=== PATIENT | male | born 1990 | race Caucasian/White ===

== ENCOUNTER → 2018-01-04 10:57 | Outpatient (CLI) | payer BC, SELFPAY ==
[2018-01-04 11:57] LABS: Amphetamine Urine VISTA NEGATIVE (<1000 ng/mL); Barbiturate Urine VISTA NEGATIVE (< 200 ng/mL); Benzodiazepine Urine VISTA NEGATIVE (< 200 ng/mL); Cocaine Urine VISTA NEGATIVE (< 300 ng/mL); Ecstacy Urine VISTA NEGATIVE (< 500 ng/mL); Methadone Urine VISTA NEGATIVE (< 300 ng/mL); PCP Urine VISTA NEGATIVE (< 25 ng/mL); THC Urine VISTA NEGATIVE (< 50 ng/mL); Vista UDS pH Range 5
--- NOTE | 2018-01-04 17:28 | MRI_ITS ---
STUDY: MRI LUMBAR SPINE WITHOUT CONTRAST REASON FOR EXAM: Male, 27 years old. Chronic low back pain for 3 years radiating to hips. TECHNIQUE: Standardized fat and water weighted pulse sequences were obtained in the sagittal and axial planes. COMPARISON: None FINDINGS: T12-L1: Normal endplates. Normal disc height, hydration and morphology. Normal bilateral facet joints. Normal central canal and bilateral lateral recesses. Normal bilateral intervertebral neural foramina. Normal lumbar lordosis. There is no substantial scoliosis. Normal conus medullaris that terminates at the L1-2: Normal endplates. Normal disc height, hydration and morphology. Normal bilateral facet joints. Normal central canal and bilateral lateral recesses. Normal bilateral intervertebral neural foramina. L2-3: Normal endplates. Normal disc height, hydration and morphology. Normal bilateral facet joints. Normal central canal and bilateral lateral recesses. Normal bilateral intervertebral neural foramina. L3-4: Disc desiccation and mild decreased disc space with central to right paracentral disc protrusion resulting in moderate right lateral recess narrowing without significant foraminal narrowing. Mild to moderate spinal canal narrowing at this level is also noted. L4-5: Normal endplates. Normal disc height, hydration and morphology. Normal bilateral facet joints. Normal central canal and bilateral lateral recesses. Normal bilateral intervertebral neural foramina. L5-S1: Decreased disc space and disc desiccation with minimal disc bulge without associated spinal canal narrowing or foraminal narrowing. Normal visualized sacral ala. Normal visualized paraspinous soft tissue structures. MRI/Spine Lumbar (Routine) IMPRESSION: 1. L3/4 degenerative disc changes and central to right paracentral disc protrusion resulting in moderate right lateral recess narrowing and mild to moderate spinal canal narrowing, clinically correlate for right descending L4 nerve root radiculopathy. Electronically Signed: Charanjit Leung DO at 21:18 EDT , Service support ,
== END ==
PROVIDERS: Family Provider Preventive Medicine Occupational Medicine; PCP Preventive Medicine Occupational Medicine; Visit Provider Anesthesiology Pain Medicine
DX: M54.9 Dorsalgia, unspecified (principal); F11.20 Opioid dependence, uncomplicated
CPT/HCPCS: 72148; 80307

== ENCOUNTER → 2018-04-27 13:54 | Outpatient (CLI) | payer BC, SELFPAY ==
[2018-04-27 15:17] LABS: Amphetamine Urine VISTA NEGATIVE (<1000 ng/mL); Barbiturate Urine VISTA NEGATIVE (< 200 ng/mL); Benzodiazepine Urine VISTA NEGATIVE (< 200 ng/mL); Cocaine Urine VISTA NEGATIVE (< 300 ng/mL); Ecstacy Urine VISTA NEGATIVE (< 500 ng/mL); Methadone Urine VISTA NEGATIVE (< 300 ng/mL); PCP Urine VISTA NEGATIVE (< 25 ng/mL); THC Urine VISTA NEGATIVE (< 50 ng/mL); Vista UDS pH Range 5
== END ==
PROVIDERS: Family Provider Preventive Medicine Occupational Medicine; PCP Preventive Medicine Occupational Medicine; Visit Provider Anesthesiology Pain Medicine
DX: F11.20 Opioid dependence, uncomplicated (principal)
CPT/HCPCS: 80307

== ENCOUNTER → 2018-12-06 10:11 | Outpatient (CLI) | payer BC, SELFPAY ==
[2018-12-06 09:59] VITALS: BMI 44.0
--- NOTE | 2018-12-06 10:12 | RAD_ITS ---
STUDY: X-RAY - LEFT KNEE REASON FOR EXAM: Male, 28 years old. Postoperative examination. TECHNIQUE: AP and lateral weightbearing view(s) of the knee. COMPARISON: None. FINDINGS: A metallic prosthesis seen overlying the anterior aspect of the femur. Normal visualized proximal tibia and fibula. Normal proximal tibiofibular articulation. Normal medial femorotibial compartment. Normal lateral femorotibial compartment. There is evidence of postsurgical changes along the undersurface of the patella. Small joint effusion. RAD/Knee 4 or More Views IMPRESSION: Postoperative changes along the undersurface of the patella as well as a focal prosthesis in the anterior aspect of the distal femur. Small joint effusion. Electronically Signed: José Miguel Maurer, at 9:08 EDT , Service support ,
--- NOTE | 2018-12-06 10:12 | RAD_ITS ---
STUDY: X-RAY - RIGHT KNEE REASON FOR EXAM: Male, 28 years old. Pain. TECHNIQUE: 4 view(s) of the knee. COMPARISON: None. FINDINGS: Metallic prosthesis seen along the anterior aspect of the distal femur. 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 Normal visualized proximal tibia and fibula. Normal proximal tibiofibular articulation. Normal medial femorotibial compartment. Normal lateral femorotibial compartment. Postsurgical changes in the undersurface of the patella. Small joint effusion. RAD/Knee 4 or More Views IMPRESSION: Postoperative changes as described. Small joint effusion. Electronically Signed: José Miguel Maurer, at 9:11 EDT , Service support ,
== END ==
LOC: HPRAD 10:12
PROVIDERS: Family Provider Preventive Medicine Occupational Medicine; PCP Preventive Medicine Occupational Medicine; Referring Provider Orthopaedic Surgery; Visit Provider Orthopaedic Surgery
DX: M25.561 Pain in right knee (principal); M25.562 Pain in left knee
CPT/HCPCS: 73564

== ENCOUNTER → 2018-12-21 09:39 | Outpatient (CLI) | payer BC, SELFPAY ==
[2018-12-06 09:59] VITALS: BMI 44.0
[2018-12-21 11:12] LABS: Amphetamine Urine VISTA NEGATIVE (<1000 ng/mL); Barbiturate Urine VISTA NEGATIVE (< 200 ng/mL); Benzodiazepine Urine VISTA NEGATIVE (< 200 ng/mL); Cocaine Urine VISTA NEGATIVE (< 300 ng/mL); Ecstacy Urine VISTA NEGATIVE (< 500 ng/mL); Methadone Urine VISTA NEGATIVE (< 300 ng/mL); PCP Urine VISTA NEGATIVE (< 25 ng/mL); THC Urine VISTA NEGATIVE (< 50 ng/mL); Vista UDS pH Range 6
== END ==
PROVIDERS: Family Provider Preventive Medicine Occupational Medicine; PCP Preventive Medicine Occupational Medicine; Referring Provider Anesthesiology Pain Medicine; Visit Provider Anesthesiology Pain Medicine
DX: F11.20 Opioid dependence, uncomplicated (principal)
CPT/HCPCS: 80307

== ENCOUNTER → 2019-03-02 09:20 | Outpatient (CLI) | payer BC, SELFPAY ==
[2018-12-06 09:59] VITALS: BMI 44.0
[2019-03-02 10:56] LABS: Amphetamine Urine VISTA NEGATIVE (<1000 ng/mL); Barbiturate Urine VISTA NEGATIVE (< 200 ng/mL); Benzodiazepine Urine VISTA NEGATIVE (< 200 ng/mL); Cocaine Urine VISTA NEGATIVE (< 300 ng/mL); Ecstacy Urine VISTA NEGATIVE (< 500 ng/mL); Methadone Urine VISTA NEGATIVE (< 300 ng/mL); PCP Urine VISTA NEGATIVE (< 25 ng/mL); THC Urine VISTA NEGATIVE (< 50 ng/mL); Vista UDS pH Range 6
== END ==
PROVIDERS: Family Provider Preventive Medicine Occupational Medicine; PCP Preventive Medicine Occupational Medicine; Referring Provider Anesthesiology Pain Medicine; Visit Provider Anesthesiology Pain Medicine
DX: F11.20 Opioid dependence, uncomplicated (principal)
CPT/HCPCS: 80307

== ENCOUNTER → 2020-02-27 10:21 | Outpatient (CLI) | payer BC, SELFPAY ==
[2018-12-06 09:59] VITALS: BMI 44.0
[2020-02-27 12:01] LABS: Amphetamine Urine VISTA NEGATIVE (<1000 ng/mL); Barbiturate Urine VISTA NEGATIVE (< 200 ng/mL); Benzodiazepine Urine VISTA NEGATIVE (< 200 ng/mL); Cocaine Urine VISTA NEGATIVE (< 300 ng/mL); Ecstacy Urine VISTA NEGATIVE (< 500 ng/mL); Methadone Urine VISTA NEGATIVE (< 300 ng/mL); PCP Urine VISTA NEGATIVE (< 25 ng/mL); THC Urine VISTA NEGATIVE (< 50 ng/mL); Vista UDS pH Range 6
== END ==
PROVIDERS: PCP Preventive Medicine Occupational Medicine; Referring Provider Anesthesiology Pain Medicine; Visit Provider Anesthesiology Pain Medicine
DX: F11.20 Opioid dependence, uncomplicated (principal)
CPT/HCPCS: 80307

== ENCOUNTER → 2021-01-30 13:56 | Outpatient (CLI) | payer BC, SELFPAY ==
[2021-01-30 14:57] LABS: Amphetamine Urine VISTA NEGATIVE (<1000 ng/mL); Barbiturate Urine VISTA NEGATIVE (< 200 ng/mL); Benzodiazepine Urine VISTA NEGATIVE (< 200 ng/mL); Cocaine Urine VISTA NEGATIVE (< 300 ng/mL); Ecstacy Urine VISTA NEGATIVE (< 500 ng/mL); Methadone Urine VISTA NEGATIVE (< 300 ng/mL); PCP Urine VISTA NEGATIVE (< 25 ng/mL); THC Urine VISTA NEGATIVE (< 50 ng/mL); Vista UDS pH Range 6
== END ==
PROVIDERS: PCP Preventive Medicine Occupational Medicine; Referring Provider Anesthesiology Pain Medicine; Visit Provider Anesthesiology Pain Medicine
DX: F11.20 Opioid dependence, uncomplicated (principal)
CPT/HCPCS: 80307

== ENCOUNTER → 2021-06-26 11:30 | Outpatient (CLI) | payer BC, SELFPAY ==
[2021-06-26 13:09] LABS: Amphetamine Urine VISTA NEGATIVE (<1000 ng/mL); Barbiturate Urine VISTA NEGATIVE (< 200 ng/mL); Benzodiazepine Urine VISTA NEGATIVE (< 200 ng/mL); Cocaine Urine VISTA NEGATIVE (< 300 ng/mL); Ecstacy Urine VISTA NEGATIVE (< 500 ng/mL); Methadone Urine VISTA NEGATIVE (< 300 ng/mL); PCP Urine VISTA NEGATIVE (< 25 ng/mL); THC Urine VISTA NEGATIVE (< 50 ng/mL); Vista UDS pH Range 6
== END ==
PROVIDERS: PCP Preventive Medicine Occupational Medicine; Referring Provider Anesthesiology Pain Medicine; Visit Provider Anesthesiology Pain Medicine
DX: F11.20 Opioid dependence, uncomplicated (principal)
CPT/HCPCS: 80307

== ENCOUNTER → 2021-08-21 13:07 | Outpatient (CLI) | payer BC, SELFPAY ==
[2021-08-21 14:07] LABS: Amphetamine Urine VISTA NEGATIVE (<1000 ng/mL); Barbiturate Urine VISTA NEGATIVE (< 200 ng/mL); Benzodiazepine Urine VISTA NEGATIVE (< 200 ng/mL); Cocaine Urine VISTA NEGATIVE (< 300 ng/mL); Ecstacy Urine VISTA NEGATIVE (< 500 ng/mL); Methadone Urine VISTA NEGATIVE (< 300 ng/mL); PCP Urine VISTA NEGATIVE (< 25 ng/mL); THC Urine VISTA NEGATIVE (< 50 ng/mL); Vista UDS pH Range 5
== END ==
PROVIDERS: PCP Preventive Medicine Occupational Medicine; Referring Provider Anesthesiology Pain Medicine; Visit Provider Anesthesiology Pain Medicine
DX: F11.20 Opioid dependence, uncomplicated (principal)
CPT/HCPCS: 80307

== ENCOUNTER → 2022-04-30 | Outpatient (CLI) | payer BC, SELFPAY ==
[2022-04-30 13:33] LABS: Amphetamine Urine VISTA NEGATIVE (<1000 ng/mL); Barbiturate Urine VISTA NEGATIVE (< 200 ng/mL); Benzodiazepine Urine VISTA NEGATIVE (< 200 ng/mL); Cocaine Urine VISTA NEGATIVE (< 300 ng/mL); Ecstacy Urine VISTA NEGATIVE (< 500 ng/mL); Methadone Urine VISTA NEGATIVE (< 300 ng/mL); PCP Urine VISTA NEGATIVE (< 25 ng/mL); THC Urine VISTA NEGATIVE (< 50 ng/mL); Vista UDS pH Range 5
== END | disposition home or self-care (01) ==
PROVIDERS: PCP Preventive Medicine Occupational Medicine; Referring Provider Anesthesiology Pain Medicine; Visit Provider Anesthesiology Pain Medicine
DX: F11.20 Opioid dependence, uncomplicated (principal)
CPT/HCPCS: 80307

== ENCOUNTER 2023-02-09 08:00 | Outpatient (RCR) | payer BC, SELFPAY ==
--- NOTE | 2023-02-09 10:10 | BH.SGPN.GN ---
Behaviors/Verbalizations/Mental Status: [] Eye contact is good. Motor activity is appropriate. Appearance is casual. Speech is Appropriate. Mood is anxious. Affect is congruent. Thoughts are linear and logical. No evidence of psychosis. Client Response/Progress/Benefit: [] Client's first day in program and is getting adjusted to group environment. Attentive during psychoeducation on the six types of boundaries (physical, emotional, intellectual, sexual, time, and material) AEB note-taking. Group had interactive discussion on defining what a boundary is in mental health. Group identified challenges to setting boundaries which included; fear of hurting others, lack of confidence, not wanting confrontation, fear of upsetting others, and etc. Group identified the benefits to setting boundaries such as better mental health, increase self respect, increased time for self-care, and increased confidence. Group discussed the mental health benefits to establishing boundaries at work, school, and home. Client benefited from increased awareness and insight on the importance/benefit to setting health boundaries. Will continue in IOP to prevent decompensation, stabilize anxiety, and improve functioning. Narrative Note: []
--- NOTE | 2023-02-09 11:43 | BH.MTP ---
[facility] Treatment Plan - Patient Information Program Physician:: Dr. Annie Pruitt Primary Therapist:: BRENNA Le - Psychiatric Diagnoses Psychiatric Diagnoses:: 1. Bipolar, NOS (currently depressed). 2. Generalized anxiety disorder Diagnosis Code(s):: F 31.9 - Estimated LOS Estimated LOS (in weeks):: 6 Problem/Goal #1 - Problem/Goal #1 Stated Goal:: Pt will increase mood stability by reducing hopelessness, worthlessness, guilt, and suicidal ideations. Description of Barriers: Pt reports increased stress related to current housing and financial issues which has triggered increased suicidal ideations. Pt has many negative core beliefs about himself which reinforces mental health stigma, maintains unrealistic expectation of self, and has kept pt from seeking help in the past. Pt has some unresolved complicated grief associated with the loss of both of his parents in the last 5 years which is contributing to his depression and anxiety. Functional Impact: The patient is a 32-year-old male with a history of bipolar disorder and anxiety who presents to the [facility] behavioral health IOP program by outpatient psychiatrist for worsening anxiety and depression over the past 3 months. Shared anxiety has escalated to point of panic and resulted in pt seeking emergency tx through [facility] ED approx. 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 Primary stressors include managing his pain related to chronic knee problems, finances, and impending loss of housing due to foreclosure of his late father?s estate. Sorting through the estate has also been a major stressor. Pt endorses sadness, hopelessness, worthlessness and guilt, low energy, increased sleep, anhedonia, loss of enjoyment, increased appetite, rumination, and constant worry about the future. Patient has been trying to get disability since June 2022 which is an additional stressor. He has a history of chronic back and knee pain and has not worked since 2017 due to this. Goal Relevant Strengths/Supports: Pt is motivated, has outpatient therapy and psychiatry, and has a strong supportive relationship with his . - Objectives Objective #1 Stated Objective: Pt will learn and utilize 2-3 healthy coping strategies to better manage depressive symptoms and reduce suicidal ideations as shown by a decrease of DMS-5 symptoms for depression and SI. Interventions: Through group and individual sessions, therapist will help pt identify triggers and warning signs of depression and guilt including emotional, physical, and behavioral changes. Therapist will teach pt various coping skills to manage symptoms and give pt tangible resources to use to regulate emotions. Therapist will use cognitive restructuring techniques and help pt gain awareness of negative thoughts that reinforce guilt and depression. Therapist will provide psychoeducation on maintenance cycles and help pt learn ways to break unhealthy maintenance cycles. Therapist will help pt incorporate behavioral activation and assist pt in setting SMART goals. Discharge Criteria: Pt will have met this goal when can report learning and using at least 2 coping skills to manage depressive symptoms and reduce isolation. Additionally, pt will have met this goal when pt's DSM-5 scores for depression decrease. Target Date: 03/23/23 Review Date: 03/04/23 Objective #2 Stated Objective: Pt will identify at least 2-3 negative self-talk messages used to reinforce negative core beliefs, worthlessness, and isolation and replace thoughts with balanced, realistic messages. Interventions: Therapist will help pt identify distorted, negative beliefs about self and replace with more realistic, affirmative messages. Therapist will use CBT and DBT to help pt increase insight to the connection between thoughts, emotions, and behaviors. Therapist will encourage pt to practice thought challenging. Discharge Criteria: Pt will have achieved this goal when can verbalize at least 2 cognitive distortions and effectively replace those thoughts with affirmative messages. Target Date: 03/23/23 Review Date: 03/04/23 Problem/Goal #2 - Problem/Goal #2 Stated Goal:: Will reduce intensity of anxiety symptoms through increasing emotional regulation and distress tolerance skills Description of Barriers: Pt reports increased stress related to current housing and financial issues which has triggered increased suicidal ideations. Pt has many negative core beliefs about himself which reinforces mental health stigma, maintains unrealistic expectation of self, and has kept pt from seeking help in the past. Pt has some unresolved complicated grief associated with the loss of both of his parents in the last 5 years which is contributing to his depression and anxiety. Functional Impact: The patient is a 32-year-old male with a history of bipolar disorder and anxiety who presents to the [facility] behavioral health IOP program by outpatient psychiatrist for worsening anxiety and depression over the past 3 months. Shared anxiety has escalated to point of panic and resulted in pt seeking emergency tx through [facility] ED approx. 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 Primary stressors include managing his pain related to chronic knee problems, finances, and impending loss of housing due to foreclosure of his late father?s estate. Sorting through the estate has also been a major stressor. Pt endorses sadness, hopelessness, worthlessness and guilt, low energy, increased sleep, anhedonia, loss of enjoyment, increased appetite, rumination, and constant worry about the future. Patient has been trying to get disability since June 2022 which is an additional stressor. He has a history of chronic back and knee pain and has not worked since 2017 due to this. Goal Relevant Strengths/Supports: Pt is motivated, has outpatient therapy and psychiatry, and has a strong supportive relationship with his . - Objectives Objective #1 Stated Objective: Pt will identify 2-3 anxiety triggers and 2 coping skills to use when feeling anxious to manage anxiety as shown by reducing DSM-5 scores for anxiety Interventions: Therapist will provide education on anxiety, avoidance behaviors, and maintenance cycles. Therapist will help pt explore personal symptoms and warning signs of anxiety. Therapist will teach pt coping skills to improve emotional regulation, mindfulness, and distress tolerance to help pt cope with anxiety in the moment. Discharge Criteria: Pt will have accomplished this goal when he can identify at least 2 triggers and report using 2 coping skills to manage anxiety. Additionally, pt will have accomplished this goal AEB reduction of DSM-5 scores for anxiety. Target Date: 03/23/23 Review Date: 03/04/23 Objective #2 Stated Objective: Pt will increase ability to manage stressors and anxiety by gaining 2-3 distress tolerance skills. Interventions: Through group and individual therapy, pt will learn various coping skills to help manage stress and anxiety. Therapist will utilize DBT distress tolerance skills to increase awareness and give pt tools to more effectively manage anxiety. Therapist will provide psychoeducation on emotional regulation and help pt identify unhealthy coping skills she wants to change. Discharge Criteria: Pt will have accomplished this goal when can report improved ability to manage stressors and identify at least 2 distress tolerance skills. Target Date: 03/23/23 Review Date: 03/04/23
--- NOTE | 2023-02-09 11:43 | BH.PSA ---
Suicide Assessment Treatment Plan Recommendations
--- NOTE | 2023-02-09 11:43 | BH.MDN ---
Multi-Disciplinary Note - Note 45-min Individual Time Started:: 09:00 Date: 02/09/23 Purpose of session/treatment goals addressed:: Purpose of session was to build rapport, identify current symptoms and stressors, gather additional background information, and identify treatment goals for IOP. Eye Contact:: Good Motor Activity:: Appropriate Appearance:: Casual Speech:: Appropriate Mood:: Anxious, Depressed Affect:: Congruent Thoughts:: Linear, Logical, No evidence of hallucinations/delusions noted Staff Interventions:: motivational interviewing, psychoeducation on: - depression maintenance cycle, rapport building, strengths perspective, goal setting Client Response:: Pt responded well to session, open to meeting with therapist. Pt shared he recently was sent to the ED for a panic attack and given Ativan at the time which he had found to be effective. Reports this worked better than other things he had been trying but is aware that it is not a long-term solution and would like to find healthier ways of managing his anxiety and depressive sx. Reports struggling with anxiety for much of his life, particularly social anxiety, but feels his sx have significantly increased in the past 6 months. Pt reported his biggest stressors right now are finances, managing his stepfather?s estate which is at risk of foreclosure, trying to acquire housing, and managing his mental health symptoms. Pt stated his has been a major support for his mental health but pt often struggles with guild and feeling overly dependent on her. Shared this led to pt seeking outpatient counseling and psychiatry in November. Reports this helped for awhile until the bank mentioned foreclosure. 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 Pt reports his ultimate goal for IOP is to ?be a better me? by improving his sense of purpose in life, feel more connected, and to learn how to be less codependent with his . Pt responded well to emotional validation and support from therapist. Risks/Concerns:: Pt denies a hx of or current SI, plan, or intent. Pt is future oriented and motivated. Progress Toward Goals/Plan:: Pt's first day of IOP tx and pt reports being hopeful about treatment. Reports some anxiety about the group environment but willingness to try. Pt currently endorses severe anxiety and depression that is impacting his functioning and relationships. Pt reports lack of motivation, irritability, anxiety, and negative thinking. Pt will continue IOP tx to prevent decompensation, gain healthy coping skills, and improve daily functioning. Time Stopped:: 09:45
--- NOTE | 2023-02-09 14:39 | BH.COMM ---
Communication Note - Communication with Client Communication Note: Met with pt to complete initial paperwork. Reports no changes since intake assessment. Completed [place] Suicide screening which indicates low risk. Does not present as imminent danger due to no hx of or present active SI, contracts for safety, future-oriented, protective factors, and no hx of attempts. Consulted with Dr. Pruitt with plan to admit to IOP level of care with dx F33.2. F41.1
--- NOTE | 2023-02-11 09:00 | BH.SGPN.GN ---
Behaviors/Verbalizations/Mental Status: []Pt alert and oriented, casually dressed and groomed. Eye contact good. Motor activity WNL. Speech within normal limits. Affect congruent, mood anxious and depressed. Thoughts linear, logical, no signs of hallucinations or delusions. Reviewed pt?s symptom tracker and pt denies any active SI, plan, or intent. Client Response/Progress/Benefit: []Client responded well to session AEB listening attentively to peers and sharing thoughts and feelings. Client stated he couldn?t identify any wins because he hasn?t been doing anything. With support from therapist client identified getting to IOP this week as a win. Client stated he is dealing with numerous stressors currently that is negatively impacting his mental health. Client stated his family has to move out of his parents house because the savings account from his dad has ran out and they can?t afford to pay the missed payments. Client reported he is having difficult time cleaning out his parents house because of all the memories and grief that is brought up. He stated they are also having a difficult time finding an apartment that is affordable and accepts pets. Client seemed to benefit from support from peers. Will continue IOP tx to increase healthy coping, decrease anxiety, and prevent decompensation.
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
--- NOTE | 2023-02-11 11:12 | BH.SGPN.GN ---
Behaviors/Verbalizations/Mental Status: []Eye contact is good. Motor activity is appropriate. Appearance is casual. Speech is WNL. Mood is depressed and anxious. Affect is congruent. Thoughts are linear and logical. No evidence of psychosis. Client Response/Progress/Benefit: []Pt did well to remain an engaged participant AEB providing input during small group discussion and engaging in activity. Activity involved working with peers to answer questions related to psychoeducation on cognitive distortions and practicing reframing distorted thoughts. Pt collaborated with the group to determine the answers. Identified cognitive distortions pt personally struggles with the most as labelling, personalization, and emotional reasoning. Able to identify the impact distortions has on pt?s mental health. Benefited from rehearsing ways to challenge/reframe cognitive distortions and by gaining increased insight into examples/definitions of 10 most common cognitive distortions. Will continue IOP to improve anxiety management, challenge distorted thought patterns, and prevent decompensation. Narrative Note: []
[2023-02-11 11:35] VITALS: BP 151/92; PULSE 116
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
--- NOTE | 2023-02-11 13:04 | BH.DR.ITP ---
Initial Treatment Plan Patient Information Visit Information: ADMISSION DATE: EXPECTED LOS: 4-6 weeks Problems/Symptoms Problem #1:: Mood instability Symptom:: Depression, sadness, hopelessness, worthlessness, guilt, low energy, anhedonia, occasional impulsivity and grandiosity Problem #2:: Anxiety Symptom:: Worry, rumination, panic attacks
--- NOTE | 2023-02-13 09:05 | BH.SGPN.GN ---
Behaviors/Verbalizations/Mental Status: []Pt alert and oriented, disheveled appearance. Eye contact good. Motor activity appropriate. Speech within normal limits. Affect flat, mood depressed and anxious. Thoughts linear, logical, no signs of hallucinations or delusions. Reviewed pt?s symptom tracker, no risk for suicidal ideation, plan, or intent as of 02/13/23 Client Response/Progress/Benefit: []Pt responded well to session, attentive and engaged. Pt reports feeling stressed this morning because of packing and figuring out where his family is going to move. Group offered supportive statements that pt appeared to benefit from. Pt stated his mental health wins today are using opposite action to make an important phone call and getting out of the house with his and child to get ice cream. Pt appeared to benefit from peer feedback and social connection. Pt will continue IOP tx to prevent decompensation, combat distortions, and improve daily functioning. Narrative Note: []
--- NOTE | 2023-02-13 10:15 | BH.SGPN.GN ---
Behaviors/Verbalizations/Mental Status: []Pt alert and oriented, disheveled appearance. Eye contact good. Motor activity appropriate. Speech within normal limits. Affect congruent, mood anxious. Thoughts linear, logical, no signs of hallucinations or delusions. Client Response/Progress/Benefit: []Pt was an active participant in group discussions and activities. Attentive during psychoeducation. Pt engaged during interactive discussion in which the group defined self-care and discussed its benefits. ?Pt shared when he is not practicing self-care he becomes more grouchy. Worked with peers in a small group to identify myths related to self-care. Pt identified personal barrier of telling himself that he does not deserve it and that it is selfish which keeps pt from practicing self-care. Pt participated in small groups where they worked to bust these self-care myths. Benefited from increased awareness of self-care, its benefits, and the consequences of not utilizing self-care strategies. Will continue IOP tx to prevent decompensation, gain healthy coping skills, and reduce isolation. Narrative Note: []
--- NOTE | 2023-02-13 11:10 | BH.SGPN.GN ---
Behaviors/Verbalizations/Mental Status: []Pt alert and oriented, casually dressed and groomed. Eye contact fair. Motor activity appropriate. Speech within normal limits. Affect constricted, mood depressed and anxious. Thoughts linear, logical, no signs of hallucinations or delusions. Client Response/Progress/Benefit: []Pt engaged participant AEB providing input at times and listening attentively to others. . Participated in group discussion on the various areas of self-care. Pt completed worksheet identifying current self-care practices and what self-care activities pt wants to start using. Pt selected emotional self-care to begin practicing more consistently. Pt plans to do this by engaging in his hobbies and expressing his emotions more often. Appeared to benefit from completing the self-care evaluation and gaining insights into current self-care practices, as well as identifying areas in which pt would like to improve upon.?Pt is to continue IOP to improve daily functioning, increase healthy coping and prevent decompensation.
--- NOTE | 2023-02-16 10:10 | BH.SGPN.GN ---
Behaviors/Verbalizations/Mental Status: []Pt alert and oriented, casually dressed and groomed. Eye contact good. Motor activity appropriate. Speech within normal limits. Affect constricted, mood anxious and depressed. Thoughts linear, logical, no signs of hallucinations or delusions. Client Response/Progress/Benefit: []Pt was an active participant in group discussion and activity. Attentive during psychoeducation. Along with peers, pt was able to identify barriers to taking action. Identified several symptoms and stressors that he feels are holding him back from progress such as negative self-talk, low motivation, depression, and telling himself ?I?m not good enough?.? Stated these things have kept pt from making healthy changes, assuming things will never ?get better? and led to further isolation and avoidance. Pt shared that he wants to begin addressing the impact negative self-talk has had on his ability to take action. Benefited from increased self-awareness of obstacles. Will continue IOP tx to improve mood management, promote consistent skill application, and further reduce negative thinking. Narrative Note: []
--- NOTE | 2023-02-16 11:05 | BH.SGPN.GN ---
Behaviors/Verbalizations/Mental Status: []Pt alert and oriented, disheveled appearance. Eye contact good. Motor activity appropriate. Speech within normal limits. Affect congruent, mood depressed. Thoughts linear, logical, no signs of hallucinations or delusions. Client Response/Progress/Benefit: []Pt responded well to session, taking notes and participating in worksheet discussion. Pt connected with the zones of action/change and that making sustainable change comes from stepping out of one?s comfort zone into the learning zone. Pt set a goal to gain control over his negative self-talk. Pt reported plans to challenge himself to write one positive affirmation or good quality he has each day. Pt identified using journaling, Socratic questioning, and talking with his supports. Appeared to benefit from identifying a small goal to benefit mental health. Will continue IOP tx to prevent decompensation, gain healthy coping skills, and improve daily functioning. Narrative Note: []
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
--- NOTE | 2023-02-18 09:00 | BH.SGPN.GN ---
Behaviors/Verbalizations/Mental Status: []Pt alert and oriented, disheveled appearance. Eye contact good. Motor activity appropriate. Speech within normal limits. Affect congruent, mood depressed and anxious. Thoughts linear, logical, no signs of hallucinations or delusions. Reviewed pt?s symptom tracker, no risk for suicidal ideation, plan, or intent as of 02/18/23 Client Response/Progress/Benefit: []Pt responded well to session, attentive and receptive to group feedback. Pt reports feeling scared this morning as pt continues to feel overwhelmed about all the stressors in his life. Pt is currently coping with grief, having to move, getting rid of his parents' things, and managing his mental health. Pt receptive to peer support and ideas on how to cope with the stressors of moving. Pt stated that being here today is a mental health win because I had a bad week. Pt appeared to benefit from socializing today and processing his emotions. Pt will continue IOP tx to prevent decompensation, improve daily functioning, and increase self-care. Narrative Note: []
--- NOTE | 2023-02-18 14:29 | BH.MDN_ITS ---
Multi-Disciplinary Note - Note 60-min Individual Time Started:: 10:30 Date: 02/18/23 Purpose of session/treatment goals addressed:: Purpose of session was to check- in with pt as he abruptly left group session appearing tearful. Discussed importance of self-care and introduced mistaken beliefs. Eye Contact:: Good - tearful throughout Motor Activity:: Appropriate Appearance:: Casual Speech:: Appropriate Mood:: Anxious, Depressed Affect:: Congruent Thoughts:: Linear, Logical, No evidence of hallucinations/delusions noted Staff Interventions:: thought challenging, motivational interviewing, psychoeducation on: - mistaken beliefs, self-care, strengths perspective, completed risk assessment / safety planning Client Response:: Pt reports that he is feeling more depressed than usual today and is unsure of why. Shared meeting with his outpatient therapist yesterday and noted that these sessions often focus on addressing his anxiety rather than depressive sx. Pt reports he is continuing to feel overwhelmed by the stress of going through his parent?s belongings and finding alternative housing for himself and his family. Shared he has started to make progress with sorting through the estate; however, has been experiencing an influx in guilt as he feels responsible for his family?s current situation. Additionally, discussed guilt and feelings of worthlessness surrounding his role in the household. Shared that although he knows being a ?[id number] dad? is saving money on daycare, he feels he is not contributing enough. Reports that he often experiences shame for not working and believes that stems back to what he was taught is from a young age. Described being told that men should take care of their families and that his parents often expressed disapproval and minimized pt?s physical issues preventing him from working. Receptive of discussion on mistaken beliefs and impact of these beliefs on thoughts/feelings/beliefs about self and the world as an adult. Went on to describe struggling with wanting to do anything recently and feeling disconnected from his son throughout the day. Shared beliefs that he ?should? want to spend time with his son and feels like he is failing as a parent when he does not enjoy it. Upon further exploration, pt revealed spending time with his son throughout the day everyday as well as often cares for him for awhile after his gets home from to provide her with time for self-care. Denies having others help care for his son as he feels if he is not working then he ?should? be the one doing it. Apprehensive but receptive of gentle challenging to consider scheduling time throughout the week for someone else to take on childcare in order for pt to begin a self-care routine of his own. Reports willingness to reach out to his to discuss a need for pt to have some time for himself throughout the week. Risks/Concerns:: Denies active suicidal ideations, plan, or intent as of 02/18/23. Future oriented and protective factors noted. Progress Toward Goals/Plan:: Limited progress noted and pt has several immediate stressors significantly impacting his anxiety levels and reinforcing inappropriate guilt and associated negative core beliefs. Reports struggling with feelings of worthlessness and being a burden which makes it difficult for pt to believe he deserves time to practice self-care. Reports being motivated and responded well to discussion on identifying core mistaken beliefs and discussing self-care needs with his . Will continue IOP tx to improve mood stability and distress tolerance, as well as prevent decompensation and improve ability to function. Time Stopped:: 11:26
--- NOTE | 2023-02-24 09:05 | BH.SGPN.GN ---
Behaviors/Verbalizations/Mental Status: [] Eye contact is good. Motor activity is appropriate. Appearance is disheveled. Speech is Appropriate. Mood is depressed. Affect is flat. Thoughts are linear and logical. No evidence of psychosis. Reviewed daily check in sheet and no reports of suicidal ideations or intent. Client Response/Progress/Benefit: [] Pt participated when prompted. Attentive. Daily symptom tracker notes 3/5 for anxiety and irritability. 2/5 for depression. Mental health win was self-care over the weekend. Communicate to his the need for some free time away from childcare. They had a night by the [employer] on Thursday night which was beneficial. He also utilized opposite-action and attended a family event which he states helped with social interaction, distraction, and physical activity. Insight that by practicing assertive communication, advocating for his needs, and by engaging with others his mood improved. Benefited from group support, encouragement, and feedback. Will continue in IOP to maintain safety, stabilize mood, increase healthy coping, and prevent decompensation. Narrative Note: []
--- NOTE | 2023-02-24 11:10 | BH.SGPN.GN ---
Behaviors/Verbalizations/Mental Status: []Client alert and oriented, casually dressed and groomed. Eye contact good. Motor activity appropriate. Speech within normal limits. Affect congruent, mood depressed and anxious. Thoughts linear, logical, no signs of hallucinations or delusions. Client Response/Progress/Benefit: []Client responded well to session, engaged and taking notes. Worked with group to identify characteristics of healthy and unhealthy relationships. Attentive during psychoeducation about characteristics of healthy, unhealthy, and abusive relationships. Client identified healthy areas of a current relationship to include: supporting each other?s interests, feel emotionally validated, and have equal say in the decision making. Shared wanting to work on addressing his over reliance on this relationship by reaching out to others and expanding his current supports in order to begin expanding overall emotional support system. Appeared to benefit from identifying areas they are doing well in as well as areas client wants to work on to build healthier relationships. Client to continue IOP to increase healthy coping, improve daily functioning, and prevent decompensation. Narrative Note: []
--- NOTE | 2023-02-25 10:10 | BH.SGPN.GN ---
Behaviors/Verbalizations/Mental Status: []Eye contact is good. Motor activity is appropriate. Appearance is casual. Speech is Appropriate. Mood is depressed and anxious. Affect is congruent. Thoughts are linear and logical. No evidence of psychosis. Client Response/Progress/Benefit: []Pt was attentive throughout group discussion and experiential activity, though remaining mostly passive throughout. Actively listening and taking notes during psychoeducation on resilience. Participated in interactive discussion with peers on the definition of resilience and where it comes from. Pt shared that resilience reminds him of the ability to ?adapt? to new or unexpected situations. Group identified that resiliency can be impacted by; past experiences, learned behaviors, and current mental health state. Pt noted a ?closed mindset? can impede resilience. Group also worked together to identify the benefits of being resilient and how it is related to mental health. Able to relate experiential activity of group juggle to topics of resilience. Worked well with peers in small group in which they identified factors that contribute to resilience. Benefited from increased awareness of resilience and the factors that contribute to building resilience. Will continue in IOP to prevent decompensation and further promote mood stability, as well as improve ability to manage daily living stressors and implement increased self-care activities. Narrative Note: []
--- NOTE | 2023-02-25 11:10 | BH.SGPN.GN ---
Behaviors/Verbalizations/Mental Status: []Pt alert and oriented, disheveled appearance. Eye contact good. Motor activity appropriate. Speech within normal limits. Affect flat, mood depressed. Thoughts linear, logical, no signs of hallucinations or delusions Client Response/Progress/Benefit: []Pt responded well to session AEB completing the resilience worksheet provided. Pt participated in the discussion and worked cooperatively with group to identify strategies to enhance each of the components discussed. Pt reports belief they already use resilience trait of??making connections.? Pt shared he used this trait to reach out for help at IOP. Pt stated they would like to continue to develop resilience trait of ?nurturing a positive view of self?. Pt seemed to benefit from discussing strategies for improving personal resilience and identifying resilience traits pt already possesses. Progress limited in symptom reduction, but pt is consistently attending IOP sessions. Will continue IOP tx to prevent decompensation, improve daily functioning, and gain healthy coping skills. Narrative Note: []
--- NOTE | 2023-02-25 12:28 | BH.MDN_ITS ---
Multi-Disciplinary Note - Note 45-min Individual Time Started:: 09:10 Date: 02/25/23 Purpose of session/treatment goals addressed:: Purpose of session was to review mistaken beliefs and self-care homework. Additional goal was to provide psychoeducation on depression maintenance cycles and begin identifying small self-care goals for addressing cycle of depression. Eye Contact:: Good Motor Activity:: Appropriate Appearance:: Casual - wearing same clothing as previous date Speech:: Appropriate Mood:: Anxious, Depressed Affect:: Congruent Thoughts:: Linear, Logical, No evidence of hallucinations/delusions noted Staff Interventions:: motivational interviewing, psychoeducation on: - depression maintenance cycles, behavior activation, strengths perspective, goal setting - identified small self-care goal for the week, other - reviewed mistaken beliefs homework Client Response:: Pt receptive of session and actively engaged throughout. Reports that he had been able to talk with his about feeling ?burnt out? and his need for more consistent self-care time. Notes that his [id number]-umm agreed to take their son for the weekend which gave them time to spend together, as well as accomplish sorting through part of his parent?s estate. Some concern that he may have been experiencing sx of ezio as he felt more motivated and energized to complete several tasks, despite only sleeping for 2 hours the night before. Pt is scheduled to meet with the program psychiatrist today and will follow-up on these concerns. Went on to share that he was able to discuss with his the possibility of scheduling set time for himself each week to prevent ongoing caregiver burnout. Pt shared feeling both relieved and somewhat nervous about this as he is unsure of how to spend his free time. Disclosed having difficulties being alone for much of his life and often finds he is ?in my own head a lot? when by himself. Additionally, reports that although he knows self- care is necessary, he struggles with feeling guilty about prioritizing his needs. Provided insight that this may stem from some of the mistaken beliefs he developed throughout his childhood. Shared that he had always been taught that self-care/relaxation is to be earned and that struggling with mental health issues is something shameful and should be hidden/not talked about. Receptive of discussion on how the core beliefs contribute to maintaining depressive sx, specifically self-deprecation and the impact on his behavior patterns. Shared wanting to instill healthier beliefs and values in his son and identified the importance of modeling these behaviors in his own actions and self-talk. Shared not knowing where to start with self-care as he is unsure of who he is/what he enjoys outside of being a father and . Discussed starting small with beginning to incorporate things that can bring about small moments of jazmín throughout the day as he works towards identifying personal hobbies/interests. Identified music as a major source of jazmín in his life and created a goal to create a positive music playlist he can listen to when recognizing warning signs/symptoms of depression. Risks/Concerns:: Denies active suicidal ideations, plan, or intent as of 02/25/23. Future oriented and protective factors noted. Progress Toward Goals/Plan:: Some progress noted. Pt reports following through with goal to discuss self-care needs with his and shared taking time to engage in self-care over the weekend. Additionally, identified weekly time for continued self-care. Pt reports improved energy over the weekend with some concerns of experiencing manic sx during this time. Will continue to monitor. Insight into early warning signs for depression and receptive of identifying in the moment skills and self-talk statements to prevent sx worsening. Continues to struggle with significant negative core beliefs impacting self-worth and reinforcing depressive sx. Continues to reports low motivation, lack of interest, and feeling depressed much of the time. Reports willingness to begin working on implementing self-care activities into regular schedule. Will continue IOP tx to improve mood stability and self-esteem, as well as prevent decompensation and improve ability to function. Time Stopped:: 09:54
--- NOTE | 2023-02-25 12:37 | PCM.BH.PN_ITS ---
Progress Note Progress Note: History of Present Illness/Interim History: The patient is a 32-year-old male with a history of bipolar disorder and anxiety who is seen in follow-up at the [facility] behavioral health IOP program. I last saw the patient 2 weeks ago and at that time we began weaning his Effexor in order to decrease the possibility that it could increase his cycling on also because it did not seem to be helping his depression. The patient has weaned it as directed and will take his last dose today. He has not noticed any change in his depression and anxiety. They are about the same and he still feels guilty that he feels like a burden to his . He states that he feels he had a hypomanic episode over the weekend 3 days ago. He got only 2 hours of sleep for 1 night and felt fantastic. He was able to get a lot done later that day but then he crashed and started to sob and felt very depressed. He continues to feel worthlessness, hopelessness. He denies passive thoughts of , suicidal ideation, homicidal ideation, plan for suicide, thoughts of self-harm, hallucinations or delusions. No panic attacks. He is still looking for a new place to live and is stressed by this. He feels he is learning valuable skills in the IOP program and is enjoying the social interaction. Discussed the results of his kidney lab function which show that he has normal renal function. Current Psychiatric Medications: [] Abilify 20 mg p.o. daily, Lamictal 100 mg p.o. daily; hydroxyzine 50 mg p.o. twice daily; XTamPZA(opiate) 18 mg twice dailyfor chronic pain; BuSpar 15 mg twice daily; lorazepam 1 mg p.o. as needed but has only been on this for few weeks. Mental Status Examination: [] The patient is a 32-year-old obese male who appears tall but normal for stated age and is casually dressed and groomed. He is mildly malodorous but it is 87 degrees outside. He is ambulatory with a normal gait and has no psychomotor agitation or retardation. He is cooperative and pleasant during the interview. Eye contact is good and speech is regular rate and rhythm and fluent with no pressure. Mood is depressed. Affect is constricted. Thought process is goal-directed and organized. Thought content: There is no evidence of passive thoughts of , suicidal ideation, plan for suicide, homicidal ideation, hallucinations, delusions or ezio. Reality testing is intact. Judgment is intact. Impulsivity is moderate. Insight is fair. Diagnoses: [] 1. Bipolar, NOS 2. Generalized anxiety disorder 3. Chronic knee and back pain 4. Primary support, housing and work issues Plan: [] The patient will continue the IOP program at [facility] as the structure, support, education, and group therapy will hopefully prevent worsening of the patient's symptoms. The patient felt safe during the interview and if it anytime he does not feel safe he will let us know or go to the emergency room. The risk, side effects, options and possible complications of the medications were discussed with the patient and he understands and accepts these. Discussed with the patient that because he is on Mobic I will not start lithium as Mobic will increase the levels of lithium. We will observe the patient after we discontinue the Effexor today and see if his cycling decreases when the Effexor is out of his system. If his depression remains we will consider other options such as adding a medication that treats bipolar depression. Lamictal could also be increased but this will not treat the current episode however it might prevent depression better than the current dose. I will see the patient in follow-up in 2 weeks after weaning the Effexor and he will continue to follow-up with his outpatient providers.
== END 2023-02-25 23:59 ==
LOC: BHIOP 08:00
PROVIDERS: PCP Preventive Medicine Occupational Medicine; Referring Provider Psychiatry & Neurology Psychiatry; Visit Provider Psychiatry & Neurology Psychiatry
DX: F31.9 Bipolar disorder, unspecified (principal); F41.1 Generalized anxiety disorder
CPT/HCPCS: S9480; 90834; 90837; 90853

== ENCOUNTER 2023-02-26 07:43 | Outpatient (RCR) | payer BC, SELFPAY ==
[2023-02-26 00:48] VITALS: BP 151/92; PULSE 116
--- NOTE | 2023-02-27 09:00 | BH.SGPN.GN ---
Behaviors/Verbalizations/Mental Status: [] Eye contact is poor. Motor activity is appropriate. Appearance is disheveled. Speech is Appropriate. Mood is depressed. Affect is flat. Thoughts are linear and logical. No evidence of psychosis. Reviewed daily check in sheet and pt reports 3/5 for suicidal thoughts and 1/5 for intent. Therapist checked in with patient after group. Client Response/Progress/Benefit: [] Pt did not participate in group discussions. Disengaged. Declined to shared. Daily symptom tracker notes 5/5 for depression, 4/5 for irritability, and 2/5 for anxiety. Limited benefit from group. Therapist will meet with patient after group for risk assessment. Narrative Note: []
--- NOTE | 2023-02-27 11:22 | BH.MDN_ITS ---
Multi-Disciplinary Note - Note 60-min Individual Time Started:: 10:00 Date: 02/27/23 Purpose of session/treatment goals addressed:: Pt requested to speak with a therapist this AM stating he wasn't doing well. Reviewed daily symptom tracker which noted 3/5 for suicidal thoughts (thoughts of killing self or not being in existence) and 1/5 for intent. Eye Contact:: Fair Motor Activity:: Appropriate Appearance:: Disheveled Speech:: Appropriate Mood:: Depressed Affect:: Flat Thoughts:: Linear, Logical, No evidence of hallucinations/delusions noted Staff Interventions:: completed risk assessment / safety planning Client Response:: Pt was tearful initially during session. Shared that his negative automatic thoughts were very intense yesterday night. He reports that he began to ruminate on his current health issues and had a thought while listening to his favorite band I'm never going to be able to see them live b/c I can't stand for long periods. According to patient this opened the door to a number of negative automatic thoughts that he is worthless, a burden to his family, and doesn't contribute to society. His mood continued to decompensate throughout the evening. Admits to suicidal ideations. States that he never developed a plan or intent, however I kept thinking that I would be better off reports fleeing thought that he should kill himself, however again never identified any specific plan or intent. He attempted self-distraction however this was not helpful. He also reached out to his via text (she was at work). Ultimately he was able to fall asleep. Mood improved when arrived home from work. Pt reports over the past several years I often get bad like this referring to suicidal ideations. Admits that he minimized his history of SI at admission and did present to [facility] on 01/27/23 for suicidal ideations. is very supportive and often is very beneficial when he has suicidal thoughts. In the past she has left work to come home however last night was not as bad as before so she did not leave work. He is fearful that he will be involuntarily admitted if he reports SI to staff which is why he minimizes. Currently denies active suicidal ideations, plan, or intent. He reports thoughts of , not wanting to exist, and survival ambivalence. Protective factors are his child, , and dog. I could never do that to my son. Reports that he can keep himself safe stating I'm not going to do anything. We developed a safety plan for this weekend which involved internal coping skills, external activities, affirmations, and support/crisis contacts. His is going to be off work all weekend and she is aware of his struggles I always go to her when I struggle. Struggles most when alone. No access to firearms in the house (guns are over this [id number]). Pt was smiling and hopeful towards the ends of the session. Future-oriented for activities over the weekend. Responds well to therapist challenging and reframing negative automatic thoughts/cognitive distortions. Also introduced positive psychology skills by focusing on his resilience traits as he has overcome several stressors in his life which he responded well. Risks/Concerns:: Denies active suicidal ideations, plan, or intent. Pt admits to suicidal ideations last evening however no specific plan or intent. This AM reports SI has decreased and are current passive thoughts of , not wanting to be in existence, and survival ambivalence Better off . Reports that he can keep himself safe. Protective factors. Future-oriented. No hx of suicide attempts. Deterrents reported. Frequency and duration of suicidal thoughts have decreased considerably since last evening. After meeting with therapist and processing/challenging negative thoughts he reports improve mood. Smiling for last 30 minutes of session reports this was very helpful. Does not present as imminent danger to self due to no active SI, plan, or intent. Pt does not wish to pursue voluntary admission. Suicidal ideations occurred last evening in the context of being alone and overwhelmed with negative thoughts. Thoughts this AM were passive and involved not wanting to exist and were not active thoughts to kill himself. His will be with him all weekend and along with therapist identified crisis management strategies and social opportunities this weekend. Progress Toward Goals/Plan:: Pt has been consistent with IOP however limited engagement in groups mainly due to depressive symptoms and being shy. Pt was not engaged in group this AM. Overall progress has been sporadic. Last weekend and early this week his mood was improving up until last evening. Hx of rapid cycling and program psychiatrist is currently working with patient to decreased cycling. Admitted to minimizing long-standing fleeting SI and survival ambivalence for fear of being involuntarily admitted. Praised him for his honestly this AM and we developed a plan to continue to address depressive symptoms which increased hope for progress. Decreased stigma and mistaken beliefs about mental health hospitalization which was beneficial. Plan is to continue in IOP to maintain safety, increase healthy coping, and prevent decompensation. Time Stopped:: 11:15
--- NOTE | 2023-03-03 10:10 | BH.SGPN.GN ---
Behaviors/Verbalizations/Mental Status: []Pt alert and oriented, casually dressed and poorly groomed. Eye contact fair. Motor activity appropriate. Speech within normal limits. Affect constricted, mood depressed. Thoughts linear, logical, no signs of hallucinations or delusions. Client Response/Progress/Benefit: []Pt appeared to listen attentively to peers and discussion, limited input. Worked with group to brainstorm the positive and negative aspects of stress on physical and mental health. Group did well to identify the benefits of stress as well as the impact of distress on performance, relationships, and mental health. Pt identified their personal top stressors as: physical health, cleaning out his house, and needing to find new housing. Pt seemed to benefit from increased awareness of current stressors and impact stress has on mental health. Recommended to continue IOP tx to improve emotion regulation, increase healthy coping skills, and prevent decompensation.
--- NOTE | 2023-03-03 11:10 | BH.SGPN.GN ---
Behaviors/Verbalizations/Mental Status: []Eye contact is good. Motor activity is appropriate. Appearance is casual. Speech is Appropriate. Mood is anxious and depressed. Affect is congruent. Thoughts are linear and logical. No evidence of psychosis. Client Response/Progress/Benefit: []Pt was an active participant in group discussions and experiential activity. Attentive during psychoeducation on the 4 A's (Avoid, adapt, alter, accept) of coping with stress as well as strategies to identify stressors in which one has no control, little control, or a great deal of control over. Shared that he would benefit most from working on accept in regards to coping with stress of his physical limitations due to knee issues. Was able to identify the connection between the experimental activity and utilization of stress management skills. Benefited from increased awareness of stress management strategies. Will continue in IOP to maintain safety, prevent decompensation, and to increase healthy coping skills. Narrative Note: []
--- NOTE | 2023-03-03 14:57 | BH.MDN_ITS ---
Multi-Disciplinary Note - Note 30-min Individual Time Started:: 09:15 Date: 03/03/23 Purpose of session/treatment goals addressed:: Purpose of session was to address ongoing sx and stressors maintaining depression and impeding consistent tx progress. Eye Contact:: Good - tearful at times throughout Motor Activity:: Appropriate Appearance:: Casual Speech:: Appropriate Mood:: Anxious, Depressed Affect:: Congruent Thoughts:: Linear, Logical, No evidence of hallucinations/delusions noted Staff Interventions:: thought challenging, motivational interviewing, psychoeducation on: - behavior activation, values exploration, strengths perspective Client Response:: Pt receptive of session and actively engaged throughout. Reports that he met with another program therapist Thursday while this therapist was out due to experiencing increased suicidal ideation the night before. Shared that he had been listening to music that he typically finds enjoyable as discussed in last session. This had been enjoyable for a short period of time until pt began to find his thoughts wonder and become self-critical in nature. Described experiencing ?an overwhelming sense of dread? and thoughts of ?I?m a failure? and ?my family would be better off without me?. Noted that these thoughts improved over the weekend as his was home and he felt less alone. Pt reports often relying on his to help reduce his depression and calm him when feeling overwhelmed, which helps in the moment but later results in increased guilt and feeling like a burden. Shared creating a goal in session Thursday to engage in an activity he enjoys by going fishing with his and son following group that day. Pt reported attempting to follow-through with fishing, though chose to do so alone. Described getting lost while trying to find his fishing spot which had aided in providing healthy distraction; however, upon arriving at the spot and settling into fishing he found his thoughts again began to focus on self-criticism and feelings of worthlessness and hopelessness. Shared leaving after 15 minutes or so. Expressed some beliefs that discontinuing Effexor in the past week may be contributing to increased depressive sx. Did well to connect with impact different activities can have on maintaining depression sx or increasing vulnerability to negative thinking. Recognized that already being in a negative headspace and doing a solo, more reflective activity such as fishing may have increased the likelihood his thoughts drift to unhelpful places. Connected with beginning discussion on behavior activation and concepts of ?down? vs ?up? activities. Shared struggling to know what activities to do throughout the day and often feels purposeless. Receptive of discussion on values exploration and importance of finding activities in line with his values to increase sense of connection and purpose. Willing to complete behavior activation values exploration worksheet for homework. Risks/Concerns:: Continues to report intrusive thoughts of , hopelessness and worthlessness. Denies active suicidal ideations, plan, or intent as of 03/03/23. Future oriented and protective factors noted. Reports ability to maintain safety and willing to utilize crisis resources available if needed. Progress Toward Goals/Plan:: Limited progress noted. Pt reports trying to follow through with goal to engage in self-care; however, continues to struggle with intrusive thoughts and negative self-talk impeding consistent engagement in self-care activities. Pt reports limited motivation, low energy, and difficultie s feeling connected or able to enjoy daily activities. Pt discusses not knowing who he is or what he wants out of life which often reinforces doubt that self- care skills and coping activities will be successful. Receptive of exploring different activities he may enjoy and finding ways to connect with his value of community involvement. Continues to struggle with significant negative core beliefs impacting self-worth and reinforcing depressive sx. Will continue IOP tx to improve mood stability and self-esteem, reduce suicidal ideation and maintain safety, as well as prevent decompensation and improve ability to function. Time Stopped:: 09:45
--- NOTE | 2023-03-04 08:26 | BH.MTP_ITS ---
Treatment Plan Review Date of Admission:: 02/09/23 Date of Treatment Plan Review:: 03/04/23 Admitting Diagnoses:: 1. Bipolar, NOS (currently depressed). 2. Generalized anxiety disorder Current Diagnoses:: 1. Bipolar, NOS (currently depressed). 2. Generalized anxiety disorder Patient's Response to Treatment:: Pt has been receptive to treatment AEB pt consistently attending IOP sessions and prevention of further decompensation. Pt overall DSM-5 scores have remained consistent since IOP admission; however scores for depression and anxiety have shown a slight reduction of symptoms since admission. Pt's depression has decreased by 15% since admission and anxiety has decreased by 11%. Pt's suicidal ideations have not decreased since admission, but pt does admit to minimizing level of suicidal ideation at time of admission. Pt does continue to report ability to manage these thoughts and has no active SI. Pt's engagement in group and individual sessions is variable and depends on pt's mood for the day. Pt has been able to prevent rehospitalization and has improved engagement in self-care since admission. Pt is more receptive to thought challenging than at start of tx. Status of Current Problems and Symptoms: Pt's symptoms are ongoing, but his anxiety and depression is gradually decreasing per DSM-5. Pt's biggest stressor is managing his late father?s estate, lack of purpose, and finding affordable housing for his family. This continues to be highly stressful and unpredictable for pt which triggers suicidal ideations and reinforces negative core beliefs about self/sense of worth. Pt reports ongoing negative thinking patterns, ruminations, chronic SI that is fleeting and no active SI, panic, and hopelessness. Pt has limited supports and still does not enjoy doing much and has few hobbies which reinforces hopelessness and depression. Problem #1 Problem Name:: Depression, chronic SI, hopelessness, worthlessness, and anhedonia Status of Goals:: Objective 1-complete with ongoing work encouraged. Pt?s DSM-5 scores for depression has decreased by 15% since admission but pt's scores for SI have not decreased since admission. Pt can identify healthy coping skills such as listening to music, fishing, playing video games, and challenging thoughts. Pt has a lot of stressors with housing, finances, and cleaning his father?s estate which often trigger SI, so ongoing work is recommended. Objective 2- in progress. Pt has practiced cognitive reframing and pt can identify some mistaken beliefs which reinforce depression and contribute to jessica y distorted thought patterns. Pt struggles to challenge thoughts without the help of support but he is receptive to continuing to work on this. Team Recommendations:: Treatment team encourages pt to continue working on these goals to reinforce healthy coping skills, increase ability to combat distortions, and improve self-compassion and self-care. Therapist continues to encourage pt to build his support system and find hobbies and activities he enjoys. Problem #2 Problem Name:: Anxiety, low distress tolerance, panic Status of Goals:: Objective 1- in progress. Pt has learned about the different kinds of distress tolerance/grounding skills and has gained awareness of behaviors reinforcing his anxiety, though struggles with recognizing when he is engaging in these activities/thought patterns. Pt has been able to prevent rehospitalization. Pt continues to struggle when his supports are gone/not available. Objective 2-in progress. Pt?s anxiety has decreased by 11% since admission, but pt still sees himself as unable to support his family or effectively manage stress which then triggers suicidal ideations and feelings of hopelessness, worthlessness, and purposelessness. Team Recommendations:: Treatment team encourages pt to continue working on this goal as pt's anxiety has decreased some since admission, but he continues to struggle with building distress tolerance skills. Pt's current living environment and lack of hobbies/sense of purpose is a significant stressor and trigger for pt and pt is open to hobby/value exploration, as well as is looking for alternative housing options.
--- NOTE | 2023-03-04 09:00 | BH.SGPN.GN ---
Behaviors/Verbalizations/Mental Status: [] Eye contact is good. Motor activity is appropriate. Appearance is casual. Speech is Appropriate. Mood is depressed/irritable. Affect is flat. Thoughts are linear and logical. No evidence of psychosis. Reviewed daily check in sheet and pt reports 2/5 for suicidal thoughts and 0/5 for intent. This is lower than last week. Client Response/Progress/Benefit: [] Pt participated when prompted. Attentive. Emotion for today is struggling . Daily symptom tracker notes 4/5 for depression and irritability. Mental health win was that he tired to go fishing over the weekend. He ran into obstacles however its the effort that counts. Praised for utilizing opposite-action to combat low energy and depression. Shared that he met with his pain mgmt physician and a medication was stopped so that pt can purse a medication for his mood. Another example of taking action and making changes to improve mood. Slight progress noted. More hopeful and engaged that end of last week. Benefited from group support, encouragmet, and feedback. Will continue in IOP to maintain safety, increase healthy coping, and to improve functioning. Narrative Note: []
--- NOTE | 2023-03-04 10:15 | BH.SGPN.GN ---
Behaviors/Verbalizations/Mental Status: []Eye contact is good. Motor activity is restless. Appearance is disheveled. Speech is Appropriate. Mood is depressed. Affect is flat. Thoughts are linear and logical. No evidence of psychosis. Client Response/Progress/Benefit: []Pt was engaged at times AEB providing input, listening to others, and taking notes. Participated in interactive group discussion on internal and external barriers to mental health progress. Pt described current reality using a anchor metaphor. Pt shared feeling like ?the weight of life is dragging me down and there?s no one to help me?. Reported desired reality is being able to have less stress and feel better about himself. Pt shared personal barrier to desired realty include negative self-talk and lack of motivation. ?Benefited from increased awareness of current barriers to progress as well as current/desired realities. Pt to continue IOP tx to prevent decompensation, increase application of healthy coping skills, and combat distorted thought patterns. Narrative Note: []
--- NOTE | 2023-03-04 11:10 | BH.SGPN.GN ---
Behaviors/Verbalizations/Mental Status: []Client alert and oriented, casually dressed and poorly groomed. Eye contact fair. Motor activity appropriate. Speech within normal limits. Affect congruent, mood dysthymic. Thoughts linear, logical, no signs of hallucinations or delusions. Client Response/Progress/Benefit: []Client an active participant, encouraging peers and contributed as group brainstormed ideas on how to cope with internal barriers that keep clients stuck from moving towards goals. Able to identify barriers to desired reality. Worked with group to identify strategies to help overcome barriers. Identified personal barriers to desired reality. Client wants to work on overcoming the barrier of negative self-talk by challenging negative thoughts using reality checking. Benefited from group by identifying obstacles and solutions to desired reality. Client to continue IOP to increase use of healthy coping, challenge distorted thoughts, and prevent decompensation.
--- NOTE | 2023-03-04 12:21 | PCM.BH.PN_ITS ---
Progress Note Progress Note: History of Present Illness/Interim History: The patient is a 32-year-old male with a history of bipolar disorder and anxiety who is seen in follow-up at the [facility] behavioral health IOP program. I last saw the patient 1 week ago and at that time our plan to start lithium was canceled as the patient was on Mobic and that would increase his lithium levels. Patient then spoke saw his outpatient pain doctor and had the Mobic has been discontinued. The patient states that he has become more depressed in the last week and has had suicidal ideation which comes in waves. He has had fleeting, passive suicidal ideation in the past few days and he feels he is worsening. He has a planned overdose but is is not a definitive plan. He stopped the Effexor 1 week ago as directed and feels this may also have worsened his depression. He denies any recent hypomania or ezio. He continues to feel worthless and hopeless. He denies passive thoughts of , active suicidal ideation, homicidal ideation, thoughts of self-harm, hallucinations or delusions. Current Psychiatric Medications: [] Abilify 20 mg p.o. daily; Lamictal 100 mg p.o. daily; hydroxyzine 50 mg p.o. twice daily; Xtampza 18 mg twice daily for chronic pain; BuSpar 15 mg twice daily; lorazepam 1 mg p.o. as needed but not taking it much; Effexor XR 37.5 mg weaning dose discontinued 1 week ago. Mental Status Examination: [] The patient is a 32-year-old obese male who is tall but appears normal or older than stated age and is casually dressed and groomed and mildly malodorous. He is ambulatory with a normal gait and has no psychomotor agitation or retardation. He is cooperative during the interview. Eye contact is good and speech is normal rate and rhythm and fluent with no pressure. Mood is depressed. Affect is constricted. Thought process is goal-directed and organized. Thought content: There is evidence of fleeting, passive suicidal ideation with a possible plan to overdose. There is no evidence of passive thoughts of , active suicidal ideation, homicidal ideation, hallucinations, delusions or symptoms of ezio. Reality testing is intact. Judgment is intact. Impulsivity is moderate. Insight is fair. Diagnoses: [] 1. Bipolar, NOS 2. Generalized anxiety disorder 3. Chronic knee and back pain 4. Primary support, housing and work issues Plan: [] The patient will continue the IOP program at [facility] as the structure, support, education and group therapy will hopefully prevent worsening of the patient's symptoms which could require hospitalization. The patient felt safe during the interview and if it anytime he does not feel safe he will let us know or go to the emergency room. The risks, side effects, options and possible complications of the medications were again discussed with the patient and he understands accepts these. The patient wishes to start the lithium carbonate now as he is off of the Mobic. The patient agrees to restart his Effexor XR at 37.5 mg p.o. daily as his depression is worsened and the lithium is not on board yet. He will also start lithium carbonate ER 300 mg p.o. nightly for 3 days and then increase to 600 mg p.o. nightly. Order was given for a renal panel, TSH and lithium level about 1 week after starting the lithium. No other medication changes were made. The patient will continue to follow-up with his outpatient providers and I will see him in 1 to 2 weeks.
--- NOTE | 2023-03-06 09:00 | BH.SGPN.GN ---
Behaviors/Verbalizations/Mental Status: [] Client alert and oriented, casually dressed and groomed. Eye contact good. Motor activity appropriate. Speech within normal limits. Affect congruent, mood anxious and euthymic Thoughts linear, logical, no signs of hallucinations or delusions. Reviewed client?s symptom tracker, no risk for suicidal ideation, plan, or intent as of 03/06/23 Client Response/Progress/Benefit: [] Client responded well to session, offering ideas to peers and providing encouragement. Client reports feeling good and optimistic today. Client started discussing his mental health wins which included making progress on accepting that his current physical state is not his fault and that things may look different now compared to the past for him. Client decided to get concert tickets and make arrangements to make it manageable for him in his current state. Client discussed continually working on challenging fears about going out and doing things. Client appeared to benefit from reflecting on his growth and sharing challenges he is overcoming. Client will continue IOP tx to prevent decompensation and increase overall functioning. Narrative Note: []
--- NOTE | 2023-03-06 10:10 | BH.SGPN.GN ---
Behaviors/Verbalizations/Mental Status: [] Eye contact is good. Motor activity is appropriate. Appearance is causal. Speech is Appropriate. Mood is anxious. Affect is congruent. Thoughts are linear and logical. No evidence of psychosis Client Response/Progress/Benefit: [] Pt participated at times during group discussions. Attentive during psychoeducation. Engaged during experiential activity in which he was tasked with managing emotions related to accepting limited control of the activity. Participated during interactive discussion as group worked to define and better understand the role and benefits of acceptance in mental health. Along with peers worked to identify barriers to acceptance which include; feeling out of control, feeling like one is giving up, leads to uncertainty of lack of control, can lead to feeling like a failure, makes one feel weak or vulnerable, and several others. Benefited from increased insight of the benefits and barriers to acceptance in mental health. Plan is to continue in IOP to prevent decompensation, maintain safety, and improve functioing. Narrative Note: []
--- NOTE | 2023-03-06 11:10 | BH.SGPN.GN ---
Behaviors/Verbalizations/Mental Status: []Pt alert and oriented, casually dressed and groomed. Eye contact good. Motor activity appropriate. Speech within normal limits. Affect congruent, mood dysthymic and anxious. Thoughts linear, logical, no signs of hallucinations or delusions. Client Response/Progress/Benefit: []Pt responded well to session AEB taking notes and contributing to discussion throughout. Pt engaged as group continued discussion on acceptance and the mental health benefits of practicing acceptance. Pt and peers identified what makes acceptance challenging and pt completed a self-reflection exercise on what is hard to accept in pt's life. Pt identified struggling to accept that he is worthy of asking for and receiving help. Group identified strategies to increase acceptance and pt shared wanting to focus on actively engaging in the therapeutic process and being more open to challenging negative thoughts and replacing these with more positive compassionate self-talk. Pt appeared to benefit from gaining insight and learning strategies to increase acceptance. Pt will continue IOP tx to decrease anxiety, improve ability to recognize and learn to cope with daily stressors, and prevent decompensation. Narrative Note: []
--- NOTE | 2023-03-09 09:05 | BH.SGPN.GN ---
Behaviors/Verbalizations/Mental Status: [] Eye contact is good. Motor activity is appropriate. Appearance is disheveled. Speech is Appropriate. Mood is depressed. Affect is congruent. Thoughts are linear and logical. No evidence of psychosis. Client Response/Progress/Benefit: [] Pt participated when prompted. Attentive. Mental health wins included being social, spending time with family, and completing self-care over the weekend. Insight on how these are significantly beneficial for his mental health. Increased activity as he and family are cleaning the house and preparing to move. Increased motivation and energy reported. Benefited from group support, encouragement, and feedback. Progress noted due to increased motivation, energy, and social activities. Plan is to continue in IOP to maintain safety, stabilize mood, improve healthy coping, and improve functioning. Narrative Note: []
--- NOTE | 2023-03-09 10:05 | BH.SGPN.GN ---
Behaviors/Verbalizations/Mental Status: []Pt alert and oriented, casually dressed and groomed. Eye contact good. Motor activity appropriate. Speech within normal limits. Affect constricted, mood anxious and depressed. Thoughts linear, logical, no signs of hallucinations or delusions. Client Response/Progress/Benefit: []Pt was an active participant AEB increased contribution to discussion, taking notes, and willingness to engage in group activity. Connected with the topic of pitfalls and listened to group discussion on internal and external barriers that prevent from choosing a healthier path to mental wellness. Group worked together to identify examples of personal internal pitfalls and pt identified his as struggling with avoidance and negative self-talk. Pt benefited from group as Pt learned to better identify and normalize potential barriers to improving mental health symptoms. Pt will continue IOP tx to prevent decompensation, increase mood management skills, and continue to encourage healthy boundaries and communication with supports. Narrative Note: []
--- NOTE | 2023-03-09 11:10 | BH.SGPN.GN ---
Behaviors/Verbalizations/Mental Status: []Pt alert and oriented, casually dressed and groomed. Eye contact good. Motor activity appropriate. Speech within normal limits. Affect constricted, mood calm. Thoughts linear, logical, no signs of hallucinations or delusions. Client Response/Progress/Benefit: []Pt receptive of session, engaged throughout AEB actively listening and contributing to discussion, as well as taking notes.? Pt participated in the experiential activity and did well to communicate ideas with peers and manage emotions. Pt and group processed how being open-minded and having good communication positively impacted the group. Group worked together to identify different coping skills to help manage pitfalls. Pt identified pitfalls they struggle with and shared wanting to work on pitfall of negative self-talk by using opposite action to say positive affirmations. Pt shared he struggles with affirmations because ?they seem fake? and group offered pt feedback. ?Benefited from identifying personal pitfalls and strategies to overcome these pitfalls. Will continue IOP tx to improve mood stability, combat distortions, and increase self-care. Narrative Note: []
--- NOTE | 2023-03-10 10:05 | BH.SGPN.GN ---
Behaviors/Verbalizations/Mental Status: []Eye contact is good. Motor activity is appropriate. Appearance is casual. Speech is Appropriate. Mood is dysthymic and anxious. Affect is congruent. Thoughts are linear and logical. No evidence of psychosis. Client Response/Progress/Benefit: []Pt did well to engage and was an active participant in group discussion. Attentive during psychoeducation on the CBT [place] (Thoughts, Behaviors, Emotions). Involved in group discussion on how thoughts and behaviors can contribute to maintaining adverse feelings, such as depression, anxiety, and irritability. Completed worksheet in which pt identified a thought that is keeping them stuck or is in obstacle to increased mental wellness. The thoughts that pt identified were ?today is going to be a bad day?, ?I?m a failure?, and ?I?m a bad ?. Shared this maintains depression cycle. Pt benefited from increased awareness of the basis of CBT therapy as well as specific thoughts that are impacting pt's progress. Will continue in IOP to improve mood stability and improve application of behavior activation skills, prevent decompensation, and to increase healthy coping skills. Narrative Note: []
--- NOTE | 2023-03-10 11:06 | BH.SGPN.GN ---
Behaviors/Verbalizations/Mental Status: []Pt alert and oriented, neatly dressed and groomed. Eye contact good. Motor activity appropriate. Speech within normal limits. Affect congruent, mood anxious and dysthymic. Thoughts linear, logical, no signs of hallucinations or delusions. Client Response/Progress/Benefit: []Pt responded well to session, contributing to discussion when prompted, and somewhat attentive throughout discussion. Pt identified a negative thought that has kept them stuck. Pt's thought was I?m a bad .? Pt reported when they think this way, pt gets disheartened and pushes his away which results in increased depression and interpersonal conflict. Pt worked to reframe the thought by finding more rational, realistic ways to look at the thoughts and then processed them within group setting. Pt reframed the thought to ?I ama loving and supportive . It?s okay that I struggle at times because we all have flaws?. Pt appeared to benefit from practicing challenging negative thinking. Pt will continue IOP tx to prevent decompensation, increase healthy coping skill application and communication with supports, and maintain gains made. ? Narrative Note: []
--- NOTE | 2023-03-10 14:14 | BH.MDN ---
Multi-Disciplinary Note - Note 45-min Individual Time Started:: 08:30 Date: 03/10/23 Purpose of session/treatment goals addressed:: To address tx plan goal #1. Eye Contact:: Good Motor Activity:: Appropriate Appearance:: Casual Speech:: Appropriate Mood:: Anxious, Dysthymic Affect:: Congruent Thoughts:: Linear, Logical, No evidence of hallucinations/delusions noted Staff Interventions:: thought challenging, psychoeducation on: - reviewed behavioral activation concepts, CBT techniques, strengths perspective Client Response:: Pt receptive of session, openly discussing current symptoms and stressors throughout. Shared that since restarting the Effexor and beginning [place] last week, he has not had any suicidal ideations and overall feels his mood has been improving. Reports that he is finding somewhat more enjoyment in spending time playing video games with his as well as interacting with his son. Pt reports increased motivation to reach out to an old friend as well and indicated that this has been helpful in maintaining positive throughout the day as they often text jokes/liana back and forth. Pt reported however struggling with opening about his mental health to this friend as he has thoughts of ?my struggles are not as bad as his? and ?I don?t have any right to burden him with my problems?. Acknowledges these as distortions that reinforce negative core beliefs of his own self-worth. Provided insight that his friend?s hx in the may be contributing to these thoughts. Pt was receptive of challenging and replacing these thoughts with more realistic and compassionate thoughts. Pt identified ?my friend has told me that he wants to be able to help support me? and ?trauma is trauma. It doesn?t matter how bad it was for you to deserve to be able to get help/support with it?. Went on to discuss struggling to know what to do with himself on days where he is having negative thoughts or feels more ?down?. Reports he typically wanders the house and often avoids interacting with others or looking at his phone. Connected with continuing psychoeducation on maintenance cycles and the behavior activation concept of ?down? vs. ?up? activities. Acknowledges that avoiding others, not looking at joke/liana, and wandering the house aimlessly are all examples of ?down? activities. Did well to identify that these behaviors often result in pt becoming more focused unhelpful topics such as his physical pain/limitations, feeling he is a burden, and stress of going through his parent?s estate. Struggled to identify small potential ?up? activities; however, with assistance and in reviewing his values exploration worksheet, pt able to identify some activities. Shared that being playful with his son, listening to music, and talking to his are all ?up? activities. Reports they fulfill the values of quality time with his family and hobbies/recreation. Reports working with his outpatient therapist to work on accepting his physical limitations and is trying to find creative ways to continue to engage in his hobby of attending live music events. Shared plans to look into getting a handicapped sticker for his car. Identified that learning to play guitar may also be an activity in line with his musical values, as well as provide something hands-on that feels productive for client to do. Risks/Concerns:: Pt denies any SI, plan, or intent in that past week. Progress Toward Goals/Plan:: Progress noted. Pt has been consistent with IOP and is displaying increased engagement in group discussion, activities, as well as individual sessions. Pt reports mood has continued to improve since making several medication changes last week, see psychiatry note for additional information. Pt reports increased enjoyment in interactions with family, reduced anxiety about the future, and is reaching out to old friends to improve overall current support network as well. Continues to report significant negative core beliefs, specifically beliefs he does not deserve to ask/receive help. However, pt is making progress in his ability to identify his use of thought distortions and begin to challenge these. Reports improved motivation to try new coping skills/ develop new hobbies and interests. Plan is to continue in IOP to maintain mood stability, increase consistent application of healthy coping skills, and prevent decompensation. Time Stopped:: 09:15
--- NOTE | 2023-03-13 09:02 | BH.SGPN.GN ---
Behaviors/Verbalizations/Mental Status: []Eye contact good. Motor activity appropriate. Speech within normal limits. Affect congruent, mood anxious euthymic. Thoughts linear, logical, no signs of hallucinations or delusions. Reviewed client?s symptom tracker, no risk for suicidal ideation, plan, or intent as of 03/13/2023. Client Response/Progress/Benefit: []Client responded well to session, attentive and willing to process with group. Identified current mental health wins as managing his anxiety when getting pain shots yesterday, as well as advocating for a handicapped parking placard. Reported initially struggling with fear his doctor would not approve pt for a handicapped placard and felt validated and proud of himself when he was willing to approve pt for this service. Current stressor noted as waiting back to hear if they will be able to rent a house he and his family are interested in and the unknowns of if they will be able to or not. Client appeared to benefit from group support and encouragement. Client gave positive feedback to other group members as they shared. Recommended continued IOP tx to continue to increase overall functioning, improve engagement in healthy self-care and hobbies, and increase thought challenging. Narrative Note: []
--- NOTE | 2023-03-13 10:10 | BH.SGPN.GN ---
Behaviors/Verbalizations/Mental Status: []Pt alert and oriented, disheveled appearance. Eye contact good. Motor activity appropriate. Speech within normal limits. Affect flat, mood depressed. Thoughts linear, logical, no signs of hallucinations or delusions. Client Response/Progress/Benefit: []Pt was a passive participant in group discussion and engaged in experiential activity. Attentive during psychoeducation on possible causes to developing and maintain unhealthy coping skills which can impact mental health. Pt contributed during interactive discussion identifying common unhealthy coping skills and identified personal ones as isolation and avoidance. Able to make connections between experiential activity (folder towers) and importance of having a solid base of internal and external coping skills. Benefited from increased awareness of internal and external coping skills and identifying unhealthy coping skills. Pt will continue IOP tx to increase self-care, combat distortions, and improve daily functioning. Narrative Note: []
--- NOTE | 2023-03-13 11:00 | BH.SGPN.GN ---
Behaviors/Verbalizations/Mental Status: []Pt alert and oriented, casually dressed and fairly groomed. Eye contact fair. Motor activity appropriate. Speech within normal limits. Affect congruent, mood dysthymic. Thoughts linear, logical, no signs of hallucinations or delusions Client Response/Progress/Benefit: []Pt responded well to session, taking notes and contributing. Group discussed the different categories of coping skills which included distraction, emotional release, grounding, self-love, and thought challenging.? Pt participated in creating a coping skills ?menu? from the five categories of coping skills. Pt's coping skill menu included: art, engaging in hobbies, talking it out, alone time, and looking at evidence against a negative thought. Appeared to benefit from increasing repertoire of healthy coping skills. Will continue IOP tx to challenge negative thoughts, increase consistent use of healthy coping skills, and prevent decompensation.
--- NOTE | 2023-03-16 09:00 | BH.SGPN.GN ---
Behaviors/Verbalizations/Mental Status: [] Eye contact is good. Motor activity is appropriate. Appearance is casual. Speech is Appropriate. Mood is depressed/irritable. Affect is congruent. Thoughts are linear and logical. No evidence of psychosis. Reviewed daily check in sheet and no reports of suicidal ideations or intent. Client Response/Progress/Benefit: [] Pt participated when prompted. Attentive. Daily symptom tracker notes 2/5 for depression, anxiety, and irritability. Mental health win is that he cleaned out the house over the weekend. Pt and famiy continues to prepare for upcoming move. He was able to participate in social activities, rather than isolate, which are significantly beneficial to his mental health. Primary stressors are his current housing situation and physical pain. States that he was more active this weekend which he believes impacted his pain. Briefly discussed how his pain impacts his mental health and overall functioning as well as the shots that he receives to help minimize the pain. Limited progress noted per pt report. however daily symptom scores have reduced and no SI this week. Obstacles to progress are pain and uncertainly regarding his housing. Benefited from group support, encouragement, and feedback. Will continue in IOP to maintain safety, stabilize mood, and improve functioning. Narrative Note: []
--- NOTE | 2023-03-16 10:12 | BH.SGPN.GN ---
Behaviors/Verbalizations/Mental Status: []Pt alert and oriented, appropriate grooming/appearance. Eye contact good. Motor activity appropriate. Speech within normal limits. Affect congruent, mood anxious and content. Thoughts linear, logical, no signs of hallucinations or delusions. Client Response/Progress/Benefit: []Pt was an active participant in group discussions. Attentive during psychoeducation. Contributed during interactive discussions in which peers attempted to define crisis. Pt identified examples of potential crisis. Group also worked together to identify unhealthy responses to crisis which included; isolation, self-harm, substance abuse, avoidance, and lashing out. Pt identified personal warning signs as reduced self-care, loss of interest, and negative self-talk. Benefited from increased understanding of crisis and awareness of personal responses to crisis. Pt will continue IOP tx to prevent decompensation and continue to promote healthy skill application and communication with supports, as well as use of thought challenging skills. Narrative Note: []
--- NOTE | 2023-03-16 11:12 | BH.SGPN.GN ---
Behaviors/Verbalizations/Mental Status: []Pt alert and oriented, disheveled appearance. Eye contact good. Motor activity appropriate. Speech within normal limits. Affect flat, mood depressed. Thoughts linear, logical, no signs of hallucinations or delusions. Client Response/Progress/Benefit: []Pt engaged throughout group session AEB providing contributions to discussion and working within the small group. Pt identified their personal warning signs for crisis and gained further awareness of earliest warning signs. Pt created a crisis action plan to help Pt better manage personal crisis warning signs. Pt shared an action plan for their warning sign of increased negative thinking which include: using opposite action to practice positive self-talk, keeping track of his accomplishments, and challenging distortions. Pt appeared to benefit from creating a crisis action plan and increasing self-awareness. Pt to continue IOP tx to increase use of healthy coping skills, reduce distorted thinking patterns, and improve self-care. Narrative Note: []
--- NOTE | 2023-03-17 09:02 | BH.SGPN.GN ---
Behaviors/Verbalizations/Mental Status: []Eye contact good. Motor activity appropriate. Speech within normal limits. Affect congruent, mood anxious dysthymic. Thoughts linear, logical, no signs of hallucinations or delusions. Reviewed client?s symptom tracker, no risk for suicidal ideation, plan, or intent as of 03/17/2023. Client Response/Progress/Benefit: []Client responded well to session, attentive and willing to process with group. Identified current mental health wins as spending time completing self-care via taking breaks and resting when feeling physically in pain. Additional win noted as regulating his emotions and taking a step away from the situation when frustrated with his son rather than yelling or getting upset with him. Current stressor noted as ongoing difficulties with finding housing and managing his anxiety associated with the impending foreclosure of his home. Expressed struggling with significant avoidance and did well to identify importance of addressing what is in his control in order to reduce some of the current stress and feel less overwhelmed. Client appeared to benefit from group support and encouragement. Recommended continued IOP tx to continue to increase overall functioning, improve anxiety management and reduce avoidance, as well as promote mood stability. Narrative Note: []
--- NOTE | 2023-03-17 11:20 | BH.SGPN.GN ---
Behaviors/Verbalizations/Mental Status: []Pt alert and oriented, casually dressed and poorly groomed. Eye contact fair. Motor activity appropriate. Speech within normal limits. Affect flat, mood depressed. Thoughts linear, logical, no signs of hallucinations or delusions. Client Response/Progress/Benefit: []Pt passive participant AEB limited contributions to discussion, however did appear to be listening attentively to peers. Pt attentive during psychoeducation on the different boundary styles. Pt reported he is porus with his intellectual and material boundaries. Stated he believes he has healthy boundaries with physical, sexual and time boundaries. Pt was given a handout on strategies for healthy boundary setting. Appeared to benefit from increasing insight to boundary setting and the impacts on mental health. Seemed to benefit from increased awareness of boundary styles and strategies to improve setting boundaries. Will continue IOP tx to increase consistent use of skills, challenge negative thinking, and prevnet decompensation.
--- NOTE | 2023-03-17 11:50 | BH.MDN_ITS ---
Multi-Disciplinary Note - Note 45-min Individual Time Started:: 10:35 Date: 03/17/23 Purpose of session/treatment goals addressed:: Purpose of session was to address tx plan goal #2. Eye Contact:: Good Motor Activity:: Appropriate Appearance:: Disheveled Speech:: Appropriate Mood:: Anxious, Dysthymic Affect:: Congruent Thoughts:: Linear, Logical, No evidence of hallucinations/delusions noted Staff Interventions:: thought challenging, motivational interviewing, psychoeducation on: - cycle of anxiety and impacts of avoidance in maintaining anxiety, locus of control, mindfulness skills, strengths perspective, goal setting, taught coping skills - reviewed and practiced various grounding skills Client Response:: Client responded well to session, open to meeting with therapist. Client shared feeling overall his depressive sx have improved. Discussed beliefs the [place] is aiding in maintaining stability and reducing overall mood cycling frequency. Additionally discussed spending more time trying to be present with his son, reach out to friends to talk, engage in hobbies/interests such as video games, and practice positive self-talk statements. Pt however continues to report significant anxiety, specifically surrounding ongoing stress associated with the impending foreclosure of his home and finding alternative housing for his family. Shared he has not inquired further regarding the foreclosure timeline as he is afraid this will only increase anxiety and feelings of hopelessness. Receptive of discussing the pros/cons of knowing the projected timeline vs. not knowing. Able to recognize that although the knowledge could be anxiety provoking, it ultimately gives pt a greater sense of control in actively taking steps to establish a plan and prepare for the eviction deadline vs. being caught off guard and told they need to move out without notice. Pt shared that he struggles with managing his sx of anxiety and often fears that he will have a panic attack, resulting in pt not doing anything to address his anxiety. Able to identify that sitting with his anxious thoughts and not utilizing any calming or grounding skills leads to ruminating on fear of not wanting to be anxious and may actually increase the likelihood he does have a panic attack. Discussed trying to be present in the moment and focus on what is in his control, noting this is effective some of the time. Shared the mantra of ?let go and let god? which has also been helpful. However, pt struggles with knowing how to address his physical sx of anxiety, reporting that ?nothing seems to make the shakiness and nausea go away?. Receptive of using remainder of session to review several grounding techniques and discussing which specific techniques may aid in reducing specific physical sx he experiences. Pt shared connecting with grounding skills of progressive muscle relaxation, temperature change, fidgets/things to keep his hands busy, laying with his dog and trying to breath in rhythm with his dog?s breathes, and creating a playlist of calming sounds to use while engaging in the various calming skills. Created a goal to practice these various skills when anxious throughout the next week. Additional goal to complete one housing application this week. Risks/Concerns:: Client denies any suicidal ideations, plan, or intent as of 03/17/23. Denies any homicidal ideations. Denies any medication issues. Progress Toward Goals/Plan:: Client continues to respond well to IOP tx AEB increased contributions in group and self-reports of reduced depression and improved engagement in activities he enjoys. Shared increased communication with friends which has improved mood as well. Pt continues to struggle with significant anxiety associated with ongoing housing stressor. Reports he often ruminates on the stress though avoids learning more about the foreclosure process due to fear of the unknown. Additionally, shared struggling to address physical sx of anxiety as he reports skills he has tried in the past have been ineffective. Open to learning and practicing several grounding skills in session. Will practice when anxious throughout the week as well. Willing to learn more about locus of control and work on asking himself ?Is this stressor in my control and is it helpful/important to spend my time and energy on right now??. Client can benefit from ongoing IOP tx to help client improve consistency of skill application, maintain mood stability, and prevent decompensation. Time Stopped:: 11:15
--- NOTE | 2023-03-20 09:00 | BH.SGPN.GN ---
Behaviors/Verbalizations/Mental Status: [] Eye contact is good. Motor activity is appropriate. Appearance is disheveled. Speech is Appropriate. Mood is depressed. Affect is congruent. Thoughts are linear and logical. No evidence of psychosis. Reviewed daily check in sheet and no reports of suicidal ideations or intent. Client Response/Progress/Benefit: [] Pt participated when prompted. Attentive. Daily symptom tracker notes 11/30 for anxiety and depression. Mental health wins include progress regarding his housing situation. Shared that they applied to a house to rent and have two upcoming visits schedule to view open property. Housing has been a significant emotional stressor for patient and in the past 2 weeks he has been more engaged in pursing new house rather than avoiding. Another mental health win involved opposite-action and grilling out with his family. Progress noted as he reports being more motivated and less depressed. Benefited from group support, encouragement, and feedback. Will continue in IOP to maintain safety, increase healthy coping, and improve functioning. Narrative Note: []
--- NOTE | 2023-03-20 11:10 | BH.SGPN.GN ---
Behaviors/Verbalizations/Mental Status: []Pt alert and oriented, casually dressed, poorly groomed. Eye contact fair. Motor activity appropriate. Speech within normal limits. Affect constricted, mood dysthymic. Thoughts linear, logical, no signs of hallucinations or delusions. Client Response/Progress/Benefit: []Pt was engaged during discussion and willing to complete the worksheet challenging them to develop a personal SMART goal. Pt chose the goal of writing down one accomplishment each day. Pt stated this will benefit them by decrease negative thinking. Pt identified barriers which included procrastination and forgetfulness. Identified for barrier of procrastination he will set a timer and put it in his schedule/routine. Pt receptive to identifying solutions for these barriers and willing to begin working on this goal. Benefited from this group by developing a short-term SMART goal related to mental health. Will continue IOP to increase consistent use of healthy coping skills, challenge distorted thoughts, and prevent decompensation.
--- NOTE | 2023-03-23 09:00 | BH.SGPN.GN ---
Behaviors/Verbalizations/Mental Status: []Eye contact good. Disheveled. Motor activity appropriate. Speech within normal limits. Affect flat, mood anxious and depressed. Thoughts linear, logical, no signs of hallucinations or delusions. Reviewed client?s symptom tracker, no risk for suicidal ideation, plan, or intent as of 03/23/2023. Client Response/Progress/Benefit: []Pt responded well to session, quiet but responding with prompted. Pt reports feeling depressed this morning due to increased physical pain and house stress. Pt stated over the weekend he and his were not able to get done with as much as they wanted due to physical pain. Pt struggles with negative self-talk which is amplified when pt does not accomplish tasks. Pt did grill over the weekend which pt enjoyed and he thinks there are two places that could work out for pt and his family to move. Pt appeared to benefit from connecting with peers. Pt continues to struggle with consistently applying healthy coping skills to manage negative thinking and depressive symptoms. Pt will continue IOP tx to prevent decompensation, increase motivation, and reduce isolation. Narrative Note: []
--- NOTE | 2023-03-23 10:10 | BH.SGPN.GN ---
Behaviors/Verbalizations/Mental Status: []Client alert and oriented, casually dressed and groomed. Eye contact fair. Motor activity appropriate. Speech within normal limits. Affect constricted, mood dysthymic. Thoughts linear, logical, no signs of hallucinations or delusions. Client Response/Progress/Benefit: []Client was an active participant in group discussions and activity. Attentive during psychoeducation. Client engaged in activity in which group was able to make connections about how can be easier to find positives in others compared to self. Engaged in interactive discussion on the definition of perspective, how perspective is formed, and why perspective is important in treatment. Client shared is perspective today is closer to hopeful. Stated his current perspective is allowing him to open up about his feelings to his supports and allows him to use the skills learned in treatment. Will continue in IOP to increase consistent use of healthy coping skills, challenge distorted thoughts, and prevent decompensation.
--- NOTE | 2023-03-23 11:20 | BH.SGPN.GN ---
Behaviors/Verbalizations/Mental Status: []Pt alert and oriented, casually dressed and groomed. Eye contact good. Motor activity appropriate. Speech within normal limits. Affect congruent, mood anxious and dysthymic. Thoughts linear, logical, no signs of hallucinations or delusions. Client Response/Progress/Benefit: []Pt was attentive and contributed to small group discussion. Pt reflected on the impact his stress level has on overall perspective, sharing he struggles with identifying and challenging anxious thoughts worst when under increased stress. Pt worked with group to identify strategies to challenge one?s perspective which group identified: thought challenge, reaching out to supports, grounding skills, and accomplishment log. Connected with discussion on the importance of recognizing personal strengths in challenging perspective. Pt acknowledged a personal strength of empathy and pt wants to work on challenging perspective by practicing identifying and reframing distorted thinking. Benefited from identifying personal strengths and strategies for challenging perspective. Pt to continue IOP tx to promote mood stability, encourage grounding skills for anxiety management, and increase use of healthy coping skills. Narrative Note: []
--- NOTE | 2023-03-25 09:05 | BH.SGPN.GN ---
Behaviors/Verbalizations/Mental Status: [] Eye contact fair to good. Motor activity appropriate. Speech within normal limits. Affect congruent, mood anxious and depressed. Thoughts linear, logical, no signs of hallucinations or delusions. Reviewed client?s symptom tracker, no reported suicidal ideation, denies plan, or intent as of 03/25/2023. Client Response/Progress/Benefit: [] Client receptive of session, attentive and willing to process with group. Initially struggled with identifying wins or areas of progress and reported increased depressive sx over the past three days. Shared difficulties in managing thoughts of ?This isn?t fair?, ?This shouldn?t have happened to us?, and ?we shouldn?t have to deal with this?. Receptive of group support and psychoeducation on radical acceptance in managing unfair and unexpected stressors. With prompting, pt identified current wins as doing dishes, as well as calling to extend the amount of time he rents a dumpster for cleaning out the house. Shared anxiety about calling to extent but was glad he did as the experience had been more positive than expected. Client appeared to benefit from group support and encouragement. Recommended continued IOP tx to continue to increase overall functioning, improve distress tolerance and improve thought challenging, as well as promote mood stability. Narrative Note: []
--- NOTE | 2023-03-25 11:42 | PCM.BH.PN_ITS ---
Progress Note Progress Note: History of Present Illness/Interim History: The patient is a 32-year-old male who is seen in follow-up at the [facility] behavioral health IOP program. I last saw the patient 3 weeks ago and at that time his Effexor Exar was restarted due to his worsening depression and suicidal thou ghts. The patient states that his depression and suicidal thoughts have greatly decreased since restarting his Effexor several weeks ago. His anxiety is slowly improving also. He has had occasional passive thoughts of and fleeting, passive suicidal ideation but less frequently than before. He denies plan for suicide, active suicidal ideation, homicidal ideation, hallucinations or delusio ns. He feels he was somewhat manic for 1 day last week and. He feels he is learning good skills in the IOP program but he does have some issues applying them to daily life. Current Psychiatric Medications: [] Abilify 20 mg p.o. daily, Lamictal 100 mg p.o. daily, hydroxyzine 50 mg p.o. twice daily, lorazepam 1 mg p.o. as needed (takes this 2-3 times a week); Effexor XR 37.5 mg p.o. daily; lithium carbonate ER 600 mg p.o. nightly. Mental Status Examination: [] The patient is a 32-year-old male who is obese and tall and appears older than stated age. He is casually dressed and groomed with good hygiene. He has no psychomotor agitation or retardation. Eye contact is good and speech is normal rate and rhythm and fluent with no pressure. He is cooperative during the interview. Mood is depressed. Affect is mildly constricted to full. Thought process is goal-directed and organized. Thought content: There is no evidence of active or passive suicidal ideation, homicidal ideation, plan for suicide, hallucinations or delusions. Reality testing is intact. Judgment is intact. Insight is some present. Impulsivity is moderate. Diagnoses: [] 1. Bipolar, NOS 2. Generalized anxiety disorder 3. PTSD 4. Alcohol use disorder (sober x7 weeks) 5. Moderate medical marijuana use disorder Plan: [] The patient will continue the IOP program at [facility] as the structure, support, education and group therapy will hopefully prevent worsening of the patient's symptoms. Patient felt safe during the interview and if it anytime he does not feel safe he will let us know or go to the emergency room. Patient agrees to increase his lithium to 900 mg p.o. nightly in the form of two 450 mg lithium carbonate pills. Order is given for him to get blood wo rk over a week after he increases this dose. He will also continue his current dose of Effexor XR. Later the patient will be possibly have his Lamictal increased to 150 mg or 200 mg p.o. nightly. In addition discussed with the patient the potential interaction between lisinopril and lithium but at this point it seems to be clinically not a problem. I will see the patient in follow-up in several weeks and will continue to follow-up with his outpatient providers.
--- NOTE | 2023-03-27 09:00 | BH.SGPN.GN ---
Behaviors/Verbalizations/Mental Status: [] Eye contact is fair. Motor activity is appropriate. Appearance is casual. Speech is Appropriate. Mood is euthmic. Affect is congruent. Thoughts are linear and logical. No evidence of psychosis. Reviewed daily check in sheet and no reports of suicidal ideations or intent. Client Response/Progress/Benefit: [] Pt participated at times during the group discussion. Attentive. Patient reported mental positive as being able to prevent himself from spiraling last night when he found out he did not get the house they applied for. Client noted additional mental positive as using breathing tools this morning to again prevent himself from spiraling about not getting the house they applied for. Client noted current stressor is needing to go to his pain doctor this afternoon to let them know the shots did not help with his pain. Client noted feeling excited this morning that his skills worked. Benefited from group support, encouragement, and feedback. Progress noted as client utilizing skills in the moment to manage anxious symptoms. Will continue in IOP to prevent decompensation, increase consistent use of healthy skills, and challenge distorted thoughts.
--- NOTE | 2023-03-27 10:10 | BH.SGPN.GN ---
Behaviors/Verbalizations/Mental Status: []Eye contact is good. Alert and oriented. Motor activity is appropriate. Appearance is casual. grooming is appropriate. Speech is Appropriate. Mood is anxious and euthymic. Affect is congruent. Thoughts are linear and logical. No evidence of psychosis or hallucinations. Client Response/Progress/Benefit: []Client passive participate AEB providing limited contributions, however did appear to listen attentively to others. The group identified the impact of emotions on communication such as change in tone, body language, shutting down, misperceiving the communication, and reassurance seeking. During group activity, client did well to challenge himself to participate and reflected on feeling anxious about having to communicate instructions to fellow participants in order to accomplish the group goal. Client benefited from session by gaining an increased understanding on the importance of managing emotions to improve daily functioning. Client will continue IOP to further improve mood stability, improve symptom management, and prevent decompensation. Narrative Note: []
--- NOTE | 2023-03-27 11:10 | BH.SGPN.GN ---
Behaviors/Verbalizations/Mental Status: []Pt alert and oriented, disheveled. Eye contact good. Motor activity appropriate. Speech within normal limits. Affect constricted, mood calm. Thoughts linear, logical, no signs of hallucinations or delusions. Client Response/Progress/Benefit: [] Pt engaged in session AEB Pt listening attentively to peers and providing input. Attentive during psychoeducation on 4 zones of regulation. Pt able to identify feelings and behaviors for each zone. Pt identified coping skills one can use to support self in each zone. Pt reports belief they are in the ?blue/yellow? zones today and pt wants to focus on reaching out to his supports and deep breathing today to help pt in this zone. Benefited from increased education on zones of regulation or stages of alertness for emotions and healthy coping skills to use for each zone. Will continue IOP tx to promote the use of healthy coping skills, combat distortions, and improve motivation. Narrative Note: []
--- NOTE | 2023-04-01 14:19 | BH.MDN ---
Multi-Disciplinary Note Note 45-min Individual: Time Started:: 11:33 Date: 03/25/23 Purpose of session/treatment goals addressed:: To address current stressors and thought distortions maintaining symptoms of depression and anxiety. Eye Contact:: Good Motor Activity:: Appropriate Appearance:: Disheveled and Casual Speech:: Appropriate Mood:: Anxious Affect:: Congruent Thoughts:: Linear, Logical and No evidence of hallucinations/delusions noted Staff Interventions:: thought challenging, CBT techniques, mindfulness skills, strengths perspective and goal setting Client Response:: Pt receptive of session and was actively engaged throughout. Reports overall he feels his depression has improved compared with 2-3 weeks ago. Indicates he is no longer experiencing suicidal ideation and has found that he is able to enjoy some activities, such as grilling, and is completing more tasks around the house. Pt shared that he tried to follow through with previous goal of learning to play his father?s guitar; however, felt overwhelmed with grief and thoughts of ?It isn?t fair? which resulted in him not wanting to play. Denies attempting to do so since. Expressed similar thoughts of ?We shouldn?t be in this situation. It isn?t fair? which then tend to lead to thoughts ?It?s my fault we?re losing the house because I can?t work? and ?I should be able to fix it but I can?t?. Able to understand how these thoughts reinforce his depression and feelings of hopelessness. Discussed the potential mental health costs of focusing on what in his life is ?fair? vs ?unfair?. Receptive of discussion on radical acceptance and identifying ways to improve his quality of life in his current situation rather than fixating on the ?unfairness? of it. Pt shared that when experiencing intrusive negative thoughts he could try reminding himself ?I can?t go back and change that this is what we are dealing with now? and ?I am doing everything in my control to deal with our housing situation?. Shared he had started an accomplishment log on Thursday but felt discouraged yesterday and didn?t write in it. Noted that it may improve his confidence if he began working on this again and inquired what ?counts? as an accomplishment. Discussed wide range of potential accomplishments and what accomplishment means, as well as encouraged setting realistic and kind expectations for himself. Pt additionally identified plans to work on visualization and 5-senses grounding skills. Risks/Concerns:: Pt denies active suicidal ideations, plan, or intent as of 03/25/23. Pt is future oriented. Denies access to lethal means. Reports family as primary protective factors. Reports ability to maintain safety. Future oriented. Progress Toward Goals/Plan:: Variable progress noted. Pt reports less depressed and anxious since beginning [place], however this continues to fluctuate greatly depending on his status of current external stressors. Admits to inconsistent skill application and often does not attempt to challenge his negative or anxious thoughts and often instead ruminates on them. Continues to struggle with negative core beliefs and positive self-talk. Reports increased enjoyment in some activities such as grilling or spending time with his son. Continues to struggle with low energy and motivation, often preventing pt from engaging in activities aimed at improving his mental health. Will continue IOP tx to continue to promote medication compliance and healthy skill application, improve consistency of mood stability, and prevent decompensation. Time Stopped:: 12:14
== END 2023-03-27 23:59 ==
LOC: BHIOP 07:43
PROVIDERS: PCP Preventive Medicine Occupational Medicine; Referring Provider Psychiatry & Neurology Psychiatry; Visit Provider Psychiatry & Neurology Psychiatry
DX: F31.9 Bipolar disorder, unspecified (principal); F41.1 Generalized anxiety disorder
CPT/HCPCS: S9480; 90832; 90834; 90837; 90853

== ENCOUNTER → 2023-03-13 | Outpatient (CLI) | payer BC, SELFPAY ==
[2023-03-13 14:11] LABS: Albumin, Serum 4.1 g/dL (3.2-5.0); BUN 14 mg/dL (7-18); BUN/Creat Ratio 14.9 RATIO (10-20); Calcium,Total 10.1 mg/dL (8.5-10.1); Chloride 106 mmol/L (98-107); Creatinine, Serum 0.94 mg/dL (0.70-1.30); EST Glomerular Filtration Rate 99 mL/min (>60); Est Glom Filt Rate - Afr Amer 120 mL/min (>60); Glucose 178 mg/dL (74-106); Phosphorus 3.4 mg/dL (2.5-4.9); Potassium 4.4 mmol/L (3.5-5.1); Sodium Level 138 mmol/L (136-145); Thyroid Stim Hormone (TSH) 0.66 uIU/mL (0.358-3.74)
--- NOTE | 2023-03-20 10:05 | BH.SGPN.GN ---
Behaviors/Verbalizations/Mental Status: []Pt alert and oriented, casually dressed and groomed. Eye contact good. Motor activity appropriate. Speech within normal limits. Affect congruent, mood anxious and content. Thoughts linear, logical, no signs of hallucinations or delusions. Client Response/Progress/Benefit: []Pt responded well to session, attentive during psychoeducation on SMART goals (Specific, Measurable, Achievable, Realistic, and Time-bound). Participated in an interactive discussion with peers in which they worked together to define what a goal is and the benefits of having goals. Group identified benefits as; gives purpose, improves motivation, improves relationships, and personal growth. Participated in small group discussion identifying barriers to setting goals and following through with goals. Pt identified his personal barriers to include lack of resources, physical limitations, distortions, and self-doubt. Benefited from increased awareness of benefits and strategies for goal-setting. Pt to continue in IOP to promote mood stability, improve communication with supports, as well as further promote self-care and prevent decompensation. Narrative Note: []
== END | disposition home or self-care (01) ==
LOC: LAB 12:14
PROVIDERS: PCP Preventive Medicine Occupational Medicine; Referring Provider Psychiatry & Neurology Psychiatry; Visit Provider Psychiatry & Neurology Psychiatry
DX: Z79.899 Other long term (current) drug therapy (principal)
CPT/HCPCS: 36415; 80069; 80178; 84443

== ENCOUNTER 2023-03-30 07:15 | Outpatient (RCR) | payer BC, SELFPAY ==
[2023-03-28 01:34] VITALS: BP 151/92; PULSE 116
--- NOTE | 2023-03-30 09:00 | BH.SGPN.GN ---
Behaviors/Verbalizations/Mental Status: [] Eye contact is good. Motor activity is appropriate. Appearance is casual. Speech is Appropriate. Mood is depressed. Affect is congruent. Thoughts are linear and logical. No evidence of psychosis. Reviewed daily check in sheet and no reports of suicidal ideations or intent. Client Response/Progress/Benefit: [] Pt participated when prompted. Attentive. Daily symptom tracker notes 11/02 for depression and 11/30 for anxiety. Pt was able to identify several mental health wins since last IOP session. He was anxious about communicating medical concerns to his physician. In the past would have avoided advocating for fear of being yelled at however followed through with discussing his concerns at it went well. Able to identify what he learned about this interaction. Elaborated on overcoming additional stressors and how his initial perspectives and mind-reading turned out to be false. Progress noted as pt often talks and thinks himself out of situations as he predicts that the worst case scenarios will occur. Learning that his initial reaction and predictions are not always correct and can lead to catastrophizing, isolation, avoidance, and worsening mental health. Benefited from group support, encouragement, and feedback. Will continue in IOP to maintain safety, stabilize mood, and increase healthy coping. Narrative Note: []
--- NOTE | 2023-03-30 10:10 | BH.SGPN.GN ---
Behaviors/Verbalizations/Mental Status: [] Eye contact is fair. Motor activity is appropriate. Appearance is disheveled. Speech is Appropriate. Mood is anxious. Affect is constricted. Thoughts are linear and logical. No evidence of psychosis. Client Response/Progress/Benefit: [] Pt did not participate in group discussions however was attentive. Participated in and was engaged during experiential activity. Attentive during interactive discussion on what failure means to the group in which peers identified that failure is ... not meeting expectations, not having a desired outcome, and not succeeding in a task. Group was able to identify how fear of failure can lead to inaction, complacency, pushing people away, poor self-care, and self-sabotage. Attentive during interactive discussion on the role that FOF plays in mental wellness, depression, anxiety, and growth. Able to connect the experiential activity to FOF. Benefited from increased awareness of how the role that FOF plays in mental health and decision-making. Will continue in IOP to increase use of healthy coping skills outside tx environment, challenge negative thinking, and prevent decompensation.
--- NOTE | 2023-03-30 11:15 | BH.SGPN.GN ---
Behaviors/Verbalizations/Mental Status: []Pt alert and oriented, disheveled appearance. Eye contact good. Motor activity appropriate. Speech within normal limits. Affect flat, mood depressed. Thoughts linear, logical, no signs of hallucinations or delusions. Client Response/Progress/Benefit: [] Pt responded well to session, engaged in the experiential activity and attentive throughout group processing. Pt reported fear of failure has kept Pt from finding jobs and making friends. Pt completed fear of failure worksheet and was able to identify thoughts and behaviors that reinforce personal fear of failure including fear of letting others down, being let down, and all or nothing thinking. Pt participated in group discussion regarding strategies to overcome fear of failure. Identified wanting to work on reminding himself that thoughts are thoughts not facts. Appeared to benefit from increased knowledge of strategies to combat fear of failure and gaining self-awareness. Pt will continue IOP tx to promote behavioral activation, reduce distorted thought patterns, and improve mood stability. ? Narrative Note: []
--- NOTE | 2023-04-03 11:15 | BH.SGPN.GN ---
Behaviors/Verbalizations/Mental Status: []Pt alert and oriented, disheveled appearance. Eye contact good. Motor activity appropriate. Speech within normal limits. Affect constricted, mood anxious. Thoughts linear, logical, no signs of hallucinations or delusions. Client Response/Progress/Benefit: []Pt responded well to session, attentive and engaged in activity. Group shared having patience and being willing to re-evaluate helped the group be success. Group discussed values and the benefits that knowing one's values can have on one's mental health. These included: increasing motivation, resolved cognitive dissonance, and less stress. Pt explored own values and identified mental health and family as their top two values. Pt set a goal to increase his emotional self-care each week to live according to values. Pt appeared to benefit from exploring values and creating a weekly goal. Pt will continue IOP tx to promote use of healthy coping skills, combat distortions, and promote mood stability. Narrative Note: []
--- NOTE | 2023-04-03 11:27 | BH.MDN_ITS ---
Multi-Disciplinary Note Note 30-min Individual: Time Started:: 10:30 Date: 04/03/23 Purpose of session/treatment goals addressed:: To address current stressors and challenge thought distortions resulting in pt reporting increased anxiety on this date. Eye Contact:: Good Motor Activity:: Appropriate Appearance:: Disheveled Speech:: Appropriate Mood:: Anxious Affect:: Congruent Thoughts:: Linear, Logical and No evidence of hallucinations/delusions noted Staff Interventions:: thought challenging, CBT techniques, mindfulness skills, discharge planning and other (created an anxiety management plan for upcoming stressor) Client Response:: Pt entered session noting ?My anxiety is through the roof today?. Explained his workers compensation defense attorney had informed pt he would need to ?come in to sign somethings? this afternoon. Pt described several catastrophizing thoughts he has been struggling with since receiving the call. Noted that he had not been given details regarding the nature of the documents needing signed and fears he and his family will be evicted. Receptive of cognitive restructuring and looking at the evidence against this. Able to identify that his foreclosure began 4 weeks ago and this process often takes several months which appeared to reduce some anxieties. Additionally discussed anxiety about taking his 5 year old son to the appointment as he does not have childcare available. Expressed fears his son will be a distraction, have difficulties sitting still, or not listen. Willing to work with therapist on developing a plan for keeping his son calm and distracted. Identified he can bring a few toys or drawing supplies, as well as take his son outside for a short walk while his speaks with he workers compensation defense attorney. Pt recognized that taking a walk would also provide him with the opportunity to use grounding skills himself and reviewed various skills pt could use as well. Noted feeling less overwhelmed having a plan in place. Therapist inquired whether pt had considered calling the law office for information on how long to expect the appointment to take as well as the nature of the appointment itself. Shared feeling he would be wasting their time or annoying them by doing so. Receptive of gentle challenging and recognizing that answering pt?s questions is his workers compensation defense attorney?s job and that he is paying the workers compensation defense attorney for help in navigating the process. Shared willingness to call while in group so that he has the opportunity to further process if needing to depending on the information he is presented with. Risks/Concerns:: Pt denies active suicidal ideations, plan, or intent as of 04/03/23. Pt is future oriented. Denies access to lethal means. Reports family as primary protective factors. Progress Toward Goals/Plan:: Progress remains variable. Pt continues to report reduced depression. Noted that his anxiety continues to persist and feels grounding skills provided limited relief. Able to recognize anxiety has reduced in frequency and intensity as pt had reported weekly panic attacks prior to admission and now reports he has not had a panic attack in several weeks. Self- reports struggling with thought challenging and active utilization of his skills in moments of increased stress. Does indicate however some improvement in application outside of tx environment. Will continue IOP tx to continue to promote consistent healthy skill application, improve consistency of mood stability, and prevent decompensation. Time Stopped:: 11:05
--- NOTE | 2023-04-06 09:00 | BH.SGPN.GN ---
Behaviors/Verbalizations/Mental Status: []Pt alert and oriented, disheveled appearance. Eye contact fair. Motor activity appropriate. Speech within normal limits. Affect flat, mood anxious. Thoughts linear, logical, no signs of hallucinations or delusions. Reviewed pt?s symptom tracker, no risk for suicidal ideation, plan, or intent as 04/06/23 Client Response/Progress/Benefit: []Pt responded well to session, attentive and engaged. Pt reports feeling worried this morning as pt has ongoing stressors with finding housing. Pt shared that he is trying to remind himself that he can only do what is in his control and this includes opposite action. Pt shared he used opposite action the other day and it ended up going well. Discussed how avoidance leads to more stressors. Pt appeared to benefit from reflecting on application of healthy coping skills. Pt will continue IOP tx to promote mood stability, reinforce self-care practices, and establish aftercare. Narrative Note: []
--- NOTE | 2023-04-06 10:15 | BH.SGPN.GN ---
Behaviors/Verbalizations/Mental Status: [] Eye contact is good. Motor activity is appropriate. Appearance is disheveled. Speech is Appropriate. Mood is depressed. Affect is congruent. Thoughts are linear and logical. No evidence of psychosis. Client Response/Progress/Benefit: [] Limited participation in group discussions however did complete worksheets on the topic. Attentive during psychoeducation. Attentive during interactive discussion on types of support. Group identified several forms of support which included; friends, family, therapy, professionals, support groups, co-workers, social media, spirituality, medications, local agencies, etc. Pt Attentive during the group discussion on the importance of support which they identified leads to; accountability, can motivate, decreased loneliness, connection with others, improved relationships, increased self-confidence, can lessen one's stress and responsibilities, and is fun/ distracting. Patient identified the obstacles/barriers to seeking support and utilizing the support they currently have in place which included wearing support out and being afraid to open up. Benefited from increased awareness of healthy supports and the importance of balanced support. Will continue in IOP to prevent decompensation, stabilize mood, and increase healthy coping skills. Narrative Note: []
--- NOTE | 2023-04-06 11:15 | BH.SGPN.GN ---
Behaviors/Verbalizations/Mental Status: []Client alert and oriented, casually dressed and groomed. Eye contact good. Motor activity appropriate. Speech within normal limits. Affect congruent, mood anxious and dysthymic. Thoughts linear, logical, no signs of hallucinations or delusions. Client Response/Progress/Benefit: [] Client was a semi-active participant throughout AEB contributing some to group discussion, participating in the activity, and taking notes. Client provided input during discussion on the types of support our supports can provide (social, emotional, tangible, and informational). Able to identify the types of support pt?s own support system provides for them. Client reported gaining awareness that they could benefit from more social specific support. Shared this will help to provide him with a larger support net and feel more connected with others. Client identified steps to achieve this as research what?s available in the area and challenge himself to attend a class or volunteer for something. Client seemed to benefit from identifying support areas client could benefit from improving. Recommended to continue IOP tx to increase healthy coping repertoire, promote mood stability, and improve overall functioning. Narrative Note: []
--- NOTE | 2023-04-07 09:00 | BH.SGPN.GN ---
Behaviors/Verbalizations/Mental Status: [] Eye contact is good. Motor activity is appropriate. Appearance is casual. Speech is Appropriate. Mood is depressed. Affect is flat. Thoughts are linear and logical. No evidence of psychosis. Reviewed daily check in sheet and no reports of suicidal ideations or intent. Client Response/Progress/Benefit: [] Pt participated when prompted. Attentive. Daily symptom tracker notes 2/5 for anxiety, depression, and irritability.Mental health win was I used skills which was helpful. Shared that he is practicing and attempting to use skills more consistently and is noticing the benefits. He mentions ground and breathing being the most effective. In the recent past he would often not use skills which would lead to his negative thoughts, emotions, and panic to worsen which often led to isolation, SI, panic attacks, or re-assurance seeking. Progress noted per pt report AEB increased skills use. Benefited from group support, encouragement, and feedback. Will continue in IOP to maintain gains and stabilize mood. Narrative Note: []
--- NOTE | 2023-04-07 10:15 | BH.SGPN.GN ---
Behaviors/Verbalizations/Mental Status: [] Client alert and oriented, disheveled in appearance. Eye contact fair. Motor activity appropriate. Speech within normal limits. Affect constricted, mood dysthymic. Thoughts linear, logical, no signs of hallucinations or delusions. Client Response/Progress/Benefit: [ ] Client active participant in group discussions, attentive to others. Attentive during psychoeducation on 4 types of conflict styles (Competing, Collaborating, Avoiding, and Accommodating). Worked with group to define conflict and identify how conflict is helpful. With peers identified barriers to addressing or managing conflict which included:not wanting to hurt others, lack of communication skills, and cognitive distortions. Client stated he uses avoiding and accommodating type of conflict resolution which reported lowers his self-worth and gives in to others. Benefited from group due to increase insight and awareness of benefits to conflict, conflict styles, and obstacles to managing conflict. Will continue in IOP to prevent decompensation, increase healthy coping, and challenge distortions.
--- NOTE | 2023-04-07 11:15 | BH.SGPN.GN ---
Behaviors/Verbalizations/Mental Status: []Pt alert and oriented, disheveled. Eye contact good. Motor activity appropriate. Speech within normal limits. Affect flat, mood euthymic. Thoughts linear, logical, no signs of hallucinations or delusions. Client Response/Progress/Benefit: [] Pt engaged in session AEB contributing to discussion and engaging in activity. Attentive during discussion on strategies for more effectively managing conflict in personal life. Pt participated in activity and did well to be assertive and collaborating in small group. Pt given handout on fair fighting rules. Pt indicated that pt is going to work on expressing feelings with words instead of shutting down. Pt can see that avoiding conflict does not help pt, but he gets anxious. Appeared to benefit from gaining strategies to help Pt better manage conflict. Will continue IOP tx to reinforce healthy coping skills and further increase self-care practices. ? Narrative Note: []
--- NOTE | 2023-04-08 12:16 | PCM.BH.PN ---
Progress Note Progress Note: History of Present Illness/Interim History: The patient is a 33-year-old male with a history of mood instability, anxiety, PTSD and alcohol use disorder which has been sober for 9 weeks who is seen in follow-up at the [facility] behavioral health IOP program. I last saw the patient 2 weeks ago and the patient's lithium was increased. The patient obtained his blood work and his lithium level is now 0.70 mmol/liter which is a normal level. His TSH and renal panel are within normal limits. He is tolerating the lithium well and denies any side effects. He feels he is much less depressed than he was 2 weeks ago. He is using coping skills learned in the program to also manage his anxiety much better. He has had 1 panic attack in the past 10 days and has been really trying to learn skills to abort the panic attacks using relaxation techniques. He feels that the IOP has really helped him. He denies any passive thoughts of now. He denies any suicidal ideation. He has not had any cycles of ezio or hypomania since increasing his lithium dose 2 weeks ago. He also denies plan for suicide, active suicidal ideation, homicidal ideation, hallucinations or delusions. Current Psychiatric Medications: [] Abilify 20 mg p.o. daily; Lamictal 100 mg p.o. daily; hydroxyzine twice daily; lorazepam 1 mg p.o. as needed (takes this 2 times a week); Effexor XR 37.5 mg p.o. daily (restarted after discontinuing it recently); lithium carbonate ER 900 mg p.o. nightly (x2 weeks). Mental Status Examination: [] The patient is a 33-year-old male who is obese and tall and appears somewhat older than stated age. He is casually dressed and groomed with good hygiene. He has no psychomotor agitation or retardation. He is ambulatory with a normal gait. Eye contact is good and speech is normal rate and rhythm and fluent with no pressure. Mood is minimally depressed. Affect is full and normal. Thought process is goal-directed and organized. Thought content: There is no evidence of passive thoughts of , suicidal ideation, homicidal ideation, hallucinations or delusions. Patient is hopeful for the future. Reality testing is intact. Judgment is intact. Insight is good. Impulsivity is moderate. Diagnoses: [] 1. Bipolar, NOS 2. Generalized anxiety disorder 3. PTSD 4. Alcohol use disorder (sober x9 weeks) 5. Moderate medical marijuana use disorder Plan: [] The patient will continue the IOP program at [facility] as the structure, support, education and group therapy will hopefully prevent worsening of the patient's symptoms. He felt safe during the interview and if it anytime he does not feel safe he will let us know or go to the emergency room. No medication changes were made today. The patient will continue to follow-up with his outpatient providers and I will see the patient in follow-up in several weeks. He does not take any ibuprofen?like meds for pain and he understands these could increase lithium levels if he takes them.
--- NOTE | 2023-04-10 08:31 | BH.DS_ITS ---
Discharge Summary Demographics Date of Admission:: 02/09/23 Discharge Date: 04/10/23 Presenting Problems at Admission:: The patient is a 32-year-old male with a history of bipolar disorder and anxiety who presents to the [facility] behavioral health IOP program by outpatient psychiatrist for worsening anxiety and depression over the past 3 months. Shared anxiety has escalated to point of panic and resulted in pt seeking emergency tx through [facility] ED approx. 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 Primary stressors include managing his pain related to chronic knee problems, finances, and impending loss of housing due to foreclosure of his late father?s estate. Sorting through the estate has also been a major stressor. Pt endorses sadness, hopelessness, worthlessness and guilt, low energy, increased sleep, anhedonia, loss of enjoyment, increased appetite, rumination, and constant worry about the future. Patient has been trying to get disability since June 2022 which is an additional stressor. He has a history of chronic back and knee pain and has not worked since 2016 due to this. Discharge Diagnoses:: 1. Bipolar, NOS (currently depressed). 2. Generalized anxiety disorder Reason for Discharge:: Pt has accomplished his tx goals AEB reduction of DSM-5 scores and self-report of improved mood, functioning, and ability to cope with stressors. Pt will continue with outpatient counseling and medication management. Treatment Progress During Treatment & Response: Pt has responded well to treatment as evidenced by Pt consistently attending IOP sessions, reduction of DSM-5 scores since admission, and self-report. Pt was initially anxious to engage and struggled with significant rumination which kept him from being fully present in groups; however, as tx progressed he was increasingly attentive and receptive to learning during group and individual sessions. Pt made progress in his overall willingness and ability to begin applying coping skills outside of IOP setting and reports overall his mood is improved and he is functioning better than he was several months ago. Reports he no longer has active suicidal ideation and is able to feel more confident in his ability to navigate future stressors. Pt?s overall symptom reduction is 59% since admission with irritability sx decreasing by 38%, depression decreasing by 43%, and anxiety decreasing by 60%. Pt reports he has increased self-confidence in his ability to communicate his needs and manage stressors, emotions, and conflict. Issues Still to be Addressed:: Interpersonal effectiveness skills, negative core beliefs, and ongoing triggers, self-care, behavior activation, emotion regulation skills, and self-esteem. Discharge Recommendations/Instructions:: Pt will discharge from [facility] tx today and continue with outpatient providers. Next appointment with outpatient counselor, Karlene Rico, scheduled for 04/16/23. Scheduled for intake assessment with Dr. Paula for medication management in July and will continue with current v irtual provider, Dr. Samm Biggs until that time. Discharge Handout
--- NOTE | 2023-04-10 09:00 | BH.SGPN.GN ---
Behaviors/Verbalizations/Mental Status: [] Pt alert and oriented, disheveled appearance. Eye contact good. Motor activity appropriate. Speech within normal limits. Affect congruent, mood anxious. Thoughts linear, logical, no signs of hallucinations or delusions. Reviewed pt?s symptom tracker, no risk for suicidal ideation, plan, or intent 04/10/23 Client Response/Progress/Benefit: []Pt responded well to session, attentive and engaged. Pt reports feeling dread this morning because of the ongoing stress of trying to find a place to live. However, despite this dread and frustration, pt reflected on his use of healthy coping skills such as deep breathing, positive self-talk, and being social. Pt is discharging from IOP tx today and he is nervous, but also could identify progress in reduced anxiety and depression. Pt will discharge from IOP tx today as pt has accomplished his tx goals and no longer meets criteria for IOP level of care. Narrative Note: []
--- NOTE | 2023-04-10 10:10 | BH.SGPN.GN ---
Behaviors/Verbalizations/Mental Status: []Pt alert and oriented, casually dressed and groomed. Eye contact good. Motor activity appropriate. Speech within normal limits. Affect congruent, mood calm. Thoughts linear, logical, no signs of hallucinations or delusions. Client Response/Progress/Benefit: []Pt receptive of session, actively engaged throughout AEB taking notes and listening to discussion. Appeared to connect with group topic of cognitive distortions and the impact of thought patterns on mental health, coping behaviors, and relationships. Pt reports connecting with distortions of all or nothing. Able to connect impact distortions has on mental health. Pt appeared to benefit from gaining insight on distorted thinking patterns and how this impacts overall mental health. Pt has made treatment progress since starting IOP and will discharge today.
--- NOTE | 2023-04-10 11:10 | BH.SGPN.GN ---
Behaviors/Verbalizations/Mental Status: [] Eye contact is good. Motor activity is appropriate. Appearance is casual. Speech is Appropriate. Mood is euthymic. Affect is full. Thoughts are linear and logical. No evidence of psychosis. Client Response/Progress/Benefit: [] Pt was an active participant during group discussions and activity. Pt was placed in a smaller group and participated in quiz-show format in which small groups competed against each-other to answer questions based on identifying, challenging, and reframing cognitive distortions. Pt was engaged in her smaller group, participated in group interactions to brainstorm answers, and appeared to be comprehending cognitive distortions. Stated sometimes my way of thinking is not reality. Benefited from gaining further insight and awareness of cognitive distortions as well as practicing ways to reframe and challenge thoughts.Pt will be discharged from [facility] today. Narrative Note: []
== END 2023-04-10 13:20 | disposition home or self-care (01) ==
LOC: BHIOP 07:15
PROVIDERS: PCP Preventive Medicine Occupational Medicine; Referring Provider Psychiatry & Neurology Psychiatry; Visit Provider Psychiatry & Neurology Psychiatry
DX: F31.9 Bipolar disorder, unspecified (principal); F41.1 Generalized anxiety disorder; F43.10 Post-traumatic stress disorder, unspecified; F10.90 Alcohol use, unspecified, uncomplicated
CPT/HCPCS: S9480; 90832; 90853

== ENCOUNTER → 2023-04-03 | Outpatient (CLI) | payer BC, SELFPAY ==
[2023-04-03 10:40] LABS: Albumin, Serum 3.5 g/dL (3.2-5.0); BUN 13 mg/dL (7-18); BUN/Creat Ratio 12.4 RATIO (10-20); Calcium,Total 8.5 mg/dL (8.5-10.1); Chloride 102 mmol/L (98-107); Creatinine, Serum 1.05 mg/dL (0.70-1.30); EST Glomerular Filtration Rate 87 mL/min (>60); Est Glom Filt Rate - Afr Amer 105 mL/min (>60); Glucose 221 mg/dL (74-106); Phosphorus 2.7 mg/dL (2.5-4.9); Sodium Level 134 mmol/L (136-145); Thyroid Stim Hormone (TSH) 1.61 uIU/mL (0.358-3.74)
== END | disposition home or self-care (01) ==
LOC: LAB 09:01
PROVIDERS: PCP Preventive Medicine Occupational Medicine; Referring Provider Psychiatry & Neurology Psychiatry; Visit Provider Psychiatry & Neurology Psychiatry
DX: Z79.899 Other long term (current) drug therapy (principal)
CPT/HCPCS: 36415; 80069; 80178; 84443

== ENCOUNTER → 2023-10-21 | Outpatient (CLI) | payer BC, SELFPAY ==
--- OUTSIDE RECORDS SUMMARY | 2023-10-21 11:49 | XMS RPT_ITS | CCD ---
Author Name Unknown Address [address] [place] [address] Organization [facility] Care Team Providers Care Strategy Director Name Role Phone Andrea Adrian Unavailable Unavailable Unavailable MARIA E BROWN DO Primary Care Physician [phone] MARIA E BROWN DO Primary Care Physician [phone] CONCEPCION MARTINEZ DO Attending Unavailable MARIA E BROWN DO Primary Care Unavailable EDWINA TENORIO, DR COLE Attending Unavailab MARIA E Gallagher DO Primary Care Unavailable MARIA E BROWN DO Attending Unavailable MARIA E BROWN DO Primary Care Unavailable Allergies Allergy Classification Reported Allergen(s) Allergy Type Date of Onset Reaction(s) Facility diphenhydrAMINE (3 sources) diphenhydrAMINE; Translations: [Benadryl] Drug Allergy Shortness of breath, Tachycardia [facility] [facility] [employer] Work Phone: (5 sources) diphenhydrAMINE; Translations: [Benadryl] Drug Allergy Sinus tachycardia (finding) [facility]: Medications Current Medications Medication Drug Class(es) Dates Sig (Normalized) Sig (Original) ARIPiprazole 20 mg oral tablet (7 sources) Atypical Antipsychotic Start: 09-25-2022 ARIPiprazole 20 mg oral tablet Dose : 20 mg = 1 tab(s), Oral, qDay, # 90 tab(s), 1 Refill(s), Pharmacy: [facility]/pharmacy #[id number], 184, cm, 09/25/22 10:25:00 EST, Height, kg, 09/25/22 10:25:00 EST, Dosing Weight Start Date: 09/25/22 Status: Ordered Completed/Discontinued Medications Medication Drug Class(es) Dates Sig (Normalized) Sig (Original) amoxicillin 875 mg / clavulanate 125 mg oral tablet (1 source) Penicillin-class Antibacterial Start: 07-22-2021 End: 07-29-2021 take 1 tablet by mouth every twelve hours amoxicillin-clav ulanate 875 mg-125 mg oral tablet 1 tab(s), Oral, q12h, # 14 tab(s), 0 Refill(s), Pharmacy: [facility]/pharmacy #[id number], 182.9, cm, 07/22/21 4:57:00 EDT, Height, 163.3, kg, 07/22/21 4:57:00 EDT, Dosing Weight Start Date: 07/22/21 Stop Date: 07/29/21 Status: Ordered traMADol hydrochloride 50 mg oral tablet (3 sources) Opioid Agonist Start: 02-27-2020 take 1 tablet by mouth twice daily traMADol HCl - 50 MG Oral Tablet one tablet BID Quantity: 0 Refills: 0 Ordered: 27-Feb-2020 DO Start : 27-Feb-2020 Active Problems Problem Classification Problem Date Documented Date Episodic/Chronic Allergic reactions (4 sources) Allergic disorder of skin 03-30-2021 Episodic Anxiety disorders (4 sources) Mixed anxiety and depressive disorder; Translations: [Anxiety disorder] Onset: 01-27-2023 09-25-2022 Chronic Cardiac dysrhythmias (4 sources) Supraventricular tachycardia 04-18-2019 Chronic Diabetes mellitus without complication (3 sources) Type 2 diabetes mellitus 07-29-2021 Chronic Essential hypertension (4 sources) Hypertensive disorder 12-20-2014 Chronic Malaise and fatigue (2 sources) Fatigue 10-27-2022 Episodic Mood disorders (2 sources) Depression 04-18-2019 Chronic Noninfectious gastroenteritis (3 sources) Chronic diarrhea; Translations: [Diarrhea] Episodic Other circulatory disease (3 sources) H/O: hypertension; Translations: [Personal history of other diseases of circulatory system] Episodic Other circulatory disease (3 sources) History of cardiac arrhythmia; Translations: [Personal history of other diseases of circulatory system] Episodic Other nervous system disorders (2 sources) Sleep attack 10-27-2022 Chronic Other nutritional; endocrine; and metabolic disorders (3 sources) Morbid obesity; Translations: [Morbid obesity] Chronic Other nutritional; endocrine; and metabolic disorders (4 sources) Body mass index 40+ - severely obese 07-23-2020 Chronic Residual codes; unclassified (3 sources) Tobacco use and exposure - finding; Translations: [Tobacco use disorder] Episodic Residual codes; unclassified (3 sources) History of clinical finding in subject; Translations: [Personal history of other specified diseases] Episodic Residual codes; unclassified (4 sources) Chronic pain 05-20-2019 Episodic Screening and history of mental health and substance abuse codes (3 sources) H/O: depression; Translations: [Personal history of other mental disorders] Episodic Skin and subcutaneous tissue infections (2 sources) Cellulitis; Translations: [Cellulitis, unspecified] Onset: 08-01-2022 Episodic Results Test Name Value Interpretation Reference Range Facil ity Vital Signs Date Time Vital Sign Value Performing Clinician Jamal lity 01-27-2023 22:14-0400 Diastolic Blood Pressure Non-Invasive 75 1 CONCEPCION MARTINEZ DO [facility] 01-27-2023 22:14-0400 Heart rate 112 /min CONCEPCION MARTINEZ DO [facility] 01-27-2023 22:14-0400 Respiratory rate 18 /min CONCEPCION MARTINEZ DO [facility] 01-27-2023 22:14-0400 Systolic Blood Pressure Non-Invasive 141 1 CONCEPCION MARTINEZ DO [facility] 01-27-2023 18:46-0400 Body height 188 cm CONCEPCION MARTINEZ DO [facility] 01-27-2023 18:46-0400 Body temperature 97.7 [degF] CONCEPCION MARTINEZ DO [facility] 01-27-2023 18:46-0400 Body weight 77.3 kg CONCEPCION MARTINEZ DO [facility] 01-27-2023 18:46-0400 Diastolic Blood Pressure Non-Invasive 88 1 CONCEPCION FERRERKA DO [facility] 01-27-2023 18:46-0400 Heart rate 115 /min CONCEPCION FERRERKA DO [facility] 01-27-2023 18:46-0400 Respiratory rate 20 /min CONCEPCION MARTINEZ DO [facility] 01-27-2023 18:46-0400 Systolic Blood Pressure Non-Invasive 150 1 CONCEPCION MARTINEZ DO [facility] 08-01-2022 17:42-0400 Body height [address] DOUGLAS BLAND MD [facility] 08-01-2022 17:42-0400 Body temperature 99.68 [degF] DR DOUGLAS BLAND MD [facility] 08-01-2022 17:42-0400 Body weight [address] DOUGLAS BLAND MD [facility] 08-01-2022 17:42-0400 Diastolic blood pressure 88 mm[Hg] DR DOUGLAS BLAND MD [facility] 08-01-2022 17:42-0400 Heart rate 64 /min DR DOUGLAS BLAND MD [facility] 08-01-2022 17:42-0400 Respiratory rate 16 /min DR DOUGLAS BLAND MD [facility] 08-01-2022 17:42-0400 Systolic blood pressure 149 mm[Hg] DR DOUGLAS BLAND MD [facility] 07-21-2021 01:56-0400 Body height [address] RE KELLY MD [facility] 07-21-2021 01:56-0400 Body temperature 98.78 [degF] DR RE KELLY MD [facility] 07-21-2021 01:56-0400 Body weight [address] RE KELLY MD [facility] 07-21-2021 01:56-0400 Diastolic blood pressure 68 mm[Hg] DR RE KELLY MD [facility] 07-21-2021 01:56-0400 Heart rate 68 /min DR RE KELLY MD [facility] 07-21-2021 01:56-0400 Respiratory rate 20 /min DR RE KELLY MD [facility] 07-21-2021 01:56-0400 Systolic blood pressure 123 mm[Hg] DR RE KELLY MD [facility] 03-18-2021 12:04-0400 Body height 187.96 cm Andrea Adrian [facility] Work Phone: 03-18-2021 12:04-0400 Body mass index (BMI) [Ratio] 43.65 kg/m2 Andrea Adrian Work Phone: [facility] Work Phone: 03-18-2021 12:04-0400 Body surface area Derived from formula 2.72 m2 Andrea Adrian Work Phone: [facility] Work Phone: 03-18-2021 12:04-0400 Body weight 154.22 kg Andrea Adrian [facility] Work Phone: 02-11-2021 11:16-0400 Body height 187.96 cm Andrea Adrian Work Phone[facility] Work Phone: 02-11-2021 11:16-0400 Body mass index (BMI) [Ratio] 43.65 kg/m2 Andrea Adrian Work Phone: [facility] Work Phone: 02-11-2021 11:16-0400 Body surface area Derived from formula 2.72 m2 Andrea Adrian Work Phone: [facility] Work Phone: 02-11-2021 11:16-0400 Body weight 154.22 kg Andrea Adrian Work Phone: [facility] Work Phone: Encounters Encounter Date Encounter Type Care Provider Facility Start: 01-27-2023 End: 01-28-2023 [facility] Start: 01-27-2023 End: 01-27-2023 Emergency department [facility] Start: 10-27-2022 End: 10-28-2022 ambulatory [facility] Facility:B Start: 10-27-2022 End: 10-27-2022 [facility] encounter [facility] Start: 08-01-2022 End: 08-01-2022 Emergency department patient visit DR DOUGLAS BLAND MD Facility:B Start: 08-01-2022 End: 08-01-2022 Emergency department patient visit DR DOUGLAS BLAND MD [facility] Start: 07-21-2021 End: 07-21-2021 Emergency department patient visit DR RE KELLY MD [facility] Start: 05-23-2021 Rx Renewal Andrea Pace ff Work Phone: [facility] Work Phone: Start: 03-18-2021 Phys/qhp telephone evaluation 11-20 min Andrea Adrian Work Phone: [facility] Work Phone: Start: 02-28-2021 Chart Update Andrea Pace ff Work Phone: [facility] Work Phone: Procedures Date Procedure Procedure Detail Performing Clinician Start: 02-22-2021 Colonoscopy Andrea gaaln Work Phone: Start: 04-28-2019 Cardiac ablation usi ng fluoroscopy guidance DR RE KELLY MD Appendectomy Andrea flowers Work Phone: Appendectomy DR RE KELLY MD Arthroplasty of knee , femoral condyles with debridement and partial synovectomy DR RE KELLY MD Plan of Treatment Date Care Activity Detail Author Start: 03-18-2021 BISI, Provider : Madiha Razo, Status: Pen, Time: 12:30 PM BISI, Provider: Madiha Razo, Status: Pen, Time: 12:30 PM [facility] Work Phone: Immunizations Immunization Date Immunization Notes Care Provider Fa cilirosio 05-27-2003 measles/mumps/rubell a virus vaccine DR DOUGLAS BLAND MD [facility] Payers Date Payer Category Payer Unknown [id number] 2022 Unknown [id number] 1991 Unknown [id number] 1991 Unknown [id number] 1991 Unknown [id number] Unknown ANTHEM Social History Date Type Detail Facility No illicit drug use No illicit drug use [facility] Work Phone: Medical Equipment Procedure Code Equipment Code Equipment Origin al Text Equipment Identifier Dates See Instructions , Dispense glucose test strips, #100, use as directed daily to test blood sugar; diagnosis: E11.9, # 100 EA, 3 Refill(s), Pharmacy: [facility]/pharmacy #[id number], Type 2 diabetes mellitus, 184, cm, 07/29/21 13:07:00 EDT, Height, 159.9, kg, ... Start: 07-29-2021 See Instructions , Dispense UltraFine lancets, #100, use as directed daily to test blood sugar; diagnosis: E11.9, # 100 EA, 3 Refill(s), Pharmacy: [facility]/pharmacy #[id number], Type 2 diabetes mellitus, 184, cm, 07/29/21 13:07:00 EDT, Height, 159.9, kg, 07/29/21... Start: 07-29-2021 See Instructions , Dispense glucose test strips, #100, use as directed daily to test blood sugar; diagnosis: E11.9, # 100 EA, 3 Refill(s), Pharmacy: [facility]/pharmacy #[id number], Type 2 diabetes mellitus, 184, cm, 07/29/21 13:07:00 EDT, Height, 159.9, kg, ... Start: 07-29-2021 See Instructions , Dispense UltraFine lancets, #100, use as directed daily to test blood sugar; diagnosis: E11.9, # 100 EA, 3 Refill(s), [id number], Type 2 diabetes mellitus, 184, cm, 07/29/21 13:07:00 EDT, Height, 159.9, kg, 07/29/21... Start: 07-29-2021 See Instructions , Dispense glucose test strips, #100, use as directed daily to test blood sugar; diagnosis: E11.9, # 100 EA, 3 Refill(s), Pharmacy: [facility]/pharmacy #[id number], Type 2 diabetes mellitus, 184, cm, 07/29/21 13:07:00 EDT, Height, 159.9, kg, ... Start: 07-29-2021 See Instructions , Dispense UltraFine lancets, #100, use as directed daily to test blood sugar; diagnosis: E11.9, # 100 EA, 3 Refill(s), [id number], Type 2 diabetes mellitus, 184, cm, 07/29/21 13:07:00 EDT, Height, 159.9, kg, 07/29/21... Start: 07-29-2021 Functional Status Date Assessment Result Facility 01-27-2023 Functional Status Assistive Device None [facility] 01-27-2023 Functional Status Awake, Repositions self [facility] 08-01-2022 Functional Status ID band on, Allergy Band on, Call device within reach, Bed in low position, Wheels locked [facility] Mental Status Date Assessment Result Facility 01-27-2023 Mental Status Orientation Oriented x 4 [facility] 08-01-2022 Mental Status Oriented x 4 [facility] Clinical Notes 02-22-2021 to 01-28-2023 Note Date & Type Note Facility 01-28-2023 Hospital Discharg e instructions Patient Education 01/27/2023 22:05:17 Anxiety Reaction Anxiety Reaction Anxiety is the feeling we all get when we think something bad might happen. It is a normal response to stress and usually causes only a mild reaction. When anxiety becomes more severe, it can interfere with daily life. In some cases, you may not even be aware of what it is you re anxious about. There may also be a genetic link or it may be a learned behavior in the home. Both psychological and physical triggers cause stress reaction. It's often a response to fear or emotional stress, real or imagined. This stress may come from home, family, work, or social relationships. During an anxiety reaction, you may feel: Helpless Nervous Depressed Irritable Your body may show signs of anxiety in many ways. You may experience: Dry mouth Shakiness Dizziness Weakness Trouble breathing Breathing fast (hyperventilating) Chest pressure Sweating Headache Nausea Diarrhea Tiredness Inability to sleep Sexual problems Home care Try to locate the sources of stress in your life. They may not be obvious. These may include: oDaily hassles of life (such as traffic jams, missed appointments, or car troubles) oMajor life changes, both good (new baby or job promotion) and bad (loss of job or loss of loved one) oOverload: feeling that you have too many responsibilities and can't take care of all of them at once oFeeling helpless or feeling that your problems are beyond what you re able to solve Notice how your body reacts to stress. Learn to listen to your body signals. This will help you take action before the stress becomes severe. When you can, do something about the source of your stress. (Avoid hassles, limit the amount of change that happens in your life at one time and take a break when you feel overloaded). Unfortunately, many stressful situations can't be avoided. It is necessary to learn how to better manage stress. There are many proven methods that will reduce your anxiety. These include simple things like exercise, good nutrition, and adequate rest. Also, there are certain techniques that are helpful: oRelaxation oBreathing exercises oVisualization oBiofeedback oMeditation For more information about this, consult your healthcare provider or go to a local bookstore and review the many books and tapes available on this subject. Follow-up care If you feel that your anxiety is not responding to self-help measures, contact your healthcare provider or make an appointment with a counselor. You may need short-term psychological counseling and temporary medicine to help you manage stress. Call 911 Call 911 if any of these happen: Trouble breathing Confusion Drowsiness or trouble wakening Fainting or loss of consciousness Rapid heart rate Seizure New chest pain that becomes more severe, lasts longer, or spreads into your shoulder, arm, neck, jaw, or back When to seek medical advice Call your healthcare provider right away if any of these happen: Your symptoms get worse Severe headache not relieved by rest and mild pain reliever [id number] [employer]. [address] [place] [address]. All rights reserved. This information is not intended as a substitute for professional medical care. Always follow your healthcare professional's instructions. Follow Up Care 01/27/2023 18:40:48 With:MARIA E BROWN DO Address: [address] [place] [phone] When:2-4 days [facility] 01-27-2023 Note Discharge Instructions Thank you for allowing [facility] to assist you with your healthcare needs. The following is important discharge information regarding your hospital visit. Diagnosis from Today's Visit Anxiety Anxiety Depression What to Do Next Instructions from Your Care Team No qualifying data available. Post Acute Orders No qualifying data available. You Need to Schedule the Following Appointments Follow Up with MARIA E BROWN DO When Within 2-4 days Where: [address] [place] [phone] Allergies Benadryl (Sinus tachycardia) Medications Please ask your primary doctor or pharmacist before taking any other medication not listed, including over the counter drugs, herbal medications, vitamins and or supplements as they may interact with your home medications. What How Much When Why Instructions Last Dose New LORazepam (Ativan 1 mg oral tablet) 1 tab(s) by mouth Two (2) times a day as needed for as needed for anxiety Anxiety Duration: 7 Days Printed Prescription Unchanged ARIPiprazole (ARIPiprazole 20 mg oral tablet) 1 tab(s) by mouth Once a day Unchanged baclofen (baclofen 10 mg oral tablet) 1 tab(s) by mouth Three (3) times a day TAKE 1 TABLET 3 TIMES A DAY Unchanged busPIRone (busPIRone 15 mg oral tablet) TAKE 1 TABLET BY MOUTH TWICE A DAY UNTIL DIRECTED TO STOP Unchanged dapagliflozin (Farxiga 10 mg oral tablet) 1 tab(s) by mouth Once a day Type 2 diabetes mellitus [facility] will be bringing in a discount coupon Unchanged DME (Blood Glucose Test Machine) See instructions Type 2 diabetes mellitus Use as directed daily to test blood sugars; diagnosis: E11.9 Unchanged DME (Blood Glucose Test Strips) See instructions Type 2 diabetes mellitus Dispense glucose test strips, #100, use as directed daily to test blood sugar; diagnosis: E11.9 Unchanged DME (Lancets) See instructions Type 2 diabetes mellitus Dispense UltraFine lancets, #100, use as directed daily to test blood sugar; diagnosis: E11.9 Unchanged esomeprazole (esomeprazole 40 mg oral delayed release capsule) 1 cap by mouth Once a day Unchanged gabapentin (gabapentin 600 mg oral tablet) 1 tab(s) by mouth Four (4) times a day as needed for Pain Unchanged hydrOXYzine (hydrOXYzine pamoate 50 mg oral capsule) 1 cap by mouth Two (2) times a day as needed for as needed for anxiety Unchanged lamoTRIgine (lamoTRIgine 100 mg oral tablet) 1 tab(s) by mouth Once a day Unchanged lisinopril (lisinopril 40 mg oral tablet) 1 tab(s) by mouth Daily at bedtime Unchanged meloxicam (meloxicam 7.5 mg oral tablet) 1 tab(s) by mouth Once a day (in the evening) TAKE 1 TABLET ORAL EVERY DAY FOR 30 DAYS Unchanged metFORMIN (metFORMIN 500 mg oral tablet EXTENDED RELEASE) 4 tab(s) by mouth Once a day Unchanged oxyCODONE (Xtampza ER 18 mg oral capsule, extended release) TAKE 1 ORAL TWICE A DAY FOR 28 DAYS Unchanged venlafaxine (venlafaxine 75 mg oral tablet) 1 tab(s) by mouth Two (2) times a day Please take this list to your next doctor s visit. Bring all medications you take, including over the counter medications, herbals and other supplements with you to your doctor s visit. Patients and families are reminded to discard old lists and to update any records with all medication providers or retail pharmacies. Education Materials Anxiety Reaction Anxiety is the feeling we all get when we think something bad might happen. It is a normal response to stress and usually causes only a mild reaction. When anxiety becomes more severe, it can interfere with daily life. In some cases, you may not even be aware of what it is you re anxious about. There may also be a genetic link or it may be a learned behavior in the home. Both psychological and physical triggers cause stress reaction. It's often a response to fear or emotional stress, real or imagined. This stress may come from home, family, work, or social relationships. During an anxiety reaction, you may feel: Helpless Nervous Depressed Irritable Your body may show signs of anxiety in many ways. You may experience: Dry mouth Shakiness Dizziness Weakness Trouble breathing Breathing fast (hyperventilating) Chest pressure Sweating Headache Nausea Diarrhea Tiredness Inability to sleep Sexual problems Home care Try to locate the sources of stress in your life. They may not be obvious. These may include: oDaily hassles of life (such as traffic jams, missed appointments, or car troubles) oMajor life changes, both good (new baby or job promotion) and bad (loss of job or loss of loved one) oOverload: feeling that you have too many responsibilities and can't take care of all of them at once oFeeling helpless or feeling that your problems are beyond what you re able to solve Notice how your body reacts to stress. Learn to listen to your body signals. This will help you take action before the stress becomes severe. When you can, do something about the source of your stress. (Avoid hassles, limit the amount of change that happens in your life at one time and take a break when you feel overloaded). Unfortunately, many stressful situations can't be avoided. It is necessary to learn how to better manage stress. There are many proven methods that will reduce your anxiety. These include simple things like exercise, good nutrition, and adequate rest. Also, there are certain techniques that are helpful: oRelaxation oBreathing exercises oVisualization oBiofeedback oMeditation For more information about this, consult your healthcare provider or go to a local bookstore and review the many books and tapes available on this subject. Follow-up care If you feel that your anxiety is not responding to self-help measures, contact your healthcare provider or make an appointment with a counselor. You may need short-term psychological counseling and temporary medicine to help you manage stress. Call 911 Call 911 if any of these happen: Trouble breathing Confusion Drowsiness or trouble wakening Fainting or loss of consciousness Rapid heart rate Seizure New chest pain that becomes more severe, lasts longer, or spreads into your shoulder, arm, neck, jaw, or back When to seek medical advice Call your healthcare provider right away if any of these happen: Your symptoms get worse Severe headache not relieved by rest and mild pain reliever [id number] [employer]. [address] [place] [address]. All rights reserved. This information is not intended as a substitute for professional medical care. Always follow your healthcare professional's instructions. Additional Information VACCINATE! IT SAVES LIVES! Members of the community who have not yet received the COVID-19 vaccine and would like to receive it can visit one of [facility] vaccine clinics. There are many vaccine clinic locations within the [facility]. For locations and available times, please visit [email or web address] [email or web address] It is important to note that some COVID mobile vaccine clinics are held outdoors and may be canceled in rainy or stormy conditions. To learn more about pediatric vaccinations (ages 5-11), we invite you to visit the [facility] webpage. [email or web address] [email or web address] To learn more about the COVID-19 vaccine, we invite you to visit the CDC website for a list of frequently asked questions. https://www.cdc.gov/coronavirus/ 2019-ncov/vaccines/faq.html [facility] Access Instructions: Stay connected with your healthcare team and access your personal medical information anytime with the [facility] Patient Portal. If you would like a full copy of your medical records please contact the [facility] Medical Records Department Thursday through Thursday between 8a.m. and 4:30p.m. Please follow the directions below to access the portal: 1.Access the email account you provided upon registration to the [facility].2.Look for an invitation email from [facility].3.Open the email and access the invitation link: Accept Invitation to [employer]4.Fill in the required melendez to create your account. Sign into [email or web address] with your username and password that you created in the above steps to stay up to date. You can then view a summary of results, a summary of your visits, and the ability to download your summaries to your computer or send the information securely to a physician. Remember that your healthcare information is confidential, so carefully consider who you will allow to register on the [facility] Patient Portal for access to your information. You can also access the [facility] Patient Portal on the [employer] ceasar. Simply click on Health Records under Health Data and then click on the [employer] logo. HOW TO SAFELY DISPOSE OF PRESCRIPTION MEDICATIONS Please use one of the following methods to safely dispose of your unused medications. 1.Use a drug disposal kit: the drug disposal pouch allows you to safely discard your old and unused drugs. Ask your nurse to give you one when you are discharged.2.Visit a local take-back location: Many local pharmacies and police departments have programs that collect old and unwanted prescription drugs. Call your local pharmacy or go to [email or web address] to find one close to you.3.Make use of household items: Use cat litter or old coffee grounds to dispose medications if other options are not available. Mix your drugs with these household products, seal them in an airtight container and throw it into the garbage. Call [facility]: [phone] to be sure your drugs can be disposed of in this way. Some medicines may require a different approach.4.Never flush your medications down the toilet. IF YOU HAVE BEEN PRESCRIBED AN OPIOIDS FOR PAIN If you have been prescribed an opioid (such as hydrocodone, oxycodone or morphine), it is critical to understand the possible side effects and risks of opioid pain medications. Even when taken as directed, opioids can have several side effects including: Tolerance, meaning you might need to take more of a medication for the same pain relief. Nausea, vomiting and/or constipation. Sleepiness, dizziness, dry mouth, confusion, depression or itching. Physical dependence, meaning you have withdrawal symptoms when a medication is stopped ? this can develop within a few days. KNOW YOUR RESPONSIBILITIES It is important to know exactly how much and how often to take the opioid pain medications you are prescribed. Never take opioids in higher amounts or more often than prescribed. Do not combine opioids with alcohol or other drugs that cause drowsiness, such as benzodiazepines, also known as benzos, including diazepam and alprazolam, muscle relaxants or sleep aids. Never sell or share prescription opioids. This is illegal. Store opioids in a secure place and out of reach of others (including children, family, friends and visitors). The last page(s) of this document has been signed and retained as a CHART COPY Signatures Patient Education Materials Anxiety Reaction Medication Leaflets My discharge plan and instructions have been reviewed and explained to me and I,CHIRAG SAWANT understand my current condition and have read and understand these discharge instructions. I have received a written copy of the plan/instructions. If I have questions, I am aware that I should contact my doctor. 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 A break in the skin, such as a cut or scratch, can let bacteria under the skin. If the bacteria get to deep layers of the skin, it can be serious. If not treated, cellulitis can get into the bloodstream and lymph nodes. The infection can then spread throughout the body. This causes serious illness. Cellulitis causes the affected skin to become red, swollen, warm, and sore. The reddened areas have a visible border. An open sore may leak fluid (pus). You may have a fever, chills, and pain. Cellulitis is treated with antibiotics taken for 7 to 10 days. An open sore may be cleaned and covered with cool wet gauze. Symptoms should get better 1 to 2 days after treatment is started. Make sure to take all the antibiotics for the full number of days until they are gone. Keep taking the medicine even if your symptoms go away. Home care Follow these tips: Limit the use of the part of your body with cellulitis. If the infection is on your leg, keep your leg raised while sitting. This will help to reduce swelling. Take all of the antibiotic medicine exactly as directed until it is gone. Do not miss any doses, especially during the first 7 days. Don t stop taking the medicine when your symptoms get better. Keep the affected area clean and dry. Wash your hands with soap and warm water before and after touching your skin. Anyone else who touches your skin should also wash his or her hands. Don't share towels. Follow-up care Follow up with your healthcare provider, or as advised. If your infection does not go away on the first antibiotic, your healthcare provider will prescribe a different one. When to seek medical advice Call your healthcare provider right away if any of these occur: Red areas that spread Swelling or pain that gets worse Fluid leaking from the skin (pus) Fever higher of 100.4 F (38.0 C) or higher after 2 days on antibiotics 8341-9981 [employer]. [address] [place] [address]. All rights reserved. This information is not intended as a substitute for professional medical care. Always follow your healthcare professional's instructions. Follow Up Care 08/01/2022 17:32:18 With:MARIA E BROWN DO Address: [address] [place] [phone] When:2-4 days [facility] 08-01-2022 Note Discharge Instructions Thank you for allowing [facility] to assist you with your healthcare needs. The following is important discharge information regarding your hospital visit. Diagnosis from Today's Visit Cellulitis Skin problem What to Do Next Instructions from Your Care Team Compresses to the area 4-5 times a day. Return if increasing swelling, pain, fevers, vomiting or elevated blood sugar. No qualifying data available. Post Acute Orders No qualifying data available. You Need to Schedule the Following Appointments Follow Up with MARIA E BROWN DO When Within 2-4 days Where: [address] [place] [address]- [phone] Allergies Benadryl (Sinus tachycardia) Medications Please ask your primary doctor or pharmacist before taking any other medication not listed, including over the counter drugs, herbal medications, vitamins and or supplements as they may interact with your home medications. What How Much When Why Instructions Last Dose New doxycycline (doxycycline hyclate 100 mg oral delayed release tablet) 1 tab(s) by mouth Two (2) times a day Cellulitis Printed Prescription Unchanged amoxicillin-clavulanate (amoxicillin-clavulanate 875 mg-125 mg oral tablet) 1 tab(s) by mouth Every 12 hours Duration: 7 Days Unchanged ARIPiprazole (ARIPiprazole 20 mg oral tablet) 1 tab(s) by mouth Once a day Unchanged baclofen (baclofen 10 mg oral tablet) 1 tab(s) by mouth Three (3) times a day TAKE 1 TABLET 3 TIMES A DAY Unchanged dicyclomine (dicyclomine 20 mg oral tablet) 1 tab(s) by mouth Every 6 hours as needed for as needed Unchanged DME (Blood Glucose Test Machine) See instructions Type 2 diabetes mellitus Use as directed daily to test blood sugars; diagnosis: E11.9 Unchanged DME (Blood Glucose Test Strips) See instructions Type 2 diabetes mellitus Dispense glucose test strips, #100, use as directed daily to test blood sugar; diagnosis: E11.9 Unchanged DME (Lancets) See instructions Type 2 diabetes mellitus Dispense UltraFine lancets, #100, use as directed daily to test blood sugar; diagnosis: E11.9 Unchanged esomeprazole (esomeprazole 40 mg oral delayed release capsule) 1 cap by mouth Once a day Unchanged gabapentin (gabapentin 600 mg oral tablet) 1 tab(s) by mouth Four (4) times a day as needed for Pain Unchanged lisinopril (lisinopril 40 mg oral tablet) 1 tab(s) by mouth Daily at bedtime Unchanged meloxicam (meloxicam 7.5 mg oral tablet) 1 tab(s) by mouth Once a day (in the evening) TAKE 1 TABLET ORAL EVERY DAY FOR 30 DAYS Unchanged metFORMIN (metFORMIN 500 mg oral tablet EXTENDED RELEASE) 4 tab(s) by mouth Once a day Unchanged oxyCODONE (Xtampza ER 18 mg oral capsule, extended release) 1 cap by mouth Every 12 hours Unchanged venlafaxine (venlafaxine 75 mg oral tablet) 2 tab(s) by mouth Two (2) times a day Please take this list to your next doctor s visit. Bring all medications you take, including over the counter medications, herbals and other supplements with you to your doctor s visit. Patients and families are reminded to discard old lists and to update any records with all medication providers or retail pharmacies. Medication Leaflets doxycycline (oral/injection) (DOX errol LAN kumari) Acticlate, Adoxa, Alodox, Avidoxy, Doryx, Mondoxyne NL, Monodox, Morgidox, Okebo, Oracea, Oraxyl, Targadox, Vibramycin What is the most important information I should know about doxycycline? You should not take this medicine if you are allergic to any tetracycline antibiotic. Children younger than 8 years old should use doxycycline only in cases of severe or life-threatening conditions. This medicine can cause permanent yellowing or graying of the teeth in children Using doxycycline during could harm the unborn baby or cause permanent tooth discoloration later in the baby's life. What is doxycycline? Doxycycline is a tetracycline antibiotic that Doxycycline is used to treat many different bacterial infections, such as acne, urinary tract infections, intestinal infections, eye infections, gonorrhea, chlamydia, periodontitis (gum disease), and others. Doxycycline is also used to treat blemishes, bumps, and acne-like lesions caused by rosacea. Doxycycline will not treat facial redness caused by rosacea. Some forms of doxycycline are used to prevent malaria, to treat anthrax, or to treat infections caused by mites, ticks, or lice. Doxycycline may also be used for purposes not listed in this medication guide. What should I discuss with my healthcare provider before taking doxycycline? You should not take this medicine if you are allergic to doxycycline or other tetracycline antibiotics such as demeclocycline, minocycline, tetracycline, or tigecycline. Tell your doctor if you have ever had: liver disease; kidney disease; asthma or sulfite allergy; increased pressure inside your skull; or if you also take isotretinoin, seizure medicine, or a blood thinner such as warfarin (Coumadin). If you are using doxycycline to treat gonorrhea, your doctor may test you to make sure you do not also have syphilis, another sexually transmitted disease. Taking this medicine during may affect tooth and bone development in the unborn baby. Taking doxycycline during the last half of can cause permanent tooth discoloration later in the baby's life. Tell your doctor if you are or if you become . Doxycycline can make control pills less effective. Ask your doctor about using a non-hormonal control (condom, diaphragm with spermicide) to prevent . Doxycycline can pass into breast milk and may affect bone and tooth development in a nursing . Do not breastfeed while you are taking doxycycline. Doxycycline can cause permanent yellowing or graying of the teeth in children younger than 8 years old. Children should use doxycycline only in cases of severe or life-threatening conditions such as anthrax or [place] spotted fever. The benefit of treating a serious condition may outweigh any risks to the child's tooth development. How should I take doxycycline? Follow all directions on your prescription label and read all medication guides or instruction sheets. Use the medicine exactly as directed. Take doxycycline with a full glass of water. Drink plenty of liquids while you are taking doxycycline. Read and carefully follow any Instructions for Use provided with your medicine. Ask your doctor or pharmacist if you do not understand these instructions. Most brands of doxycyline may be taken with food or milk if the medicine upsets your stomach. Different brands of doxycycline may have different instructions about taking them with or without food. Take Oracea on an empty stomach, at least 1 hour before or 2 hours after a meal. You may need to split a doxycycline tablet to get the correct dose. Follow your doctor's instructions. Swallow a delayed-release capsule or tablet whole. Do not crush, chew, break, or open it. Measure liquid medicine with the dosing syringe provided, or with a special dose-measuring spoon or medicine cup. If you do not have a dose-measuring device, ask your pharmacist for one. If you take doxycycline to prevent malaria: Start taking the medicine 1 or 2 days before entering an area where malaria is common. Continue taking the medicine every day during your stay and for at least 4 weeks after you leave the area. Doxycycline is usually given by injection only if you are unable to take the medicine by mouth. A healthcare provider will give you this injection as an infusion into a vein. Use this medicine for the full prescribed length of time, even if your symptoms quickly improve. Skipping doses can increase your risk of infection that is resistant to medication. Doxycycline will not treat a viral infection such as the flu or a common cold. Store at room temperature away from moisture, heat, and light. Throw away any unused medicine after the expiration date on the label has passed. Using doxycycline can cause damage to your kidneys. What happens if I miss a dose? Take the medicine as soon as you can, but skip the missed dose if it is almost time for your next dose. Do not take two doses at one time. What happens if I overdose? Seek emergency medical attention or call the Poison Help line at . What should I avoid while taking doxycycline? Do not take iron supplements, multivitamins, calcium supplements, antacids, or laxatives within 2 hours before or after taking doxycycline. Avoid taking any other antibiotics with doxycycline unless your doctor has told you to. Doxycycline could make you sunburn more easily. Avoid sunlight or tanning beds. Wear protective clothing and use sunscreen (SPF 30 or higher) when you are outdoors. Antibiotic medicines can cause diarrhea, which may be a sign of a new infection. If you have diarrhea that is watery or bloody, call your doctor. Do not use anti-diarrhea medicine unless your doctor tells you to. What are the possible side effects of doxycycline? Get emergency medical help if you have signs of an allergic reaction (hives, difficult breathing, swelling in your face or throat) or a severe skin reaction (fever, sore throat, burning in your eyes, skin pain, red or purple skin rash that spreads and causes blistering and peeling). Seek medical treatment if you have a serious drug reaction that can affect many parts of your body. Symptoms may include: skin rash, fever, swollen glands, flu-like symptoms, muscle aches, severe weakness, unusual bruising, or yellowing of your skin or eyes. This reaction may occur several weeks after you began using doxycycline. Call your doctor at once if you have: severe stomach pain, diarrhea that is watery or bloody; throat irritation, trouble swallowing; chest pain, irregular heart rhythm, feeling short of breath; little or no urination; low white blood cell counts--fever, chills, swollen glands, body aches, weakness, pale skin, easy bruising or bleeding; increased pressure inside the skull--severe headaches, ringing in your ears, dizziness, nausea, vision problems, pain behind your eyes; or signs of liver or pancreas problems--loss of appetite, upper stomach pain (that may spread to your back), tiredness, nausea or vomiting, fast heart rate, dark urine, jaundice (yellowing of the skin or eyes). Common side effects may include: nausea, vomiting, upset stomach, loss of appetite; mild diarrhea; skin rash or itching; darkened skin color; or vaginal itching or discharge. This is not a complete list of side effects and others may occur. Call your doctor for medical advice about side effects. You may report side effects to FDA at 1-841-GCS-5127. What other drugs will affect doxycycline? Sometimes it is not safe to use certain medications at the same time. Some drugs can affect your blood levels of other drugs you take, which may increase side effects or make the medications less effective. Other drugs may affect doxycycline, including prescription and vrpi-umv-tttzfeb medicines, vitamins, and herbal products. Tell your doctor about all your current medicines and any medicine you start or stop using. Where can I get more information? Your pharmacist can provide more information about doxycycline. Remember, keep this and all other medicines out of the reach of children, never share your medicines with others, and use this medication only for the indication prescribed. Every effort has been made to ensure that the information provided by [employer]. [employer]') is accurate, up-to-date, and complete, but no guarantee is made to that effect. Drug information contained herein may be time sensitive. [employer] information has been compiled for use by healthcare practitioners and consumers in the [place] and therefore [employer] does not warrant that uses outside of the [place] are appropriate, unless specifically indicated otherwise. [employer] drug information does not endorse drugs, diagnose patients or recommend therapy. [employer] drug information is an informational resource designed to assist licensed healthcare practitioners in caring for their patients and/or to serve consumers viewing this service as a supplement to, and not a substitute for, the expertise, skill, knowledge and judgment of healthcare practitioners. The absence of a warning for a given drug or drug combination in no way should be construed to indicate that the drug or drug combination is safe, effective or appropriate for any given patient. [facility] does not assume any responsibility for any aspect of healthcare administered with the aid of information [facility] provides. The information contained herein is not intended to cover all possible uses, directions, precautions, warnings, drug interactions, allergic reactions, or adverse effects. If you have questions about the drugs you are taking, check with your doctor, nurse or pharmacist. Copyright 0408-6132 [facility] [employer]. Version: 21.04. Revision Date: 08/01/2020. Education Materials Cellulitis Cellulitis is an infection of the deep layers of skin. A break in the skin, such as a cut or scratch, can let bacteria under the skin. If the bacteria get to deep layers of the skin, it can be serious. If not treated, cellulitis can get into the bloodstream and lymph nodes. The infection can then spread throughout the body. This causes serious illness. Cellulitis causes the affected skin to become red, swollen, warm, and sore. The reddened areas have a visible border. An open sore may leak fluid (pus). You may have a fever, chills, and pain. Cellulitis is treated with antibiotics taken for 7 to 10 days. An open sore may be cleaned and covered with cool wet gauze. Symptoms should get better 1 to 2 days after treatment is started. Make sure to take all the antibiotics for the full number of days until they are gone. Keep taking the medicine even if your symptoms go away. Home care Follow these tips: Limit the use of the part of your body with cellulitis. If the infection is on your leg, keep your leg raised while sitting. This will help to reduce swelling. Take all of the antibiotic medicine exactly as directed until it is gone. Do not miss any doses, especially during the first 7 days. Don t stop taking the medicine when your symptoms get better. Keep the affected area clean and dry. Wash your hands with soap and warm water before and after touching your skin. Anyone else who touches your skin should also wash his or her hands. Don't share towels. Follow-up care Follow up with your healthcare provider, or as advised. If your infection does not go away on the first antibiotic, your healthcare provider will prescribe a different one. When to seek medical advice Call your healthcare provider right away if any of these occur: Red areas that spread Swelling or pain that gets worse Fluid leaking from the skin (pus) Fever higher of 100.4 F (38.0 C) or higher after 2 days on antibiotics 8392-3456 [employer]. [address] [place] [address]. All rights reserved. This information is not intended as a substitute for professional medical care. Always follow your healthcare professional's instructions. Additional Information VACCINATE! IT SAVES LIVES! Members of the community who have not yet received the COVID-19 vaccine and would like to receive it can visit one of [facility] vaccine clinics. There are many vaccine clinic locations within the [facility]. For locations and available times, please visit [email or web address]. It is important to note that some COVID mobile vaccine clinics are held outdoors and may be canceled in rainy or stormy conditions. To learn more about pediatric vaccinations (ages 5-11), we invite you to visit the [facility] webpage. [email or web address] To learn more about the COVID-19 vaccine, we invite you to visit the [facility] website for a list of frequently asked questions. [email or web address] [facility] Patient Portal Access Instructions: Stay connected with your healthcare team and access your personal medical information anytime with the [employer] Patient Portal. If you would like a full copy of your medical records please contact the [facility] Medical Records Department Thursday through Thursday between 8a.m. and 4:30p.m. Please follow the directions below to access the portal: 1.Access the email account you provided upon registration to the [facility].2.Look for an invitation email from [facility].3.Open the email and access the invitation link: Accept Invitation to [employer]4.Fill in the required melendez to create your account. Sign into [email or web address] with your username and password that you created in the above steps to stay up to date. You can then view a summary of results, a summary of your visits, and the ability to download your summaries to your computer or send the information securely to a physician. Remember that your healthcare information is confidential, so carefully consider who you will allow to register on the [facility] Patient Portal for access to your information. You can also access the [facility] Patient Portal on the [employer] ceasar. Simply click on Health Records under Health Data and then click on the [employer] logo. HOW TO SAFELY DISPOSE OF PRESCRIPTION MEDICATIONS Please use one of the following methods to safely dispose of your unused medications. 1.Use a drug disposal kit: the drug disposal pouch allows you to safely discard your old and unused drugs. Ask your nurse to give you one when you are discharged.2.Visit a local take-back location: Many local pharmacies and police departments have programs that collect old and unwanted prescription drugs. Call your local pharmacy or go to http://Task Messenger/7V9Os8x to find one close to you.3.Make use of household items: Use cat litter or old coffee grounds to dispose medications if other options are not available. Mix your drugs with these household products, seal them in an airtight container and throw it into the garbage. Call [facility]: [phone] to be sure your drugs can be disposed of in this way. Some medicines may require a different approach.4.Never flush your medications down the toilet. IF YOU HAVE BEEN PRESCRIBED AN OPIOIDS FOR PAIN If you have been prescribed an opioid (such as hydrocodone, oxycodone or morphine), it is critical to understand the possible side effects and risks of opioid pain medications. Even when taken as directed, opioids can have several side effects including: Tolerance, meaning you might need to take more of a medication for the same pain relief. Nausea, vomiting and/or constipation. Sleepiness, dizziness, dry mouth, confusion, depression or itching. Physical dependence, meaning you have withdrawal symptoms when a medication is stopped ? this can develop within a few days. KNOW YOUR RESPONSIBILITIES It is important to know exactly how much and how often to take the opioid pain medications you are prescribed. Never take opioids in higher amounts or more often than prescribed. Do not combine opioids with alcohol or other drugs that cause drowsiness, such as benzodiazepines, also known as benzos, including diazepam and alprazolam, muscle relaxants or sleep aids. Never sell or share prescription opioids. This is illegal. Store opioids in a secure place and out of reach of others (including children, family, friends and visitors). The last page(s) of this document has been signed and retained as a CHART COPY Signatures Patient Education Materials Cellulitis Skin Infection Medication Leaflets doxycycline (oral/injection) My discharge plan and instructions have been reviewed and explained to me and I,CHIRAG SAWANT understand my current condition and have read and understand these discharge instructions. I have received a written copy of the plan/instructions. If I have questions, I am aware that I should contact my doctor. 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 A break in the skin, such as a cut or scratch, can let bacteria under the skin. If the bacteria get to deep layers of the skin, it can be serious. If not treated, cellulitis can get into the bloodstream and lymph nodes. The infection can then spread throughout the body. This causes serious illness. Cellulitis causes the affected skin to become red, swollen, warm, and sore. The reddened areas have a visible border. An open sore may leak fluid (pus). You may have a fever, chills, and pain. Cellulitis is treated with antibiotics taken for 7 to 10 days. An open sore may be cleaned and covered with cool wet gauze. Symptoms should get better 1 to 2 days after treatment is started. Make sure to take all the antibiotics for the full number of days until they are gone. Keep taking the medicine even if your symptoms go away. Home care Follow these tips: Limit the use of the part of your body with cellulitis. If the infection is on your leg, keep your leg raised while sitting. This will help to reduce swelling. Take all of the antibiotic medicine exactly as directed until it is gone. Do not miss any doses, especially during the first 7 days. Don t stop taking the medicine when your symptoms get better. Keep the affected area clean and dry. Wash your hands with soap and warm water before and after touching your skin. Anyone else who touches your skin should also wash his or her hands. Don't share towels. Follow-up care Follow up with your healthcare provider, or as advised. If your infection does not go away on the first antibiotic, your healthcare provider will prescribe a different one. When to seek medical advice Call your healthcare provider right away if any of these occur: Red areas that spread Swelling or pain that gets worse Fluid leaking from the skin (pus) Fever higher of 100.4 F (38.0 C) or higher after 2 days on antibiotics 5910-6931 [employer]. [address] [place] [address]. All rights reserved. This information is not intended as a substitute for professional medical care. Always follow your healthcare professional's instructions. Follow Up Care 07/21/2021 01:50:54 With:MARIA E BROWN DO Address: [phone] When:2-4 days [facility] 02-22-2021 History of Presen t illness Narrative 31-year-old male spoken to over telephone as a follow-up from colonoscopy on 02/22/2021 scheduled for chronic diarrhea. His colon and ileum were normal with random biopsies negative for microscopic colitis. Prior stool cultures were negative. Patient states his diarrhea is now occurring roughly once per week and seems to be food dependent. Chicken Alex and butter are the 2 identified triggers thus far. He otherwise states dairy and greasy/fried foods are not bothersome. Diarrhea is accompanied with sulfur burps. Stools are watery lasting 1 to 1-1/2 days before returning to a soft caliber. Diarrhea is accompanied with lower abdominal cramping. There is no hematochezia or melena. He is status post cholecystectomy 7 years ago. There has been no change in prescription medications. [facility] Phone: Evaluation + Plan note Future Appointments Appointment Date:07/22/2021 09:00:00 AM Scheduled Provider:MARIA E BROWN DO Location:[facility] Appointment Type:PC OV [facility] Evaluation + Plan note Future Appointments Appointment Date:04/02/2023 10:00:00 AM Scheduled Provider:MARIA E BROWN DO Location:[facility] Appointment Type:PC OV [facility] Evaluation + Plan note Future Appointments Appointment Date:02/05/2023 05:30:00 PM Scheduled Provider:MARIA E BROWN DO Location:[facility] Appointment Type:PC OV Appointment Date:02/24/2023 10:30:00 AM Scheduled Provider:MARIA E BROWN DO Location:[facility] Appointment Type:PC OV Appointment Date:04/02/2023 10:00:00 AM Scheduled Provider:MARIA E BROWN DO Location:[facility] Appointment Type: OV [facility] Hospital course Narrative No data available for this section [facility] Hospital Discharge instructions No data available for this section [facility] Progress note No data available for this section [facility] Family History No Family History Records FoundUnknown Family Member Name Dates Details : Mother Status:Active Alive and well: Father Status:Active Denies Family history of mal ignant neoplasm of colon: Father, Other(V16.0, Z80.0) Status: Unknown Family Member Name Dates Details : Mother Status:Active Alive and well: Father Status:Active Denies Family history of mal ignant neoplasm of colon: Father, Other(V16.0, Z80.0) Status: Unknown Family Member Name Dates Details : Mother Status:Active Alive and well: Father Status:Active Denies Family history of mal ignant neoplasm of colon: Father, Other(V16.0, Z80.0) Status: Chief Complaint * A telephone visit (audio only) between the patient (at the originating site) and the provider (at the distant site) was utilized to provide this telehealth service. * Verbal consent was requested and obtained from CHIRAG SAWANT on this date, 03/18/2021 12:30 PM , fora telehealth visit. * Colonoscopy follow-up Summary Purpose Advance Directives No Advanced Directives Records FoundNo Advanced Directives Records FoundNo Advanced Directives Records Found Additional Source Comments (unrecognized sect ion and content) No Status Records FoundNo Status Records FoundNo Status Records Found INFORMATION SOURCE (unrecogn ized section and content) DATE CREATED AUTHOR AUTHOR'S ORGANIZ ATION 03/18/2021 [employer] DATE CREATED AUTHOR AUTHOR'S ORGANIZ ATION 02/01/2023 [facility] ([place]) Care Team (unrecognized sect ion and content) Care Team Personnel Name: MARIA E BROWN DO Position: P4 Physician - Primary Care Member Role: Primary Care Physician Address: Address: [address] [place] [address] Name: JONATHAN Handley Position: AO RN Member Role: ED RN Name: MD EDWINA, DOUGLAS TENORIO Position: ED Physician Member Role: ED Physician Address: Address: [address] [place] [address] Care Team Related Persons Name: DAWN SAWANT Care Team Personnel Name: MARIA E BROWN DO Position: P4 Physician - Primary Care Member Role: Primary Care Physician Address: Address: [address] [place] [address] Care Team Related Persons Name: DAWN SAWANT Patient Care team informatio n (unrecognized section and content) Care Team Personnel Name: MARIA E BROWN DO Position: P4 Physician - Primary Care Member Role: Primary Care Physician Address: Address: [address] [place] [address] Name: JONATHAN Toth Position: AO RN Member Role: ED RN Name: CONCEPCION MARTINEZ DO Position: ED Physician Member Role: Attending Physician Address: Address: [address] [facility] [place] [address]- [place] Name: Umm Leigh RN Position: AO RN Member Role: ED RN Care Team Related Persons Name: SAVANA DAWN Rani FOR RECORDS PERTAINING TO PATIENTS WHO ARE OR HAVE BEEN ENROLLED IN A CHEMICAL DEPENDENCY/SUBSTANCEABUSE PROGRAM, SOME INFORMATION MAY BE OMITTED. This clinical summary was aggregated from multiple sources. Caution should be exercised in using it in the provision of clinical care. This summary normalizes information from multiple sources, and as a consequence, information in this document may materially change the coding, format and clinical context of patient data. In addition, data may be omitted in some cases. CLINICAL DECISIONS SHOULD BE BASED ON THE PRIMARY CLINICAL RECORDS. [employer] provides no warranty or guarantee of the accuracy or completeness of information in this document.
[2023-10-21 13:24] LABS: ALB/GLOB Ratio 1.1 RATIO (0.9-2.4); AST(SGOT) 32 U/L (15-37); Alanine Aminotransfer ALT/SGPT 55 U/L (16-61); Alkaline Phosphatase 71 U/L (45-117); Anion Gap 7 (5-15); BUN 27 mg/dL (7-18); BUN/Creat Ratio 21.1 RATIO (10-20); Calcium,Total 9.2 mg/dL (8.5-10.1); Chloride 103 mmol/L (98-107); Creatinine, Serum 1.28 mg/dL (0.70-1.30); EST Glomerular Filtration Rate 69 mL/min (>60); Est Glom Filt Rate - Afr Amer 83 mL/min (>60); Globulin 3.6 g/dL (2.2-4.2); Glucose 118 mg/dL (74-106); Potassium 4.4 mmol/L (3.5-5.1); Protein, Total 7.6 g/dL (6.4-8.2); Sodium Level 132 mmol/L (136-145)
== END | disposition home or self-care (01) ==
LOC: LAB 11:27
PROVIDERS: PCP Preventive Medicine Occupational Medicine; Referring Provider Student in an Organized Health Care Education/Training Program; Visit Provider Student in an Organized Health Care Education/Training Program
DX: F31.81 Bipolar II disorder (principal)
CPT/HCPCS: 36415; 80053; 80178

== ENCOUNTER → 2024-02-24 | Outpatient (CLI) | payer BC, SELFPAY ==
[2024-02-24 12:48] LABS: Amphetamine Urine VISTA NEGATIVE (<1000 ng/mL); Barbiturate Urine VISTA NEGATIVE (< 200 ng/mL); Benzodiazepine Urine VISTA NEGATIVE (< 200 ng/mL); Cocaine Urine VISTA NEGATIVE (< 300 ng/mL); Ecstacy Urine VISTA NEGATIVE (< 500 ng/mL); Methadone Urine VISTA NEGATIVE (< 300 ng/mL); PCP Urine VISTA NEGATIVE (< 25 ng/mL); THC Urine VISTA NEGATIVE (< 50 ng/mL); Vista UDS pH Range 5
== END | disposition home or self-care (01) ==
LOC: LAB 12:17
PROVIDERS: PCP Preventive Medicine Occupational Medicine; Referring Provider Anesthesiology Pain Medicine; Visit Provider Anesthesiology Pain Medicine
DX: F11.20 Opioid dependence, uncomplicated (principal)
CPT/HCPCS: 80307

== ENCOUNTER → 2024-03-24 | Outpatient (CLI) | payer BC, SELFPAY | END | disposition home or self-care (01) | LOC: LAB 11:49 | PROVIDERS: PCP Preventive Medicine Occupational Medicine; Referring Provider Nurse Practitioner Psychiatric/Mental Health; Visit Provider Nurse Practitioner Psychiatric/Mental Health | DX: F31.81 Bipolar II disorder (principal) | CPT/HCPCS: 36415; 80178 ==

== ENCOUNTER → 2025-02-22 | Outpatient (CLI) | payer BC, SELFPAY ==
[2025-02-22 13:43] LABS: Amphetamine Urine NEGATIVE (<1000 ng/mL); Barbiturate Urine NEGATIVE (< 200 ng/mL); Benzodiazepine Urine NEGATIVE (< 200 ng/mL); Buprenorphine Urine NEGATIVE (< 200 ng/mL); Cocaine Urine NEGATIVE (< 300 ng/mL); Fentanyl, Urine NEGATIVE; Methadone Urine NEGATIVE (< 300 ng/mL); Opiates Urine NEGATIVE (< 300 ng/mL); Oxycodone, Urine PRESUMPTIVE POSITIVE (< 100 ng/mL); PCP Urine NEGATIVE (< 25 ng/mL); THC Urine NEGATIVE (< 50 ng/mL)
== END | disposition home or self-care (01) ==
LOC: LAB 10:49
PROVIDERS: Referring Provider Anesthesiology Pain Medicine; Visit Provider Anesthesiology Pain Medicine
DX: F11.20 Opioid dependence, uncomplicated (principal)
CPT/HCPCS: 80307

== ENCOUNTER → 2025-02-24 | Outpatient (CLI) | payer BC, SELFPAY ==
[2025-02-24 10:34] LABS: Anion Gap 11 (5-15); BUN 12 mg/dL (4-19); BUN/Creat Ratio 16.5 RATIO (10-20); Calcium,Total 9.7 mg/dL (7.6-11.0); Chloride 104 mmol/L (98-108); Creatinine, Serum 0.73 mg/dL (0.70-1.20); EST Glomerular Filtration Rate 123 (>60); Glucose 112 mg/dL (70-99); Potassium 3.7 mmol/L (3.3-5.1); Sodium Level 138 mmol/L (133-145)
[2025-02-24 10:36] LABS: Lithium 0.35 mmol/L (0.60-1.20)
== END | disposition home or self-care (01) ==
LOC: LAB 09:21
PROVIDERS: Referring Provider Student in an Organized Health Care Education/Training Program; Visit Provider Student in an Organized Health Care Education/Training Program
DX: F31.81 Bipolar II disorder (principal)
CPT/HCPCS: 36415; 80048; 80178

== ENCOUNTER → 2025-05-02 | Outpatient (CLI) | payer BC, SELFPAY ==
[2025-05-02 11:41] LABS: Lithium 0.34 mmol/L (0.60-1.20)
--- OUTSIDE RECORDS SUMMARY | 2025-05-02 13:13 | XMS RPT_ITS | CCD ---
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 Name Role Phone Maine Adrian Unavailable Unavailable Unavailable MARIA E WAYNE DO Primary Care Physician [phone] MARIA E WAYNE DO Primary Care Physician [phone] CONCEPCION MARTINEZ DO Attending Unavailable MARIA E WAYNE DO Primary Care Unavailable EDWINA TENORIO, DR COLE Attending Unavailab MARIA E Gallagher DO Primary Care Unavailable MARIA E WAYNE DO Attending Unavailable MARIA E WAYNE DO Primary Care Unavailable KARLA VILCHIS MD Attending Unavailable MARIA E WAYNE DO Primary Care Unavailable MARIA E WAYNE DO Primary Care Unavailable MARIA E WAYNE DO Attending Unavailable Krishna Sanches Primary Care Unavailable Jose Torre Attending Unavailable Jose Torre Referring Unavailable Maria E Wayne Primary Care Unavailable Cleveland Paula Attending Unavailable Krishna Sanches Primary Care Unavailable Cleveland Paula Attending Unavailable Cleveland Paula Attending Unavailable Maria E Wayne Primary Care Unavailable Cleveland Paula Attending Unavailable Maria E Wayne Primary Care Unavailable Cleveland Paula Attending Unavailable Maria E Wayne Primary Care Unavailable Cleveland Paula Attending Unavailable Rosana Maria E Primary Care Unavailable Rosana Maria E Primary Care Unavailable SeeCleveland pyle Attending Unavailable Seese Cleveland L Referring Unavailable Cleveland Paula Attending Unavailable Krishna Sanches Primary Care Unavailable Allergies Allergy Classification Reported Allergen(s) Allergy Type Date of Onset Reaction(s) Facility diphenhydrAMINE (3 sources) diphenhydrAMINE; Translations: [Benadryl] Drug Allergy Shortness of breath, Tachycardia [facility] [facility] Work Phone: (7 sources) diphenhydrAMINE; Translations: [Benadryl] Drug Allergy Sinus tachycardia (finding) -[facility] Work Phone: (2 sources) diphenhydrAMINE; Translations: [diphenhydramine HCl] Drug Allergy 9 TACHYCARDIA/FLU SH [facility] Repository Medications Current Medications Medication Drug Class(es) Dates Sig (Normalized) Sig (Original) 3 ML semaglutide 2.68 MG/ML Pen Injector [Ozempic] (2 sources) Start: 11-15-2024 End: 10-17-2025 inject 1 dose by subcutaneous injection every week Ozempic 8 mg/3 mL (2 mg dose) subcutaneous solution Dose : 2 mg =, Subcutaneous, qWeek, in the abdomen, thigh, or upper arm, # 3 mL, 11 Refill(s), Pharmacy: [facility], 182.5, cm, 07/26/24 10:51:00 EDT, Height, kg, 07/26/24 10:51:00 EDT, Dosing Weight Start Date: 11/15/24 Stop Date: 10/17/25 Status: Ordered Quantity: 3.0 Unit: mL Repeat number: 12 Start: 01-25-2024 End: 12-26-2024 inject 1 dose by subcutaneous injection every week Ozempic 8 mg/3 mL (2 mg dose) subcutaneous solution Dose : 2 mg =, Subcutaneous, qWeek, in the abdomen, thigh, or upper arm, # 3 mL, 11 Refill(s), Pharmacy: [facility], 182, cm, 01/25/24 8:53:00 EDT, Height, kg, 01/25/24 8:53:00 EDT, Dosing Weight Start Date: 01/25/24 Stop Date: 12/26/24 Status: Ordered ARIPiprazole 20 mg oral tablet (7 sources) Atypical Antipsychotic Start: 09-25-2022 ARIPipr azole 20 mg oral tablet Dose : 20 mg = 1 tab(s), Oral, qDay, # 90 tab(s), 1 Refill(s), Pharmacy: [facility]/pharmacy #[id number], 184, cm, 09/25/22 10:25:00 EST, Height, kg, 09/25/22 10:25:00 EST, Dosing Weight Start Date: 09/25/22 Status: Ordered Start: 08-21-2021 ARIPiprazole 2 0 mg oral tablet Dose : 20 mg = 1 tab(s), Oral, qDay, # 90 tab(s), 3 Refill(s), [id number] 184, cm, 07/29/21 13:07:00 EDT, Height, kg, 07/29/21 13:07:00 EDT, Dosing Weight Start Date: 08/21/21 Status: Ordered Start: 12-23-2019 ARIPiprazole 2 0 mg oral tablet Dose : 20 mg = 1 tab(s), Oral, qDay, # 90 tab(s), 3 Refill(s), [id number], 184, cm, 07/23/20 11:28:00 EDT, Height, kg, 07/23/20 11:28:00 EDT, Dosing Weight Start Date: 07/23/20 Status: Ordered baclofen 10 mg oral tablet (5 sources) gamma-Aminobutyric Acid-ergic Agonist Start: 12-21-2018 baclofen 10 mg oral tablet Dose : 10 mg = 1 tab(s), Oral, TID, TAKE 1 TABLET 3 TIMES A DAY Start Date: 12/21/18 Status: Ordered Start: 12-29-2015 take 20 mg by mouth every six hours Baclofen Active 20 MG PO EVERY 6 HOURS December 29, 2015 12:00am Blood Glucose Test Machine (5 sources) Start: 07-29-2021 Blood Glucose Test Machine See Instructions, Use as directed daily to test blood sugars; diagnosis: E11.9, # 1 EA, 0 Refill(s), [id number], Type 2 diabetes mellitus, 184, cm, 07/29/21 13:07:00 EDT, Height, 159.9, kg, 07/29/21 13:07:00 EDT, Dosing Weight Start Date: 07/29/21 Status: Ordered Quantity: 1.0 Unit: EA Repeat number: 1 Indications: Type 2 diabetes mellitus without complications; Start: 07-29-2021 Blood Glucose Test Machine See Instructions, Use as directed daily to test blood sugars; diagnosis: E11.9, # 1 EA, 0 Refill(s), Pharmacy: [facility]/pharmacy #[id number], Type 2 diabetes mellitus, 184, cm, 07/29/21 13:07:00 EDT, Height, 159.9, kg, 07/29/21 13:07:00 EDT, Dosing Weight Start Date: 07/29/21 Status: Ordered busPIRone hydrochloride 15 mg oral tablet (3 sources) Start: 01-23-2023 take 1 tablet by mouth twice daily busPIRone 15 mg oral tablet TAKE 1 TABLET BY MOUTH TWICE A DAY UNTIL DIRECTED TO STOP Start Date: 01/23/23 Status: Ordered Repeat number: 1 cephalexin 500 mg oral capsule (1 source) Cephalosporin Antibacterial Start: 07-21-2021 End: 07-31-2021 Keflex 500 mg oral capsule Dose : 500 mg = 1 cap(s), Oral, q12h, X 10 day(s), # 20 cap(s), 0 Refill(s), 07/31/21 2:10:00 EDT, 158 Start Date: 07/21/21 Stop Date: 07/31/21 Status: Ordered dapagliflozin 10 mg oral tablet (3 sources) Sodium-Glucose Cotransporter 2 Inhibitor Start: 01-09-2025 Farxiga 10 mg oral tablet Dose : 10 mg = 1 tab(s), Oral, qDay, # 30 tab(s), 11 Refill(s), [id number], Type 2 diabetes mellitus, 185, cm, 12/12/24 9:51:00 EDT, Height, kg, 12/12/24 9:51:00 EDT, Dosing Weight Start Date: 01/09/25 Status: Ordered Quantity: 30.0 Unit: tab(s) Repeat number: 12 Indications: Type 2 diabetes mellitus without complications; Start: 07-13-2024 Farxiga 10 mg oral tablet Dose : 10 mg = 1 tab(s), Oral, qDay, Zay will be bringing in a discount coupon, # 30 tab(s), 11 Refill(s), Pharmacy: [facility]/pharmacy #[id number], Type 2 diabetes mellitus, 182, cm, 01/25/24 8:53:00 EDT, Height, kg, 01/25/24 8:53:00 EDT, Dosing Weight Start Date: 07/13/24 Status: Ordered Start: 11-20-2022 Farxiga 10 mg oral tablet Dose : 10 mg = 1 tab(s), Oral, qDay, Zay will be bringing in a discount coupon, # 30 tab(s), 5 Refill(s), [id number], Type 2 diabetes mellitus, 183.5, cm, 11/20/22 8:36:00 EST, Height, kg, 11/20/22 8:36:00 EST, Dosing Weight Start Date: 11/20/22 Status: Ordered dicyclomine hydrochloride 20 mg oral tablet (4 sources) Anticholinergic Start: 03-18-2021 dicyclomine 20 mg oral tablet Dose : 20 mg = 1 tab(s), Oral, q6h, PRN as needed, 0 Refill(s) Start Date: 03/30/21 Status: Ordered DME MISCellaneous (1 source) Start: 01-24-2025 DME MISCellane ous See Instructions, Dispense 1 automatic blood pressure cuff, use as directed daily to check blood pressure. Diagnosis: I10, # 1 EA, 0 Refill(s), [id number], HTN (hypertension), 182.5, cm, 01/24/25 10:05:00 EDT, Height, 151.5, kg, 01/24/25 10:05:00 EDT, Dosing Weight Start Date: 01/24/25 Status: Ordered Quantity: 1.0 Unit: EA Repeat number: 1 Indications: Essential (primary) hypertension; esomeprazole 40 mg delayed release oral capsule (9 sources) Proton Pump Inhibitor Start: 10-12-2024 esomepra zole 40 mg oral delayed release capsule Dose : 40 mg = 1 cap(s), Oral, qDay, # 90 cap(s), 3 Refill(s), [id number], 182.5, cm, 07/26/24 10:51:00 EDT, Height, kg, 07/26/24 10:51:00 EDT, Dosing Weight Start Date: 10/12/24 Status: Ordered Quantity: 90.0 Unit: cap(s) Repeat number: 4 Start: 10-14-2023 esomeprazole 4 0 mg oral delayed release capsule Dose : 40 mg = 1 cap(s), Oral, qDay, # 90 cap(s), 3 Refill(s), [id number], 188, cm, 09/10/23 7:56:00 EST, Height, kg, 09/10/23 7:56:00 EST, Dosing Weight Start Date: 10/14/23 Status: Ordered Start: 09-25-2022 esomeprazole 4 0 mg oral delayed release capsule Dose : 40 mg = 1 cap(s), Oral, qDay, # 90 cap(s), 1 Refill(s), [id number], 184, cm, 09/25/22 10:25:00 EST, Height, kg, 09/25/22 10:25:00 EST, Dosing Weight Start Date: 09/25/22 Status: Ordered Start: 12-29-2015 esomeprazole 4 0 mg oral delayed release capsule Dose : 40 mg = 1 cap(s), Oral, qDay, # 90 cap(s), 3 Refill(s), [id number], 184, cm, 07/29/21 13:07:00 EDT, Height, kg, 07/29/21 13:07:00 EDT, Dosing Weight Start Date: 08/08/21 Status: Ordered gabapentin 600 mg oral tablet (8 sources) Anti-epileptic Agent Start: 07-17-2017 gabapenti n 600 mg oral tablet Dose : 600 mg = 1 tab(s), Oral, QID, PRN Pain, 0 Refill(s) Start Date: 07/17/17 Status: Ordered Start: 12-29-2015 take 600 mg by mouth three times daily at mealtime Gabapentin Active 600 MG PO 3 TIMES DAILY WITH MEALS December 29, 2015 12:00am hydrOXYzine pamoate 50 mg oral capsule (3 sources) Antihistamine Start: 01-23-2023 hydrOXYzine pamoate 50 mg oral capsule Dose : 50 mg = 1 cap(s), Oral, BID, PRN as needed for anxiety, 0 Refill(s) Start Date: 01/23/23 Status: Ordered Repeat number: 1 ketorolac tromethamine 10 mg oral tablet (1 source) Nonsteroidal Anti-inflammatory Drug, Cyclooxygenase Inhibitor Start: 12-30-2015 take 10 mg by mouth every six hours Ketorolac Active 10 MG PO EVERY 6 HOURS December 30, 2015 10:15pm lamoTRIgine 100 mg oral tablet (2 sources) Mood Stabilizer, Anti-epileptic Agent Start: 01-23-2023 lamoTRIgine 100 mg oral tablet Dose : 100 mg = 1 tab(s), Oral, qDay, 0 Refill(s) Start Date: 01/23/23 Status: Ordered lisinopril 40 mg oral tablet (9 sources) Angiotensin Converting Enzyme Inhibitor Start: 10-14-2023 take 0.5 tablet by mouth once daily at bedtime lisinopril 40 mg oral tablet 0.5 t, Oral, qHS, # 45 tab(s), 3 Refill(s), Pharmacy: [facility]/pharmacy #[id number], 188, cm, 09/10/23 7:56:00 EST, Height, kg, 09/10/23 7:56:00 EST, Dosing Weight Start Date: 10/14/23 Status: Ordered Start: 09-25-2022 lisinopril 40 mg oral tablet Dose : 40 mg = 1 tab(s), Oral, qHS, # 90 tab(s), 1 Refill(s), Pharmacy: [facility]/pharmacy #[id number], 184, cm, 09/25/22 10:25:00 EST, Height, kg, 09/25/22 10:25:00 EST, Dosing Weight Start Date: 09/25/22 Status: Ordered Start: 08-21-2021 lisinopril 40 mg oral tablet Dose : 40 mg = 1 tab(s), Oral, qHS, # 90 tab(s), 3 Refill(s), Pharmacy: [facility]/pharmacy #[id number], 184, cm, 07/29/21 13:07:00 EDT, Height, kg, 07/29/21 13:07:00 EDT, Dosing Weight Start Date: 08/21/21 Status: Ordered Start: 06-27-2019 lisinopril 40 mg oral tablet Dose : 40 mg = 1 tab(s), Oral, qHS, # 90 tab(s), 3 Refill(s), Pharmacy: [facility]/pharmacy #[id number], 184, cm, 07/23/20 11:28:00 EDT, Height, kg, 07/23/20 11:28:00 EDT, Dosing Weight Start Date: 07/23/20 Status: Ordered Start: 12-29-2015 take 5 mg by mouth once daily Lisinopril Active 5 MG PO DAILY December 29, 2015 12:00am lithium carbonate 450 mg extended release oral tablet (2 sources) Start: 04-20-2023 lithium 450 mg oral tablet, extended release Dose : 900 mg = 2 tab(s), Oral, Daily, at hs, 0 Refill(s) Start Date: 04/20/23 Status: Ordered Repeat number: 1 LORazepam 1 mg oral tablet (1 source) Benzodiazepine Start: 01-27-2023 End: 02-03-2023 Ativan 1 mg oral tablet Dose : 1 mg = 1 tab(s), Oral, BID, PRN PRN as needed for anxiety, X 7 day(s), # 8 tab(s), 0 Refill(s), 02/03/23 22:09:00 EDT, Anxiety, 77.3 Start Date: 01/27/23 Stop Date: 02/03/23 Status: Ordered losartan potassium 25 mg oral tablet (1 source) Angiotensin 2 Receptor Lamin Start: 01-24-2025 losartan 25 mg oral tablet Dose : 25 mg = 1 tab(s), Oral, qDay, # 90 tab(s), 1 Refill(s), Pharmacy: [facility]/pharmacy #[id number], HTN (hypertension), 182.5, cm, 01/24/25 10:05:00 EDT, Height, kg, 01/24/25 10:05:00 EDT, Dosing Weight Start Date: 01/24/25 Status: Ordered Quantity: 90.0 Unit: tab(s) Repeat number: 2 Indications: Essential (primary) hypertension; lurasidone hydrochloride 80 mg oral tablet (2 sources) Atypical Antipsychotic Start: 01-25-2024 lurasid one 80 mg oral tablet Dose : 80 mg = 1 tab(s), Oral, qHS, # 90 tab(s), 0 Refill(s) Start Date: 01/25/24 Status: Ordered Quantity: 90.0 Unit: tab(s) Repeat number: 1 meloxicam 7.5 mg oral tablet (8 sources) Nonsteroidal Anti-inflammatory Drug Start: 12-21-2018 meloxicam 7.5 mg oral tablet Dose : 7.5 mg = 1 tab(s), Oral, qPM, TAKE 1 TABLET ORAL EVERY DAY FOR 30 DAYS Start Date: 12/21/18 Status: Ordered Start: 12-06-2018 take 15 mg by mouth once daily Meloxicam Active 15 MG PO DAILY December 06, 2018 12:00am metFORMIN hydrochloride 500 mg oral tablet (5 sources) Biguanide Start: 01-09-2025 MetFORMIN (Eqv -Glucophage XR) 500 mg oral tablet, EXTENDED RELEASE Dose : 1,000 mg = 2 tab(s), Oral, qDay, # 180 tab(s), 3 Refill(s), [id number], Type 2 diabetes mellitus, 185, cm, 12/12/24 9:51:00 EDT, Height, kg, 12/12/24 9:51:00 EDT, Dosing Weight Start Date: 01/09/25 Status: Ordered Quantity: 180.0 Unit: tab(s) Repeat number: 4 Indications: Type 2 diabetes mellitus without complications; Start: 10-19-2023 MetFORMIN (Eqv -Glucophage XR) 500 mg oral tablet, EXTENDED RELEASE Dose : 1,000 mg = 2 tab(s), Oral, qDay, # 180 tab(s), 3 Refill(s), Pharmacy: [facility]/pharmacy #[id number], 188, cm, 09/10/23 7:56:00 EST, Height, kg, 09/10/23 7:56:00 EST, Dosing Weight Start Date: 10/19/23 Status: Ordered Start: 10-06-2022 metFORMIN 500 mg oral tablet EXTENDED RELEASE Dose : 2,000 mg = 4 tab(s), Oral, qDay, # 360 tab(s), 3 Refill(s), Pharmacy: [facility]/pharmacy #[id number], 184, cm, 09/25/22 10:25:00 EST, Height, kg, 09/25/22 10:25:00 EST, Dosing Weight Start Date: 10/06/22 Status: Ordered Start: 07-29-2021 metFORMIN 500 mg oral tablet EXTENDED RELEASE Dose : 2,000 mg = 4 tab(s), Oral, qDay, # 360 tab(s), 3 Refill(s), Pharmacy: [facility]/pharmacy #[id number], 184, cm, 07/29/21 13:07:00 EDT, Height, kg, 07/29/21 13:07:00 EDT, Dosing Weight Start Date: 07/29/21 Status: Ordered metoprolol tartrate 50 mg oral tablet (1 source) beta-Adrenergic Lamin Start: 12-29-2015 take 50 mg by mouth once daily Metoprolol Tartrate Active 50 MG PO DAILY December 29, 2015 12:00am mupirocin 0.02 mg/mg topical ointment (1 source) RNA Synthetase Inhibitor Antibacterial Start: 12-12-2024 mupirocin 2% topical ointment Apply 1 pankaj, Topical, TID, # 30 gram(s), 0 Refill(s), Pharmacy: [facility]/pharmacy #[id number], Ointment, 185, cm, 12/12/24 9:51:00 EDT, Height, 152.8, kg, 12/12/24 9:51:00 EDT, Dosing Weight Start Date: 12/12/24 Status: Ordered Quantity: 30.0 Unit: g Repeat number: 1 Indications: Local infection of the skin and subcutaneous tissue, unspecified; oxyCODONE 18 mg 12 hr extended release oral capsule, abuse-deterrent (7 sources) Opioid Agonist Start: 01-22-2023 take 1 capsule by mouth twice daily Xtampza ER 18 mg oral capsule, extended release TAKE 1 ORAL TWICE A DAY FOR 28 DAYS Start Date: 01/22/23 Status: Ordered Start: 07-09-2021 Xtampza ER 18 mg oral capsule, extended release Dose : 18 mg = 1 cap(s), Oral, q12h, 0 Refill(s), 158 Start Date: 07/09/21 Status: Ordered Start: 02-27-2020 take 1 capsule by [facility] twice daily Xtampza ER 13.5 MG Oral Capsule ER 12 Hour Abuse-Deterrent TAKE 1 CAPSULE BY MOUTH TWICE A DAY Quantity: 56 Refills: 0 Ordered: 03-Mar-2020 DO Start : 27-Feb-2020 Active rosuvastatin calcium 10 mg oral tablet (2 sources) HMG-CoA Reductase Inhibitor Start: 10-13-2024 rosuvastatin 10 mg o ral tablet Dose : 10 mg = 1 tab(s), Oral, qDay, # 90 tab(s), 3 Refill(s), Pharmacy: [facility]/pharmacy #[id number], Type 2 diabetes mellitus, 182.5, cm, 07/26/24 10:51:00 EDT, Height, kg, 07/26/24 10:51:00 EDT, Dosing Weight Start Date: 10/13/24 Status: Ordered Quantity: 90.0 Unit: tab(s) Repeat number: 4 Indications: Type 2 diabetes mellitus without complications; Start: 07-26-2024 rosuvastatin 1 0 mg oral tablet Dose : 10 mg = 1 tab(s), Oral, qDay, # 90 tab(s), 0 Refill(s), [id number], Type 2 diabetes mellitus, 182.5, cm, 07/26/24 10:51:00 EDT, Height, kg, 07/26/24 10:51:00 EDT, Dosing Weight Start Date: 07/26/24 Status: Ordered sotalol hydrochloride 80 mg oral tablet (1 source) Antiarrhythmic Start: 12-29-2015 take 1 tablet by mouth once daily Sotalol (Betapace Af (Beta Lamin)) 80 MG tablet Active 80 MG PO DAILY December 29, 2015 12:00am sulfamethoxazole 800 mg / trimethoprim 160 mg oral tablet (1 source) Dihydrofolate Reductase Inhibitor Antibacterial, Sulfonamide Antimicrobial Start: 07-21-2021 End: 07-31-2021 take 1 tablet by mouth twice daily Bactrim DS 800 mg-160 mg oral tablet Dose = 1 tab(s), PO, BID, X 10 day(s), # 20 tab(s), 0 Refill(s), 158 Start Date: 07/21/21 Stop Date: 07/31/21 Status: Ordered venlafaxine 75 mg oral tablet (9 sources) Serotonin and Norepinephrine Reuptake Inhibitor Start: 09-25-2022 venlafaxine 75 mg oral tablet Dose : 75 mg = 1 tab(s), Oral, BID, # 360 tab(s), 1 Refill(s), Pharmacy: [facility]/pharmacy #[id number], 184, cm, 09/25/22 10:25:00 EST, Height, kg, 09/25/22 10:25:00 EST, Dosing Weight Start Date: 09/25/22 Status: Ordered Start: 11-21-2021 venlafaxine 75 mg oral tablet Dose : 150 mg = 2 tab(s), Oral, BID, # 360 tab(s), 3 Refill(s), Pharmacy: [facility]/pharmacy #[id number], 184, cm, 07/29/21 13:07:00 EDT, Height, kg, 07/29/21 13:07:00 EDT, Dosing Weight Start Date: 11/21/21 Status: Ordered Start: 07-23-2020 venlafaxine 75 mg oral tablet Dose : 150 mg = 2 tab(s), Oral, BID, # 360 tab(s), 3 Refill(s), Pharmacy: [facility]/pharmacy #[id number], 184, cm, 07/23/20 11:28:00 EDT, Height, kg, 07/23/20 11:28:00 EDT, Dosing Weight Start Date: 07/23/20 Status: Ordered Start: 03-07-2020 take 2 tablets by mo uth twice daily Venlafaxine HCl - 75 MG Oral Tablet TAKE 2 TABLETS BY MOUTH TWICE A DAY Quantity: 120 Refills: 0 Ordered: 08-Mar-2020 DO Start : 07-Mar-2020 Active Start: 12-29-2015 take 37.5 mg by mout h twice daily Venlafaxine Active 37.5 MG PO TWICE A DAY December 29, 2015 12:00am Completed/Discontinued Medications Medication Drug Class(es) Dates Sig (Normalized) Sig (Original) acetaminophen 325 mg / oxyCODONE hydrochloride 5 mg oral tablet (3 sources) Opioid Agonist Start: 01-25-2024 acetaminophen-oxyC ODONE 325 mg-5 mg oral tablet Dose = 1 tab(s), Oral, q6h, PRN for pain, 0 Refill(s), 160 Start Date: 01/25/24 Status: Ordered Repeat number: 1 Start: 01-21-2016 take 1 tablet by ashli th every four hours as needed Oxycodone-Acetaminophen Active 1 TABLET PO EVERY 4 HOURS NEEDED January 21, 2016 12:00am amoxicillin 875 mg / clavulanate 125 mg oral tablet (1 source) Penicillin-class Antibacterial Start: 07-22-2021 End: 07-29-2021 take 1 tablet by mouth every twelve hours amoxicillin-clavulanate 875 mg-125 mg oral tablet 1 tab(s), Oral, q12h, # 14 tab(s), 0 Refill(s), Pharmacy: [facility]/pharmacy #[id number], 182.9, cm, 07/22/21 4:57:00 EDT, Height, 163.3, kg, 07/22/21 4:57:00 EDT, Dosing Weight Start Date: 07/22/21 Stop Date: 07/29/21 Status: Ordered celecoxib 200 mg oral capsule (1 source) Nonsteroidal Anti-inflammatory Drug Start: 12-29-2015 End: 12-06-2018 take 200 mg by mouth once daily Celecoxib Discontinued 200 MG PO DAILY December 29, 2015 12:00am December 06, 2018 10:08am 72 hr fentaNYL 0.05 mg/hr transdermal system (1 source) Opioid Agonist Start: 12-29-2015 End: 12-06-2018 Fentanyl Discontinued 50 MCG TRANSDERM. Q72H December 29, 2015 12:00am December 06, 2018 10:08am traMADol hydrochloride 50 mg oral tablet (3 sources) Opioid Agonist Start: 02-27-2020 take 1 tablet by mouth twice daily traMADol HCl - 50 MG Oral Tablet one tablet BID Quantity: 0 Refills: 0 Ordered: 27-Feb-2020 DO Start : 27-Feb-2020 Active Start: 02-27-2020 take 1 tablet by ashli th once daily traMADol HCl - 50 MG Oral Tablet TAKE 1 TABLET BY MOUTH DAILY FOR 28 DAYS Quantity: 28 Refills: 0 Ordered: 27-Feb-2020 DO Start : 27-Feb-2020 Active Problems Problem Classification Problem Date Documented Date Episodic/Chronic Administrative/social admission (1 source) Patient encounter status; Translations: [Encounter for pre-employment examination] Episodic Allergic reactions (6 sources) Allergic disorder of skin 03-30-2021 Episodic Anxiety disorders (9 sources) Mixed anxiety and depressive disorder; Translations: [Anxiety disorder] Onset: 01-27-2023 09-25-2022 Chronic Biliary tract disease (1 source) Gallstone; Translations: [Calculus of gallbladder without cholecystitis without obstruction] Episodic Cardiac dysrhythmias (6 sources) Supraventricular tachycardia 04-18-2019 Chronic Diabetes mellitus without complication (5 sources) Type 2 diabetes mellitus 07-29-2021 Chronic Essential hypertension (8 sources) Hypertensive disorder; Translations: [Essential hypertension] Onset: 01-30-2025 12-20-2014 Chronic Joint disorders and dislocations; trauma-related (1 source) Patellar maltracking; Translations: [Other disorders of patella, unspecified knee] Chronic Malaise and fatigue (4 sources) Fatigue 01-30-2023 Episodic Mood disorders (3 sources) Depression; Translations: [Bipolar II disorder] Onset: 04-13-2025 04-18-2019 Chronic Noninfectious gastroenteritis (3 sources) Chronic diarrhea; Translations: [Diarrhea] Episodic Other circulatory disease (3 sources) H/O: hypertension; Translations: [Personal history of other diseases of circulatory system] Episodic Other circulatory disease (3 sources) History of cardiac arrhythmia; Translations: [Personal history of other diseases of circulatory system] Episodic Other nervous system disorders (4 sources) Sleep attack 10-27-2022 Chronic Other nutritional; endocrine; and metabolic disorders (3 sources) Morbid obesity; Translations: [Morbid obesity] Chronic Other nutritional; endocrine; and metabolic disorders (6 sources) Body mass index 40+ - severely obese 07-23-2020 Chronic Residual codes; unclassified (3 sources) Tobacco use and exposure - finding; Translations: [Tobacco use disorder] Episodic Residual codes; unclassified (3 sources) History of clinical finding in subject; Translations: [Personal history of other specified diseases] Episodic Residual codes; unclassified (6 sources) Chronic pain 05-20-2019 Episodic Screening and history of mental health and substance abuse codes (3 sources) H/O: depression; Translations: [Personal history of other mental disorders] Episodic Skin and subcutaneous tissue infections (2 sources) Cellulitis; Translations: [Cellulitis, unspecified] Onset: 08-01-2022 Episodic Substance-related disorders (1 source) Opioid dependence, uncomplicated; Translations: [Opioid dependence, uncomplicated] Onset: 02-27-2025 Chronic Results Test Name Value Interpretation Reference Range Facility [email or web address] 04-13-2025 MR/BMS.BP [address] [place] [address] OFFICE VISIT Date of Service: 04/13/25 MR#: [id number] Acct: [id number] Name: CHIRAG SAWANT Rep #: [id number] : 1990 Provider: Dr. Cleveland Carcamo se DO Age/Sex: 35/M Location: [facility] Status: Signed Intake Vital Signs 02/14/25 10:55 04/13/25 10:20 Height 6 ft 2 in 6 ft 2 in Weight: 320 lb 327 lb BMI 41.1 42.0 BP 139/83 H 148/90 H Blood Pressure Location Lt brachial Lt brachial Position Sitting Sitting Respiration 16 16 Pulse 70 103 H Pulse Source Monitor Monitor BP Intake Visit Reasons: 2 M FU Accompanied by: Self Allergies diphenhydramine HCl (From Benadryl) Adverse Reaction (Verified 04/13/25 10:38) TACHYCARDIA/FLUSH Medications ???Medication ???Instructions ???Recorded ???Confirmed ???Type esomeprazole magnesium 40 mg 40 mg PO DAILY 12/29/15 04/13/25 H istory capsule,delayed release (Nexium) baclofen 10 mg tablet 10 mg PO TID 02/11/23 04/13/25 His tory dapagliflozin propanediol 10 mg 10 mg PO DAILY 02/11/23 04/13/25 H istory tablet (Farxiga) metformin 500 mg tablet 1,000 mg PO BID 02/11/23 04/13/25 History oxycodone-acetaminophen 5 mg-325 1 tab PO TID PRN 12/10/23 04/13/25 History mg tablet semaglutide 2 mg/dose (8 mg/3 mL) mg subcut 02/04/24 04/13/25 Histo ry subcutaneous pen injector (Ozempic) lurasidone 120 mg tablet 120 mg PO DAILY #30 tabs 01/25/25 04/13/25 Rx bisoprolol fumarate 5 mg tablet 5 mg PO QPM 02/14/25 04/13/25 Hist ory hydroxyzine pamoate 50 mg capsule 50 mg PO BID PRN anxiety 30 days 02/14/25 04/13/25 Rx #60 caps buspirone 15 mg tablet 15 mg PO TID #90 tabs 04/04/25 Rx lithium carbonate 600 mg capsule 1,200 mg (2 x 600 mg) PO QHS 30 04/13/25 Rx days #60 caps lurasidone 20 mg tablet 20 mg PO QPM #30 tabs 04/13/25 Rx lurasidone 80 mg tablet 80 mg PO QPM #30 tabs 04/13/25 Rx PFSH Medical History (Updated 04/17/25 @ 06:[address] Cleveland Paula, DO) Decreased libido Bipolar II disorder Chronic back pain Chronic knee pain Generalized anxiety disorder Bipolar disorder, unspecified History of supraventricular tachycardia Hypertension Type 2 diabetes mellitus Surgical History History of appendectomy History of cholecystectomy Social History Smoking Status: Current every day smoker HPI History of Present Illness History provided by: patient HPI: Zay Sawant is a 35 year old male who presents today for follow up evaluation. Patient reports that things have been not that great. Admits to having about 2 separate instances of having days where he was doing significantly better but then crashed the next day. Still having some significant sexual side effects from medications, and has nearly no libido. Feels like it has even gotten worse in recent past. Did have one episode of near panic symptoms in recent past. Had some passive thoughts of suicide without any intent or plan. Does feel like medication reduces the frequency of depressive episodes but they are still just as severe. Has ran out of blood pressure medication but sees new PCP on Thursday. Sleep has been fair. Elaborates that he is sleeping 2 hours, will wake up and feel like he has energy and sometimes can get back to bed. Review of Systems Constitutional Reports: change in sleep pattern; Denies: fever(s), chills, change in weight or fatigue Eyes Denies: change in vision or blurry vision Ears, Nose, Mouth, Throat Denies: throat pain, neck pain or change in hearing Cardiovascular Denies: chest pain, palpitations or dyspnea Respiratory Denies: dyspnea, cough or wheezing Gastrointestinal Denies: abdominal pain, nausea, vomiting, diarrhea or constipation Genitourinary Reports: change in libido (Significantly reduced); Denies: dysuria or urinary frequency Musculoskeletal Reports: joint pain (knee pain); Denies: back pain, neck pain or muscle weakness Integumentary/Breast Denies: rash or new lesions Neurological Denies: headache(s), dizziness or confusion Endocrine Reports: change in libido (Significantly reduced); Denies: fatigue or excessive sweating Hematologic/Lymphatic Denies: easy bruising or easy bleeding Allergic/Immunologic Denies: wheezing Exam Mental Status Exam - Psych Appearance unkempt and obese Attitude guarded Activity/Motor Behavior MSE activity/motor behavior finding no adventitious movements Speech regular rate, regular volume and regular prosody Mood depressed and anxious Affect restricted (Less so than previous) Thought Process linear, logical and coherent Thought Content no delusions and no hallucinat (more content not included)... Normal [facility] L3410.9992on 02-25-2025 [facility] Misc. COMMENT Normal . [facility] Comment on above: Order Comment: [id number] URINE TOX RT Result Comment: Test Ordered: [id number] Amphetamines Screen, Urine Negative ng/mL UI Reference Range: Whyane=497 Amphetamine test includes Amphetamine and Methamphetamine. Barbiturates Negative ng/mL UI Reference Range: Ybdcke=554 Benzodiazepines Negative ng/mL UI Reference Range: Mykthb=106 Cocaine (Metab.), Urine Negative ng/mL UI Reference Range: Nggdqf=496 Opiates Note: ng/mL UI See Final Results Reference Range: Vsutqe=201 Opiate test includes Codeine, Morphine, Hydromorphone, Hydrocodone. Opiates Negative UI Reference Range: Dyipjr=552 Opiate test includes Codeine, Morphine, Hydromorphone, Hydrocodone. 6-Acetylmorphine, Urine Negative ng/mL UI Reference Range: Cutoff=10 Oxycodone/Oxymorphone, Urine Note: ng/mL UI See Final Results Reference Range: Ikygdc=653 Test includes Oxycodone and Oxymorphone Oxycodone/Oxymorph Positive [A ] UI Reference Range: Prlvuz=624 Test includes Oxycodone and Oxymorphone Oxycodone Positive [A ] UI Reference Range: . Oxycodone Conf, MS, UR 2983 ng/mL UI Reference Range: Rttcpz=061 Oxymorphone Positive [A ] UI Reference Range: . Oxymorphone Conf, MS, UR 1336 ng/mL UI Reference Range: Wcbnuk=603 PCP, Urine Negative ng/mL UI Reference Range: Cutoff=25 Methadone Screen, Urine Negative ng/mL UI Reference Range: Xqhtks=853 Propoxyphene, Urine Negative ng/mL UI Reference Range: Nmauyw=913 Fentanyl, Urine Negative ng/mL UI Reference Range: Cutoff=2.0 Test includes Fentanyl and Norfentanyl This test was developed and its performance characteristics determined by [facility]. It has not been cleared or approved by the Food and Drug Administration. Tramadol Negative ng/mL UI Reference Range: Kqnjdg=962 Buprenorphine, Urine Negative ng/mL UI Reference Range: Cutoff=10 Creatinine, Urine 206.8 mg/dL UI Reference Range: 20.0-300.0 pH, Urine 5.3 UI Reference Range: 4.5-8.9 Performed at: - [facility] [address] [place], [place] [id number] Training And Development Director: Nir Pike PhD, Phone: [phone] Performed at: - [facility] [address] [id number] Training And Development Director: Koby Trammell PhD, Phone: [phone] Performed By: #### L 505.5000, L3410.9992 #### [facility] [address] [place], [address] Basic Metabolic Profile (BMP )on 02-24-2025 BUN/CRE 16.5 RATIO Normal 10-20 [facility] Comment on above: Performed By: #### L 501.9060, L500.2500 #### [facility] [address] [place], [address] Calcium [Mass/Vol] 9.7 mg/dL Normal 7.6-11.0 [facility] Comment on above: Performed By: #### L 501.9060, L500.2500 #### [facility] [address] [place], [address] Chloride [Moles/Vol] 104 mmol/L Normal 98-108 [facility] Comment on above: Performed By: #### L 501.9060, L500.2500 #### [facility] [address] [place], [address] CO2 [Moles/Vol] 23.0 mmol/L Normal 21.0-32.0 [facility] Comment on above: Performed By: #### L 501.9060, L500.2500 #### [facility] [address] [place], [address] Creatinine [Mass/Vol] 0.73 mg/dL Normal 0.70-1.20 [facility] Comment on above: Performed By: #### L 501.9060, L500.2500 #### [facility] [address] [place], [address] GAP 11 Normal 5-15 [facility] Comment on above: Performed By: #### L 501.9060, L500.2500 #### [facility] [address] [place], [address] GFR/1.73 sq M.predicted among non-blacks MDRD (S/P/Bld) [Vol rate/Area] 123 mL/min/{1.73_m2} Normal >60 [facility] Comment on above: Result Comment: mL/m in/1.73m2 CKD-EPI Creatinine Equation (2020) Performed By: #### L 501.9060, L500.2500 #### [facility] [address] [place], [address] Glucose [Mass/Vol] 112 mg/dL High 70-99 [facility] Comment on above: Performed By: #### L 501.9060, L500.2500 #### [facility] [address] [place], [address] Potassium [Moles/Vol] 3.7 mmol/L Normal 3.3-5.1 [facility] Comment on above: Performed By: #### L 501.9060, L500.2500 #### [facility] [address] [place], [address] Sodium [Moles/Vol] 138 mmol/L Normal 133-145 [facility] Comment on above: Performed By: #### L 501.9060, L500.2500 #### [facility] [address] [place], [address] Urea nitrogen [Mass/Vol] 12 mg/dL Normal 4-19 [facility] Comment on above: Performed By: #### L 501.9060, L500.2500 #### [facility] [address] [place], [address] Lithiumon 02-24-2025 LI 0.35 mmol/L Low 0.60-1.20 [facility] Comment on above: Order Comment: 2114 Performed By: #### L 501.9060, L500.2500 #### [facility] [address] [place], [address] Urine Drug Screen (VISTA)on 02-22-2025 AMPHETAMINES Negative Normal <1000 ng/mL [facility] Comment on above: Order Comment: UNK Performed By: #### L 505.5000, L3410.9992 #### [facility] [address] [place], [address] BARBITIURATES Negative Normal < 200 ng/mL [facility] Comment on above: Order Comment: UNK Performed By: #### L 505.5000, L3410.9992 #### [facility] [address] [place], [address] BENZODIAZIPINE Negative Normal < 200 ng/mL [facility] Comment on above: Order Comment: UNK Performed By: #### L 505.5000, L3410.9992 #### [facility] [address] [place], [address] BUP Ur Drug Scr Negative Normal < 200 ng/mL [facility] Comment on above: Order Comment: UNK Performed By: #### L 505.5000, L3410.9992 #### [facility] [address] [place], [address] COCAINE Negative Normal < 300 ng/mL [facility] Comment on above: Order Comment: UNK Performed By: #### L 505.5000, L3410.9992 #### [facility] [address] [place], [address] Fentanyl Negative Normal [facility] Comment on above: Order Comment: UNK Performed By: #### L 505.5000, L3410.9992 #### [facility] [address] [place], [address] METHADONE Negative Normal < 300 ng/mL [facility] Comment on above: Order Comment: UNK Performed By: #### L 505.5000, L3410.9992 #### [facility] [address] [place], [address] OPIATES Negative Normal < 300 ng/mL [facility] Comment on above: Order Comment: UNK Performed By: #### L 505.5000, L3410.9992 #### [facility] [address] [place], [address] OXYCODONE Positive Normal < 100 ng/mL [facility] Comment on above: Order Comment: UNK Result Comment: If c onfirmation testing is needed, a separate order will be required to send out testing to the reference laboratory. Performed By: #### L 505.5000, L3410.9992 #### [facility] [address] [place], [address] PCP Negative Normal < 25 ng/mL [facility] Comment on above: Order Comment: UNK Performed By: #### L 505.5000, L3410.9992 #### [facility] [address] [place], [address] THC Negative Normal < 50 ng/mL [facility] Comment on above: Order Comment: UNK Performed By: #### L 505.5000, L3410.9992 #### [facility] [address] [place], [address] MR/BMSEnrrique 02-14-2025 MR/BMS. [address], [address] [place] [address] OFFICE VISIT Date of Service: 02/14/25 MR#: [id number] Acct: [id number] Name: CHIRAG SAWANT Rep #: [id number] : 1990 Provider: Dr. Cleveland Carcamo se, Age/Sex: 34/M Location: [facility] Status: Signed Intake Vital Signs 12/13/24 11:06 02/14/25 10:55 Height 6 ft 2 in 6 ft 2 in Weight: 330 lb 320 lb BMI 42.3 41.1 BP 152/83 H 139/83 H Blood Pressure Location Lt brachial Lt brachial Position Sitting Sitting Respiration 16 16 Pulse 106 H 70 Pulse Source Monitor Monitor BP Intake Visit Reasons: 2mfu Accompanied by: Self Allergies diphenhydramine HCl (From Benadryl) Adverse Reaction (Verified 12/13/24 11:09) TACHYCARDIA/FLUSH Medications ???Medication ???Instructions ???Recorded ???Confirmed ???Type esomeprazole magnesium 40 mg 40 mg PO DAILY 12/29/15 02/14/25 H istory capsule,delayed release (Nexium) baclofen 10 mg tablet 10 mg PO TID 02/11/23 02/14/25 His tory dapagliflozin propanediol 10 mg 10 mg PO DAILY 02/11/23 02/14/25 H istory tablet (Farxiga) metformin 500 mg tablet 1,000 mg PO BID 02/11/23 02/14/25 History oxycodone-acetaminophen 5 mg-325 1 tab PO TID PRN 12/10/23 02/14/25 History mg tablet semaglutide 2 mg/dose (8 mg/3 mL) mg subcut 02/04/24 02/14/25 Histo ry subcutaneous pen injector (Ozempic) lithium carbonate 450 mg 900 mg (2 x 450 mg) PO QHS #60 tab s 10/12/24 02/14/25 Rx tablet,extended release buspirone 15 mg tablet 15 mg PO TID #90 tabs 12/23/24 Rx lurasidone 120 mg tablet 120 mg PO DAILY #30 tabs 01/25/25 02/14/25 Rx bisoprolol fumarate 5 mg tablet 5 mg PO QPM 02/14/25 02/14/25 Hist ory hydroxyzine pamoate 50 mg capsule 50 mg PO BID PRN anxiety 30 days 02/14/25 02/14/25 Rx #60 caps REPLACED BY [facility] Medical History Bipolar II disorder Chronic back pain Chronic knee pain Generalized anxiety disorder Bipolar disorder, unspecified History of supraventricular tachycardia Hypertension Type 2 diabetes mellitus Surgical History History of appendectomy History of cholecystectomy Social History Smoking Status: Current every day smoker HPI History of Present Illness History provided by: patient HPI: Zay Sawant is a 34 year old male who presents today for follow up evaluation. Patient reports to having some mild sexual side effects from medications. Patient reports that mood has been not bad. Son was approved for open enrollment which was a major stressor resolved. Does still have some fairly significant anxiety about all the little things. Had been sleeping well for awhile, but having nights where he will sleep for about an hour and then not be able to get back to sleep. remains on her second shift schedule. Has lost about 10 more lbs since last appointment. Recently had some blood work through his PCP and he reports that sugar was good. Had been having some significantly evelated blood pressure after starting losartan. Tried to cut back on [employer] energy drinks and has maybe noticed a small improvement. Review of Systems Constitutional Denies: fever(s), chills, change in weight or fatigue Eyes Denies: change in vision or blurry vision Ears, Nose, Mouth, Throat Denies: throat pain, neck pain or change in hearing Cardiovascular Denies: chest pain, palpitations or dyspnea Respiratory Denies: dyspnea, cough or wheezing Gastrointestinal Denies: abdominal pain, nausea, vomiting, diarrhea or constipation Genitourinary Reports: change in libido (Reduced); Denies: dysuria or urinary frequency Musculoskeletal Reports: joint pain (knee pain); Denies: back pain, neck pain or muscle weakness Integumentary/Breast Denies: rash or new lesions Neurological Denies: headache(s), dizziness or confusion Endocrine Reports: change in libido (Reduced); Denies: fatigue or excessive sweating Hematologic/Lymphatic Denies: easy bruising or easy bleeding Allergic/Immunologic Denies: wheezing Exam Mental Status Exam - Psych Appearance unkempt and obese Attitude guarded Activity/Motor Behavior MSE activity/motor behavior finding no adventitious movements Speech regular rate, regular volume and regular prosody Mood anxious (Fair at this time) Affect restricted (Less so than previous) Thought Process linear, logical and coherent Thought Content no delusions and no hallucinations Suicidal Ideation none Homicidal Ideation none Attention intact Concentration intact Sensorium/Orientation awake, alert and oriented x3 Memory/Cognition other (appropriate for stated age) Insight fair Judgeme (more content not included)... Normal [facility] .Auto Diffon 01-30-2025 Basophil, Absolute 0.0 10 3/mcL Normal 0.0-0.3 [facility] Comment on above: Performed By: #### T TILA, ANEU, ADIFF, CBC, BMP, GFR, MDW #### [address] [address] Basophils/100 WBC (Bld) 0.5 % Normal 0.0-2.5 [facility] Comment on above: Performed By: #### T TILA, ANEU, ADIFF, CBC, BMP, GFR, MDW #### [address] [address] Eosinophil, Absolute 0.1 10 3/mcL Normal 0.0-0.7 [facility] Comment on above: Performed By: #### T TILA, ANEU, ADIFF, CBC, BMP, GFR, MDW #### [address] [address] Eosinophils/100 WBC (Bld) 1.1 % Normal 0.0-6.0 [facility] Comment on above: Performed By: #### T ROPHS, ANEU, ADIFF, CBC, BMP, GFR, MDW #### [address] [address] Lymphocyte, Absolute 2.3 10 3/mcL Normal 0.9-4.3 [facility] Comment on above: Performed By: #### T ROPHS, ANEU, ADIFF, CBC, BMP, GFR, MDW #### [address] [address] Lymphocytes/100 WBC (Bld) 27.1 % Normal 20.0-40.0 [facility] Comment on above: Performed By: #### T ROPHS, ANEU, ADIFF, CBC, BMP, GFR, MDW #### [address] [address] Monocyte, Absolute 0.6 10 3/mcL Normal 0.1-1.4 [facility] Comment on above: Performed By: #### T TYLERHS, ANEU, ADIFF, CBC, BMP, GFR, MDW #### [address] [address] Monocytes/100 WBC (Bld) 6.6 % Normal 2.0-13.0 [facility] Comment on above: Performed By: #### T TILA, ANEU, ADIFF, CBC, BMP, GFR, MDW #### [address] [address] Neutrophils/100 WBC (Bld) 64.7 % Normal 50.0-75.0 [facility] Comment on above: Performed By: #### T ROPHS, ANEU, ADIFF, CBC, BMP, GFR, MDW #### [address] [address] .GFRon 01-30-2025 GFR/1.73 sq M.predicted among non-blacks MDRD (S/P/Bld) [Vol rate/Area] mL/min/{1.73_m2} Normal [facility] Comment on above: Result Comment: Stages of Chronic Kidney Disease (CKD) Stage Description eGFR(ml/min/1.73 sq.m.) CKD 1 Normal kidney function or >=90 normal kindney function with possible kidney damage (ex. Proteinuria) CKD 2 Kidney damage with mild loss 60-89 of kidney function CKD 3a Mild to moderate loss of kidney 45-59 function CKD 3b Moderate to severe loss of 30-44 of kindey function CKD 4 Severe loss of kidney function 15-29 CKD 5 Kidney failure <15 Note: (go live 2024) the eGFR calculation was updated to the 2020 CKD-EPI creatinine equation without a race factor to calculate the eGFR results. Performed By: #### T ROPHS, ANEU, ADIFF, CBC, BMP, GFR, MDW #### [address] [address] .MDWon 01-30-2025 Monocyte Distribution Width 16.32 Normal 0.00-20.00 [facility] Comment on above: Result Comment: For ED adult patients suspected of sepsis, MDW<=20.0 does not rule out sepsis or risk of sepsis Performed By: #### T ROPHS, ANEU, ADIFF, CBC, BMP, GFR, MDW #### [address] [address] .NEUABSon 01-30-2025 Neutrophil, Absolute 5.4 10 3/mcL Normal 2.3-8.1 [facility] Comment on above: Performed By: #### T ROPHS, ANEU, ADIFF, CBC, BMP, GFR, MDW #### [place] [id number] BMPon 01-30-2025 BUN/Creatinine Ratio 18 ratio Normal 7-27 [facility] Comment on above: Performed By: #### T ROPHS, ANEU, ADIFF, CBC, BMP, GFR, MDW #### [place] [address] Calcium [Mass/Vol] 10.5 mg/dL High 8.4-10.2 [facility] Comment on above: Performed By: #### T ROPKEN, ANEU, ADIFF, CBC, BMP, GFR, W #### [place] [id number] Chloride [Moles/Vol] 107 mmol/L Normal 98-107 [facility] Comment on above: Performed By: #### T ROPHS, ANEU, ADIFF, CBC, BMP, GFR, W #### [place] [address] CO2 [Moles/Vol] 27 mmol/L Normal 22-29 [facility] Comment on above: Performed By: #### T ROPHS, ANEU, ADIFF, CBC, BMP, GFR, MDW #### [facility] [place] [address] [place], [place] [address] Creatinine [Mass/Vol] 0.71 mg/dL Normal 0.67-1.17 [facility] Comment on above: Performed By: #### T TILA, ANEU, ADIFF, CBC, BMP, GFR, GIL #### [address] [address] Electrolyte Balance 9.0 mEq/L Normal 4.0-15.0 [facility] Comment on above: Performed By: #### T TILA, ANEU, ADIFF, CBC, BMP, GFR, W #### [address] [address] Glucose [Mass/Vol] 129 mg/dL High 70-105 [facility] Comment on above: Performed By: #### T TILA, ANEU, ADIFF, CBC, BMP, GFR, W #### [address] [address] Potassium [Moles/Vol] 4.5 mmol/L Normal 3.5-5.1 [facility] Comment on above: Performed By: #### T TILA, ANEU, ADIFF, CBC, BMP, GFR, GIL #### [address] [address] Sodium [Moles/Vol] 143 mmol/L Normal 136-145 [facility] Comment on above: Performed By: #### T TILA, ANEU, ADIFF, CBC, BMP, GFR, GIL #### [address] [address] Urea nitrogen [Mass/Vol] 13 mg/dL Normal 7-18 [facility] Comment on above: Performed By: #### T TILA, ANEU, ADIFF, CBC, BMP, GFR, GIL #### [address] [address] CBCon 01-30-2025 Erythrocyte distribution width (RBC) [Ratio] 14.7 % Normal 11.5-15.5 [facility] Comment on above: Performed By: #### T TYLERHS, ANEU, ADIFF, CBC, BMP, GFR, GIL #### [address] [address] Hematocrit (Bld) [Volume fraction] 52.4 % High 40.0-52.0 [facility] Comment on above: Performed By: #### T TILA, ANEU, ADIFF, CBC, BMP, GFR, GIL #### [address] [address] Hgb 17.7 G/dL High 13.0-17.5 [facility] Comment on above: Performed By: #### T TILA, ANEU, ADIFF, CBC, BMP, GFR, GIL #### [address] [address] MCH (RBC) [Entitic mass] 29.0 pg Normal 27.0-33.0 [facility] Comment on above: Performed By: #### T TILA, ANEU, ADIFF, CBC, BMP, GFRGIL #### [address] [address] MCHC 33.8 G/dL Normal 32.0-36.0 [facility] Comment on above: Performed By: #### T TILA, ANEU, ADIFF, CBC, BMP, GFRGIL #### [address] [address] MCV (RBC) [Entitic vol] 85.7 fL Normal 81.0-100.0 [facility] Comment on above: Performed By: #### T TILA, ANEU, ADIFF, CBC, BMP, GFRGIL #### [address] [address] Platelet 186 10 3/mcL Normal 150-450 [facility] Comment on above: Performed By: #### T TILA, ANEU, ADIFF, CBC, BMP, GFRGIL #### [address] [address] Platelet mean volume (Bld) [Entitic vol] 8.4 fL Normal 6.4-10.5 [facility] Comment on above: Performed By: #### T ROPHS, ANEU, ADIFF, CBC, BMP, GFR, MDW #### [facility] [address] [place], [place] [address] RBC 6.11 10 6/mcL High 4.50-6.00 [facility] Comment on above: Performed By: #### T ROPHS, ANEU, ADIFF, CBC, BMP, GFR, MDW #### [facility] [address] [place], [place] [address] WBC 8.4 10 3/mcL Normal 4.5-10.8 [facility] [facility] Comment on above: Performed By: #### T ROPHS, ANEU, ADIFF, CBC, BMP, GFR, MDW #### [address] [place], [place] [address] CT HEAD OR BRAIN W/O CONTRAS Ton 01-30-2025 CT HEAD OR BRAIN W/O CONTRAST ORIGINAL EXAMINATION: CT OF THE HEAD WITHOUT CONTRAST 01/30/2025 6:17 pm TECHNIQUE: CT of the head was performed without the administration of intravenous contrast. Automated exposure control, iterative reconstruction, and/or weight based adjustment of the mA/kV was utilized to reduce the radiation dose to as low as reasonably achievable. COMPARISON: None. 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 There is normal variant cavum septum pellucidum. There is no acute intracranial hemorrhage, mass effect or midline shift. No abnormal extra-axial fluid collection. The monteiro-white differentiation is maintained without evidence of an acute infarct. There is no evidence of hydrocephalus. ORBITS: The visualized portion of the orbits demonstrate no acute abnormality. SINUSES: The visualized paranasal sinuses and mastoid air cells demonstrate no acute abnormality. SOFT TISSUES/SKULL: No acute abnormality of the visualized skull or soft tissues. IMPRESSION: No acute intracranial abnormality. There is no evidence of mass, hemorrhage, acute infarct, or calvarial fracture. Interpreted by: Dash Morales Preliminary Report By: Dash Morales Electronically signed By Dash Morales Dictated Date: 01/30/2025 7:19:39 PM Prelim Date: 01/30/2025 7:28:06 PM Sign Date: 01/30/2025 7:28:06 PM Ordering Provider: GANESH NOVOA Normal [facility] LABORATORYOrdered By: SYSTEM SYSTEM on 01-30-2025 Troponin I.cardiac DL <= 0.01 ng/mL [Mass/Vol] 6 ng/L Normal 0 - 76 ng/L AO ADM SS Comment on above: Interpretive Data: H igh Sensitive Troponin I Reference Ranges: Female: 0-51 ng/L Male: 0-76 ng/L Testing performed on [employer] using a homogeneous sandwich chemiluminescent immunoassay based on [employer] Recovery technology. Basophils (Bld) [#/Vol] 0.0 103/mcL Normal 0.0 - 0.3 10^3/mcL AO Workflow SS Basophils/100 WBC (Bld) 0.5 % Normal 0.0 - 2.5 % AO Workflow SS Calcium [Mass/Vol] 10.5 mg/dL High 8.4 - 10. 2 mg/dL AO ADM SS Chloride [Moles/Vol] 107 mmol/L Normal 98 - 107 mmol/L AO ADM SS CO2 [Moles/Vol] 27 mmol/L Normal 22 - 29 mmol/L AO ADM SS Creatinine [Mass/Vol] 0.71 mg/dL Normal 0.67 - 1.17 mg/dL AO ADM SS Electrolyte Balance 9.0 mEq/L Normal 4.0 - 15 .0 mEq/L AO ADM SS Eosinophil, Absolute 0.1 103/mcL Normal 0.0 - 0.7 10^3/mcL AO Workflow SS Eosinophils/100 WBC (Bld) 1.1 % Normal 0.0 - 6.0 % AO Workflow SS Erythrocyte distribution width (RBC) [Ratio] 14.7 % Normal 11.5 - 15.5 % AO Workflow SS Estimated Glomerular Filtration Rate ml/min/1.73sqm Invalid Interpretation Code AO Chemistry S Comment on above: Interpretive Data: Stages of Chronic Kidney Disease (CKD) Stage Description eGFR(ml/min/1.73 sq.m.) CKD 1 Normal kidney function or >=90 normal kindney function with possible kidney damage (ex. Proteinuria) CKD 2 Kidney damage with mild loss 60-89 of kidney function CKD 3a Mild to moderate loss of kidney 45-59 function CKD 3b Moderate to severe loss of 30-44 of kindey function CKD 4 Severe loss of kidney function 15-29 CKD 5 Kidney failure <15 Note: (go live 2024) the eGFR calculation was updated to the 2020 CKD-EPI creatinine equation without a race factor to calculate the eGFR results. Glucose [Mass/Vol] 129 mg/dL High 70 - 105 mg/dL AO ADM SS Hematocrit (Bld) [Volume fraction] 52.4 % High 40.0 - 52.0 % AO Workflow SS Hemoglobin (Bld) [Mass/Vol] 17.7 G/dL High 13.0 - 17.5 G/dL AO Workflow SS Lymphocytes (Bld) [#/Vol] 2.3 103/mcL Normal 0.9 - 4.3 10^3/mcL AO Workflow SS Lymphocytes/100 WBC (Bld) 27.1 % Normal 20.0 - 40.0 % AO Workflow SS MCH (RBC) [Entitic mass] 29.0 pg Normal 27.0 - 33.0 pg AO Workflow SS MCHC 33.8 G/dL Normal 32.0 - 36.0 G/dL AO Workflow SS MCV (RBC) [Entitic vol] 85.7 fL Normal 81.0 - 100.0 fL AO Workflow SS Monocyte distribution width Auto (Bld) [Entitic vol] 16.32 1 Normal 0.00 - 20.00 AO Workflow SS Comment on above: Result Comment: For ED adult patients suspected of sepsis, MDW<=20.0 does not rule out sepsis or risk of sepsis Monocytes (Bld) [#/Vol] 0.6 103/mcL Normal 0.1 - 1.4 10^3/mcL AO Workflow SS Monocytes/100 WBC (Bld) 6.6 % Normal 2.0 - 13.0 % AO Workflow SS Neutrophils (Bld) [#/Vol] 5.4 103/mcL Normal 2.3 - 8.1 10^3/mcL AO Workflow SS Neutrophils/100 WBC (Bld) 64.7 % Normal 50.0 - 75.0 % AO Workflow SS Platelet mean volume (Bld) [Entitic vol] 8.4 fL Normal 6.4 - 10.5 fL AO Workflow SS Platelets (Bld) [#/Vol] 186 103/mcL Normal 150 - 450 10^3/mcL AO Workflow SS Potassium [Moles/Vol] 4.5 mmol/L Normal 3.5 - 5.1 mmol/L AO ADM SS RBC (Bld) [#/Vol] 6.11 106/mcL High 4.50 - 6.0 0 10^6/mcL AO Workflow SS Sodium [Moles/Vol] 143 mmol/L Normal 136 - 145 mmol/L AO ADM SS Troponin I.cardiac DL <= 0.01 ng/mL [Mass/Vol] 7 ng/L Normal 0 - 76 ng/L AO ADM SS Comment on above: Interpretive Data: H igh Sensitive Troponin I Reference Ranges: Female: 0-51 ng/L Male: 0-76 ng/L Testing performed on Dimension EXL using a homogeneous sandwich chemiluminescent immunoassay based on [employer] Recovery technology. Urea nitrogen [Mass/Vol] 13 mg/dL Normal 7 - 18 mg/dL AO ADM SS Urea nitrogen/Creatinine [Mass ratio] 18 ratio Normal 7 - 27 ratio AO ADM SS WBC (Bld) [#/Vol] 8.4 103/mcL Normal 4.5 - 10.8 10^3/mcL AO Workflow SS TROPHSon 01-30-2025 High Sensitivity Troponin I 6 ng/L Normal 0-76 [facility] Comment on above: Result Comment: High Sensitive Troponin I Reference Ranges: Female: 0-51 ng/L Male: 0-76 ng/L Testing performed on Dimension EX using a homogeneous sandwich chemiluminescent immunoassay based on Nu[employer] Recovery technology. Performed By: #### Mike ADORNO #### [address] [address] High Sensitivity Troponin I 7 ng/L Normal 0-76 [facility] Comment on above: Result Comment: High Sensitive Troponin I Reference Ranges: Female: 0-51 ng/L Male: 0-76 ng/L Testing performed on Dimension EX using a homogeneous sandwich chemiluminescent immunoassay based on [employer] Recovery technology. Performed By: #### T TILA, ANEU, ADIFF, CBC, BMP, GFR, MDW #### [address] [place], [place] [address] XR CHEST 1 VIEWon 01-30-2025 XR CHEST 1 VIEW ORIGINAL EXAMINATION: ONE XRAY VIEW OF THE CHEST 01/30/2025 6:20 pm COMPARISON: 2018 HISTORY: ORDERING SYSTEM PROVIDED HISTORY: Reason for Exam: chest pain FINDINGS: Suboptimal exam due to patient body habitus. Normal cardiomediastinal silhouette. No definite focal consolidation. No large pleural effusion or pneumothorax. No acute osseous findings. IMPRESSION: Suboptimal exam due to patient body habitus. No definite focal consolidation. I have personally reviewed the images of this examination and agree with the resident's findings and interpretation. Interpreted by: Rolf Keys Preliminary Report By: Kala Lisa Electronically signed By Rolf Keys Dictated Date: 01/30/2025 7:21:13 PM Prelim Date: 01/30/2025 7:23:07 PM Sign Date: 01/30/2025 7:39:15 PM Ordering Provider: GANESH NOVOA [facility] MR/BMS.BPon 12-13-2024 MR/BMS.BP [address], [address] [place] [address] OFFICE VISIT Date of Service: 12/13/24 MR#: [id number] Acct: [id number] Name: CHIRAG SAWANT Rep #: [id number] : 1990 Provider: Dr. Cleveland Carcamo se, DO Age/Sex: 34/M Location: [facility] Status: Signed Intake Vital Signs 10/12/24 10:56 12/13/24 11:06 Height 6 ft 2 in 6 ft 2 in Weight: 330 lb BMI 42.3 BP 130/88 H 152/83 H Blood Pressure Location Lt brachial Lt brachial Position Sitting Sitting Respiration 16 16 Pulse 94 106 H Pulse Source Monitor Monitor BP Intake Visit Reasons: 2 M FU Accompanied by: Self Allergies diphenhydramine HCl (From Benadryl) Adverse Reaction (Verified 12/13/24 11:09) TACHYCARDIA/FLUSH Medications ???Medication ???Instructions ???Recorded ???Confirmed ???Type esomeprazole magnesium 40 mg 40 mg PO DAILY 12/29/15 12/13/24 H istory capsule,delayed release (Nexium) baclofen 10 mg tablet 10 mg PO TID 02/11/23 12/13/24 His tory dapagliflozin propanediol 10 mg 10 mg PO DAILY 02/11/23 12/13/24 H istory tablet (Farxiga) metformin 500 mg tablet 1,000 mg PO BID 02/11/23 12/13/24 History oxycodone-acetaminophen 5 mg-325 1 tab PO TID PRN 12/10/23 12/13/24 History mg tablet semaglutide 2 mg/dose (8 mg/3 mL) mg subcut 02/04/24 12/13/24 Histo ry subcutaneous pen injector (Ozempic) buspirone 15 mg tablet 15 mg PO TID #90 tabs 10/12/24 Rx hydroxyzine pamoate 50 mg capsule 50 mg PO BID PRN anxiety 30 days 10/12/24 12/13/24 Rx #60 caps lamotrigine 100 mg tablet 100 mg PO DAILY #30 tabs 10/12/24 12/13/24 Rx (Lamictal) lithium carbonate 450 mg 900 mg (2 x 450 mg) PO QHS #60 tab s 10/12/24 12/13/24 Rx tablet,extended release lurasidone 120 mg tablet 120 mg PO DAILY #30 tabs 10/12/24 12/13/24 Rx PFSH Medical History Bipolar II disorder Chronic back pain Chronic knee pain Generalized anxiety disorder Bipolar disorder, unspecified History of supraventricular tachycardia Hypertension Type 2 diabetes mellitus Surgical History History of appendectomy History of cholecystectomy Social History Smoking Status: Current every day smoker HPI History of Present Illness History provided by: patient HPI: Zay Sawant is a 34 year old male who presents today for follow up evaluation. Feels like he is about the same. Has not taken buspirone for the last 3 months after having not gotten from the pharmacy. Just restarted the last 2 weeks ago. Has continued to have some chronic pain symptoms which is largely unchanged. Has continued to take oxycodone but feels like it is less helpful. Will be getting shots in his back at some point in the future. may be moving to day shifts in the future. Son recently started guanfacine for ADHD so may have been doing somewhat better in recent past. He is opened enrolled to [employer] but they live in [place]. Was suspended at beginning of year and worries this might be denied this year. He is very worried about this because he doesn't want him to attend another school and have another new environment for him to encounter. Denies SI/HI or AVH. Has lost about 60 lbs over the course of the last several months. Review of Systems Constitutional Denies: fever(s), chills, change in weight or fatigue Eyes Denies: change in vision or blurry vision Ears, Nose, Mouth, Throat Denies: throat pain, neck pain or change in hearing Cardiovascular Denies: chest pain, palpitations or dyspnea Respiratory Denies: dyspnea, cough or wheezing Gastrointestinal Denies: abdominal pain, nausea, vomiting, diarrhea or constipation Genitourinary Denies: dysuria or urinary frequency Musculoskeletal Reports: joint pain (knee pain); Denies: back pain, neck pain or muscle weakness Integumentary/Breast Denies: rash or new lesions Neurological Denies: headache(s), dizziness or confusion Endocrine Denies: fatigue or excessive sweating Hematologic/Lymphatic Denies: easy bruising or easy bleeding Allergic/Immunologic Denies: wheezing Exam Mental Status Exam - Psych Appearance unkempt and other (has visibly lost weight) Attitude guarded Activity/Motor Behavior MSE activity/motor behavior finding no adventitious movements Speech regular rate, regular volume and regular prosody Mood anxious (Improved but still present) Affect restricted Thought Process linear, logical and coherent Thought Content no delusions and no hallucinations Suicidal Ideation none Homicidal Ideation none Attention intact Concentration intact Sensorium/Orientation awake, alert and oriented x3 Memory/Cogniti (more content not included)... Normal [facility] MR/BMS.BPon 10-12-2024 MR/BMS.BP [facility] ry [address] [facility] [address] [facility] [address], [address] [place] [address] OFFICE VISIT Date of Service: 10/12/24 MR#: [id number] Acct: [id number] Name: CHIRAG SAWANT Rep #: [id number] : 1990 Provider: Dr. [place] Carcamo se, DO Age/Sex: 34/M Location: [facility] Status: Signed Intake Vital Signs 07/14/24 09:27 10/12/24 10:56 Height 6 ft 2 in 6 ft 2 in BP 130/88 H Blood Pressure Location Lt brachial Position Sitting Respiration 16 Pulse 94 Pulse Source Monitor BP Intake Visit Reasons: 2 M FU Accompanied by: Self Allergies diphenhydramine HCl (From Benadryl) Adverse Reaction (Verified 01/15/25 10:58) TACHYCARDIA/FLUSH Medications ???Medication ???Instructions ???Recorded ???Confirmed ???Type esomeprazole magnesium 40 mg 40 mg PO DAILY 12/29/15 10/12/24 History capsule,delayed release (Nexium) baclofen 10 mg tablet 10 mg PO TID 02/11/23 10/12/24 History dapagliflozin propanediol 10 mg 10 mg PO DAILY 02/11/23 10/12/24 History tablet (Farxiga) lisinopril 40 mg tablet 40 mg PO DAILY 02/11/23 10/12/24 History metformin 500 mg tablet 1,000 mg PO BID 02/11/23 10/12/24 History oxycodone-acetaminophen 5 mg-325 1 tab PO TID PRN 12/10/23 10/12/24 History mg tablet semaglutide 2 mg/dose (8 mg/3 mL) mg subcut 02/04/24 10/12/24 History subcutaneous pen injector (Ozempic) buspirone 15 mg tablet 15 mg PO TID #90 tabs 10/12/24 10/12/24 Rx hydroxyzine pamoate 50 mg capsule 50 mg PO BID PRN anxiety 30 days 10/12/24 10/12/24 Rx #60 caps lamotrigine 100 mg tablet 100 mg PO DAILY #30 tabs 10/12/24 10/12/24 Rx (Lamictal) lithium carbonate 450 mg 900 mg (2 x 450 mg) PO QHS #60 tabs 10/12/24 10/12/24 Rx tablet,extended release lurasidone 120 mg tablet 120 mg PO DAILY #30 tabs 10/12/24 10/12/24 Rx PFSH Medical History Bipolar II disorder Chronic back pain Chronic knee pain Generalized anxiety disorder Bipolar disorder, unspecified History of supraventricular tachycardia Hypertension Type 2 diabetes mellitus Surgical History History of appendectomy History of cholecystectomy Social History Smoking Status: Current every day smoker HPI History of Present Illness History provided by: patient HPI: Zay Sawant is a 34 year old male who presents today for follow up evaluation. Feels like depression cochran he has been doing pretty good. Anxiety cochran things have been somewhat worse. Currently sees Dr. Trore and essentially was told not to take benzodiazepine because he is on pain management. This has led to anxiety being somewhat worse. Son has been diagnosed with ADHD and has been doing somewhat better with medication. Does have some continued socialization difficulties however. Sleep has been somewhat improved. Has stopped getting up with his when she gets home from work so has been sleeping somewhat more. She might be moving up to first shift in the near future without having a significant pay decrease. Has lost 50 lbs over the last few months. Denies SI/HI or AVH. Review of Systems Constitutional Denies: fever(s), chills, change in weight or fatigue Eyes Denies: change in vision or blurry vision Ears, Nose, Mouth, Throat Denies: throat pain, neck pain or change in hearing Cardiovascular Denies: chest pain, palpitations or dyspnea Respiratory Denies: dyspnea, cough or wheezing Gastrointestinal Denies: abdominal pain, nausea, vomiting, diarrhea or constipation Genitourinary Denies: dysuria or urinary frequency Musculoskeletal Reports: joint pain (knee pain); Denies: back pain, neck pain or muscle weakness Integumentary/Breast Denies: rash or new lesions Neurological Denies: headache(s), dizziness or confusion Endocrine Denies: fatigue or excessive sweating Hematologic/Lymphatic Denies: easy bruising or easy bleeding Allergic/Immunologic Denies: wheezing Exam Mental Status Exam - Psych Appearance unkempt Attitude cooperative Activity/Motor Behavior MSE activity/motor behavior finding no adventitious movements Speech regular rate, regular volume and regular prosody Mood anxious (Improved but still present) Affect full range (Brighter than previous) Thought Process linear, logical and coherent Thought Content no delusions and no hallucinations Suicidal Ideation none Homicidal Ideation none Attention intact Concentration intact Sensorium/Orientation awake, alert and oriented x3 Memory/Cognition other (appropriate for stated age) Insight fair Judgement good Assessment Plan Assessment Plan (1) Bipolar II disorder: Plan: - Doing somewhat better on the whole but still having some interm (more content not included)... Normal [facility] .GFRon 08-02-2024 GFR 91 ml/min/1.73sqm Normal [facility] Comment on above: Result Comment: GFR Population mean for , Non- Americans Ages 20-29 = 116 mL/min/1.73 sq.m. Ages 30-39 = 107 mL/min/1.73 sq.m. Ages 40-49 = 99 mL/min/1.73 sq.m. Ages 50-59 = 93 mL/min/1.73 sq.m. Ages 60-69 = 85 mL/min/1.73 sq.m. Ages 70+ = 75 mL/min/1.73 sq.m. Chronic Kidney Disease: Less than 60 mL/min/1.73 square meters End Stage Renal Disease: Less than 15 mL/min/1.73 square meters Performed By: #### T TILA, ANEU, ADIFF, CBC, BMP, GFR, MDW #### [address] [place], [place] [address] GFR Non- 75 ml/min/1.73sqm Normal [facility] Comment on above: Result Comment: GFR Population mean for , Non- Americans Ages 20-29 = 116 mL/min/1.73 sq.m. Ages 30-39 = 107 mL/min/1.73 sq.m. Ages 40-49 = 99 mL/min/1.73 sq.m. Ages 50-59 = 93 mL/min/1.73 sq.m. Ages 60-69 = 85 mL/min/1.73 sq.m. Ages 70+ = 75 mL/min/1.73 sq.m. Chronic Kidney Disease: Less than 60 mL/min/1.73 square meters End Stage Renal Disease: Less than 15 mL/min/1.73 square meters Performed By: #### T TILA, ANEU, ADIFF, CBC, BMP, GFR, MDW #### [address] [place], [place] [address] [facility] Albumin Level 4.2 G/dL Normal 3.5-5.0 [facility] Comment on above: Performed By: #### T TILA, ANEU, ADIFF, CBC, BMP, GFR, MDW #### [address] [place], [place] [address] Albumin/Globulin [Mass ratio] 1.4 {ratio} Normal 1.1-2.5 [facility] Comment on above: Performed By: #### T ROPHS, ANEU, ADIFF, CBC, BMP, GFR, GIL #### [address] [address] ALP [Catalytic activity/Vol] 74 U/L Normal 40-135 [facility] Comment on above: Performed By: #### T ROPHS, ANEU, ADIFF, CBC, BMP, GFR, GIL #### [address] [address] ALT [Catalytic activity/Vol] 55 U/L Normal 16-63 [facility] Comment on above: Performed By: #### T TILA, ANEU, ADIFF, CBC, BMP, GFR, GIL #### [address] [place] [address] AST [Catalytic activity/Vol] 30 U/L Normal 10-40 [facility] Comment on above: Performed By: #### T ROPKEN, ANEU, ADIFF, CBC, BMP, GFR, GIL #### [place] [address] Bili Total 0.6 mg/dL Normal 0.2-1.0 [facility] Comment on above: Result Comment: Use of this assay is not recommended for patients undergoing treatment with eltrombopag due to the potential for falsely elevated results. Performed By: #### T ROPKEN, ANEU, ADIFF, CBC, BMP, GFR, GIL #### [place] [id number] BUN/Creatinine Ratio 11 ratio Normal 7-27 [facility] Comment on above: Performed By: #### T ROPKEN, ANEU, ADIFF, CBC, BMP, GFR, GIL #### [place] [id number] Calcium [Mass/Vol] 9.2 mg/dL Normal 8.4-10.2 [facility] Comment on above: Performed By: #### T ROPHS, ANEU, ADIFF, CBC, BMP, GFR, GIL #### [address] [place] [address] Chloride [Moles/Vol] 102 mmol/L Normal 98-107 [facility] Comment on above: Performed By: #### T TILA, ANEU, ADIFF, CBC, BMP, GFR, GIL #### [address] [address] CO2 [Moles/Vol] 27 mmol/L Normal 22-29 [facility] Comment on above: Performed By: #### T TILA, ANEU, ADIFF, CBC, BMP, GFR, GIL #### [place] [id number] Creatinine [Mass/Vol] 1.13 mg/dL Normal 0.70-1.30 [facility] Comment on above: Result Comment: Test ing performed on [employer] Dimension EXL analyzer using a modified kinetic Liang technique. Performed By: #### T TILA, ANEU, ADIFF, CBC, BMP, GFRGIL #### [place] [address] Electrolyte Balance 11.0 mEq/L Normal 4.0-15.0 [facility] Comment on above: Performed By: #### T TILA ANEU, ADIFF, CBC, BMP, GFRGIL #### [place] [address] Globulin 3.1 G/dL Normal [facility] Comment on above: Performed By: #### T TILA, ANEU, ADIFF, CBC, BMP, GFR, GIL #### [address] [address] Glucose [Mass/Vol] 120 mg/dL High 70-105 [facility] Comment on above: Performed By: #### T TILA, ANEU, ADIFF, CBC, BMP, GFR, GIL #### [place] [address] Potassium [Moles/Vol] 4.1 mmol/L Normal 3.5-5.1 [facility] Comment on above: Performed By: #### T TILA ANEU, ADIFF, CBC, BMP, GFR, GIL #### [address] [place], [place] [address] Sodium [Moles/Vol] 140 mmol/L Normal 136-145 [facility] Comment on above: Performed By: #### T ROPHS, ANEU, ADIFF, CBC, BMP, GFR, MDW #### [address] [place], [place] [address] Total Protein 7.3 G/dL Normal 6.4-8.2 [facility] Comment on above: Performed By: #### T ROPHS, ANEU, ADIFF, CBC, BMP, GFR, MDW #### [address] [place], [place] [address] Urea nitrogen [Mass/Vol] 12 mg/dL Normal 7-18 [facility] Comment on above: Performed By: #### T ROPKEN, ANEU, ADIFF, CBC, BMP, GFR, MDW #### [address] [place], [place] [address] LABORATORYOrdered By: Hilary Araiza on 08-02-2024 Albumin DL <= 20 mg/L (U) [Mass/Vol] 3541 mcg/dL Invalid Interpretation Code AO ADM SS Albumin/Creatinine DL <= 20 mg/L (U) [Mass ratio] 22 mcg/mg Normal 0 - 30 mcg/mg AO ADM SS Creatinine (U) [Mass/Vol] 164.2 mg/dL Normal 39.0 - 259.0 mg/dL AO ADM SS LABORATORYOrdered By: [employer] on 08-02-2024 Albumin BCP dye [Mass/Vol] 4.2 G/dL Normal 3.5 - 5.0 G/dL AO ADM SS Albumin/Globulin [Mass ratio] 1.4 {ratio} Normal 1.1 - 2.5 ratio AO ADM SS ALP [Catalytic activity/Vol] 74 U/L Normal 40 - 135 U/L AO ADM SS ALT With P-5'-P [Catalytic activity/Vol] 55 U/L Normal 16 - 63 U/L AO ADM SS AST With P-5'-P [Catalytic activity/Vol] 30 U/L Normal 10 - 40 U/L AO ADM SS Bilirubin [Mass/Vol] 0.6 mg/dL Normal 0.2 - 1.0 mg/dL AO ADM SS Comment on above: Interpretive Data: U se of this assay is not recommended for patients undergoing treatment with eltrombopag due to the potential for falsely elevated results. Calcium [Mass/Vol] 9.2 mg/dL Normal 8.4 - 10. 2 mg/dL AO ADM SS Chloride [Moles/Vol] 102 mmol/L Normal 98 - 107 mmol/L AO ADM SS CO2 [Moles/Vol] 27 mmol/L Normal 22 - 29 mmol/L AO ADM SS Creatinine [Mass/Vol] 1.13 mg/dL Normal 0.70 - 1.30 mg/dL AO ADM SS Comment on above: Interpretive Data: T esting performed on [employer]ens Dimension EXL analyzer using a modified kinetic Liang technique. Electrolyte Balance 11.0 mEq/L Normal 4.0 - 15 .0 mEq/L AO ADM SS GFR/1.73 sq M.predicted among blacks MDRD (S/P/Bld) [Vol rate/Area] 91 ml/min/1.73sqm Invalid Interpretation Code AO Chemistry S Comment on above: Interpretive Data: GFR Population mean for , Non- Americans Ages 20-29 = 116 mL/min/1.73 sq.m. Ages 30-39 = 107 mL/min/1.73 sq.m. Ages 40-49 = 99 mL/min/1.73 sq.m. Ages 50-59 = 93 mL/min/1.73 sq.m. Ages 60-69 = 85 mL/min/1.73 sq.m. Ages 70+ = 75 mL/min/1.73 sq.m. Chronic Kidney Disease: Less than 60 mL/min/1.73 square meters End Stage Renal Disease: Less than 15 mL/min/1.73 square meters GFR/1.73 sq M.predicted among non-blacks MDRD (S/P/Bld) [Vol rate/Area] 75 ml/min/1.73sqm Invalid Interpretation Code AO Chemistry S Comment on above: Interpretive Data: GFR Population mean for , Non- Americans Ages 20-29 = 116 mL/min/1.73 sq.m. Ages 30-39 = 107 mL/min/1.73 sq.m. Ages 40-49 = 99 mL/min/1.73 sq.m. Ages 50-59 = 93 mL/min/1.73 sq.m. Ages 60-69 = 85 mL/min/1.73 sq.m. Ages 70+ = 75 mL/min/1.73 sq.m. Chronic Kidney Disease: Less than 60 mL/min/1.73 square meters End Stage Renal Disease: Less than 15 mL/min/1.73 square meters Globulin 3.1 G/dL Invalid Interpretation Code AO ADM SS Glucose [Mass/Vol] 120 mg/dL High 70 - 105 mg/dL AO ADM SS Potassium [Moles/Vol] 4.1 mmol/L Normal 3.5 - 5.1 mmol/L AO ADM SS Protein [Mass/Vol] 7.3 G/dL Normal 6.4 - 8.2 G/dL AO ADM SS Sodium [Moles/Vol] 140 mmol/L Normal 136 - 145 mmol/L AO ADM SS Urea nitrogen [Mass/Vol] 12 mg/dL Normal 7 - 18 mg/dL AO ADM SS Urea nitrogen/Creatinine [Mass ratio] 11 ratio Normal 7 - 27 ratio AO ADM SS LABORATORYOrdered By: Rivas De La Rosa on 08-02-2024 Cholesterol [Mass/Vol] 71 mg/dL Normal 0 - 200 mg/dL AO ADM SS Comment on above: Interpretive Data: C holesterol Reference Interval: Less than 200 Desirable 200-239 Borderline high risk 240 and above High risk Cholesterol in HDL [Mass/Vol] 40 mg/dL Normal 40 - 60 mg/dL AO ADM SS Cholesterol in LDL [Mass/Vol] 19 mg/dL Normal 0 - 130 mg/dL AO ADM SS Triglyceride [Mass/Vol] 59 mg/dL Normal 0 - 150 mg/dL AO ADM SS Comment on above: Interpretive Data: T riglyceride Reference Interval: Less than 150 Normal 150-199 Borderline high risk 200-499 High risk 500 or higher Very high risk LIPIDon 08-02-2024 Cholesterol [Mass/Vol] 71 mg/dL Normal 0-200 [facility] Comment on above: Result Comment: Chol esterol Reference Interval: Less than 200 Desirable 200-239 Borderline high risk 240 and above High risk Performed By: #### T ROPHS, ANEU, ADIFF, CBC, BMP, GFR, MDW #### [address] [place], [place] [address] Cholesterol in HDL [Mass/Vol] 40 mg/dL Normal 40-60 [facility] Comment on above: Performed By: #### T LUIS DANIEL ADORNO ADMELY, CBC, BMP, GFR, GIL #### [address] [address] Cholesterol in LDL [Mass/Vol] 19 mg/dL Normal 0-130 [facility] Comment on above: Performed By: #### T LUIS DANIEL ADORNO ADMELY, CBC, BMP, GFR, GIL #### [address] [place], [place] [address] Triglyceride [Mass/Vol] 59 mg/dL Normal 0-150 [facility] Comment on above: Result Comment: Trig lyceride Reference Interval: Less than 150 Normal 150-199 Borderline high risk 200-499 High risk 500 or higher Very high risk Performed By: #### T LUIS DANIEL ADORNO ADIFF, CBC, BMP, GFR, GIL #### [address] [address] MALBRon 08-02-2024 U Creatinine 164.2 mg/dL Normal 39.0-259.0 [facility] Comment on above: Performed By: #### M ALBR #### [address] [address] U Microalb 3541 mcg/dL Normal [facility] Comment on above: Performed By: #### M ALBR #### [address] [address] U Ratio Alb/Cre 22 mcg/mg Normal 0-30 [facility] Comment on above: Performed By: #### M ALBR #### [address] [address] MR/BMSEnrrique 07-14-2024 MR/BMS. [address], [place] [address] OFFICE VISIT Date of Service: 07/14/24 MR#: [id number] Acct: [id number] Name: SAVANACHIRAG OLAF Rep #: [id number] : 1990 Provider: Dr. Cleveland Carcamo se DO Age/Sex: 34/M Location: [facility]BP Status: Signed Intake Vital Signs 06/16/24 10:09 07/14/24 09:27 Height 6 ft 2 in 6 ft 2 in BP Intake Visit Reasons: f/u Allergies diphenhydramine HCl (From Benadryl) Adverse Reaction (Verified 06/16/24 10:09) TACHYCARDIA/FLUSH PFSH Medical History Bipolar II disorder Chronic back pain Chronic knee pain Generalized anxiety disorder Bipolar disorder, unspecified History of supraventricular tachycardia Hypertension Type 2 diabetes mellitus Surgical History History of appendectomy History of cholecystectomy Social History Smoking Status: Current every day smoker HPI History of Present Illness History provided by: patient HPI: Zay Sawant is a 34 year old male who presents today for follow up evaluation. Patient reports that depression is about the same, in regards to being manageable at this time. Does still have intermittently have some significant anxiety but has been getting good results with the use of lorazepam PRN. Works to control about 75% of symptoms when he takes. Sleep overall has been getting somewhat better. Feels like he still has some intrusive thoughts but they have been somewhat more mild than previous. Doesn't feel like his foot is as jittery as it had been. Denies SI/HI or AVH. Review of Systems Constitutional Denies: fever(s), chills, change in weight or fatigue Eyes Denies: change in vision or blurry vision Ears, Nose, Mouth, Throat Denies: throat pain, neck pain or change in hearing Cardiovascular Denies: chest pain, palpitations or dyspnea Respiratory Denies: dyspnea, cough or wheezing Gastrointestinal Denies: abdominal pain, nausea, vomiting, diarrhea or constipation Genitourinary Denies: dysuria or urinary frequency Musculoskeletal Reports: joint pain (knee pain); Denies: back pain, neck pain or muscle weakness Integumentary/Breast Denies: rash or new lesions Neurological Denies: headache(s), dizziness or confusion Endocrine Denies: fatigue or excessive sweating Hematologic/Lymphatic Denies: easy bruising or easy bleeding Allergic/Immunologic Denies: wheezing Exam Mental Status Exam - Psych Appearance unkempt Attitude cooperative Activity/Motor Behavior MSE activity/motor behavior finding no adventitious movements Speech regular rate, regular volume and regular prosody Mood anxious (Improved) Affect restricted Thought Process linear, logical and coherent Thought Content no delusions and no hallucinations Suicidal Ideation none Homicidal Ideation none Attention intact Concentration intact Sensorium/Orientation awake, alert and oriented x3 Memory/Cognition other (appropriate for stated age) Insight fair Judgement good Assessment Plan Assessment Plan (1) Bipolar II disorder: Plan: - Largely doing well with current medications (2) Generalized anxiety disorder: Plan: ??? Doing largely better with the use of as needed lorazepam which she has reduced use as anxiety has remitted Medications: Refilled lorazepam 1 mg PO DAILY PRN 30 tabs 1RF anxiety lamotrigine (Lamictal) 100 mg PO DAILY 30 tabs 2RF buspirone 15 mg PO BID 60 tabs 2RF lithium carbonate ER 900 mg (2 x 450 mg) PO QHS 60 tabs 2RF Discontinued propranolol Discontinued Reason: Order Changed 10 mg PO TID 90 days PRN 270 tabs 0RF anxiety F31.81 - Bipolar II disorder 08/01/24 0558 Date Cleveland Paula DO [facility] Signature: Date (if applicable) CC: [facility] MR/BMS.BPon 06-16-2024 MR/BMS.BP [address], [address] [place] [address] OFFICE VISIT Date of Service: 06/16/24 MR#: [id number] Acct: [id number] Name: CHIRAG SAWANT Rep #: [id number] : 1990 Provider: Dr. Cleveland Carcamo se, DO Age/Sex: 34/M Location: [facility] Status: Signed Intake Vital Signs 05/09/24 08:48 06/16/24 10:07 06/16/24 10:09 Height 6 ft 2 in 6 ft 6 ft 2 in Weight: 350 lb BMI 47.5 BP 105/73 Respiration 20 H Pulse 86 Pulse Oximetry (%) 98 BP Intake Visit Reasons: 1 M FU Accompanied by: Self Allergies diphenhydramine HCl (From Benadryl) Adverse Reaction (Verified 06/16/24 10:09) TACHYCARDIA/FLUSH Medications ???Medication ???Instructions ???Recorded ???Confirmed ???Type esomeprazole magnesium 40 mg 40 mg PO DAILY 12/29/15 06/16/24 History capsule,delayed release (Nexium) baclofen 10 mg tablet 10 mg PO TID 02/11/23 06/16/24 History dapagliflozin propanediol 10 mg 10 mg PO DAILY 02/11/23 06/16/24 History tablet (Farxiga) lisinopril 40 mg tablet 40 mg PO DAILY 02/11/23 06/16/24 History metformin 500 mg tablet 1,000 mg PO BID 02/11/23 06/16/24 History oxycodone-acetaminophen 5 mg-325 1 tab PO TID PRN 12/10/23 06/16/24 History mg tablet semaglutide 2 mg/dose (8 mg/3 mL) mg subcut 02/04/24 06/16/24 History subcutaneous pen injector (Ozempic) buspirone 15 mg tablet 15 mg PO BID #60 tabs 05/09/24 06/16/24 Rx hydroxyzine pamoate 50 mg capsule 50 mg PO BID PRN anxiety 30 days 05/09/24 06/16/24 Rx #60 caps lamotrigine 100 mg tablet 100 mg PO DAILY #30 tabs 05/09/24 06/16/24 Rx (Lamictal) lithium carbonate 450 mg 900 mg (2 x 450 mg) PO QHS #60 tabs 05/09/24 06/16/24 Rx tablet,extended release lurasidone 120 mg tablet 120 mg PO DAILY #30 tabs 05/09/24 06/16/24 Rx propranolol 10 mg tablet 10 mg PO TID PRN anxiety 90 days 05/17/24 06/16/24 Rx #270 tabs lorazepam 1 mg tablet 1 mg PO DAILY PRN anxiety #30 tabs 06/16/24 06/16/24 Rx PFSH Medical History Bipolar II disorder Chronic back pain Chronic knee pain Generalized anxiety disorder Bipolar disorder, unspecified History of supraventricular tachycardia Hypertension Type 2 diabetes mellitus Surgical History History of appendectomy History of cholecystectomy Social History Smoking Status: Current every day smoker HPI History of Present Illness History provided by: patient HPI: Zay Sawant is a 34 year old male who presents today for follow up evaluation. Patient reports that his anxiety has been really bad in recent past. Has been having some more trouble getting to sleep which is a new issues. Will be very anxious when he lays down, but does feel tired. Gives example of thinking about his dog dying even though the dog is fine. Went out to eat with someone and nearly had a panic attack. Does feel fairly anxious most of the day. Son does may have ADHD which adds some additional stress. He worries about things like him getting kicked out of school. Doesn't feel quite as tired as he did previously. Has had some intermittent jittering in his right foot. Denies any thoughts of suicide. Denies AVH. Review of Systems Constitutional Denies: fever(s), chills, change in weight or fatigue Eyes Denies: change in vision or blurry vision Ears, Nose, Mouth, Throat Denies: throat pain, neck pain or change in hearing Cardiovascular Denies: chest pain, palpitations or dyspnea Respiratory Denies: dyspnea, cough or wheezing Gastrointestinal Denies: abdominal pain, nausea, vomiting, diarrhea or constipation Genitourinary Denies: dysuria or urinary frequency Musculoskeletal Reports: joint pain (knee pain); Denies: back pain, neck pain or muscle weakness Integumentary/Breast Denies: rash or new lesions Neurological Denies: headache(s), dizziness or confusion Endocrine Denies: fatigue or excessive sweating Hematologic/Lymphatic Denies: easy bruising or easy bleeding Allergic/Immunologic Denies: wheezing Exam Mental Status Exam - Psych Appearance unkempt Attitude cooperative Activity/Motor Behavior MSE activity/motor behavior finding no adventitious movements Speech regular rate, regular volume and regular prosody Mood anxious Affect restricted Thought Process linear, logical and coherent Thought Content no delusions and no hallucinations Suicidal Ideation none Homicidal Ideation none Attention intact Concentration intact Sensorium/Orientation awake, alert and oriented x3 Memory/Cognition other (appropriate for stated age) Insight fair Judgement good Assessment Plan Assessment Plan (1) Bipolar II disorder: Plan (more content not included)... Normal [facility] MR/BMS.BPon 05-09-2024 MR/BMS.BP [facility] [address] [facility], [address] [place] [address] OFFICE VISIT Date of Service: 05/09/24 MR#: [id number] Acct: [id number] Name: CHIRAG SAWANT Rep #: [id number] : 1990 Provider: Dr. Cleveland Carcamo se, DO Age/Sex: 34/M Location: [facility] Status: Signed Intake Vital Signs 03/10/24 08:57 05/09/24 08:48 05/09/24 09:29 Height 6 ft 2 in 6 ft 2 in 6 ft 2 in BP 118/70 124/84 H Blood Pressure Location Rt brachial Rt brachial Position Sitting Sitting Pulse 108 H 109 H Pulse Source Monitor Monitor BP Intake Visit Reasons: 2 M FU Pump Operator Required: No Accompanied by: Self Is patient in pain?: No Allergies diphenhydramine HCl (From Benadryl) Adverse Reaction (Verified 05/09/24 09:29) TACHYCARDIA/FLUSH Medications ???Medication ???Instructions ???Recorded ???Confirmed ???Type esomeprazole magnesium 40 mg 40 mg PO DAILY 12/29/15 05/09/24 History capsule,delayed release (Nexium) baclofen 10 mg tablet 10 mg PO TID 02/11/23 05/09/24 History dapagliflozin propanediol 10 mg 10 mg PO DAILY 02/11/23 05/09/24 History tablet (Farxiga) lisinopril 40 mg tablet 40 mg PO DAILY 02/11/23 05/09/24 History metformin 500 mg tablet 1,000 mg PO BID 02/11/23 05/09/24 History oxycodone-acetaminophen 5 mg-325 1 tab PO TID PRN 12/10/23 05/09/24 History mg tablet semaglutide 2 mg/dose (8 mg/3 mL) mg subcut 02/04/24 05/09/24 History subcutaneous pen injector (Ozempic) propranolol 10 mg tablet 10 mg PO TID PRN anxiety 90 days 02/23/24 05/09/24 Rx #270 tabs buspirone 15 mg tablet 15 mg PO BID #60 tabs 05/09/24 05/09/24 Rx hydroxyzine pamoate 50 mg capsule 50 mg PO BID PRN anxiety 30 days 05/09/24 05/09/24 Rx #60 caps lamotrigine 100 mg tablet 100 mg PO DAILY #30 tabs 05/09/24 05/09/24 Rx (Lamictal) lithium carbonate 450 mg 900 mg (2 x 450 mg) PO QHS #60 tabs 05/09/24 05/09/24 Rx tablet,extended release lurasidone 120 mg tablet 120 mg PO DAILY #30 tabs 05/09/24 05/09/24 Rx Current gender identity: male Nurse's Note: Presents to the office today for follow up. REPLACED BY [facility] Medical History Bipolar II disorder Chronic back pain Chronic knee pain Generalized anxiety disorder Bipolar disorder, unspecified History of supraventricular tachycardia Hypertension Type 2 diabetes mellitus Surgical History History of appendectomy History of cholecystectomy Social History Smoking Status: Current every day smoker HPI History of Present Illness History provided by: patient Chief complaint: depression HPI: Zay Sawant is a 34 year old male who presents today for follow up evaluation. Patient reports that he has been alright. Does find that his irritability has been somewhat improved. Does feel like when gets mad he does get very mad, but this is somewhat improved. Feels like even small things are getting him upset however which is atypical for him. Does feel like [employer] is overall working. Only have bad depression days every 2-3 weeks. Taking propranolol 20 mg three times a day. Does feel somewhat anxious. Did have one episode of panic several weeks ago. Did have some thoughts of suicide about three weeks ago, but did not act upon it. Denies any thoughts since this time. Not currently doing therapy because of insurance coverage. Son will starting school in about two weeks duration. Sleep has been terrible. Adjusting son's sleep schedule to get son ready for school, but this means he has broken sleep as he is trying to spend time with who works second shift. Does think that this will get better when his son goes to school. Review of Systems Constitutional Denies: fever(s), chills, change in weight or fatigue Eyes Denies: change in vision or blurry vision Ears, Nose, Mouth, Throat Denies: throat pain, neck pain or change in hearing Cardiovascular Denies: chest pain, palpitations or dyspnea Respiratory Denies: dyspnea, cough or wheezing Gastrointestinal Denies: abdominal pain, nausea, vomiting, diarrhea or constipation Genitourinary Denies: dysuria or urinary frequency Musculoskeletal Reports: joint pain (knee pain); Denies: back pain, neck pain or muscle weakness Integumentary/Breast Denies: rash or new lesions Neurological Denies: headache(s), dizziness or confusion Endocrine Denies: fatigue or excessive sweating Hematologic/Lymphatic Denies: easy bruising or easy bleeding Allergic/Immunologic Denies: wheezing Exam Mental Status Exam - Psych Appearance unkempt Attitude cooperative Activity/Motor Behavior MSE activity/motor behavior finding no adventitious movements Speech regular rate, regular volume and regular prosody Mood (more content not included)... Normal [facility] TOXSCon 01-28-2023 U Ampheta (AO) Negative Normal [facility] ([place]) Comment on above: Performed By: #### M DW, ADIFF, ROOSEVELT, ANEU, CBC, BMP, ALC, ACETA, GFR #### [address] [address] U Mary (AO) Negative Normal [facility] ([place]) Comment on above: Performed By: #### M DW, ADIFF, ROOSEVELT, ANEU, CBC, BMP, ALC, ACETA, GFR #### [address] [address] U Pradip (AO) Negative [facility] ([place]) Comment on above: Performed By: #### M DW, ADIFF, ROOSEVELT, ANEU, CBC, BMP, ALC, ACETA, GFR #### [address] [address] U Cannab (AO) Negative Normal [facility] ([place]) Comment on above: Performed By: #### M DW, ADIFF, ROOSEVELT, ANEU, CBC, BMP, ALC, ACETA, GFR #### [address] [address] U Cocaine (AO) Negative [facility] ([place]) Comment on above: Performed By: #### M DW, ADIFF, ROOSEVELT, ANEU, CBC, BMP, ALC, ACETA, GFR #### [address] [address] U Methadone (AO) Negative [facility] ([place]) Comment on above: Performed By: #### M DW, ADIFF, ROOSEVELT, ANEU, CBC, BMP, ALC, ACETA, GFR #### [address] [address] U PCP (AO) Negative [facility] ([place]) Comment on above: Performed By: #### M DW, ADIFF, ROOSEVELT, ANEU, CBC, BMP, ALC, ACETA, GFR #### [address] [address] U TCA (AO) Negative [facility] ([place]) Comment on above: Performed By: #### M DW, ADIFF, ROOSEVELT, ANEU, CBC, BMP, ALC, ACETA, GFR #### [address] [address] Urine Opiates (AO) Negative [facility] ([place]) Comment on above: Performed By: #### M DW, ADIFF, ROOSEVELT, ANEU, CBC, BMP, ALC, ACETA, GFR #### [address] [address] .Auto Diffon 01-27-2023 Basophil, Absolute 0.1 10 3/mcL Normal 0.0-0.2 [facility] ([place]) Comment on above: Performed By: #### M DW, ADIFF, ROOSEVELT, ANEU, CBC, BMP, ALC, ACETA, GFR #### [address] [address] Basophils/100 WBC (Bld) 0.8 % Normal 0.0-2.5 [facility] ([place]) Comment on above: Performed By: #### M DW, ADIFF, ROOSEVELT, ANEU, CBC, BMP, ALC, ACETA, GFR #### [address] [address] Eosinophil, Absolute 0.2 10 3/mcL Normal 0.0-0.4 [facility] ([place]) Comment on above: Performed By: #### M DW, ADIFF, ROOSEEVLT, ANEU, CBC, BMP, ALC, ACETA, GFR #### [address] [address] Eosinophils/100 WBC (Bld) 1.9 % Normal 0.0-7.0 [facility] ([place]) Comment on above: Performed By: #### M DW, ADIFF, ROOSEVELT, ANEU, CBC, BMP, ALC, ACETA, GFR #### [address] [address] Lymphocyte, Absolute 2.6 10 3/mcL Normal 0.8-3.9 [facility] ([place]) Comment on above: Performed By: #### M DW, ADIFF, ROOSEVELT, ANEU, CBC, BMP, ALC, ACETA, GFR #### [address] [address] Lymphocytes/100 WBC (Bld) 31.2 % Normal 10.0-50.0 [facility] ([place]) Comment on above: Performed By: #### M DW, ADIFF, ROOSEVELT, ANEU, CBC, BMP, ALC, ACETA, GFR #### [address] [address] Monocyte, Absolute 0.5 10 3/mcL Normal 0.2-1.0 [facility] ([place]) Comment on above: Performed By: #### M DW, ADIFF, ROOSEVELT, ANEU, CBC, BMP, ALC, ACETA, GFR #### [address] [address] Monocytes/100 WBC (Bld) 6.5 % Normal 1.7-13.0 [facility] ([place] Comment on above: Performed By: #### M DW, ADIFF, ROOSEVELT, ANEU, CBC, BMP, ALC, ACETA, GFR #### [address] [address] Neutrophils/100 WBC (Bld) 59.6 % Normal 37.0-80.0 [facility] ([place] Comment on above: Performed By: #### M DW, ADIFF, ROOSEVELT, ANEU, CBC, BMP, ALC, ACETA, GFR #### [address] [address] .GFRon 01-27-2023 GFR 127 ml/min/1.73sqm Normal [facility] ([place]) Comment on above: Result Comment: GFR Population mean for , Non- Americans Ages 20-29 = 116 mL/min/1.73 sq.m. Ages 30-39 = 107 mL/min/1.73 sq.m. Ages 40-49 = 99 mL/min/1.73 sq.m. Ages 50-59 = 93 mL/min/1.73 sq.m. Ages 60-69 = 85 mL/min/1.73 sq.m. Ages 70+ = 75 mL/min/1.73 sq.m. Chronic Kidney Disease: Less than 60 mL/min/1.73 square meters End Stage Renal Disease: Less than 15 mL/min/1.73 square meters Performed By: #### M DW, ADIFF, ROOSEVELT, ANEU, CBC, BMP, ALC, ACETA, GFR #### [address] [address] GFR Non- 105 ml/min/1.73sqm Normal [facility] ([place]) Comment on above: Result Comment: GFR Population mean for , Non- Americans Ages 20-29 = 116 mL/min/1.73 sq.m. Ages 30-39 = 107 mL/min/1.73 sq.m. Ages 40-49 = 99 mL/min/1.73 sq.m. Ages 50-59 = 93 mL/min/1.73 sq.m. Ages 60-69 = 85 mL/min/1.73 sq.m. Ages 70+ = 75 mL/min/1.73 sq.m. Chronic Kidney Disease: Less than 60 mL/min/1.73 square meters End Stage Renal Disease: Less than 15 mL/min/1.73 square meters Performed By: #### M DW, ADIFF, ROOSEVELT, ANEU, CBC, BMP, ALC, ACETA, GFR #### [place] [id number] .MDWon 01-27-2023 Monocyte Distribution Width 18.41 Normal 0.00-20.00 [facility] ([place]) Comment on above: Result Comment: For ED adult patients suspected of sepsis, MDW<=20.0 does not rule out sepsis or risk of sepsis Performed By: #### M DW, ADIFF, ROOSEVELT, ANEU, CBC, BMP, ALC, ACETA, GFR #### [place] [address] .NEUABSon 01-27-2023 Neutrophil, Absolute 5.0 10 3/mcL Normal 2.9-6.2 [facility] ([place] Comment on above: Performed By: #### M DW, ADIFF, ROOSEVELT, ANEU, CBC, BMP, ALC, ACETA, GFR #### [place] [address] ACETAon 01-27-2023 Acetaminophen Lvl <0 Normal 10.0-30.0 [facility] ([place] Comment on above: Performed By: #### M DW, ADIFF, ROOSEVELT, ANEU, CBC, BMP, ALC, ACETA, GFR #### [place] [address] Javier 01-27-2023 Ethanol Level <3 Normal 0-3 [facility] ([place] Comment on above: Performed By: #### M DW, ADIFF, ROOSEVELT, ANEU, CBC, BMP, ALC, ACETA, GFR #### [place] [address] BMPon 01-27-2023 BUN/Creatinine Ratio 20 ratio Normal 7-27 [facility] ([place] Comment on above: Performed By: #### M DW, ADIFF, ROOSEVELT, ANEU, CBC, BMP, ALC, ACETA, GFR #### [address] [address] Calcium [Mass/Vol] 9.4 mg/dL Normal 8.4-10.2 [facility] ([place]) Comment on above: Performed By: #### M DW, ADIFF, ROOSEVELT, ANEU, CBC, BMP, ALC, ACETA, GFR #### [address] [address] Chloride [Moles/Vol] 99 mmol/L Normal 98-107 [facility] ([place] Comment on above: Performed By: #### M DW, ADIFF, ROOSEVELT, ANEU, CBC, BMP, ALC, ACETA, GFR #### [address] [address] CO2 [Moles/Vol] 27 mmol/L Normal 22-29 [facility] ([place] Comment on above: Performed By: #### M DW, ADIFF, ROOSEVELT, ANEU, CBC, BMP, ALC, ACETA, GFR #### [address] [address] Creatinine [Mass/Vol] 0.85 mg/dL Normal 0.70-1.30 [facility] ([place]) Comment on above: Performed By: #### M DW, ADIFF, ROOSEVELT, ANEU, CBC, BMP, ALC, ACETA, GFR #### [address] [address] Electrolyte Balance 10.0 mEq/L Normal 4.0-15.0 [facility] ([place]) Comment on above: Performed By: #### M DW, ADIFF, ROOSEVELT, ANEU, CBC, BMP, ALC, ACETA, GFR #### [address] [address] Glucose [Mass/Vol] 121 mg/dL High 70-105 [facility] ([place]) Comment on above: Performed By: #### M DW, ADIFF, ROOSEVELT, ANEU, CBC, BMP, ALC, ACETA, GFR #### [address] [address] Potassium [Moles/Vol] 4.2 mmol/L Normal 3.5-5.1 [facility] ([place] Comment on above: Performed By: #### M DW, ADIFF, ROOSEVELT, ANEU, CBC, BMP, ALC, ACETA, GFR #### [address] [address] Sodium [Moles/Vol] 136 mmol/L Normal 136-145 [facility] ([place]) Comment on above: Performed By: #### M DW, ADIFF, ROOSEVELT, ANEU, CBC, BMP, ALC, ACETA, GFR #### [place] [address] Urea nitrogen [Mass/Vol] 17 mg/dL Normal 7-18 [facility]) Comment on above: Performed By: #### M DW, ADIFF, ROOSEVELT, ANEU, CBC, BMP, ALC, ACETA, GFR #### [place] [id number] CBCon 01-27-2023 Erythrocyte distribution width (RBC) [Ratio] 14.7 % High 11.5-14.5 [facility] ([place] Comment on above: Performed By: #### M DW, ADIFF, ROOSEVELT, ANEU, CBC, BMP, ALC, ACETA, GFR #### [place] [id number] Hematocrit (Bld) [Volume fraction] 48.3 % Normal 42.0-52.0 [facility] ([place] Comment on above: Performed By: #### M DW, ADIFF, ROOSEVELT, ANEU, CBC, BMP, ALC, ACETA, GFR #### [address] [address] Hgb 16.2 G/dL Normal 14.0-18.0 [facility] ([place] Comment on above: Performed By: #### M DW, ADIFF, ROOSEVELT, ANEU, CBC, BMP, ALC, ACETA, GFR #### [address] [address] MCH (RBC) [Entitic mass] 29.1 pg Normal 27.0-31.2 [facility] ([place] Comment on above: Performed By: #### M DW, ADIFF, ROOSEVELT, ANEU, CBC, BMP, ALC, ACETA, GFR #### [address] [address] MCHC 33.6 G/dL Normal 31.8-35.4 [facility] ([place] Comment on above: Performed By: #### M DW, ADIFF, ROOSEVELT, ANEU, CBC, BMP, ALC, ACETA, GFR #### [place] [address] MCV (RBC) [Entitic vol] 86.6 fL Normal 80.0-94.0 [facility] ([place]) Comment on above: Performed By: #### M DW, ADIFF, ROOSEVELT, ANEU, CBC, BMP, ALC, ACETA, GFR #### [place] [address] Platelet 193 10 3/mcL Normal 130-400 [facility] ([place]) Comment on above: Performed By: #### M DW, ADIFF, ROOSEVELT, ANEU, CBC, BMP, ALC, ACETA, GFR #### [place] [address] Platelet mean volume (Bld) [Entitic vol] 8.0 fL Normal 7.4-10.4 [facility] ([place]) Comment on above: Performed By: #### M DW, ADIFF, ROOSEVELT, ANEU, CBC, BMP, ALC, ACETA, GFR #### [place] [address] RBC 5.57 10 6/mcL Normal 4.04-6.13 [facility] ([place]) Comment on above: Performed By: #### M DW, ADIFF, ROOSEVELT, ANEU, CBC, BMP, ALC, ACETA, GFR #### [place] [address] WBC 8.4 10 3/mcL Normal 4.6-10.8 [facility] ([place]) Comment on above: Performed By: #### M DW, ADIFF, ROOSEVELT, ANEU, CBC, BMP, ALC, ACETA, GFR #### [place] [address] [id number] 05-02-2023 SARS-CoV-2 (COVID-19) RNA SCOTTY+probe Ql (Unsp spec) Negative Normal Negative [facility] ([place]) Comment on above: Performed By: #### M DW, ADIFF, ROOSEVELT, ANEU, CBC, BMP, ALC, ACETA, GFR #### [address] [address] SARS-CoV-2 (COVID-19) RNA SCOTTY+probe Ql (Unsp spec) Normal [facility] ([place] Comment on above: Result Comment: Nega tive results do not preclude SARS-CoV-2 infection and should not be used as the sole basis for patient management decisions. Negative results must be combined with clinical observations, patient history, and epidemiological information. There is a risk of false negative values resulting from improperly collected, transported, or handled specimens. There is a risk of false negative values due to the presence of sequence variants in the pathogen targets of the assay, procedural errors, amplification inhibitors in specimens, or inadequate numbers of organisms for amplification. KITTY SARS-CoV-2 Assay is a Real-Time reverse-transcriptase polymerase chain reaction (RT-PCR) based qualitative in vitro diagnostic test intended for the qualitative detection of nucleic acid from the SARS-CoV-2 in nasopharyngeal swab specimens collected from individuals suspected of COVID-19 by their healthcare provider. Testing is limited to laboratories certified under the Clinical Laboratory Improvement Amendments of 1988 (CLIA), 42 U.S.C. ?263a, to perform moderate and high complexity tests. COVID-19 Int Performed By: #### M DW, ADIFF, ROOSEVELT, ANEU, CBC, BMP, ALC, ACETA, GFR #### [address] [address] LABORATORYOrdered By: Luz Todd on 01-27-2023 Acetaminophen [Mass/Vol] mcg/mL Invalid Interpretation Code 10.0 - 30.0 mcg/mL AO Chemistry S Amphetamines Screen Ql (U) Negative (01/27/23 7:35 PM) Invalid Interpretation Code AO Manual Urine SS Barbiturates Screen Ql (U) Negative (01/27/23 7:35 PM) Invalid Interpretation Code AO Manual Urine SS Benzodiazepines Ql (U) Negative (01/27/23 7:35 PM) Invalid Interpretation Code AO Manual Urine SS Benzoylecgonine Screen Ql (U) Negative (01/27/23 7:35 PM) Invalid Interpretation Code AO Manual Urine SS Cannabinoids tested Screen Nom (U) Negative (01/27/23 7:35 PM) Invalid Interpretation Code AO Manual Urine SS Methadone Screen Ql (U) Negative (01/27/23 7:35 PM) Invalid Interpretation Code AO Manual Urine SS Opiates Screen Ql (U) Negative (01/27/23 7:35 PM) Invalid Interpretation Code AO Manual Urine SS Phencyclidine Ql (U) Negative (01/27/23 7:35 PM) Invalid Interpretation Code AO Manual Urine SS SARS-CoV-2 (COVID-19) RNA SCOTTY+probe Ql (Resp) Negative results do not preclude SARS-CoV-2 infection and should not be used as the sole basis for patient management decisions. Negative results must be combined with clinical observations, patient history, and epidemiological information.There is a risk of false negative values resulting from improperly collected, transported, or handled specimens.There is a risk of false negative values due to the presence of sequence variants in the pathogen targets of the assay, procedural errors, amplification inhibitors in specimens, or inadequate numbers of organisms for amplification.KITTY SARS-CoV-2 Assay is a Real-Time reverse-transcriptase polymerase chain reaction (RT-PCR) based qualitative in vitro diagnostic test intended for the qualitative detection of nucleic acid from the SARS-CoV-2 in nasopharyngeal swab specimens collected from individuals suspected of COVID-19 by their healthcare provider. Testing is limited to laboratories certified under the Clinical Laboratory Improvement Amendments of 1988 (CLIA), 42 U.S.C. 263a, to perform moderate and high complexity tests. Invalid Interpretation Code AO Auto Urine SS Tricyclic antidepressants Screen Ql (U) Negative (01/27/23 7:35 PM) Invalid Interpretation Code AO Manual Urine SS LABORATORYOrdered By: Karla Henderson on 01-27-2023 Basophil, Absolute 0.1 103/mcL Invalid Interpretation Code 0.0 - 0.2 10^3/mcL AO Workflow SS Basophils/100 WBC (Bld) 0.8 % Invalid Interpretation Code 0.0 - 2.5 % AO Workflow SS Eosinophil, Absolute 0.2 103/mcL Invalid Interpretation Code 0.0 - 0.4 10^3/mcL AO Workflow SS Eosinophils/100 WBC (Bld) 1.9 % Invalid Interpretation Code 0.0 - 7.0 % AO Workflow SS Erythrocyte distribution width (RBC) [Ratio] 14.7 % Invalid Interpretation Code 11.5 - 14.5 % AO Workflow SS Hematocrit (Bld) [Volume fraction] 48.3 % Invalid Interpretation Code 42.0 - 52.0 % AO Workflow SS Hemoglobin (Bld) [Mass/Vol] 16.2 G/dL Invalid Interpretation Code 14.0 - 18.0 G/dL AO Workflow SS Lymphocyte, Absolute 2.6 103/mcL Invalid Interpretation Code 0.8 - 3.9 10^3/mcL AO Workflow SS Lymphocytes/100 WBC (Bld) 31.2 % Invalid Interpretation Code 10.0 - 50.0 % AO Workflow SS MCH (RBC) [Entitic mass] 29.1 pg Invalid Interpretation Code 27.0 - 31.2 pg AO Workflow SS MCHC 33.6 G/dL Invalid Interpretation Code 31.8 - 35.4 G/dL AO Workflow SS MCV (RBC) [Entitic vol] 86.6 fL Invalid Interpretation Code 80.0 - 94.0 fL AO Workflow SS Monocyte distribution width Auto (Bld) [Entitic vol] 18.41 Invalid Interpretation Code 0.00 - 20.00 AO Workflow SS Comment on above: Result Comment: For ED adult patients suspected of sepsis, MDW<=20.0 does not rule out sepsis or risk of sepsis Monocyte, Absolute 0.5 103/mcL Invalid Interpretation Code 0.2 - 1.0 10^3/mcL AO Workflow SS Monocytes/100 WBC (Bld) 6.5 % Invalid Interpretation Code 1.7 - 13.0 % AO Workflow SS Neutrophil, Absolute 5.0 103/mcL Invalid Interpretation Code 2.9 - 6.2 10^3/mcL AO Workflow SS Neutrophils/100 WBC (Bld) 59.6 % Invalid Interpretation Code 37.0 - 80.0 % AO Workflow SS Platelet mean volume (Bld) [Entitic vol] 8.0 fL Invalid Interpretation Code 7.4 - 10.4 fL AO Workflow SS Platelets (Bld) [#/Vol] 193 103/mcL Invalid Interpretation Code 130 - 400 10^3/mcL AO Workflow SS RBC (Bld) [#/Vol] 5.57 106/mcL Invalid Interpretation Code 4.04 - 6.13 10^6/mcL AO Workflow SS WBC (Bld) [#/Vol] 8.4 103/mcL Invalid Interpretation Code 4.6 - 10.8 10^3/mcL AO Workflow SS LABORATORYOrdered By: SYSTEM SYSTEM on 01-27-2023 Calcium [Mass/Vol] 9.4 mg/dL Invalid Interpretation Code 8.4 - 10.2 mg/dL AO ADM SS Chloride [Moles/Vol] 99 mmol/L Invalid Interpretation Code 98 - 107 mmol/L AO ADM SS CO2 [Moles/Vol] 27 mmol/L Invalid Interpretation Code 22 - 29 mmol/L AO ADM SS Creatinine [Mass/Vol] 0.85 mg/dL Invalid Interpretation Code 0.70 - 1.30 mg/dL AO ADM SS Electrolyte Balance 10.0 mEq/L Invalid Interpretation Code 4.0 - 15.0 mEq/L AO ADM SS Ethanol [Mass/Vol] mg/dL Invalid Interpretation Code 0 - 3 mg/dL AO ADM SS GFR/1.73 sq M.predicted among blacks MDRD (S/P/Bld) [Vol rate/Area] 127 ml/min/1.73sqm Invalid Interpretation Code AO Chemistry S GFR/1.73 sq M.predicted among non-blacks MDRD (S/P/Bld) [Vol rate/Area] 105 ml/min/1.73sqm Invalid Interpretation Code AO Chemistry S Glucose [Mass/Vol] 121 mg/dL Invalid Interpretation Code 70 - 105 mg/dL AO ADM SS Potassium [Moles/Vol] 4.2 mmol/L Invalid Interpretation Code 3.5 - 5.1 mmol/L AO ADM SS Salicylates [Mass/Vol] 0.5 mg/dL Invalid Interpretation Code 2.8 - 20.0 mg/dL AO ADM SS Sodium [Moles/Vol] 136 mmol/L Invalid Interpretation Code 136 - 145 mmol/L AO ADM SS Urea nitrogen [Mass/Vol] 17 mg/dL Invalid Interpretation Code 7 - 18 mg/dL AO ADM SS Urea nitrogen/Creatinine [Mass ratio] 20 ratio Invalid Interpretation Code 7 - 27 ratio AO ADM SS SALon 01-27-2023 Salicylate Level 0.5 mg/dL Low 2.8-20.0 [facility] ([place]) Comment on above: Performed By: #### M DW, ADIFF, ROOSEVELT, ANEU, CBC, BMP, ALC, ACETA, GFR #### [address] [address] .Auto Diffon 10-27-2022 Basophil, Absolute 0.1 10 3/mcL Normal 0.0-0.2 [facility] ([place]) Comment on above: Performed By: #### M DW, ADIFF, ROOSEVELT, ANEU, CBC, BMP, ALC, ACETA, GFR #### [address] [address] Basophils/100 WBC (Bld) 0.7 % Normal 0.0-2.5 [facility] ([place]) Comment on above: Performed By: #### M DW, ADIFF, ROOSEVELT, ANEU, CBC, BMP, ALC, ACETA, GFR #### [address] [address] Eosinophil, Absolute 0.3 10 3/mcL Normal 0.0-0.4 [facility] ([place]) Comment on above: Performed By: #### M DW, ADIFF, ROOSEVELT, ANEU, CBC, BMP, ALC, ACETA, GFR #### [address] [address] Eosinophils/100 WBC (Bld) 3.9 % Normal 0.0-7.0 [facility] ([place]) Comment on above: Performed By: #### M DW, ADIFF, ROOSEVELT, ANEU, CBC, BMP, ALC, ACETA, GFR #### [address] [address] Lymphocyte, Absolute 2.7 10 3/mcL Normal 0.8-3.9 [facility] ([place]) Comment on above: Performed By: #### M DW, ADIFF, ROOSEVELT, ANEU, CBC, BMP, ALC, ACETA, GFR #### [address] [address] Lymphocytes/100 WBC (Bld) 33.3 % Normal 10.0-50.0 [facility] ([place]) Comment on above: Performed By: #### M DW, ADIFF, ROOSEVELT, ANEU, CBC, BMP, ALC, ACETA, GFR #### [address] [address] Monocyte, Absolute 0.5 10 3/mcL Normal 0.2-1.0 [facility] ([place]) Comment on above: Performed By: #### M DW, ADIFF, ROOSEVELT, ANEU, CBC, BMP, ALC, ACETA, GFR #### [address] [address] Monocytes/100 WBC (Bld) 6.0 % Normal 1.7-13.0 [facility] ([place]) Comment on above: Performed By: #### M DW, ADIFF, ROOSEVELT, ANEU, CBC, BMP, ALC, ACETA, GFR #### [address] [address] Neutrophils/100 WBC (Bld) 56.1 % Normal 37.0-80.0 [facility] ([place]) Comment on above: Performed By: #### M DW, ADIFF, ROOSEVELT, ANEU, CBC, BMP, ALC, ACETA, GFR #### [address] [address] .GFRon 10-27-2022 GFR 126 ml/min/1.73sqm Normal [facility] ([place]) Comment on above: Result Comment: GFR Population mean for , Non- Americans Ages 20-29 = 116 mL/min/1.73 sq.m. Ages 30-39 = 107 mL/min/1.73 sq.m. Ages 40-49 = 99 mL/min/1.73 sq.m. Ages 50-59 = 93 mL/min/1.73 sq.m. Ages 60-69 = 85 mL/min/1.73 sq.m. Ages 70+ = 75 mL/min/1.73 sq.m. Chronic Kidney Disease: Less than 60 mL/min/1.73 square meters End Stage Renal Disease: Less than 15 mL/min/1.73 square meters Performed By: #### M DW, ADIFF, ROOSEVELT, ANEU, CBC, BMP, ALC, ACETA, GFR #### [address] [address] GFR Non- 104 ml/min/1.73sqm Normal [facility] ([place]) Comment on above: Result Comment: GFR Population mean for , Non- Americans Ages 20-29 = 116 mL/min/1.73 sq.m. Ages 30-39 = 107 mL/min/1.73 sq.m. Ages 40-49 = 99 mL/min/1.73 sq.m. Ages 50-59 = 93 mL/min/1.73 sq.m. Ages 60-69 = 85 mL/min/1.73 sq.m. Ages 70+ = 75 mL/min/1.73 sq.m. Chronic Kidney Disease: Less than 60 mL/min/1.73 square meters End Stage Renal Disease: Less than 15 mL/min/1.73 square meters Performed By: #### M DW, ADIFF, ROOSEVELT, ANEU, CBC, BMP, ALC, ACETA, GFR #### [address] [address] .NEUABSon 10-27-2022 Neutrophil, Absolute 4.6 10 3/mcL Normal 2.9-6.2 [facility] ([place]) Comment on above: Performed By: #### M DW, ADIFF, ROOSEVELT, ANEU, CBC, BMP, ALC, ACETA, GFR #### [address] [address] A1Con 10-27-2022 HbA1c (Bld) [Mass fraction] 8.8 % High 4.3-6.4 [facility] ([place]) Comment on above: Performed By: #### M DW, ADIFF, ROOSEVELT, ANEU, CBC, BMP, ALC, ACETA, GFR #### [address] [address] CBCon 10-27-2022 Erythrocyte distribution width (RBC) [Ratio] 13.4 % Normal 11.5-14.5 [facility] ([place]) Comment on above: Performed By: #### M DW, ADIFF, ROOSEVELT, ANEU, CBC, BMP, ALC, ACETA, GFR #### [address] [address] Hematocrit (Bld) [Volume fraction] 46.1 % Normal 42.0-52.0 [facility] ([place]) Comment on above: Performed By: #### M DW, ADIFF, ROOSEVELT, ANEU, CBC, BMP, ALC, ACETA, GFR #### [place] [address] Hgb 15.5 G/dL Normal 14.0-18.0 [facility] ([place]) Comment on above: Performed By: #### M DW, ADIFF, ROOSEVELT, ANEU, CBC, BMP, ALC, ACETA, GFR #### [place] [address] MCH (RBC) [Entitic mass] 29.5 pg Normal 27.0-31.2 [facility] ([place]) Comment on above: Performed By: #### M DW, ADIFF, ROOSEVELT, ANEU, CBC, BMP, ALC, ACETA, GFR #### [place] [address] MCHC 33.7 G/dL Normal 31.8-35.4 [facility] ([place]) Comment on above: Performed By: #### M DW, ADIFF, ROOSEVELT, ANEU, CBC, BMP, ALC, ACETA, GFR #### [place] [address] MCV (RBC) [Entitic vol] 87.6 fL Normal 80.0-94.0 [facility] ([place]) Comment on above: Performed By: #### M DW, ADIFF, ROOSEVELT, ANEU, CBC, BMP, ALC, ACETA, GFR #### [place] [address] Platelet 149 10 3/mcL Normal 130-400 [facility] ([place]) Comment on above: Performed By: #### M DW, ADIFF, ROOSEVELT, ANEU, CBC, BMP, ALC, ACETA, GFR #### [place] [address] Platelet mean volume (Bld) [Entitic vol] 8.7 fL Normal 7.4-10.4 [facility] ([place]) Comment on above: Performed By: #### M DW, ADIFF, ROOSEVELT, ANEU, CBC, BMP, ALC, ACETA, GFR #### [place] [address] RBC 5.26 10 6/mcL Normal 4.04-6.13 [facility] ([place]) Comment on above: Performed By: #### M DW, ADIFF, ROOSEVELT, ANEU, CBC, BMP, ALC, ACETA, GFR #### [address] [address] WBC 8.2 10 3/mcL Normal 4.6-10.8 [facility] ([place]) Comment on above: Performed By: #### M DW, ADIFF, ROOSEVELT, ANEU, CBC, BMP, ALC, ACETA, GFR #### [address] [address] CMPon 10-27-2022 Albumin Level 3.7 G/dL Normal 3.5-5.0 [facility] ([place]) Comment on above: Performed By: #### M DW, ADIFF, ROOSEVELT, ANEU, CBC, BMP, ALC, ACETA, GFR #### [address] [address] Albumin/Globulin [Mass ratio] 1.0 {ratio} Low 1.1-2.5 [facility] ([place]) Comment on above: Performed By: #### M DW, ADIFF, ROOESVELT, ANEU, CBC, BMP, ALC, ACETA, GFR #### [address] [address] ALP [Catalytic activity/Vol] 92 U/L Normal 40-135 [facility] ([place]) Comment on above: Performed By: #### M DW, ADIFF, ROOSEVELT, ANEU, CBC, BMP, ALC, ACETA, GFR #### [address] [address] ALT [Catalytic activity/Vol] 67 U/L High 16-63 [facility] ([place]) Comment on above: Performed By: #### M DW, ADIFF, ROOSEVELT, ANEU, CBC, BMP, ALC, ACETA, GFR #### [address] [address] AST [Catalytic activity/Vol] 41 U/L High 10-40 [facility] ([place]) Comment on above: Performed By: #### M DW, ADIFF, ROOSEVELT, ANEU, CBC, BMP, ALC, ACETA, GFR #### [address] [address] Bili Total 0.3 mg/dL Normal 0.2-1.0 [facility] ([place]) Comment on above: Result Comment: Use of this assay is not recommended for patients undergoing treatment with eltrombopag due to the potential for falsely elevated results. Performed By: #### M DW, ADIFF, ROOSEVELT, ANEU, CBC, BMP, ALC, ACETA, GFR #### [address] [address] BUN/Creatinine Ratio 16 ratio Normal 7-27 [facility] ([place]) Comment on above: Performed By: #### M DW, ADIFF, ROOSEVELT, ANEU, CBC, BMP, ALC, ACETA, GFR #### [address] [address] Calcium [Mass/Vol] 8.3 mg/dL Low 8.4-10.2 [facility] ([place]) Comment on above: Performed By: #### M DW, ADIFF, ROOSEVELT, ANEU, CBC, BMP, ALC, ACETA, GFR #### [address] [address] Chloride [Moles/Vol] 102 mmol/L Normal 98-107 [facility] ([place]) Comment on above: Performed By: #### M DW, ADIFF, ROOSEVELT, ANEU, CBC, BMP, ALC, ACETA, GFR #### [address] [address] CO2 [Moles/Vol] 28 mmol/L Normal 22-29 [facility] ([place]) Comment on above: Performed By: #### M DW, ADIFF, ROOSEVELT, ANEU, CBC, BMP, ALC, ACETA, GFR #### [address] [address] Creatinine [Mass/Vol] 0.86 mg/dL Normal 0.70-1.30 [facility] ([place]) Comment on above: Performed By: #### M DW, ADIFF, ROOSEVELT, ANEU, CBC, BMP, ALC, ACETA, GFR #### [address] [address] Electrolyte Balance 9.0 mEq/L Normal 4.0-15.0 [facility] ([place]) Comment on above: Performed By: #### M DW, ADIFF, ROOSEVELT, ANEU, CBC, BMP, ALC, ACETA, GFR #### [address] [address] Globulin 3.6 G/dL Normal [facility] ([place]) Comment on above: Performed By: #### M DW, ADIFF, ROOSEVELT, ANEU, CBC, BMP, ALC, ACETA, GFR #### [address] [address] Glucose [Mass/Vol] 204 mg/dL High 70-105 [facility] ([place]) Comment on above: Performed By: #### M DW, ADIFF, ROOSEVELT, ANEU, CBC, BMP, ALC, ACETA, GFR #### [address] [address] Potassium [Moles/Vol] 4.2 mmol/L Normal 3.5-5.1 [facility] ([place]) Comment on above: Performed By: #### M DW, ADIFF, ROOSEVELT, ANEU, CBC, BMP, ALC, ACETA, GFR #### [address] [address] Sodium [Moles/Vol] 139 mmol/L Normal 136-145 [facility] ([place] Comment on above: Performed By: #### M DW, ADIFF, ROOSEVELT, ANEU, CBC, BMP, ALC, ACETA, GFR #### [address] [address] Total Protein 7.3 G/dL Normal 6.4-8.2 [facility]) Comment on above: Performed By: #### M DW, ADIFF, ROOSEVELT, ANEU, CBC, BMP, ALC, ACETA, GFR #### [address] [address] Urea nitrogen [Mass/Vol] 14 mg/dL Normal 7-18 [facility] ([place] Comment on above: Performed By: #### M DW, ADIFF, ROOSEVELT, ANEU, CBC, BMP, ALC, ACETA, GFR #### [place] [address] [place], [place] [address] LABORATORYOrdered By: Mary Dee on 10-27-2022 Albumin DL <= 20 mg/L (U) [Mass/Vol] 2338 mcg/dL Invalid Interpretation Code AO ADM SS Albumin/Creatinine DL <= 20 mg/L (U) [Mass ratio] 18 mcg/mg Invalid Interpretation Code 0 - 30 mcg/mg AO ADM SS Creatinine (U) [Mass/Vol] 129.8 mg/dL Invalid Interpretation Code 39.0 - 259.0 mg/dL AO ADM SS LABORATORYOrdered By: SYSTEM SYSTEM on 10-27-2022 Albumin BCP dye [Mass/Vol] 3.7 G/dL Invalid Interpretation Code 3.5 - 5.0 G/dL AO ADM SS Albumin/Globulin [Mass ratio] 1.0 {ratio} Invalid Interpretation Code 1.1 - 2.5 ratio AO ADM SS ALP [Catalytic activity/Vol] 92 U/L Invalid Interpretation Code 40 - 135 U/L AO ADM SS ALT With P-5'-P [Catalytic activity/Vol] 67 U/L Invalid Interpretation Code 16 - 63 U/L AO ADM SS AST With P-5'-P [Catalytic activity/Vol] 41 U/L Invalid Interpretation Code 10 - 40 U/L AO ADM SS Bilirubin [Mass/Vol] 0.3 mg/dL Invalid Interpretation Code 0.2 - 1.0 mg/dL AO ADM SS Calcium [Mass/Vol] 8.3 mg/dL Invalid Interpretation Code 8.4 - 10.2 mg/dL AO ADM SS Chloride [Moles/Vol] 102 mmol/L Invalid Interpretation Code 98 - 107 mmol/L AO ADM SS CO2 [Moles/Vol] 28 mmol/L Invalid Interpretation Code 22 - 29 mmol/L AO ADM SS Creatinine [Mass/Vol] 0.86 mg/dL Invalid Interpretation Code 0.70 - 1.30 mg/dL AO ADM SS Electrolyte Balance 9.0 mEq/L Invalid Interpretation Code 4.0 - 15.0 mEq/L AO ADM SS GFR 126 ml/min/1.73sqm Invalid Interpretation Code AO Chemistry S GFR Non- 104 ml/min/1.73sqm Invalid Interpretation Code AO Chemistry S Globulin 3.6 G/dL Invalid Interpretation Code AO ADM SS Glucose [Mass/Vol] 204 mg/dL Invalid Interpretation Code 70 - 105 mg/dL AO ADM SS HbA1c (Bld) [Mass fraction] 8.8 % Invalid Interpretation Code 4.3 - 6.4 % AO ADM SS Potassium [Moles/Vol] 4.2 mmol/L Invalid Interpretation Code 3.5 - 5.1 mmol/L AO ADM SS Protein [Mass/Vol] 7.3 G/dL Invalid Interpretation Code 6.4 - 8.2 G/dL AO ADM SS Sodium [Moles/Vol] 139 mmol/L Invalid Interpretation Code 136 - 145 mmol/L AO ADM SS TSH Qn 0.98 m[IU]/L Invalid Interpretation Code 0.36 - 3.74 mcIU/mL AO ADM SS Urea nitrogen [Mass/Vol] 14 mg/dL Invalid Interpretation Code 7 - 18 mg/dL AO ADM SS Urea nitrogen/Creatinine [Mass ratio] 16 ratio Invalid Interpretation Code 7 - 27 ratio AO ADM SS LABORATORYOrdered By: Rivas De La Rosa on 10-27-2022 Basophil, Absolute 0.1 103/mcL Invalid Interpretation Code 0.0 - 0.2 10^3/mcL AO Workflow SS Basophils/100 WBC (Bld) 0.7 % Invalid Interpretation Code 0.0 - 2.5 % AO Workflow SS Cholesterol [Mass/Vol] 126 mg/dL Invalid Interpretation Code 0 - 200 mg/dL AO ADM SS Cholesterol in HDL [Mass/Vol] 49 mg/dL Invalid Interpretation Code 40 - 60 mg/dL AO ADM SS Cholesterol in LDL [Mass/Vol] 53 mg/dL Invalid Interpretation Code 0 - 130 mg/dL AO ADM SS Eosinophil, Absolute 0.3 103/mcL Invalid Interpretation Code 0.0 - 0.4 10^3/mcL AO Workflow SS Eosinophils/100 WBC (Bld) 3.9 % Invalid Interpretation Code 0.0 - 7.0 % AO Workflow SS Erythrocyte distribution width (RBC) [Ratio] 13.4 % Invalid Interpretation Code 11.5 - 14.5 % AO Workflow SS Hematocrit (Bld) [Volume fraction] 46.1 % Invalid Interpretation Code 42.0 - 52.0 % AO Workflow SS Hemoglobin (Bld) [Mass/Vol] 15.5 G/dL Invalid Interpretation Code 14.0 - 18.0 G/dL AO Workflow SS Lymphocyte, Absolute 2.7 103/mcL Invalid Interpretation Code 0.8 - 3.9 10^3/mcL AO Workflow SS Lymphocytes/100 WBC (Bld) 33.3 % Invalid Interpretation Code 10.0 - 50.0 % AO Workflow SS MCH (RBC) [Entitic mass] 29.5 pg Invalid Interpretation Code 27.0 - 31.2 pg AO Workflow SS MCHC 33.7 G/dL Invalid Interpretation Code 31.8 - 35.4 G/dL AO Workflow SS MCV (RBC) [Entitic vol] 87.6 fL Invalid Interpretation Code 80.0 - 94.0 fL AO Workflow SS Monocyte, Absolute 0.5 103/mcL Invalid Interpretation Code 0.2 - 1.0 10^3/mcL AO Workflow SS Monocytes/100 WBC (Bld) 6.0 % Invalid Interpretation Code 1.7 - 13.0 % AO Workflow SS Neutrophil, Absolute 4.6 103/mcL Invalid Interpretation Code 2.9 - 6.2 10^3/mcL AO Workflow SS Neutrophils/100 WBC (Bld) 56.1 % Invalid Interpretation Code 37.0 - 80.0 % AO Workflow SS Platelet mean volume (Bld) [Entitic vol] 8.7 fL Invalid Interpretation Code 7.4 - 10.4 fL AO Workflow SS Platelets (Bld) [#/Vol] 149 103/mcL Invalid Interpretation Code 130 - 400 10^3/mcL AO Workflow SS RBC (Bld) [#/Vol] 5.26 106/mcL Invalid Interpretation Code 4.04 - 6.13 10^6/mcL AO Workflow SS Triglyceride [Mass/Vol] 119 mg/dL Invalid Interpretation Code 0 - 150 mg/dL AO ADM SS WBC (Bld) [#/Vol] 8.2 103/mcL Invalid Interpretation Code 4.6 - 10.8 10^3/mcL AO Workflow SS LIPIDon 10-27-2022 Cholesterol [Mass/Vol] 126 mg/dL Normal 0-200 [facility] ([place]) Comment on above: Result Comment: Chol esterol Reference Interval: Less than 200 Desirable 200-239 Borderline high risk 240 and above High risk Performed By: #### M DW, ADIFF, ROOSEVELT, ANEU, CBC, BMP, ALC, ACETA, GFR #### Charla [place] [address] Cholesterol in HDL [Mass/Vol] 49 mg/dL Normal 40-60 [facility] ([place] Comment on above: Performed By: #### M DW, ADIFF, ROOSEVELT, ANEU, CBC, BMP, ALC, ACETA, GFR #### [address] [address] Cholesterol in LDL [Mass/Vol] 53 mg/dL Normal 0-130 [facility] ([place]) Comment on above: Performed By: #### M DW, ADIFF, ROOSEVELT, ANEU, CBC, BMP, ALC, ACETA, GFR #### [address] [address] Triglyceride [Mass/Vol] 119 mg/dL Normal 0-150 [facility] ([place] Comment on above: Result Comment: Trig lyceride Reference Interval: Less than 150 Normal 150-199 Borderline high risk 200-499 High risk 500 or higher Very high risk Performed By: #### M DW, ADIFF, ROOSEVELT, ANEU, CBC, BMP, ALC, ACETA, GFR #### [address] [address] MALBRon 10-27-2022 U Creatinine 129.8 mg/dL Normal 39.0-259.0 [facility] ([place]) Comment on above: Performed By: #### M ALBR #### [address] [address] U Microalb 2338 mcg/dL Normal [facility] ([place]) Comment on above: Performed By: #### M ALBR #### [address] [address] U Ratio Alb/Cre 18 mcg/mg Normal 0-30 [facility] ([place] Comment on above: Performed By: #### M ALBR #### [address] [address] TSHon 10-27-2022 TSH Qn 0.98 m[IU]/L Normal 0.36-3.74 [facility] ([place]) Comment on above: Performed By: #### M DW, ADIFF, ROOSEVELT, ANEU, CBC, BMP, ALC, ACETA, GFR #### [place]la [place] [address] [place], [place] [address] Laboratory - Drug toxicology on 04-30-2022 Amphetamines Ql (U) Negative <1000 ng/mL [facility] Work Phone: Benzodiazepines Ql (U) Negative < 200 ng/mL [facility] Work Phone: Cannabinoids Screen Ql (U) Negative < 50 ng/mL [facility] Work Phone: Cocaine Ql (U) Negative < 300 ng/mL [facility] Work Phone: Opiates Ql (U) Positive < 300 ng/mL [facility] Work Phone: No Panel Informationon 04-30 MDMA (Ecstasy) Screen Negative < 500 ng/mL [facility] Work Phone: Urine Barbiturates Screen Negative < 200 ng/mL [facility] Work Phone: Urine Drug Screen Comment [facility] Work Phone: Comment on above: CONFIRMATORY TESTING FOR ALL POSITIVE URINE DRUG SCREENRESULTS WILL ONLY BE SENT OUT UPON PHYSICIAN ORDER. VISTA Urine Drug Screen methods provide only preliminaryanalytical test results. A more specific alternate chemicalmethod must be used in order to obtain a confirmedanalytical result. Gas chromatography/mass spectrometery(GC/MS) is the preferred confirmatory method. Clinicalconsideration and professional judgement should be appliedto any drug of abuse test result, particularly whenpreliminary positive results are used. URINE TCA TESTING MUST BE ORDERED SEPARATELY. USE TESTMNEMONIC: [facility]CA Urine Methadone Screen Negative < 300 ng/mL [facility] Work Phone: Urine phencyclidine (PCP) de tectionon 04-30-2022 Phencyclidine Ql (U) Negative < 25 ng/mL [facility] Work Phone: Established Visit (Gastroent erology)on 03-18-2021 Established Visit (Gastroenterology) Diagnoses/Problems Assessed Chronic diarrhea (787.91) (K52.9) Orders Chronic diarrhea Start: Dicyclomine HCl - 20 MG Oral Tablet; TAKE 1 TABLET EVERY 6 HOURS NEEDED Rx By: Madiha Razo; Dispense: 30 Days ; #:120 Tablet; Refill: 1;For: Chronic diarrhea; JC = N; Sent To: [id number]; Last Updated By: System, [facility] Services[facility]; 03/18/2021 12:34:12 PM CELIAC DISEASE SEROLOGY PANEL; Status:Active; Requested for:18Mar2021; Perform:Lab Services - Lab To Draw (Blood Test); Due:[id number];Ordered; For:Chronic diarrhea; Ordered By:Madiha Razo; Complete Blood Count + Differential; Status:Active; Requested for:18Mar2021; Perform:Lab Services - Lab To Draw (Blood Test); Due:[id number];Ordered; For:Chronic diarrhea; Ordered By:Madiha Razo; Comprehensive Metabolic Panel; Status:Active; Requested for:18Mar2021; Perform:Lab Services - Lab To Draw (Blood Test); Due:[id number];Ordered; For:Chronic diarrhea; Ordered By:Madiha Razo; TSH WITH REFLEX TO FREE T4 IF ABNORMAL; Status:Active; Requested for:18Mar2021; Perform:Lab Services - Lab To Draw (Blood Test); Due:[id number];Ordered; For:Chronic diarrhea; Ordered By:Madiha Razo; Patient Discussion/Summary 1. Colonoscopy was reviewed with patient. 2. Obtain CBC, CMP, TSH with reflex, and celiac panel. 3. Begin dicyclomine 20 mg as needed for bowel spasm. 4. Discussed trial of rbkb-qfn-nvdhadj probiotic. 5. Dietary modifications were addressed. 6. Follow-up to review the above. Chief Complaint A telephone visit (audio only) between the patient (at the originating site) and the provider (at the distant site) was utilized to provide this telehealth service. Verbal consent was requested and obtained from CHIRAG SAWANT on this date, 03/18/2021 12:30 PM , for a telehealth visit. Colonoscopy follow-up History of Present [id number]-rwvi-hqn male spoken to over telephone as a [...] has been no change in prescription medications. Review of Systems Const: Denies fatigue, fever and weight loss. CV: Denies chest pain, pacemaker, palpitations and valvular heart disease. Resp: Denies cough, sleep apnea, SOB and snoring. GI: Denies symptoms other than stated above. Musculo: Denies joint pain and muscle pain. Skin: Denies hives and rash. Neuro: Denies seizures and stroke. Psych: Denies anxiety and depression. Endocrine: Denies intolerance to cold, hot flashes and impaired glucose tolerance. Homar/Lymph: Denies anemia, blood transfusions, chemotherapy, enlarged lymph nodes and radiation treatment of any kind. Active Problems Problems Chronic diarrhea (787.91) (K52.9) Obesity, morbid (278.01) (E66.01) History of Tobacco use (305.1) (Z72.0) Past Medical History Problems H/O supraventricular tachycardia (V12.59) (Z86.79) History of chronic pain (V13.89) (Z87.898) History of depression (V11.8) (Z86.59) History of hypertension (V12.59) (Z86.79) Surgical History Problems History of Ablation CARDIAC ABLATION 04/2019 History of Appendectomy History of Cholecystectomy History of Colonoscopy JANUARY 2021 Denied: History of Esophagogastroduodenoscopy History of Knee arthroscopy History of Knee surgery x7 History of Synovectomy Family History Mother Family history of Father Family history of Alive and well Denied: Family history of malignant neoplasm of colon Other Denied: Family history of malignant neoplasm of colon Social History Problems Caffeine use (V49.89) (Z78.9) 3 CANS POP DAILY Does not have living will Former cigarette smoker (V15.82) (Z87.891) No illicit drug use Rarely consumes alcohol (V49.89) (Z78.9) History of Tobacco use (305.1) (Z72.0) Allergies Medication Benadryl Shortness of breath; Tachycardia; Updated By: Adelina Reynolds; 03/18/2021 12:07:54 PM NonMedication No Known Food Allergies Recorded By: Adelian Reynolds; 03/18/2021 12:07:54 PM Current Meds Medication NameInstruction ARIPiprazole 20 MG Oral TabletTAKE 1 TABLET BY MOUTH EVERY DAY Esomeprazole Magnesium 40 MG Oral Capsule Delayed ReleaseTAKE 1 CAPSULE BY MOUTH AT BEDTIME Gabapentin 600 MG Oral TabletTAKE 1 TABLET BY MOUTH 4 TIMES A DAY Lisinopril 40 MG Oral TabletTAKE 1 TABLET BY MOUTH EVERY DAY Meloxicam 7.5 MG Oral TabletTAKE 1 TABLET BY MOUTH (more content not included)... Normal [employer] No Panel Informationon 02-22 [email or web address] [email or web address]} [facility] Work Phone: [facility]astro[facility] Work Phone: [facility] Surgical Pathology Depar tmenton 02-22-2021 [facility] Surgical Pathology Department Name CHIRAG SAWANT Pathologist: TRINIDAD GARCIA M.D., PhD. Date of Procedure: 02/22/2021 Date Received: 02/22/2021 Date Reported 02/28/2021 Submitting Physician: ELBA NELSON DO Location: [facility] Copy To/Referring/Attending: MAINE ADRIAN MD Other External # FINAL DIAGNOSIS A. RANDOM COLON BIOPSY: --COLONIC MUCOSA, NO SIGNIFICANT PATHOLOGIC FINDINGS --NO EVIDENCE OF MICROSCOPIC COLITIS Electronically Signed Out By TRINIDAD GARCIA M.D., PhD./WLI By the signature on this report, the individual or group listed as making the Final Interpretation/Diagnosis certifies that they have reviewed this case. Clinical History: Diarrhea Specimens Submitted As: A: RANDOM COLON BIOPSY Gross Description: Received in formalin, labeled with the patient's name and hospital number and random, are multiple fragments of mondragon, soft tissue aggregating to 1.7 x 0.3 x 0.2 cm. The specimen is submitted in toto in one cassette. LMP lmp/02/26/2021 [facility] Department of Pathology [address] [place] [address] Normal [facility] Comment on above: Performed By: #### U HCS #### [facility] Surgical Pathology Department [address] [place] [address] CORONAVIRUS 2019, SCREEN ASY MPTOMATICon 02-20-2021 SARS-CoV-2 (COVID-19) RNA SCOTTY+probe Ql (Unsp spec) Not detected Normal Not Detected [facility] Comment on above: Result Comment: . This assay is designed to detect SARS-CoV-2 based on replication of specific regions of the RNA from the SARS-CoV-2 virus. A Not Detected result does not preclude 2019-nCoV infection since the adequacy of sample collection and/or low viral burden may result in presence of viral nucleic acids below the clinical sensitivity of this test method. Fact sheet for providers: https://www.fda.gov/media/761675/download Fact sheet for patients: https://www.fda.gov/media/361791/download This test has received FDA Emergency Use Authorization [EUA] and has been verified by [facility] ([facility]). This test is only authorized for the duration of time that circumstances exist to justify the authorization of the emergency use of in vitro diagnostic tests for the detection of SARS-CoV-2 virus and/or diagnosis of COVID-19 infection under section 564(b)(1) of the Act, 21 U.S.C. 360bbb-3(b)(1), unless the authorization is terminated or revoked sooner. [facility] is certified under CLIA-88 as qualified to perform high complexity testing. Testing is performed in the [facility] laboratories located at [address] [place] [address]. Performed By: #### C OVSC #### [place] [address] Covid 19 Resultson SARS-CoV-2 (COVID-19) RNA SCOTTY+probe Ql (Unsp spec) NEGATIVE COVID-19 Test Coronaviruses are common world-wide and are the cause of many common colds. SARS-COV2 is a new coronavirus that began circulating worldwide in 2019 so we are calling it COVID-19. It has been estimated that four out of five patients with COVID-19 will recover at home without the need for medical attention. Symptoms of COVID-19 may include cough, fever, shortness of breath, loss of taste or smell and other flu-like symptoms including chills, sore muscles, sore throat, and headache. Severe illness is more common in older people and people with other health problems such as high blood pressure, obesity, and immune system problems. If the test is positive, you have COVID-19. You will be contacted by the ordering physicians office and instructed to remain on home isolation, in accordance with CDC guidelines. You may also be contacted by the [facility] to see if any of your close contacts may have been exposed to the virus and need to quarantine. If the test is negative, you likely do not have COVID-19 at this time, but you still may have a different illness that can spread to other people (like Influenza, or the Flu) and could still be at risk for getting COVID-19. We recommend that you stay away from other people to limit the spread of illness until your symptoms are improving and you are fever-free for 24 hours without the use of fever lowering medications such as acetaminophen or ibuprofen. No test is 100% accurate so if you are still concerned you may have COVID-19, talk to your doctor about the need to continue to stay away from others. Medicines Unless your provider told you not to use the following: Acetaminophen (Tylenol and others) is generally safe. Anti-inflammatory medications, such as Ibuprofen (Advil or Motrin) or Naproxen (Aleve) can also be used. Syis-eaw-ojrgdbw cough and cold medicines can be used according to the instructions on the package. Some fgyq-dph-qgmpgsf medicines also contain acetaminophen. Make sure you are not taking more than your recommended dose. For those not hospitalized, there is no specific treatment available for this illness. Antibiotics do not treat Coronaviruses. Follow-Up Follow up with your doctor by scheduling a virtual visit or consider follow-up at one of our urgent care fever clinics. If you are having difficulty breathing, or are very weak and having difficulty standing, this is a medical emergency. Call 911 or have someone take you to the nearest emergency room immediately. If possible, wear a facemask. Additional guidance from the CDC for patients who tested POSITIVE for COVID-19 How to isolate: Isolate yourself in a specific room at home and limit your contact with others. Use a separate bathroom from other members of the household, when possible. Leave home only to get essential medical care. Do not go to work, school or public areas. Avoid using public transportation, ride-sharing, or taxis. Restrict contact with pets and other animals. If you must care for your pet or be around animals while you are sick, wash your hands before and after your interaction and wear a facemask. Make sure that shared spaces in the home have good airflow, such as by an air conditioner or an opened window, weather permitting. Personal Hygiene Procedures: Wear a face mask when in the same room as other people or pets. If a face mask interferes with your breathing, others should wear a mask when sharing space with you. Frequent hand-washing: wash your hands with soap and water for at least 20 seconds. If soap and water are not available, use alcohol-based hand telegraphic typewriter operator chief. Avoid touching your eyes, nose, and mouth with unwashed hands. Household Hygiene Procedures: Avoid sharing personal household items such as dishes, glassware, cups, eating utensils, towels or bedding with other people or pets in your home. After use, these items should be washed with soap and hot water. Disinfect all high-touch surfaces every day with antibacterial cleaning solutions such as Lysol wipes, bleach, cleansers, etc. High-touch surfaces include tabletops, doorknobs, bathroom fixtures, toilets, phones, keyboards, tablets and bedside tables. Immediately clean any surfaces that may have blood, poop or body fluids on them, using antibacterial cleaning solutions such as Lysol wipes, bleach, cleansers, etc. If clothing or bedding come into contact with blood, poop or body fluids, they should be washed immediately. Follow the directions on the laundry detergent and clothing labels but hot water is recommended when possible. Stopping home isolation precautions: If possible, consult your doctor before stopping home isolation precautions. According to the CDC, you can discontinue home isolation precautions when you have met both of these criteria: Your fever and respiratory symptoms have been gone for 24 mick (more content not included)... Normal [facility] CORONAVIRUS 2019, SCREEN ASY MPTOMATICon 02-19-2021 Lab Specimen Source Nasal, Nasopharyngeal Normal [facility] Comment on above: Performed By: #### C OVSC #### [facility] [id number] [place] [address]. [place] [address] Coronavirus 2019 RNA by PCR, Screening Asymptomticon 02-19-2021 Coronavirus 2019 RNA by PCR, Screening Asymptomtic Not detected Normal See Below -[facility] Work Phone: Comment on above: SOURCE: Nasal, Nasop haryngealReference Range: Not Detected.This assay is designed to detect SARS-CoV-2 based on replication of specific regions of the RNA from the SARS-CoV-2 virus. A Not Detected result does not preclude 2019-nCoV infection since the adequacy of sample collection and/or low viral burden may result in presence of viral nucleic acids below the clinical sensitivity of this test method. Fact sheet for providers: https://www.fda.gov/media/535156/downloadFact sheet for patients: https://www.fda.gov/media/708732/downloadThis test has received FDA Emergency Use Authorization [EUA] and has been verified by [facility] ([facility]). This test is only authorized for the duration of time that circumstances exist to justify the authorization of the emergency use of in vitro diagnostic tests for the detection of SARS-CoV-2 virus and/or diagnosis of COVID-19 infection under section 564(b)(1) of the Act, 21 U.S.C. 360bbb-3(b)(1), unless the authorization is terminated or revoked sooner. [facility] is certified under CLIA-88 as qualified to perform high complexity testing. Testing is performed in the [facility] laboratories located at [id number] [place] [address]. Initial Visit (Gastroenterol ogy)on 02-11-2021 Initial Visit (Gastroenterology) Diagnoses/Problems Health Maintenance/Risks Encounter for preventive health examination (V70.0) (Z00.00) Assessed Chronic diarrhea (787.91) (K52.9) History of Knee surgery x7 Obesity, morbid (278.01) (E66.01) History of Tobacco use (305.1) (Z72.0) Orders Chronic diarrhea Colonoscopy; Status:Hold For - Scheduling; Requested for:11Feb2021; Perform:[facility]; Due:[id number];Ordered; For:Chronic diarrhea; Ordered By:Elba Nelson; Patient competent to provide consent? : Yes-pt mentally competent to provide consent SocHx: Former cigarette smoker Tobacco Use Screening; Status:Complete; Done: 11Feb2021 Perform:Not Applicable;Ordered; For:SocHx: Former cigarette smoker; Ordered By:Simin Heath; Patient Discussion/Summary Recommendations 1. Records from his primary care office were reviewed 2. The differential diagnosis was discussed 3. Lifestyle changes were discussed. Minimize caffeine 4. Fiber intake was encouraged 5. Colonoscopy is recommended. The procedure and sedation were discussed including but not limited to risk of bleeding, perforation and reaction to medication. The office endoscopy forms were reviewed and signed. The patient was instructed to bring someone to drive home after the test. All the patient's questions were answered. Provider Impressions Impression 1. Chronic diarrhea 2. Obesity Chief Complaint A telephone visit (audio only) between the patient (at the originating site) and the provider (at the distant site) was utilized to provide this telehealth service. Chronic diarrhea History of Present Wszouni91-atzv-nru male noted at the request of his referring physician for a 6-week history of diarrhea. His father events are variable anywhere from 2-4 or 6-8 times per day. He also has nocturnal symptoms. Is eating and sleep patterns are different than in the past. He goes to bed at 2 AM and wakes up at 2 PM. The timing of his diarrhea does not seem to correlate with eating. There is been no blood in his stool or weight loss. He does consume 4 to 6 cups of coffee per day occasional energy drink and occasional soda. He is uncertain of the amount of fiber. There is no family history of colorectal disease. He denies anemia. There is been no travel. He tried Imodium and states this helped only for an hour. He has never undergone endoscopic assessment. He quit smoking 1 month ago. He did have a skin rash and was placed on prednisone and states that this did not have any influence on his diarrhea. Review of Systems Gen.: Denies fever or weight loss Cardiovascular: Denies chest pain or palpitations Pulmonary: Denies shortness of breath or coughing Endocrine: Denies diabetes Hematologic: Denies anemia Skin: Prior skin rash treated with prednisone Active Problems Problems Chronic diarrhea (787.91) (K52.9) Obesity, morbid (278.01) (E66.01) History of Tobacco use (305.1) (Z72.0) Past Medical History Problems H/O supraventricular tachycardia (V12.59) (Z86.79) History of chronic pain (V13.89) (Z87.898) History of depression (V11.8) (Z86.59) History of hypertension (V12.59) (Z86.79) Surgical History Problems History of Ablation CARDIAC ABLATION 04/2019 History of Appendectomy History of Cholecystectomy History of Knee arthroscopy History of Knee surgery x7 History of Synovectomy Family History Mother Family history of Father Family history of Alive and well Denied: Family history of malignant neoplasm of colon Other Denied: Family history of malignant neoplasm of colon Social History Problems Caffeine use (V49.89) (Z78.9) Does not have living will Former cigarette smoker (V15.82) (Z87.891) No illicit drug use Rarely consumes alcohol (V49.89) (Z78.9) History of Tobacco use (305.1) (Z72.0) Allergies Medication Benadryl Recorded By: Simin Heath; 02/08/2021 1:27:18 PM diphenhydrAMINE HCl CAPS Recorded By: Simin Heath; 02/08/2021 1:27:18 PM Vitals Vital Signs Recorded: [id number] 11:16AM Height6 ft 2 in Vjrckr681 lb BMI Gjeidfsvum53.65 BSA Calculated2.72 BMI 45 Physical Exam Physical exam not performed in light of telephone visit Results/Data Limited records from primary care office reveals stool culture to be negative, C. difficile negative Signatures Electronically signed by : Elba Nelson DO; Feb 11 2021 11:25AM EST (Author) Normal [employer] Vital Signs Date Time Vital Sign Value Performing Clinician Faci lity 05-05-2025 19:12-0400 Diastolic Blood Pressure Non-Invasive 70 mm[Hg] GANESH NOVOA MD [facility] 01-30-2025 19:12-0400 Heart rate 98 /min GANESH NOVOA MD [facility] 01-30-2025 19:12-0400 Respiratory rate 18 /min GANESH NOVOA MD [facility] 01-30-2025 19:12-0400 Systolic Blood Pressure Non-Invasive 146 mm[Hg] GANESH NOVOA MD [facility] 01-30-2025 18:35-0400 Diastolic Blood Pressure Non-Invasive 78 mm[Hg] GANESH NOVOA MD [facility] 01-30-2025 18:35-0400 Heart rate 101 /min GANESH NOVOA MD [facility] 01-30-2025 18:35-0400 Respiratory rate 16 /min GANESH NOVOA MD [facility] 01-30-2025 18:35-0400 Systolic Blood Pressure Non-Invasive 139 mm[Hg] GANESH NOVOA MD [facility] 01-30-2025 18:09-0400 Diastolic Blood Pressure Non-Invasive 86 mm[Hg] GANESH NOVOA MD [facility] 01-30-2025 18:09-0400 Heart rate 100 /min GANESH NOVOA MD [facility] 01-30-2025 18:09-0400 Respiratory rate 16 /min GANESH NOVOA MD [facility] 01-30-2025 18:09-0400 Systolic Blood Pressure Non-Invasive 157 mm[Hg] GANESH NOVOA MD [facility] 01-30-2025 17:26-0400 Body temperature 97.16 [degF] GANESH NOVOA MD [facility] 01-30-2025 17:26-0400 Body weight 147 kg GANESH NOVOA MD [facility] 01-30-2025 17:26-0400 Heart rate 86 /min GANESH NOVOA MD [facility] 01-27-2023 22:14-0400 Diastolic Blood Pressure Non-Invasive 75 1 CONCEPCION AMADOUESKA DO [facility] 01-27-2023 22:14-0400 Heart rate 112 /min CONCEPCION DURESKA DO [facility] 01-27-2023 22:14-0400 Respiratory rate 18 /min CONCEPCION AMADOUESKA DO [facility] 01-27-2023 22:14-0400 Systolic Blood Pressure Non-Invasive 141 1 CONCEPCION DURESKA DO [facility] 01-27-2023 18:46-0400 Body height 188 cm CONCEPCION DURESKA DO [facility] 01-27-2023 18:46-0400 Body temperature 97.7 [degF] CONCEPCION DURESKA DO [facility] 01-27-2023 18:46-0400 Body weight 77.3 kg CONCEPCIONLISETTE TOBARESKA DO [facility] 01-27-2023 18:46-0400 Diastolic Blood Pressure Non-Invasive 88 1 CONCEPCION MARTINEZ DO [facility] 01-27-2023 18:46-0400 Heart rate 115 /min CONCEPCION MARTINEZ DO [facility] 01-27-2023 18:46-0400 Respiratory rate 20 /min CONCEPCION MARTINEZ DO [facility] 01-27-2023 18:46-0400 Systolic Blood Pressure Non-Invasive 150 1 CONCEPCION MARTINEZ DO [facility] 08-01-2022 17:42-0400 Body height [address] DOUGLAS BLAND MD [facility] 08-01-2022 17:42-0400 Body temperature 99.68 [degF] DR DOUGLAS BLAND MD [facility] 08-01-2022 17:42-0400 Body weight [address] DOUGLAS BLAND MD [facility] 08-01-2022 17:42-0400 Diastolic blood pressure 88 mm[Hg] DR DOUGLAS BLAND MD [facility] 08-01-2022 17:42-0400 Heart rate 64 /min DR DOUGLAS BLAND MD [facility] 08-01-2022 17:42-0400 Respiratory rate 16 /min DR DOUGLAS BLAND MD [facility] 08-01-2022 17:42-0400 Systolic blood pressure 149 mm[Hg] DR DOUGLAS BLAND MD [facility] 07-21-2021 01:56-0400 Body height [address] RE KELLY MD [facility] 07-21-2021 01:56-0400 Body temperature 98.78 [degF] DR [facility] EKLLY [facility] [facility] 07-21-2021 01:56-04[address] Body weight [address] RE KELLY MD [facility] 07-21-2021 01:56-0400 Diastolic blood pressure 68 mm[Hg] DR RE KELLY MD [facility] 07-21-2021 01:56-0400 Heart rate 68 /min DR RE KELLY MD [facility] 07-21-2021 01:56-0400 Respiratory rate 20 /min DR RE KELLY MD [facility] 07-21-2021 01:56-0400 Systolic blood pressure 123 mm[Hg] DR RE KELLY MD [facility] 03-18-2021 12:04-0400 Body height 187.96 cm Maine Adrian Work Phone: [facility] Work Phone: 03-18-2021 12:04-0400 Body mass index (BMI) [Ratio] 43.65 kg/m2 Maine Adrian Work Phone: [facility] Work Phone: 03-18-2021 12:04-0400 Body surface area Derived from formula 2.72 m2 Maine Adrian Work Phone: [facility] Work Phone: 03-18-2021 12:04-0400 Body weight 154.22 kg Maine Adrian Work Phone: [facility] Work Phone: 02-11-2021 11:16-0400 Body height 187.96 cm Maine Adrian Work Phone: [facility] Work Phone: 02-11-2021 11:16-0400 Body mass index (BMI) [Ratio] 43.65 kg/m2 Maine Adrian Work Phone: [facility] Work Phone: 02-11-2021 11:16-0400 Body surface area Derived from formula 2.72 m2 Maine Adrian Work Phone: [facility] Work Phone: 02-11-2021 11:16-0400 Body weight 154.22 kg Maine Violet Adrian Work Phone: [facility] Work Phone: Encounters Encounter Date Encounter Type Care Provider Facility Start: 04-13-2025 End: 04-13-2025 ambulatory [facility] Facility:[facility] Start: 02-24-2025 End: 02-24-2025 ambulatory Cleveland Paula Facility:[facility] Start: 02-22-2025 End: 02-22-2025 ambulatory [facility] Facility:[facility] Start: 02-14-2025 End: 02-14-2025 ambulatory [facility] Facility:[facility] Start: 01-30-2025 End: 01-30-2025 Emergency department patient visit GANESH NOVOA MD [facility] Start: 12-13-2024 End: 12-13-2024 ambulatory Maria E Wayne Facility:[facility] Start: 10-12-2024 End: 10-12-2024 ambulatory Cleveland Delaney Seese Facility:[facility] Start: 08-02-2024 End: 08-02-2024 ambulatory MARIA E WAYNE DO Facility:[facility] Start: 08-02-2024 End: 08-02-2024 Patient encounter procedure MARIA E WAYNE DO [facility] Start: 07-14-2024 End: 07-14-2024 ambulatory Cleveland L Seese Facility:[facility] Start: 06-16-2024 End: 06-16-2024 ambulatory Cleveland L Seese Facility:[facility] Start: 05-09-2024 End: 05-09-2024 ambulatory Cleveland L Seese Facility:[facility] Start: 01-27-2023 End: 01-28-2023 Emergency department patient visit CONCEPCION MARTINEZ DO Facility:[facility] Start: 01-27-2023 End: 01-27-2023 Emergency department patient visit CONCEPCION MARTINEZ DO [facility] Start: 10-27-2022 End: 10-28-2022 ambulatory MARIA E WAYNE DO Facility:[facility] Start: 10-27-2022 End: 10-27-2022 Patient encounter procedure MARIA E WAYNE DO [facility] Start: 08-01-2022 End: 08-01-2022 Emergency department patient visit DR DOUGLAS BLAND MD Facility:[facility] Start: 08-01-2022 End: 08-01-2022 Emergency department patient visit DR DOUGLAS BLAND MD [facility] Start: 04-30-2022 End: 04-30-2022 Patient encounter procedure [facility] Start: 07-21-2021 End: 07-21-2021 Emergency department patient visit DR RE KELLY MD [facility] Start: 05-23-2021 Rx Renewal [place] Lazo Ericko ff Work Phone: [facility] Work Phone: Start: 03-18-2021 Phys/qhp telephone evaluation 11-20 min [place] Lazo Ericksaroj Work Phone: [facility] Work Phone: Start: 02-28-2021 Chart Update [place] Lazo Ericko ff Work Phone: [facility] Work Phone: Procedures Date Procedure Procedure Detail Performing Clinician Start: 02-22-2021 Colonoscopy [place] galan Work Phone: Start: 04-28-2019 Cardiac ablation usi ng fluoroscopy guidance DR RE KELLY MD Appendectomy [place] J Naumof f Work Phone: Appendectomy DR RE KELLY MD Arthroplasty of knee , femoral condyles with debridement and partial synovectomy DR RE KELLY MD Comment on above: bilateral 7 total surgeries on bilateral knees Arthroscopy of knee [place] J Gloriaumoff Work Phone: Cholecystectomy [place] Violet Eulogio moff Work Phone: Cholecystectomy DR RE GOLDSMITH MD Colonoscopy [place] Lazo Naumof f Work Phone: Comment on above: JANUARY 2021; Destructive procedure [place] Lazo Erickoff Work Phone: Comment on above: CARDIAC ABLATION 04/29 019; Operative procedure on knee [place] Lazo Gloriaumoff Work Phone: Comment on above: x7; Synovectomy [place] Lazo Naumof f Work Phone: NEGATED: Highlighted row has not occurred! Esophagogastroduodenoscopy [place] Suarez off Work Phone: Plan of Treatment Date Care Activity Detail Author Start: 04-30-2022 Procedure [facility] Work Phone: Start: 03-18-2021 BISI, Provider : Madiha Razo, Status: Pen, Time: 12:30 PM BISI, Provider: Madiha Razo, Status: Pen, Time: 12:30 PM [facility] Work Phone: Procedure [facility] Work Phone: Immunizations Immunization Date Immunization Notes Care Provider Fidel ruiz 05-27-2003 measles/mumps/rubell a virus vaccine DR DOUGLAS BLAND MD [facility] Payers Date Payer Category Payer Unknown 2024 Self-pay [id number] 2022 Unknown [id number] 2022 Unknown [id number] 2015 Unknown [facility] [id number] 1991 Unknown [id number] [id number] 1991 Unknown [id number] [id number]. 1991 Unknown [id number] [id number]. 1991 Unknown [id number] [id number]. 1991 Unknown [id number] Unknown [id number] Unknown [id number] [id number] Unknown [id number] [id number] Unknown [id number] [id number] Unknown [id number] [id number] Unknown [id number] [id number] Unknown [id number] [id number] Unknown [id number] [id number] Unknown [id number] Social History Date Type Detail Facility No illicit drug use No illicit drug use [facility] Work Phone: Comment on above: 3 CANS POP DAILY; Start: 04-27-2019 Ex-smoker (finding) [facility] Start: 1990 Sex Assigned At Male A [facility] Start: 07-30-2020 [facility] Work Phone: Sexual Orientation [facility] Start: 05-22-2020 Sex Male (finding) [facility] Medical Equipment Procedure Code Equipment Code Equipment Origin al Text Equipment Identifier Dates See Instructions , Dispense glucose test strips, #100, use as directed daily to test blood sugar; diagnosis: E11.9, # 100 EA, 3 Refill(s), Pharmacy: [facility]/pharmacy #[id number], Type 2 diabetes mellitus, 184, cm, 07/29/21 13:07:00 EDT, Height, 159.9, kg, ... Start: 07-29-2021 See Instructions , Dispense UltraFine lancets, #100, use as directed daily to test blood sugar; diagnosis: E11.9, # 100 EA, 3 Refill(s), [id number], Type 2 diabetes mellitus, 184, cm, 07/29/21 13:07:00 EDT, Height, 159.9, kg, 07/29/21... Start: 07-29-2021 See Instructions , Dispense glucose test strips, #100, use as directed daily to test blood sugar; diagnosis: E11.9, # 100 EA, 3 Refill(s), Pharmacy: [facility]/pharmacy #[id number], Type 2 diabetes mellitus, 184, cm, 07/29/21 13:07:00 EDT, Height, 159.9, kg, ... Start: 07-29-2021 See Instructions , Dispense UltraFine lancets, #100, use as directed daily to test blood sugar; diagnosis: E11.9, # 100 EA, 3 Refill(s), Pharmacy: [facility]/pharmacy #[id number], Type 2 diabetes mellitus, 184, cm, 07/29/21 13:07:00 EDT, Height, 159.9, kg, 07/29/21... Start: 07-29-2021 See Instructions , Dispense glucose test strips, #100, use as directed daily to test blood sugar; diagnosis: E11.9, # 100 EA, 3 Refill(s), Pharmacy: [facility]/pharmacy #[id number], Type 2 diabetes mellitus, 184, cm, 07/29/21 13:07:00 EDT, Height, 159.9, kg, ... Start: 07-29-2021 See Instructions , Dispense UltraFine lancets, #100, use as directed daily to test blood sugar; diagnosis: E11.9, # 100 EA, 3 Refill(s), Pharmacy: [facility]/pharmacy #[id number], Type 2 diabetes mellitus, 184, cm, 07/29/21 13:07:00 EDT, Height, 159.9, kg, 07/29/21... Start: 07-29-2021 See Instructions , Dispense glucose test strips, #100, use as directed daily to test blood sugar; diagnosis: E11.9, # 100 EA, 3 Refill(s), Pharmacy: [facility]/pharmacy #[id number], Type 2 diabetes mellitus, 184, cm, 07/29/21 13:07:00 EDT, Height, 159.9, kg, 07/29/21 13:07:00 EDT, Dosing Weight Start: 07-29-2021 See Instructions , Dispense UltraFine lancets, #100, use as directed daily to test blood sugar; diagnosis: E11.9, # 100 EA, 3 Refill(s), Pharmacy: [facility]/pharmacy #[id number], Type 2 diabetes mellitus, 184, cm, 07/29/21 13:07:00 EDT, Height, 159.9, kg, 07/29/21 13:07:00 EDT, Dosing Weight Start: 07-29-2021 See Instructions , Dispense True Metrix glucose test strips, #100, use as directed daily to test blood sugar; diagnosis: E11.9, # 100 EA, 3 Refill(s), Pharmacy: [facility]/pharmacy #[id number], Type 2 diabetes mellitus, 182.5, cm, 07/26/24 10:51:00 EDT, Height, 156, kg, 07/26/24 10:51:00 EDT, Dosing Weight Start: 10-14-2024 See Instructions , Dispense UltraFine lancets, #100, use as directed daily to test blood sugar; diagnosis: E11.9, # 100 EA, 3 Refill(s), Pharmacy: [facility]/pharmacy #[id number], Type 2 diabetes mellitus, 184, cm, 07/29/21 13:07:00 EDT, Height, 159.9, kg, 07/29/21 13:07:00 EDT, Dosing Weight Start: 07-29-2021 Functional Status Date Assessment Result Facility 01-30-2025 Functional Status Standard Safet y ID band on, Allergy Band on, Call device within reach, Bed in low position, Wheels locked, Upper/Half-Length side-rails up, Bedside Cart Locked, Safety level maintained [facility] 01-27-2023 Functional Status Assistive Device None A [facility] 01-27-2023 Functional Status Awake, Repositions self [facility] 08-01-2022 Functional Status ID band on, Allergy Band on, Call device within reach, Bed in low position, Wheels locked [facility] Mental Status Date Assessment Result Facility 01-30-2025 Mental Status Orientation Oriented x 4 [facility] 01-27-2023 Mental Status Orientation Oriented x 4 [facility] 08-01-2022 Mental Status Oriented x 4 [facility] Clinical Notes 02-22-2021 to 01-30-2025 Note Date & Type Note Facility 01-30-2025 Hospital Discharg e instructions Patient Education 01/30/2025 18:56:02 High Blood Pressure, Established, Out of Control Uncontrolled High Blood Pressure (Established) Your blood pressure was unusually high today. This can occur if you ve missed doses of your blood pressure medicine. Or it can happen if you are taking other medicines. These include some asthma inhalers, decongestants, diet pills, and street drugs like cocaine and amphetamine. Other causes include: Weight gain More salt in your diet Smoking Caffeine Your blood pressure can also rise if you are emotionally upset or in intense pain. It may go back to normal after a period of rest. Blood pressure measurements are given as 2 numbers. Systolic blood pressure is the upper number. This is the pressure when the heart contracts. Diastolic blood pressure is the lower number. This is the pressure when the heart relaxes between beats. You will see your blood pressure readings written together. For example, a person with a systolic pressure of 118 and a diastolic pressure of 78 will have 118/78 written in the medical record. To be high blood pressure, the numbers must be higher when tested over a period of time. Blood pressure is categorized as normal, elevated, or stage 1 or stage 2 high blood pressure: Normal blood pressure is systolic of less than 120 and diastolic of less than 80 (120/80) Elevated blood pressure is systolic of 120 to 129 and diastolic less than 80 Stage 1 high blood pressure is systolic is 130 to 139 or diastolic between 80 to 89 Stage 2 high blood pressure is when systolic is 140 or higher or the diastolic is 90 or higher Uncontrolled high blood pressure can cause serious health problems. It raises your risk for heart attack, stroke, and heart failure. In general, if you have high blood pressure, keeping your blood pressure below 130/80 mmHg may help prevent these problems. Your healthcare provider may prescribe medicine to help control blood pressure if lifestyle changes are not enough. Home care It s important to take steps to lower your blood pressure. If you are taking blood pressure medicine, the guidelines below may help you need less or no medicines in the future. Start a weight-loss program if you are overweight. Cut back on the amount of salt in your diet: oAvoid high-salt foods like olives, pickles, smoked meats, and salted potato chips. oDon t add salt to your food at the table. oUse only small amounts of salt when cooking. Start an exercise program. Talk with your healthcare provider about what exercise program is best for you. It doesn t have to be difficult. Even brisk walking for 20 minutes 3 times a week is a good form of exercise. Avoid medicines that stimulates the heart. This includes many blxx-joe-ykgzkhg cold and sinus decongestant pills and sprays, as well as diet pills. Check the warnings about high blood pressure on the label. Before purchasing any kpri-vzd-pzluula medicines or supplements, always ask the pharmacist about the product's potential interaction with your high blood pressure and your medicines. Stimulants such as amphetamine or cocaine could be lethal for someone with high blood pressure. Never take these. Limit how much caffeine you drink. Or switch to noncaffeinated beverages. Stop smoking. If you are a long-time smoker, this can be hard. Enroll in a stop-smoking program to make it more likely that you will succeed. Talk with your provider about ways to quit. Learn how to handle stress better. This is an important part of any program to lower blood pressure. Learn ways to relax. These include meditation, yoga, and biofeedback. If medicines were prescribed, take them exactly as directed. Missing doses may cause your blood pressure to get out of control. If you miss a dose or doses of your medicines, check with your healthcare provider or pharmacist about what to do. Consider buying an automatic blood pressure machine. Your provider may recommend a certain type. You can get one of these at most pharmacies. Measure your blood pressure twice a day, in the morning, and in the late afternoon. Keep a written record of your home blood pressure readings and take the record to your medical appointments. Here are some additional guidelines on home blood pressure monitoring from the [place] [employer]. Don't smoke or drink coffee for 30 minutes Go to the bathroom before the test. Relax for 5 minutes before taking the measurement. Sit correctly. Be sure your back is supported. Don't sit on a couch or soft chair. Uncross your feet and place them flat on the floor. Place your arm on a solid, flat surface like a table with the upper arm at heart level. Make certain the middle of the cuff is directly above the bend of the elbow. Check the monitor's instruction manual for an illustration. Take multiple readings. When you measure, take 2 or 3 readings one minute apart and record all of the results. Take your blood pressure at the same time every day, or as your healthcare provider recommends. Record the date, time, and blood pressure reading. Take the record with you to your next appointment. If your blood pressure monitor has a built-in memory, simply take the monitor with you to your next appointment. Call your provider if you have several high readings. Don't be frightened by a single high reading, but if you get several high readings, check in with your healthcare provider. Note: When blood pressure reaches a systolic (top number) of 180 or higher or a diastolic (bottom number) of 110 or higher, emergency medical treatment is required. Call your healthcare provider immediately. Follow-up care Regular visits to your own healthcare provider for blood pressure and medicine checks are an important part of your care. Make a follow-up appointment as directed. Bring the record of your home blood pressure readings to the appointment. When to seek medical advice Call your healthcare provider right away if any of these occur: Blood pressure reaches a systolic (top number) of 180 or higher or diastolic (bottom number) of 110 or higher, emergency medical treatment is required. Chest, arm, shoulder, neck, or upper back pain Shortness of breath Severe headache Throbbing or rushing sound in the ears Nosebleed Extreme drowsiness, confusion, or fainting Dizziness or dizziness with spinning sensation (vertigo) Weakness in an arm or leg or on one side of the face Trouble speaking or seeing [id number] [employer]. [address] [place] [address], [place] [address]. All rights reserved. This information is not intended as a substitute for professional medical care. Always follow your healthcare professional's instructions. Follow Up Care 01/30/2025 17:28:49 With:MARIA E WAYNE DO Address: [address] [place] [phone] When:2-4 days [facility] 01-30-2025 Emergency department Discharge summary Discharge Instructions Thank you for allowing [facility] to assist you with your healthcare needs. The following is important discharge information regarding your hospital visit. Diagnosis from Today's Visit High blood pressure What to Do Next Instructions from Your Care Team Your blood pressures were elevated in the emergency department today. They did not require emergent medication but you should call your family doctor tomorrow because they may want to make some medication changes. Return to the emergency department for chest pain, shortness of breath, confusion, severe headache anything concerning to you on No qualifying data available. Post Acute Orders No qualifying data available. You Need to Schedule the Following Appointments Follow Up with MARIA E WAYNE DO When:Within 2-4 days Where:[address] [place] [id number] [phone] Allergies Benadryl Sinus tachycardia Medications Please ask your primary doctor or pharmacist before taking any other medication not listed, including over the counter drugs, herbal medications, vitamins and or supplements as they may interact with your home medications. What How Much When Why Instructions Last Dose Unchanged acetaminophen-oxyCODONE (acetaminophen-oxyCODONE 325 mg-5 mg oral tablet) 1 tab(s) by mouth Every 6 hours as needed for for pain Unchanged busPIRone (busPIRone 15 mg oral tablet) TAKE 1 TABLET BY MOUTH TWICE A DAY UNTIL DIRECTED TO STOP Unchanged dapagliflozin (Farxiga 10 mg oral tablet) 1 tab(s) by mouth Once a day Type 2 diabetes mellitus Unchanged DME (Blood Glucose Test Machine) See instructions Type 2 diabetes mellitus Use as directed daily to test blood sugars; diagnosis: E11.9 Unchanged DME (Blood Glucose Test Strips) See instructions Type 2 diabetes mellitus Dispense True Metrix glucose test strips, #100, use as directed daily to test blood sugar; diagnosis: E11.9 Unchanged DME (DME MISCellaneous) See instructions HTN (hypertension) Dispense 1 automatic blood pressure cuff, use as directed daily to check blood pressure. Diagnosis: I10 Unchanged DME (Lancets) See instructions Type 2 diabetes mellitus Dispense UltraFine lancets, #100, use as directed daily to test blood sugar; diagnosis: E11.9 Unchanged esomeprazole (esomeprazole 40 mg oral delayed release capsule) 1 cap by mouth Once a day Unchanged hydrOXYzine (hydrOXYzine pamoate 50 mg oral capsule) 1 cap by mouth Two (2) times a day as needed for as needed for anxiety Unchanged lithium (lithium 450 mg oral tablet, extended release) 2 tab(s) by mouth Every day at hs Unchanged losartan (losartan 25 mg oral tablet) 1 tab(s) by mouth Once a day HTN (hypertension) Unchanged lurasidone (lurasidone 80 mg oral tablet) 1 tab(s) by mouth Daily at bedtime Unchanged metFORMIN (MetFORMIN (Eqv-Glucophage XR) 500 mg oral tablet, EXTENDED RELEASE) 2 tab(s) by mouth Once a day Type 2 diabetes mellitus Unchanged mupirocin topical (mupirocin 2% topical ointment) 1 application Topical Three (3) times a day Infected skin lesion Unchanged rosuvastatin (rosuvastatin 10 mg oral tablet) 1 tab(s) by mouth Once a day Type 2 diabetes mellitus Unchanged semaglutide (Ozempic 8 mg/ 3 mL (2 mg dose) subcutaneous solution) 2 Milligram Subcutaneous Every week Duration: 4 week(s) in the abdomen, thigh, or upper arm Please take this list to your next doctor s visit. Bring all medications you take, including over the counter medications, herbals and other supplements with you to your doctor s visit. Patients and families are reminded to discard old lists and to update any records with all medication providers or retail pharmacies. Education Materials Uncontrolled High Blood Pressure (Established) Your blood pressure was unusually high today. This can occur if you ve missed doses of your blood pressure medicine. Or it can happen if you are taking other medicines. These include some asthma inhalers, decongestants, diet pills, and street drugs like cocaine and amphetamine. Other causes include: Weight gain More salt in your diet Smoking Caffeine Your blood pressure can also rise if you are emotionally upset or in intense pain. It may go back to normal after a period of rest. Blood pressure measurements are given as 2 numbers. Systolic blood pressure is the upper number. This is the pressure when the heart contracts. Diastolic blood pressure is the lower number. This is the pressure when the heart relaxes between beats. You will see your blood pressure readings written together. For example, a person with a systolic pressure of 118 and a diastolic pressure of 78 will have 118/78 written in the medical record. To be high blood pressure, the numbers must be higher when tested over a period of time. Blood pressure is categorized as normal, elevated, or stage 1 or stage 2 high blood pressure: Normal blood pressure is systolic of less than 120 and diastolic of less than 80 (120/80) Elevated blood pressure is systolic of 120 to 129 and diastolic less than 80 Stage 1 high blood pressure is systolic is 130 to 139 or diastolic between 80 to 89 Stage 2 high blood pressure is when systolic is 140 or higher or the diastolic is 90 or higher Uncontrolled high blood pressure can cause serious health problems. It raises your risk for heart attack, stroke, and heart failure. In general, if you have high blood pressure, keeping your blood pressure below 130/80 mmHg may help prevent these problems. Your healthcare provider may prescribe medicine to help control blood pressure if lifestyle changes are not enough. Home care It s important to take steps to lower your blood pressure. If you are taking blood pressure medicine, the guidelines below may help you need less or no medicines in the future. Start a weight-loss program if you are overweight. Cut back on the amount of salt in your diet: oAvoid high-salt foods like olives, pickles, smoked meats, and salted potato chips. oDon t add salt to your food at the table. oUse only small amounts of salt when cooking. Start an exercise program. Talk with your healthcare provider about what exercise program is best for you. It doesn t have to be difficult. Even brisk walking for 20 minutes 3 times a week is a good form of exercise. Avoid medicines that stimulates the heart. This includes many jbpx-ovq-znarkqe cold and sinus decongestant pills and sprays, as well as diet pills. Check the warnings about high blood pressure on the label. Before purchasing any tmyi-cvi-vcaqpmo medicines or supplements, always ask the pharmacist about the product's potential interaction with your high blood pressure and your medicines. Stimulants such as amphetamine or cocaine could be lethal for someone with high blood pressure. Never take these. Limit how much caffeine you drink. Or switch to noncaffeinated beverages. Stop smoking. If you are a long-time smoker, this can be hard. Enroll in a stop-smoking program to make it more likely that you will succeed. Talk with your provider about ways to quit. Learn how to handle stress better. This is an important part of any program to lower blood pressure. Learn ways to relax. These include meditation, yoga, and biofeedback. If medicines were prescribed, take them exactly as directed. Missing doses may cause your blood pressure to get out of control. If you miss a dose or doses of your medicines, check with your healthcare provider or pharmacist about what to do. Consider buying an automatic blood pressure machine. Your provider may recommend a certain type. You can get one of these at most pharmacies. Measure your blood pressure twice a day, in the morning, and in the late afternoon. Keep a written record of your home blood pressure readings and take the record to your medical appointments. Here are some additional guidelines on home blood pressure monitoring from the [place] [employer]. Don't smoke or drink coffee for 30 minutes Go to the bathroom before the test. Relax for 5 minutes before taking the measurement. Sit correctly. Be sure your back is supported. Don't sit on a couch or soft chair. Uncross your feet and place them flat on the floor. Place your arm on a solid, flat surface like a table with the upper arm at heart level. Make certain the middle of the cuff is directly above the bend of the elbow. Check the monitor's instruction manual for an illustration. Take multiple readings. When you measure, take 2 or 3 readings one minute apart and record all of the results. Take your blood pressure at the same time every day, or as your healthcare provider recommends. Record the date, time, and blood pressure reading. Take the record with you to your next appointment. If your blood pressure monitor has a built-in memory, simply take the monitor with you to your next appointment. Call your provider if you have several high readings. Don't be frightened by a single high reading, but if you get several high readings, check in with your healthcare provider. Note: When blood pressure reaches a systolic (top number) of 180 or higher or a diastolic (bottom number) of 110 or higher, emergency medical treatment is required. Call your healthcare provider immediately. Follow-up care Regular visits to your own healthcare provider for blood pressure and medicine checks are an important part of your care. Make a follow-up appointment as directed. Bring the record of your home blood pressure readings to the appointment. When to seek medical advice Call your healthcare provider right away if any of these occur: Blood pressure reaches a systolic (top number) of 180 or higher or diastolic (bottom number) of 110 or higher, emergency medical treatment is required. Chest, arm, shoulder, neck, or upper back pain Shortness of breath Severe headache Throbbing or rushing sound in the ears Nosebleed Extreme drowsiness, confusion, or fainting Dizziness or dizziness with spinning sensation (vertigo) Weakness in an arm or leg or on one side of the face Trouble speaking or seeing 2254-1898 [employer]. [address] [place] [address]. All rights reserved. This information is not intended as a substitute for professional medical care. Always follow your healthcare professional's instructions. Additional Information VACCINATE! IT SAVES LIVES! Members of the community who have not yet received the COVID-19 vaccine and would like to receive it can visit one of [facility] vaccine clinics. There are many vaccine clinic locations within the [facility]. For locations and available times, please visit www.[email or web address]. gov/. It is important to note that some COVID mobile vaccine clinics are held outdoors and may be canceled in rainy or stormy conditions. To learn more about pediatric vaccinations (ages 5-11), we invite you to visit the [facility] webpage. https://www.[facility].org/p ages/6627-Bclnn-Najmsjcdmve-Freq uddgvq-Lzxvr-Ahxtpphzc.html To learn more about the COVID-19 vaccine, we invite you to visit the CDC website for a list of frequently asked questions. https://www.cdc.gov/coronavirus/ 2019-ncov/vaccines/faq.html [facility] Patient [facility] Access Instructions: Stay connected with your healthcare team and access your personal medical information anytime with the [facility] Patient Portal. If you would like a full copy of your medical records please contact the [facility] Medical Records Department Thursday through Thursday between 8a.m. and 4:30p.m. Please follow the directions below to access the portal: 1.Access the email account you provided upon registration to the hospital.2.Look for an invitation email from [facility].3.Open the email and access the invitation link: Accept Invitation to [facility].Fill in the required melendez to create your account. Sign into [email or web address] with your username and password that you [...] you will allow to register on the [facility] Patient Portal for access to your information. You can also access the [facility] Patient Portal on the [employer]. Simply click on Health Records under Health Data and then click on the Yeapoo logo. HOW TO SAFELY DISPOSE OF PRESCRIPTION [...] Call your local pharmacy or go to http://OxiCool[employer]7N2Uh2o to find one close to you.3.Make use of household items: Use cat litter or old coffee grounds to dispose medications if other options are not available. Mix your drugs with these household products, seal them in an airtight container and throw it into the garbage. Call [facility]: [phone] to be sure your drugs can be [...] a CHART COPY Signatures Patient Education Materials High Blood Pressure, Established, Out of Control Medication Leaflets My discharge plan and instructions have been reviewed and explained to me and I,CHIRAG SAWANT understand my current condition and have read and understand these discharge instructions. I have received a written copy of the plan/instructions. If I have questions, I am aware that I should contact my doctor. 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 Normal cardiomediastinal silhouette. No definite focal consolidation. No large pleural effusion or pneumothorax. No acute osseous findings. IMPRESSION: Suboptimal exam due to patient body habitus. No definite focal consolidation. I have personally reviewed the images of this examination and agree with the resident's findings and interpretation. Interpreted by: Rolf Keys Preliminary Report By: Kala Lisa Electronically signed By Rolf Keys Dictated Date: 01/30/2025 7:21:13 PM Prelim Date: 01/30/2025 7:23:07 PM Sign Date: 01/30/2025 7:39:15 PM [facility] Exam Date Time Procedure Performing Provider Status 01/30/25 6:[address] Head or Brain w/o Contrast Kari MORALES MD; Auth (Verified) [id number] ORIGINAL EXAMINATION: CT OF THE HEAD WITHOUT CONTRAST 01/30/2025 6:17 pm TECHNIQUE: CT of the head was performed without the administration of intravenous contrast. Automated exposure control, iterative reconstruction, and/or weight based adjustment of the mA/kV was utilized to reduce the radiation dose to as low as reasonably achievable. COMPARISON: None. 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 There is normal variant cavum septum pellucidum. There is no acute intracranial hemorrhage, mass effect or midline shift. No abnormal extra-axial fluid collection. The monteiro-white differentiation is maintained without evidence of an acute infarct. There is no evidence of hydrocephalus. ORBITS: The visualized portion of the orbits demonstrate no acute abnormality. SINUSES: The visualized paranasal sinuses and mastoid air cells demonstrate no acute abnormality. SOFT TISSUES/SKULL: No acute abnormality of the visualized skull or soft tissues. IMPRESSION: No acute intracranial abnormality. There is no evidence of mass, hemorrhage, acute infarct, or calvarial fracture. Interpreted by: Dash Morales Preliminary Report By: Dash Morales Electronically signed By Dash Morales Dictated Date: 01/30/2025 7:19:39 PM Prelim Date: 01/30/2025 7:28:06 PM Sign Date: 01/30/2025 7:28:06 PM [facility] Exam Date Time Procedure Performing Provider Status 01/30/25 6:00 PM EKG [ED AO] - CV GANESH NOVOA MD; Auth (Verified) ECG Final Report Sinus tachycardia Multiform ventricular premature complexes Probable anteroseptal infarct, old Electronic Signature: GANESH NOVOA MD 01/30/2025 18:06:02 [facility]05-03-2023 Hospital Discharge instructions Patient Education 01/27/2023 22:05:17 Anxiety Reaction Anxiety Reaction Anxiety is the feeling we all get when we think something bad might happen. It is a normal responseto stress and usually causes only a mild [...] relieved by rest and mild pain reliever 7358-4546 [employer]. [address] [place] [address]. All rights reserved. This information is not intended as a substitute for professional medical care. Always follow yourhealthcare professional's instructions. Follow Up Care 01/27/2023 18:40:48 With:MARIA E WAYNE DO Address: [address] [place] [phone] When:2-4 days [facility] 05-02-2023 Note Discharge Instructions Thank you for allowing [facility] to assist you with your healthcare needs. The following is importantdischarge information regarding your hospital visit. Diagnosis from Today's Visit Anxiety Anxiety Depression What to Do Next Instructions from Your Care Team No qualifying data available. Post Acute Orders No qualifying data available. You Need to Schedule the Following Appointments Follow Up with MARIA E WAYNE DO When Within 2-4 days Where: [address] [place] [phone] Allergies Benadryl (Sinus tachycardia) Medications Please ask your primary doctor or pharmacist before taking any other medication not listed, including over the counter drugs, herbal medications, vitamins and or supplements as they may interact withyour home medications. What How Much When Why [...] bad might happen. It is a normal responseto stress and usually causes only a mild [...] relieved by rest and mild pain reliever 2548-1112 [employer]. [address] [place] [address]. All rights reserved. This information is not intended as a substitute for professional medical care. Always follow yourhealthcare professional's instructions. Additional Information VACCINATE! IT SAVES LIVES! Members of the community who have not yet received the COVID-19 vaccine and would like to receive it can visit one of [facility] vaccine clinics. There are many vaccine clinic locations within the [facility]. For locations and available times, please visit www.[email or web address].[place].gov/. It is important to note that some COVID mobile vaccine clinics are held outdoors and may be canceled in rainy or stormy conditions. To learn more about pediatric vaccinations (ages 5-11), we invite you to visit the [facility] webpage. https://www.[facility].org/pages/5318-Ufwli-Jxcwbgaacbh-Uczyacvtxp-Aathg-Cjz stions.htmlTo learn more about the COVID-19 vaccine, we invite you to visit the CDC website for a list of frequently asked questions. https://www.cdc.gov/coronavirus/2019-ncov/vaccines/faq.html [facility] Patient [facility] Access Instructions: Stay connected with your healthcare team and access your personal medical information anytime with the [facility] Patient Portal. If you would like a full copy of your medical records please contact the [facility] Medical Records Department Thursday through Thursday between 8a.m. and 4:30p.m. Please follow the directions below to access the portal: 1.Access the email account you provided upon registration to the [facility].2.Look for an invitation email from [facility].3.Open the email and access the invitation link: Accept [facility]itation to [facility].Fill in the required melendez to create your account. Sign into [email or web address] with your username and password that you [...] you will allow to register on the [facility] Patient Portal for access to your information. You can also access the [facility] Patient Portal on the One[employer]ob pankaj. Simply click on Health Records under [email or web address] and then click on the Charla logo. HOW TO SAFELY DISPOSE OF PRESCRIPTION MEDICATIONS Please use one of the following methods to safely dispose of your unused medications. 1.Use a drug disposal kit: the drug disposal pouch allows you to safely discard your old and unuseddrugs. Ask your nurse to give you one when you are discharged.2.Visit a local take-back location: Many local pharmacies and police departments have programs that collect old and unwanted prescriptiondrugs. Call your local pharmacy or go to http://bit.[employer]./7H8Am5g to find one close to you.3.Make use of household items: Use cat litter or old coffee grounds to dispose medications if other options arenot available. Mix your drugs with these household products, seal them in an airtight container andthrow it into the garbage. Call [facility]: [phone] to be sure your drugs can be [...] drowsiness, such as benzodiazepines, also known as benzos,including diazepam and alprazolam, muscle relaxants or sleep aids. Never sell or share prescriptionopioids. This is illegal. Store opioids in a [...] aware that I should contact my doctor. 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 The reddened areas havea visible border. An open sore may leak [...] or higher after 2 days on antibiotics 6442-3520 [employer]. [address] [place] [address], [place] [address]. All rights reserved. This information is not intended as a substitute for professional medical care. Always follow yourhealthcare professional's instructions. Follow Up Care 08/01/2022 17:32:18 With:MARIA E WAYNE DO Address: [address] [place] [phone] When:2-4 days [facility] 11-04-2022 Note Discharge Instructions Thank you for allowing [facility] to assist you with your healthcare needs. The following is importantdischarge information regarding your hospital visit. Diagnosis from Today's Visit Cellulitis Skin problem What to Do Next Instructions from Your Care Team Compresses to the area 4-5 times a day. Return if increasing swelling, pain, fevers, vomiting or elevated blood sugar. No qualifying data available. Post Acute Orders No qualifying data available. You Need to Schedule the Following Appointments Follow Up with MARIA E WAYNE DO When Within 2-4 days Where: [address] [place] [phone] Allergies Benadryl (Sinus tachycardia) Medications Please ask your primary doctor or pharmacist before taking any other medication not listed, including over the counter drugs, herbal medications, vitamins and or supplements as they may interact withyour home medications. What How Much When Why [...] or retail pharmacies. Medication Leaflets doxycycline (oral/injection) (SHADIA kumari) Acticlate, Adoxa, Alodox, Avidoxy, Doryx, Mondoxyne [...] eye infections, gonorrhea, chlamydia, periodontitis (gum disease), andothers. Doxycycline is also used to treat blemishes, [...] effective. Ask your doctor about using a non-hormonalbirth control (condom, diaphragm with spermicide) to prevent . Doxycycline can pass into breast milk and may affect bone and tooth development in a nursing infant. Do not breastfeed while you are taking doxycycline. Doxycycline can cause permanent yellowing or graying of the teeth in children younger than 8 years old. Children should use doxycycline only in cases of severe or life-threatening conditions such as anthrax or Keno spotted fever. The benefit of treating a [...] provided, or with a special dose-measuring spoon ormedicine cup. If you do not have a [...] reaction (fever, sore throat, burning in your eyes,skin pain, red or purple skin rash that spreads and causes blistering and peeling). Seek medical treatment if you have a serious drug reaction that can affect many parts of your body.Symptoms may include: skin rash, fever, swollen glands, flu- like symptoms, muscle aches, severe weakness, unusual bruising, [...] may report side effects to FDA at [phone]. What other drugs will affect doxycycline? Sometimes it is not safe to use certain medications at the same time. Some drugs can affect your blood levels of other drugs you take, which may increase side effects or make the medications less effective. Other drugs may affect doxycycline, including prescription and xzzl-pxv-zsszjhv medicines, vitamins, and herbal products. Tell your [...] to ensure that the information provided by [employer]. ('[employer]') is accurate, up-to-date, and complete, but no guarantee is made to that effect. Drug information contained herein may be time sensitive. [employer] information has been compiled for use by healthcare practitioners and consumers in the [place] and therefore [employer] does not warrant that uses outside of the [place] are appropriate, unless specifically indicated otherwise. [employer] drug information does not endorse drugs, diagnose patients or recommend therapy. [employer] drug information isan informational resource designed to assist licensed healthcare practitioners in caring for their p atients and/or to serve consumers viewing this service as a supplement to, and not a substitute for, the expertise, skill, knowledge and judgment of healthcare practitioners. The absence of a warningfor a given drug or drug combination in no way should be construed to indicate that the drug or drug combination is safe, effective or appropriate for any given patient. [employer] does not assume any responsibility for any aspect of healthcare administered with the aid of information [employer] provides. The information contained herein is not intended to cover all possible uses, directions, precautions, warnings, drug interactions, allergic reactions, or adverse effects. If you have questions about the drugs you are taking, check with your doctor, nurse or pharmacist. Copyright 9406-2661 [employer]. Version: 21.04. Revision Date: 08/01/2020. Education Materials [...] swollen, warm, and sore. The reddened areas havea visible border. An open sore may leak [...] or higher after 2 days on antibiotics 5423-5072 [employer]. [address] [place] [address]. All rights reserved. This information is not intended as a substitute for professional medical care. Always follow yourhealthcare professional's instructions. Additional Information VACCINATE! IT SAVES LIVES! Members of the community who have not yet received the COVID-19 vaccine and would like to receive it can visit one of [facility] vaccine clinics. There are many vaccine clinic locations within the [facility]. For locations and available times, please visit www.[email or web address].[place].org. It is important to note that some COVID mobile vaccine clinics are held outdoors and may be canceled in rainy orstormy conditions. To learn more about pediatric vaccinations (ages 5-11), we invite you to visit the [facility] webpage. https://www.[facility].org/pages/5620-Hlwlb-Jsdwwzomrwh-Tomorgfesp-Dylik-Igl stions.htmlTo learn more about the COVID-19 vaccine, we invite you to visit the [employer] website for a list of frequently asked questions. https://Kore Virtual Machines.Truffls/assets/Jgvbrrnf-ihq-Zohakuwi/mjott-Ezrbnlo-Nsstxbczhv _Asked-Questions.pdf [facility] Patient Portal Access Instructions: Stay connected with your healthcare team and access your personal medical information anytime with the [facility] Patient Portal. If you would like a full copy of your medical records please contact the [facility] Medical Records Department Thursday through Thursday between 8a.m. and 4:30p.m. Please follow the directions below to access the portal: 1.Access the email account you provided upon registration to the [facility].2.Look for an invitation email from [facility].3.Open the email and access the invitation link: Accept Invitation to [facility]4.Fill in the required melendez to create your account. Sign into [email or web address] with your username and password that you [...] you will allow to register on the [facility] Patient Portal for access to your information. You can also access the [facility] Patient Portal on the [employer]. Simply click on Health Records under [email or web address] and then click on the Charla logo. HOW TO SAFELY DISPOSE OF PRESCRIPTION MEDICATIONS Please use one of the following methods to safely dispose of your unused medications. 1.Use a drug disposal kit: the drug disposal pouch allows you to safely discard your old and unuseddrugs. Ask your nurse to give you one when you are discharged.2.Visit a local take-back location: Many local pharmacies and police departments have programs that collect old and unwanted prescriptiondrugs. Call your local pharmacy or go to http://OxiCool.[employer]./5O3Df7u to find one close to you.3.Make use of household items: Use cat litter or old coffee grounds to dispose medications if other options arenot available. Mix your drugs with these household products, seal them in an airtight container andthrow it into the garbage. Call [facility]: [phone] to be sure your drugs can be [...] drowsiness, such as benzodiazepines, also known as benzos,including diazepam and alprazolam, muscle relaxants or sleep aids. Never sell or share prescriptionopioids. This is illegal. Store opioids in a [...] aware that I should contact my doctor. 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 The reddened areas havea visible border. An open sore may leak [...] or higher after 2 days on antibiotics [id number] [employer]. [address] [place] [address], [place] [address]. All rights reserved. This information is not intended as a substitute for professional medical care. Always follow yourhealthcare professional's instructions. Follow Up Care 07/21/2021 01:50:54 With:MARIA E WAYNE DO Address: [phone] When:2-4 days [facility] 05-28-2021 History of Present illness Narrative 31-year-old male spoken to over telephone as a follow-up from colonoscopy on 02/22/2021 scheduled for chronic diarrhea. His colon and ileum were normal with random biopsies negative for microscopic colitis. Prior stool cultures were negative. Patient states his diarrhea is now occurring roughly onceper week and seems to be food dependent. [...] There has been no change in prescription medications.[facility] Work Phone: Evaluation + Plan note Future Appointments Appointment Date:07/22/2021 09:00:00 AM Scheduled Provider:MARIA E WAYNE DO Location:[facility] Appointment Type: OV [facility] Evaluation + Plan note Future Appointments Appointment Date:04/02/2023 10:00:00 AM Scheduled Provider:MARIA E WAYNE DO Location:[facility] Appointment Type: OV [facility] Evaluation + Plan note Future Appointments Appointment Date:02/05/2023 05:30:00 PM Scheduled Provider:MARIA E WAYNE DO Location:[facility] Appointment Type:PC OV Appointment Date:02/24/2023 10:30:00 AM Scheduled Provider:MARIA E WAYNE DO Location:[facility] Appointment Type:PC OV Appointment Date:04/02/2023 10:00:00 AM Scheduled Provider:MARIA E WAYNE DO Location:[facility] Appointment Type: OV [facility] Evaluation + Plan note Future Appointments Appointment Date:08/16/2024 10:00:00 AM Scheduled Provider: Location:[facility] Appointment Type:PC Nurse BP Check Appointment Date:01/24/2025 10:00:00 AM Scheduled Provider:MARIA E WAYNE DO Location:[facility] Appointment Type:PC OV [facility] Evaluation + Plan note Future Appointments Appointment Date:04/25/2025 09:45:00 AM Scheduled Provider:KRISHNA SANCHES DO Location:[facility] Appointment Type:PC OV [facility] Evaluation noteNo assessment information available [facility] Work Phone: Hospital course Narrative No data available for this section [facility] Hospital Discharge instructions No data available for this section [facility] Progress note No data available for this section [facility] Family History No Family History Records FoundUnknown [...] Purpose Advance Directives No Advanced Directives Records Found Advance Directive Response Recorded Date/ Time Advance Directives No January 20, 016 7:54am Living Will No January 21, 2016 7:54am 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 of 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 No January 20 7:54am Additional Source Comments (unrecognized sect ion and content) No Status Records FoundNo Status Records FoundNo Status Records FoundNo Status Records FoundNo Status Records Found INFORMATION SOURCE (unrecogn ized section and content) DATE CREATED AUTHOR 03/18/2021 [facility] DATE CREATED AUTHOR AUTHOR'S ORGANIZ ATION 03/18/2021 [employer] DATE CREATED AUTHOR AUTHOR'S ORGANIZ ATION 02/01/2023 [facility] ([place] DATE CREATED AUTHOR AUTHOR'S ORGANIZ ATION 02/02/2025 [facility] DATE CREATED AUTHOR AUTHOR'S ORGANIZ ATION 04/18/2025 [facility] Goals (unrecognized section and content) Goals may be documented in a n alternate section Care Team (unrecognized sect ion and content) Care Team Personnel Name: MARIA E WAYNE DO Position: P4 Physician - Primary Care Member Role: Primary Care Physician Address: Address: [address] [place] [address] Name: JONATHAN Handley Position: AO RN Member Role: ED RN Name: MD EDWINA, DOUGLAS TENORIO Position: ED Physician Member Role: ED Physician Address: Address: [address] [place] [address] Care Team Related Persons Name: DAWN SAWANT Care Team Personnel Name: MARIA E WAYNE DO Position: P4 Physician - Primary Care Member Role: Primary Care Physician Address: Address: [address] [place] [address] Care Team Related Persons Name: DAWN SAWANT Patient Care team informatio n (unrecognized section and content) Care Team Personnel Name: MARIA E WAYNE DO Position: P4 Physician - Primary Care Member Role: Primary Care Physician Address: Address: [address] [place] [address] Name: JONATHAN Toth Position: AO RN Member Role: ED RN Name: CONCEPCION MARTINEZ DO Position: ED Physician Member Role: Attending Physician Address: Address: [address] [place] [address] [facility] [address] Name: Umm Leigh RN Position: AO RN Member Role: ED RN Care Team Related Persons Name: DAWN SAWANT Care Team Personnel Name: MARIA E WAYNE Position: P4 Physician - Primary Care Member Role: Primary Care Physician Address: Address: [address] [place] [address] Care Team Related Persons Name: DAWN SAWANT Care Team Personnel Name: MARIA E WAYNE Position: P4 Physician - Primary Care Member Role: Primary Care Physician Address: [address] [place] [address] Telecom: Care Team Related Persons Name: DAWN SAWANT Name: DAWN SAWANT FOR RECORDS PERTAINING TO PATIENTS WHO ARE [...] BE BASED ON THE PRIMARY CLINICAL RECORDS. [employer] provides no warranty or guarantee of the accuracy or completeness of information in this document.
== END | disposition home or self-care (01) ==
LOC: LAB 10:09
PROVIDERS: Referring Provider Student in an Organized Health Care Education/Training Program; Visit Provider Student in an Organized Health Care Education/Training Program
DX: F31.81 Bipolar II disorder (principal)
CPT/HCPCS: 36415; 80178

== ENCOUNTER → 2025-06-16 | Outpatient (CLI) | payer BC, SELFPAY ==
--- OUTSIDE RECORDS SUMMARY | 2025-06-16 09:15 | XMS RPT_ITS | CCD ---
Author Organization [facility] Care Team Providers Care Roll Hand Name Role Phone Maine Adrian Unavailable Unavailable Unavailable MARIA E WAYNE DO Primary Care Physician [phone] MARIA E WAYNE DO Primary Care Physician [phone] CONCEPCION MARTINEZ DO Attending Unavailable MARIA E WAYNE DO Primary Care Unavailable EDWINA TENORIO, DR COLE Attending Unavailab MARIA E Gallagher DO Primary Care Unavailable MARIA E WAYNE DO Attending Unavailable MARIA E WAYNE DO Primary Care Unavailable KRISHNA SANCHES DO Primary Care Physician KRISHNA SANCHES DO Attending Unavailable KRISHNA SANCHES DO Primary Care Unavailable MARIA E WAYNE DO Attending Unavailable MARIA E WAYNE DO Primary Care Unavailable MARIA E WAYNE DO Primary Care Unavailable KARLA VILCHIS MD Attending Unavailable Cleveland Paula Attending Unavailable Krishna Sanches Primary Care Unavailable Krishna Sanches Primary Care Unavailable Cleveland Paula Attending Unavailable Maria E Wayne Primary Care Unavailable Cleveland Paula Attending Unavailable Maria E Wayne Primary Care Unavailable SeeCleveland pyle Attending Unavailable Maria E Wayne Primary Care Unavailable Seese Cleveland L Attending Unavailable Maria E Wayne Primary Care Unavailable SeeCleveland pyle Attending Unavailable Rosana Maria E Primary Care Unavailable SeeCleveland pyle Attending Unavailable Krishna Sanches Primary Care Unavailable Seese Cleveland L Attending Unavailable Seese Cleveland L Referring Unavailable SanchesKrishna reyna Primary Care Unavailable SeeCleveland pyle L Referring Unavailable Cleveland Paula Attending Unavailable Krishna Sanches Primary Care Unavailable Jose Torre Attending Unavailable Jose Torre Referring Unavailable Allergies Allergy Classification Reported Allergen(s) Allergy Type Date of Onset Reaction(s) Facility diphenhydrAMINE (3 sources) diphenhydrAMINE; Translations: [Benadryl] Drug Allergy Shortness of breath, [facility] Work Phone: (8 sources) diphenhydrAMINE; Translations: [Benadryl] Drug Allergy Sinus tachycardia (finding) [facility] Work Phone: (2 sources) diphenhydrAMINE; Translations: [diphenhydramine HCl] Drug Allergy 9 TACHYCARDIA/FLU [facility] Repository Medications Current Medications Medication Drug Class(es) Dates Sig (Normalized) Sig (Original) 3 ML semaglutide 2.68 MG/ML Pen Injector [Ozempic] (3 sources) Start: 11-15-2024 End: 10-17-2025 inject 1 dose by subcutaneous injection every week Ozempic 8 mg/3 mL (2 mg dose) subcutaneous solution Dose : 2 mg =, Subcutaneous, qWeek, in the abdomen, thigh, or upper arm, # 3 mL, 11 Refill(s), Pharmacy: [facility], 182.5, cm, 07/26/24 10:51:00 EDT, Height, kg, 07/26/24 10:51:00 EDT, Dosing Weight Start Date: 11/15/24 Stop Date: 10/17/25 Status: Ordered Medication Dispense Status: Completed Quantity: 3.0 Unit: mL Total Allowed Fills: 12 Fills Dispensed: 0 Start: 11-15-2024 End: 10-17-2025 inject 1 dose by subcutaneous injection every week Ozempic 8 mg/3 mL (2 mg dose) subcutaneous solution Dose : 2 mg =, Subcutaneous, qWeek, in the abdomen, thigh, or upper arm, # 3 mL, 11 Refill(s), Pharmacy: [facility], 182.5, cm, 07/26/24 10:51:00 EDT, Height, [...] arm, # 3 mL, 11 Refill(s), Pharmacy: [facility], 182, cm, 01/25/24 8:53:00 EDT, Height, kg, 01/25/24 8:53:00 EDT, Dosing Weight Start Date: 01/25/24 Stop Date: 12/26/24 Status: Ordered ARIPiprazole 20 mg oral tablet (7 sources) Atypical Antipsychotic Start: 09-25-2022 ARIPipr azole 20 mg oral tablet Dose : 20 mg = 1 tab(s), Oral, qDay, # 90 tab(s), 1 Refill(s), Pharmacy: [facility]/pharmacy #[id number], 184, cm, 09/25/22 10:25:00 EST, Height, kg, 09/25/22 10:25:00 EST, Dosing Weight Start Date: 09/25/22 Status: Ordered Start: 08-21-2021 ARIPiprazole 2 0 mg oral tablet Dose : 20 mg = 1 tab(s), Oral, qDay, # 90 tab(s), 3 Refill(s), Pharmacy: [facility]/pharmacy #[id number], 184, , 07/29/21 13:07:00 EDT, Height, kg, 07/29/21 13:07:00 EDT, Dosing Weight Start Date: 08/21/21 Status: Ordered Start: 12-23-2019 ARIPiprazole 2 0 mg oral tablet Dose : 20 mg = 1 tab(s), Oral, qDay, # 90 tab(s), 3 Refill(s), Pharmacy: [facility]/pharmacy #[id number], 184, , 07/23/20 11:28:00 EDT, Height, kg, 07/23/20 11:28:00 EDT, Dosing Weight Start Date: 07/23/20 Status: Ordered baclofen 10 mg oral tablet (6 sources) gamma-Aminobutyric Acid-ergic Agonist Start: 04-25-2025 baclofen 10 mg oral tablet See Instructions Start Date: 04/25/25 Status: Ordered Medication Dispense Status: Completed Total Allowed Fills: 1 Fills Dispensed: 0 Start: 12-21-2018 baclofen 10 mg oral tablet Dose : 10 mg = 1 tab(s), Oral, TID, TAKE 1 TABLET 3 TIMES A DAY Start Date: 12/21/18 Status: Ordered Start: 12-29-2015 take 20 mg by mouth every six hours Baclofen Active 20 MG PO EVERY 6 HOURS December 29, 2015 12:00am bisoprolol fumarate 5 mg oral tablet (1 source) beta-Adrenergic Lamin Start: 04-25-2025 bisopr olol 5 mg oral tablet Dose : 5 mg = 1 tab(s), Oral, BID, # 90 tab(s), 1 Refill(s), [id number], HTN (hypertension), 182.5, cm, 04/25/25 9:58:00 EDT, Height, kg, 04/25/25 9:47:00 EDT, Dosing Weight Start Date: 04/25/25 Status: Ordered Medication Dispense Status: Completed Quantity: 90.0 Unit: tab(s) Total Allowed Fills: 2 Fills Dispensed: 0 Indications: Essential (primary) hypertension; Blood Glucose Test Machine (6 sources) Start: 07-29-2021 Blood Glucose Test Machine See Instructions, Use as directed daily to test blood sugars; diagnosis: E11.9, # 1 EA, 0 Refill(s), [id number], Type 2 diabetes mellitus, 184, cm, 07/29/21 13:07:00 EDT, Height, 159.9, kg, 07/29/21 13:07:00 EDT, Dosing Weight Start Date: 07/29/21 Status: Ordered Medication Dispense Status: Completed Quantity: 1.0 Unit: EA Total Allowed Fills: 1 Fills Dispensed: 0 Indications: Type 2 diabetes mellitus without complications; Start: 07-29-2021 Blood Glucose Test Machine See Instructions, Use as directed daily to test blood sugars; diagnosis: E11.9, # 1 EA, 0 Refill(s), [id number], Type 2 diabetes mellitus, 184, cm, 07/29/21 13:07:00 EDT, Height, 159.9, kg, 07/29/21 13:07:00 EDT, Dosing Weight Start Date: 07/29/21 Status: Ordered Quantity: 1.0 Unit: EA Repeat number: 1 Indications: Type 2 diabetes mellitus without complications; Start: 07-29-2021 Blood Glucose Test Machine See Instructions, Use as directed daily to test blood sugars; diagnosis: E11.9, # 1 EA, 0 Refill(s), Pharmacy: [facility]/pharmacy #[id number], Type 2 diabetes mellitus, 184, cm, 07/29/21 13:07:00 EDT, Height, 159.9, kg, 07/29/21 13:07:00 EDT, Dosing Weight Start Date: 07/29/21 Status: Ordered busPIRone hydrochloride 15 mg oral tablet (4 sources) Start: 04-25-2025 take 1 tablet by mouth once daily busPIRone 15 mg oral tablet TAKE 1 TABLET BY MOUTH 3X A DAY Start Date: 04/25/25 Status: Ordered Medication Dispense Status: Completed Total Allowed Fills: 1 Fills Dispensed: 0 Start: 01-23-2023 take 1 tablet by ashli th twice daily busPIRone 15 mg oral tablet [...] Date: 07/21/21 Stop Date: 07/31/21 Status: Ordered cloNIDine hydrochloride 0.1 mg oral tablet (1 source) Central alpha-2 Adrenergic Agonist Start: 04-25-2025 cloNIDine 0.1 mg ora l tablet Dose : 0.1 mg = 1 tab(s), Oral, TID, PRN Hypertensive episodes, Take for BP > 160 systolic or > 90 diastolic, or 30-60 min before stressful events, # 30 tab(s), 1 Refill(s), Pharmacy: [facility]/pharmacy #[id number], Hypertension, 182.5, cm, 04/25/25 9:58:00 EDT, Height, kg, 04/25/25 9:47:00 EDT, Dosing Weight Start Date: 04/25/25 Status: Ordered Medication Dispense Status: Completed Quantity: 30.0 Unit: tab(s) Total Allowed Fills: 2 Fills Dispensed: 0 Indications: Essential (primary) hypertension; Essential (primary) hypertension; dapagliflozin 10 mg oral tablet (4 sources) Sodium-Glucose Cotransporter 2 Inhibitor Start: 01-09-2025 Farxiga 10 mg oral tablet Dose : 10 mg = 1 tab(s), Oral, qDay, # 30 tab(s), 11 Refill(s), [id number], Type 2 diabetes mellitus, 185, cm, 12/12/24 9:51:00 EDT, Height, kg, 12/12/24 9:51:00 EDT, Dosing Weight Start Date: 01/09/25 Status: Ordered Medication Dispense Status: Completed Quantity: 30.0 Unit: tab(s) Total Allowed Fills: 12 Fills Dispensed: 0 Indications: Type 2 diabetes mellitus without complications; Start: 07-13-2024 Farxiga 10 mg oral tablet Dose : 10 mg = 1 tab(s), Oral, qDay, Zay will be bringing in a discount coupon, # 30 tab(s), 11 Refill(s), [id number], Type 2 diabetes mellitus, 182, cm, 01/25/24 8:53:00 EDT, Height, kg, 01/25/24 8:53:00 EDT, Dosing Weight Start Date: 07/13/24 Status: Ordered Start: 11-20-2022 Farxiga 10 mg oral tablet Dose : 10 mg = 1 tab(s), Oral, qDay, Zay will be bringing in a discount coupon, # 30 tab(s), 5 Refill(s), [id number], Type 2 diabetes mellitus, 183.5, cm, 11/20/22 8:36:00 EST, Height, kg, 11/20/22 8:36:00 EST, Dosing Weight Start Date: 11/20/22 Status: Ordered dicyclomine hydrochloride 20 mg oral tablet (4 sources) Anticholinergic Start: 03-18-2021 dicyclomine 20 mg oral tablet Dose : 20 mg = 1 tab(s), Oral, q6h, PRN as needed, 0 Refill(s) Start Date: 03/30/21 Status: Ordered DME MISCellaneous (3 sources) Start: 04-25-2025 DME MISCellane ous See Instructions, - Auto-PAP with pressure range 5-20 cm H2O, with download - PAP interface (mask) fitted for patient comfort - Heated humidification ., # 1 EA, 0 Refill(s), ROQUE sleep study 2019. AHI 12, REM AHI 33 severe, desaturations to 74% severe, 149 Start Date: 04/25/25 Status: Ordered Medication Dispense Status: Completed Quantity: 1.0 Unit: EA Total Allowed Fills: 1 Fills Dispensed: 0 Indications: Obstructive sleep apnea (adult) (pediatric); Start: 01-24-2025 DME MISCellane ous See Instructions, Dispense 1 automatic blood pressure cuff, use as directed daily to check blood pressure. Diagnosis: I10, # 1 EA, 0 Refill(s), [id number], HTN (hypertension), 182.5, cm, 01/24/25 10:05:00 EDT, Height, 151.5, kg, 01/24/25 10:05:00 EDT, Dosing Weight Start Date: 01/24/25 Status: Ordered Medication Dispense Status: Completed Quantity: 1.0 Unit: EA Total Allowed Fills: 1 Fills Dispensed: 0 Indications: Essential (primary) hypertension; Start: 01-24-2025 DME MISCellane ous See Instructions, Dispense 1 automatic blood pressure cuff, use as directed daily to check blood pressure. Diagnosis: I10, # 1 EA, 0 Refill(s), Pharmacy: [facility]/pharmacy #[id number], HTN (hypertension), 182.5, cm, 01/24/25 10:05:00 EDT, Height, 151.5, kg, 01/24/25 10:05:00 EDT, Dosing Weight Start Date: 01/24/25 Status: Ordered Quantity: 1.0 Unit: EA Repeat number: 1 Indications: Essential (primary) hypertension; esomeprazole 40 mg delayed release oral capsule (10 sources) Proton Pump Inhibitor Start: 10-12-2024 esomeprazole 40 mg oral delayed release capsule Dose : 40 mg = 1 cap(s), Oral, qDay, # 90 cap(s), 3 Refill(s), Pharmacy: [facility]/pharmacy #[id number], 182.5, cm, 07/26/24 10:51:00 EDT, Height, kg, 07/26/24 10:51:00 EDT, Dosing Weight Start Date: 10/12/24 Status: Ordered Medication Dispense Status: Completed Quantity: 90.0 Unit: cap(s) Total Allowed Fills: 4 Fills Dispensed: 0 Start: 10-14-2023 esomeprazole 4 0 mg oral delayed release capsule Dose : 40 mg = 1 cap(s), Oral, qDay, # 90 cap(s), 3 Refill(s), [id number], 188, cm, 09/10/23 7:56:00 EST, Height, kg, 09/10/23 7:56:00 EST, Dosing Weight Start Date: 10/14/23 Status: Ordered Start: 09-25-2022 esomeprazole 4 0 mg oral delayed release capsule Dose : 40 mg = 1 cap(s), Oral, qDay, # 90 cap(s), 1 Refill(s), [id number], 184, cm, 09/25/22 10:25:00 EST, Height, kg, 09/25/22 10:25:00 EST, Dosing Weight Start Date: 09/25/22 Status: Ordered Start: 12-29-2015 esomeprazole 4 0 mg oral delayed release capsule Dose : 40 mg = 1 cap(s), Oral, qDay, # 90 cap(s), 3 Refill(s), [id number], 184, cm, 07/29/21 13:07:00 EDT, Height, [...] 12:00am hydrOXYzine pamoate 50 mg oral capsule (4 sources) Antihistamine Start: 01-23-2023 hydrOXYzine pamoate 50 mg oral capsule Dose : 50 mg = 1 cap(s), Oral, BID, PRN as needed for anxiety, 0 Refill(s) Start Date: 01/23/23 Status: Ordered Medication Dispense Status: Completed Total Allowed Fills: 1 Fills Dispensed: 0 ketorolac tromethamine 10 mg oral tablet (1 [...] qHS, # 45 tab(s), 3 Refill(s), Pharmacy: [facility]/pharmacy #[id number], 188, cm, 09/10/23 7:56:00 EST, Height, kg, 09/10/23 7:56:00 EST, Dosing Weight Start Date: 10/14/23 Status: Ordered Start: 09-25-2022 lisinopril 40 mg oral tablet Dose : 40 mg = 1 tab(s), Oral, qHS, # 90 tab(s), 1 Refill(s), Pharmacy: [facility]/pharmacy #[id number], 184, cm, 09/25/22 10:25:00 EST, Height, kg, 09/25/22 10:25:00 EST, Dosing Weight Start Date: 09/25/22 Status: Ordered Start: 08-21-2021 lisinopril 40 mg oral tablet Dose : 40 mg = 1 tab(s), Oral, qHS, # 90 tab(s), 3 Refill(s), Pharmacy: [facility]/pharmacy #[id number], 184, cm, 07/29/21 13:07:00 EDT, Height, kg, 07/29/21 13:07:00 EDT, Dosing Weight Start Date: 08/21/21 Status: Ordered Start: 06-27-2019 lisinopril 40 mg oral tablet Dose : 40 mg = 1 tab(s), Oral, qHS, # 90 tab(s), 3 Refill(s), Pharmacy: [facility]/pharmacy #[id number], 184, cm, 07/23/20 11:28:00 EDT, Height, kg, 07/23/20 11:28:00 EDT, Dosing Weight Start Date: 07/23/20 Status: Ordered Start: 12-29-2015 take 5 mg by mouth once daily Lisinopril Active 5 MG PO DAILY December 29, 2015 12:00am lithium carbonate 600 mg oral capsule (3 sources) Start: 04-25-2025 take 2 capsules by mouth at bedtime lithium 600 mg oral capsule TAKE 2 CAPSULES BY MOUTH AT BEDTIME Start Date: 04/25/25 Status: Ordered Medication Dispense Status: Completed Total Allowed Fills: 1 Fills Dispensed: 0 Start: 04-20-2023 lithium 450 mg oral tablet, [...] qDay, # 90 tab(s), 1 Refill(s), Pharmacy: [facility]/pharmacy #[id number], HTN (hypertension), 182.5, cm, 01/24/25 10:05:00 EDT, Height, kg, 01/24/25 10:05:00 EDT, Dosing Weight Start Date: 01/24/25 Status: Ordered Quantity: 90.0 Unit: tab(s) Repeat number: 2 Indications: Essential (primary) hypertension; lurasidone hydrochloride 80 mg oral tablet (3 sources) Atypical Antipsychotic Start: 01-25-2024 lurasid one 80 mg oral tablet Dose : 80 mg = 1 tab(s), Oral, qHS, # 90 tab(s), 0 Refill(s) Start Date: 01/25/24 Status: Ordered Medication Dispense Status: Completed Quantity: 90.0 Unit: tab(s) Total Allowed Fills: 1 Fills Dispensed: 0 meloxicam 7.5 mg oral tablet (8 sources) [...] 12:00am metFORMIN hydrochloride 500 mg oral tablet (6 sources) Biguanide Start: 01-09-2025 MetFORMIN (Eqv -Glucophage XR) 500 mg oral tablet, EXTENDED RELEASE Dose : 1,000 mg = 2 tab(s), Oral, qDay, # 180 tab(s), 3 Refill(s), Pharmacy: [facility]/pharmacy #[id number], Type 2 diabetes mellitus, 185, cm, 12/12/24 9:51:00 EDT, Height, kg, 12/12/24 9:51:00 EDT, Dosing Weight Start Date: 01/09/25 Status: Ordered Medication Dispense Status: Completed Quantity: 180.0 Unit: tab(s) Total Allowed Fills: 4 Fills Dispensed: 0 Indications: Type 2 diabetes mellitus without complications; Start: 10-19-2023 MetFORMIN (Eqv -Glucophage XR) 500 mg oral tablet, EXTENDED RELEASE Dose : 1,000 mg = 2 tab(s), Oral, qDay, # 180 tab(s), 3 Refill(s), Pharmacy: [facility]/pharmacy #[id number], 188, cm, 09/10/23 7:56:00 EST, Height, kg, 09/10/23 7:56:00 EST, Dosing Weight Start Date: 10/19/23 Status: Ordered Start: 10-06-2022 metFORMIN 500 mg oral tablet EXTENDED RELEASE Dose : 2,000 mg = 4 tab(s), Oral, qDay, # 360 tab(s), 3 Refill(s), [id number], 184, cm, 09/25/22 10:25:00 EST, Height, kg, 09/25/22 10:25:00 EST, Dosing Weight Start Date: 10/06/22 Status: Ordered Start: 07-29-2021 metFORMIN 500 mg oral tablet EXTENDED RELEASE Dose : 2,000 mg = 4 tab(s), Oral, qDay, # 360 tab(s), 3 Refill(s), [id number], 184, cm, 07/29/21 13:07:00 EDT, Height, kg, 07/29/21 13:07:00 EDT, Dosing Weight Start Date: 07/29/21 Status: Ordered metoprolol tartrate 50 mg oral tablet (1 source) beta-Adrenergic Lamin Start: 12-29-2015 take 50 mg by mouth once daily Metoprolol Tartrate Active 50 MG PO DAILY December 29, 2015 12:00am mupirocin 0.02 mg/mg topical ointment (2 sources) RNA Synthetase Inhibitor Antibacterial Start: 12-12-2024 apply 1 dose topically three times daily mupirocin 2% topical ointment Apply 1 pankaj, Topical, TID, # 30 gram(s), 0 Refill(s), [id number], Ointment, 185, cm, 12/12/24 9:51:00 EDT, Height, 152.8, kg, 12/12/24 9:51:00 EDT, Dosing Weight Start Date: 12/12/24 Status: Ordered Medication Dispense Status: Completed Quantity: 30.0 Unit: g Total Allowed Fills: 1 Fills Dispensed: 0 Indications: Local infection of the skin and [...] Ordered Start: 02-27-2020 take 1 capsule by mo [facility] twice daily Xtampza ER 13.5 MG Oral Capsule ER 12 Hour Abuse-Deterrent TAKE 1 CAPSULE BY MOUTH TWICE A DAY Quantity: 56 Refills: 0 Ordered: 03-Mar-2020 DO Start : 27-Feb-2020 Active rosuvastatin calcium 10 mg oral tablet (3 sources) HMG-CoA Reductase Inhibitor Start: 10-13-2024 rosuvastatin 10 mg o ral tablet Dose : 10 mg = 1 tab(s), Oral, qDay, # 90 tab(s), 3 Refill(s), Pharmacy: [facility]/pharmacy #[id number], Type 2 diabetes mellitus, 182.5, cm, 07/26/24 10:51:00 EDT, Height, kg, 07/26/24 10:51:00 EDT, Dosing Weight Start Date: 10/13/24 Status: Ordered Medication Dispense Status: Completed Quantity: 90.0 Unit: tab(s) Total Allowed Fills: 4 Fills Dispensed: 0 Indications: Type 2 diabetes mellitus without complications; Start: 07-26-2024 rosuvastatin 1 0 mg oral tablet Dose : 10 mg = 1 tab(s), Oral, qDay, # 90 tab(s), 0 Refill(s), Pharmacy: [facility]/pharmacy #[id number], Type 2 diabetes mellitus, 182.5, cm, [...] BID, # 360 tab(s), 1 Refill(s), Pharmacy: [facility]/pharmacy #[id number], 184, cm, 09/25/22 10:25:00 EST, Height, kg, 09/25/22 10:25:00 EST, Dosing Weight Start Date: 09/25/22 Status: Ordered Start: 11-21-2021 venlafaxine 75 mg oral tablet Dose : 150 mg = 2 tab(s), Oral, BID, # 360 tab(s), 3 Refill(s), Pharmacy: [facility]/pharmacy #[id number], 184, cm, 07/29/21 13:07:00 EDT, Height, kg, 07/29/21 13:07:00 EDT, Dosing Weight Start Date: 11/21/21 Status: Ordered Start: 07-23-2020 venlafaxine 75 mg oral tablet Dose : 150 mg = 2 tab(s), Oral, BID, # 360 tab(s), 3 Refill(s), Pharmacy: [facility]/pharmacy #[id number], 184, cm, 07/23/20 11:28:00 EDT, Height, [...] / oxyCODONE hydrochloride 5 mg oral tablet (4 sources) Opioid Agonist Start: 01-25-2024 acetaminophen-oxyC ODONE 325 mg-5 mg oral tablet Dose = 1 tab(s), Oral, q6h, PRN for pain, 0 Refill(s), 160 Start Date: 01/25/24 Status: Ordered Medication Dispense Status: Completed Total Allowed Fills: 1 Fills Dispensed: 0 Start: 01-21-2016 take 1 tablet by ashli [...] q12h, # 14 tab(s), 0 Refill(s), Pharmacy: [facility]/pharmacy #[id number], 182.9, cm, 07/22/21 4:57:00 EDT, Height, [...] [Encounter for pre-employment examination] Episodic Allergic reactions (7 sources) Allergic disorder of skin 03-30-2021 Episodic Anxiety disorders (11 sources) Mixed anxiety and depressive disorder; Translations: [Anxiety disorder] Onset: 01-27-2023 09-25-2022 Chronic Biliary tract disease (1 source) Gallstone; Translations: [Calculus of gallbladder without cholecystitis without obstruction] Episodic Cardiac dysrhythmias (7 sources) Supraventricular tachycardia 04-18-2019 Chronic Diabetes mellitus with complications (1 source) Type 2 diabetes mellitus in obese 04-25-2025 Chronic Diabetes mellitus without complication (8 sources) Type 2 diabetes mellitus; Translations: [Type 2 diabetes mellitus without complications] Onset: 05-16-2025 07-29-2021 Chronic Esophageal disorders (1 source) Gastroesophageal reflux disease 05-16-2025 Chronic Essential hypertension (11 sources) Hypertensive disorder; Translations: [Essential hypertension] Onset: 01-30-2025 12-20-2014 Chronic Joint disorders and dislocations; trauma-related (1 source) Patellar maltracking; Translations: [Other disorders of patella, unspecified knee] Chronic Malaise and fatigue (5 sources) Fatigue 10-27-2022 Episodic Mood disorders (5 sources) Depression; Translations: [Bipolar II disorder] Onset: 05-25-2025 04-18-2019 Chronic Noninfectious gastroenteritis (3 sources) Chronic diarrhea; Translations: [Diarrhea] Episodic Other circulatory disease (3 sources) H/O: hypertension; Translations: [Personal history of other diseases of circulatory system] Episodic Other circulatory disease (3 sources) History of cardiac arrhythmia; Translations: [Personal history of other diseases of circulatory system] Episodic Other nervous system disorders (5 sources) Sleep attack 10-27-2022 Chronic Other nutritional; [...] other specified diseases] Episodic Residual codes; unclassified (7 sources) Chronic pain 05-20-2019 Episodic Screening and history of mental health and substance abuse codes (3 sources) H/O: depression; Translations: [Personal history of other mental disorders] Episodic Skin and subcutaneous tissue infections (2 sources) Cellulitis; Translations: [Cellulitis, unspecified] Onset: 08-01-2022 Episodic Substance-related disorders (1 source) Opioid dependence, uncomplicated; Translations: [Opioid dependence, uncomplicated] Onset: 02-27-2025 Chronic Unclassified (1 source) Long-term current use of proton pump inhibitor therapy 05-16-2025 Results Test Name Value Interpretation Reference Range Facility MR/BMS.BPon 05-25-2025 MR/[place] [address] OFFICE VISIT Date of Service: 05/25/25 MR#: [id number] Acct: [id number] Name: CHIRAG SAWANT Rep #: [id number] : 1990 Provider: Dr. Cleveland Carcamo se, DO Age/Sex: 35/M Location: [facility].BP Status: Signed Intake Vital Signs 04/13/25 10:20 05/25/25 10:19 Height 6 ft 2 in 6 ft 2 in Weight: 327 lb 324 lb BMI 42.0 41.5 BP 148/90 H 85/57 L Blood Pressure Location Lt brachial Lt brachial Position Sitting Sitting Respiration 16 16 Pulse 103 H 96 Pulse Source Monitor Monitor Comment Second BP 129/88 BP Intake Visit Reasons: 6 wk FU Accompanied by: Self Allergies diphenhydramine HCl (From Benadryl) Adverse Reaction (Verified 05/25/25 10:23) TACHYCARDIA/FLUSH Medications ???Medication ???Instructions ???Recorded ???Confirmed ???Type esomeprazole magnesium 40 mg 40 mg PO DAILY 12/29/15 05/25/25 H istory capsule,delayed release (Nexium) baclofen 10 mg tablet 10 mg PO TID 02/11/23 05/25/25 His tory dapagliflozin propanediol 10 mg 10 mg PO DAILY 02/11/23 05/25/25 H istory tablet (Farxiga) metformin 500 mg tablet 1,000 mg PO BID 02/11/23 05/25/25 History oxycodone-acetaminophen 5 mg-325 1 tab PO TID PRN 12/10/23 05/25/25 History mg tablet semaglutide 2 mg/dose (8 mg/3 mL) mg subcut 02/04/24 05/25/25 Histo ry subcutaneous pen injector (Ozempic) buspirone 15 mg tablet 15 mg PO TID #90 tabs 04/04/25 Rx lurasidone 80 mg tablet 80 mg PO QPM #30 tabs 04/13/25 Rx lurasidone 20 mg tablet 20 mg PO QPM #30 tabs 05/10/25 Rx hydroxyzine pamoate 50 mg capsule 50 mg PO BID PRN anxiety 30 days 05/15/25 05/25/25 Rx #180 caps bisoprolol fumarate 5 mg tablet 5 mg PO BID 05/25/25 05/25/25 Hist ory lithium carbonate 600 mg capsule 1,800 mg (3 x 600 mg) PO QHS 30 05/25/25 Rx days #90 caps PFSH Medical History (Updated 04/17/25 @ 06:[address] Cleveland Paula, ) Decreased libido Bipolar II disorder Chronic back [...] follow up evaluation. Patient reports that he attempted to reduce the dose of his lurasidone and it led to significant depression. Since increasing back to 100 has been somewhat more even but still often times depressed. Son has gone back to school starting last week. Son has been having some difficulty with sleep however which adds to some stress. Sleep is fair and is dependent on the night. If anything has problems getting back to sleep. Did try an ED supplement called Rugiet, is a combination of sildenafil, tadalafil and apomorphine. This has been beneficial in sexual side effect control. Review of Systems Constitutional Reports: change in [...] or constipation Genitourinary Reports: change in libido (Improved with supplementation as above); Denies: dysuria or urinary frequency Musculoskeletal Reports: joint pain (knee pain); Denies: back pain, neck pain or muscle weakness Integumentary/Breast Denies: rash or new lesions Neurological Denies: headache(s), dizziness or confusion Endocrine Reports: change in libido (Improved with supplementation as above); Denies: fatigue or excessive sweating Hematologic/Lymphatic Denies: easy bruising or easy bleeding Allergic/Immunologic Denies: wheezing Exam Mental Status Exam - Psych Appearance unkempt and obese Attitude guarded Activity/Motor Behavior MSE activity/motor behavior finding no adventitious movements Speech regular rate, regular volume and regular prosody Mood depressed and anxious Affect restricted (Persistent) Thought Process linear, logical and coherent Thought Content no delusions and no hallucinations Suicidal Ideation none Homicidal Ideation none Attention intact Concentration intact Sensorium/Orientation awake, alert and oriented x3 Memory/Cognition other (appropriate for stated age) (more content not included)... Normal [facility] 05-17-2025 U Creatinine 175.4 mg/dL Normal [facility] Comment on above: Performed By: #### M ALBR #### [address] [address] U Microalb 25.0 mg/L Normal [facility] Comment on above: Performed By: #### M ALBR #### [address] [place], [place] [address] U Ratio Alb/Cre 14 mg/G Normal 0-30 [facility] Comment on above: Performed By: #### M ALBR #### [address] [place], [place] [address] LABORATORYOrdered By: Hilary Araiza on 05-16-2025 Albumin DL <= 20 mg/L (U) [Mass/Vol] 25.0 mg/L Invalid Interpretation Code AO ADM SS Albumin/Creatinine DL <= 20 mg/L (U) [Mass ratio] 14 mg/G Normal 0 - 30 mg/G AO Chemistry S Creatinine (U) [Mass/Vol] 175.4 mg/dL Invalid Interpretation Code AO ADM SS Lithiumon 05-02-2025 LI 0.34 mmol/L Low 0.60-1.20 [facility] Comment on above: Order Comment: [id number] Performed By: #### L 501.9060 #### [facility] [address] [place], [place], [address] MR/BMS.BPon 04-13-2025 MR/BMS.[address], [address] [place], [place] [address] OFFICE VISIT Date of Service: 04/13/25 MR#: [id number] Acct: [id number] Name: CHIRAG SAWANT Rep #: [id number] : 1990 Provider: Dr. [place] Cacramo se, Age/Sex: 35/M Location: [facility].BP Status: Signed Intake Vital Signs 02/14/25 10:55 [...] no hallucinat (more content not included)... Normal [facility] L3410.9992on 02-25-2025 [facility] Misc. COMMENT Normal . [facility] Comment on above: Order Comment: [id number] URINE TOX RT Result Comment: Test Ordered: [id number] Amphetamines Screen, Urine Negative ng/mL UI Reference Range: Bseret=540 Amphetamine test includes Amphetamine and Methamphetamine. Barbiturates Negative ng/mL UI Reference Range: Njjaln=825 Benzodiazepines Negative ng/mL UI Reference Range: Psgymv=373 Cocaine (Metab.), Urine Negative ng/mL UI Reference Range: Xfnmcw=929 Opiates Note: ng/mL UI See Final Results Reference Range: Yyekbb=400 Opiate test includes Codeine, Morphine, Hydromorphone, Hydrocodone. Opiates Negative UI Reference Range: Wvxfkq=072 Opiate test includes Codeine, Morphine, Hydromorphone, Hydrocodone. 6-Acetylmorphine, Urine Negative ng/mL UI Reference Range: Cutoff=10 Oxycodone/Oxymorphone, Urine Note: ng/mL UI See Final Results Reference Range: Lwujvl=704 Test includes Oxycodone and Oxymorphone Oxycodone/Oxymorph Positive [A ] UI Reference Range: Lsjgdg=854 Test includes Oxycodone and Oxymorphone Oxycodone Positive [A ] UI Reference Range: . Oxycodone Conf, MS, UR 2983 ng/mL UI Reference Range: Wwgpif=386 Oxymorphone Positive [A ] UI Reference Range: . Oxymorphone Conf, MS, UR 1336 ng/mL UI Reference Range: Fqmxvu=966 PCP, Urine Negative ng/mL UI Reference Range: Cutoff=25 Methadone Screen, Urine Negative ng/mL UI Reference Range: Abjbtm=902 Propoxyphene, Urine Negative ng/mL UI Reference Range: Madjyn=679 Fentanyl, Urine Negative ng/mL UI Reference Range: Cutoff=2.0 Test includes Fentanyl and Norfentanyl This test was developed and its performance characteristics determined by [facility]. It has not been cleared or approved by the Food and Drug Administration. Tramadol Negative ng/mL UI Reference Range: Yimufh=530 Buprenorphine, Urine Negative ng/mL UI Reference Range: Cutoff=10 Creatinine, Urine 206.8 mg/dL UI Reference Range: 20.0-300.0 pH, Urine 5.3 UI Reference Range: 4.5-8.9 Performed at: [facility] [address] [place], [place] [id number] Recycle Driver: Nir Pike PhD, Phone: [phone] Performed at: [address] [id number] Recycle Driver: Koby Trammell PhD, Phone: [phone] Performed By: #### L 505.5000, [id number] #### [facility] [address] [place], [address] Basic Metabolic Profile (BMP )on 02-24-2025 BUN/CRE 16.5 RATIO Normal 10-20 [facility] Comment on above: Performed By: #### L 501.9060, L500.2500 #### [facility] [address] [place], [address] Calcium [Mass/Vol] 9.7 mg/dL Normal 7.6-11.0 [facility] Comment on above: Performed By: #### L 501.9060, L500.2500 #### [facility] [address] [place], [address] Chloride [Moles/Vol] 104 mmol/L Normal 98-108 [facility] Comment on above: Performed By: #### L 501.9060, L500.2500 #### [facility] [address] [place], [address] CO2 [Moles/Vol] 23.0 mmol/L Normal 21.0-32.0 [facility] Comment on above: Performed By: #### L 501.9060, L500.2500 #### [facility] [address] [place], [address] Creatinine [Mass/Vol] 0.73 mg/dL Normal 0.70-1.20 [facility] Comment on above: Performed By: #### L 501.9060, L500.2500 #### [facility] [address] [place], [address] GAP 11 Normal 5-15 [facility] Comment on above: Performed By: #### L 501.9060, L500.2500 #### [facility] [address] [place], [address] GFR/1.73 sq M.predicted among non-blacks MDRD (S/P/Bld) [Vol rate/Area] 123 mL/min/{1.73_m2} Normal >60 [facility] Comment on above: Result Comment: mL/m in/1.73m2 CKD-EPI Creatinine Equation (2020) Performed By: #### L 501.9060, L500.2500 #### [facility] [address] [place], [address] Glucose [Mass/Vol] 112 mg/dL High 70-99 [facility] Comment on above: Performed By: #### L 501.9060, L500.2500 #### [facility] [address] [place], [address] Potassium [Moles/Vol] 3.7 mmol/L Normal 3.3-5.1 [facility] Comment on above: Performed By: #### L 501.9060, L500.2500 #### [facility] [address] [place], [address] Sodium [Moles/Vol] 138 mmol/L Normal 133-145 [facility] Comment on above: Performed By: #### L 501.9060, L500.2500 #### [facility] [address] [place], [address] Urea nitrogen [Mass/Vol] 12 mg/dL Normal 4-19 [facility] Comment on above: Performed By: #### L 501.9060, L500.2500 #### [facility] [address] [place], [address] Lithiumon 02-24-2025 LI 0.35 mmol/L Low 0.60-1.20 [facility] Comment on above: Order Comment: 2114 Performed By: #### L 501.9060, L500.2500 #### [facility] [address] [place], [address] Urine Drug Screen (VISTA)on 02-22-2025 AMPHETAMINES Negative Normal <1000 ng/mL [facility] Comment on above: Order Comment: UNK Performed By: #### L 505.5000, L3410.9992 #### [facility] [address] [place], [address] BARBITIURATES Negative Normal < 200 ng/mL [facility] Comment on above: Order Comment: UNK Performed By: #### L 505.5000, L3410.9992 #### [facility] [address] [place], [address] BENZODIAZIPINE Negative Normal < 200 ng/mL [facility] Comment on above: Order Comment: UNK Performed By: #### L 505.5000, L3410.9992 #### [facility] [address] [place], [address] BUP Ur Drug Scr Negative Normal < 200 ng/mL [facility] Comment on above: Order Comment: UNK Performed By: #### L 505.5000, L3410.9992 #### [facility] [address] [place], [address] COCAINE Negative Normal < 300 ng/mL [facility] Comment on above: Order Comment: UNK Performed By: #### L 505.5000, L3410.9992 #### [facility] [address] [place], [address] Fentanyl Negative Normal [facility] Comment on above: Order Comment: UNK Performed By: #### L 505.5000, L3410.9992 #### [facility] [address] [place], [address] METHADONE Negative Normal < 300 ng/mL [facility] Comment on above: Order Comment: UNK Performed By: #### L 505.5000, L3410.9992 #### [facility] [address] [place], [address] OPIATES Negative Normal < 300 ng/mL [facility] Comment on above: Order Comment: UNK Performed By: #### L 505.5000, L3410.9992 #### [facility] [address] [place], [address] OXYCODONE Positive Normal < 100 ng/mL [facility] Comment on above: Order Comment: UNK Result Comment: If c onfirmation testing is needed, a separate order will be required to send out testing to the reference laboratory. Performed By: #### L 505.5000, L3410.9992 #### [facility] [address] [place], [address] PCP Negative Normal < 25 ng/mL [facility] Comment on above: Order Comment: UNK Performed By: #### L 505.5000, L3410.9992 #### [facility] [address] [place], [address] THC Negative Normal < 50 ng/mL [facility] Comment on above: Order Comment: UNK Performed By: #### L 505.5000, L3410.9992 #### [facility] [address] [place], [address] MR/BMS.BPon 02-14-2025 MR/BMS.BP [address], [address] [place] [address] OFFICE VISIT Date of Service: 02/14/25 MR#: [id number] Acct: [id number] Name: CHIRAG SAWANT Rep #: [id number] : 1990 Provider: Dr. [place] Carcamo se, DO Age/Sex: 34/M Location: [facility].BP Status: Signed Intake Vital Signs 12/13/24 11:06 [...] 30 days 02/14/25 02/14/25 Rx #60 caps PFSH Medical History Bipolar II disorder Chronic [...] fair Judgeme (more content not included)... Normal [facility] .Auto Diffon 01-30-2025 Basophil, Absolute 0.0 10 3/mcL Normal 0.0-0.3 [facility] Comment on above: Performed By: #### M DW, TROPHS, ANEU, ADIFF, CBC, BMP, GFR #### [address] [address] Basophils/100 WBC (Bld) 0.5 % Normal 0.0-2.5 [facility] Comment on above: Performed By: #### M DW, TROPHS, ANEU, ADIFF, CBC, BMP, GFR #### [address] [address] Eosinophil, Absolute 0.1 10 3/mcL Normal 0.0-0.7 [facility] Comment on above: Performed By: #### M DW, TROPHS, ANEU, ADIFF, CBC, BMP, GFR #### [address] [address] Eosinophils/100 WBC (Bld) 1.1 % Normal 0.0-6.0 [facility] Comment on above: Performed By: #### M DW, TROPHS, ANEU, ADIFF, CBC, BMP, GFR #### [address] [address] Lymphocyte, Absolute 2.3 10 3/mcL Normal 0.9-4.3 [facility] Comment on above: Performed By: #### M DW, TROPHS, ANEU, ADIFF, CBC, BMP, GFR #### [address] [address] Lymphocytes/100 WBC (Bld) 27.1 % Normal 20.0-40.0 [facility] Comment on above: Performed By: #### M DW, TROPHS, ANEU, ADIFF, CBC, BMP, GFR #### [address] [address] Monocyte, Absolute 0.6 10 3/mcL Normal 0.1-1.4 [facility] Comment on above: Performed By: #### M DW, TROPHS, ANEU, ADIFF, CBC, BMP, GFR #### [address] [address] Monocytes/100 WBC (Bld) 6.6 % Normal 2.0-13.0 [facility] Comment on above: Performed By: #### M DW, TROPHS, ANEU, ADIFF, CBC, BMP, GFR #### [address] [place], [place] [address] Neutrophils/100 WBC (Bld) 64.7 % Normal 50.0-75.0 [facility] Comment on above: Performed By: #### M DW, TROPHS, ANEU, ADIFF, CBC, BMP, GFR #### [address] [place], [place] [address] .GFRon 01-30-2025 GFR/1.73 sq M.predicted among non-blacks MDRD (S/P/Bld) [Vol rate/Area] mL/min/{1.73_m2} Normal [facility] Comment on above: Result Comment: Stages of [...] calculate the eGFR results. Performed By: #### M DW, TROPHS, ANEU, ADIFF, CBC, BMP, GFR ####[facility] [place], [place] [address] .MDWon 01-30-2025 Monocyte Distribution Width 16.32 Normal 0.00-20.00 [facility] Comment on above: Result Comment: For ED adult patients suspected of sepsis, MDW<=20.0 does not rule out sepsis or risk of sepsis Performed By: #### M DW, TROPHS, ANEU, ADIFF, CBC, BMP, GFR ####[facility] [place], [place] [address] .NEUABSon 01-30-2025 Neutrophil, Absolute 5.4 10 3/mcL Normal 2.3-8.1 [facility] Comment on above: Performed By: #### M DW, TROPHS, ANEU, ADIFF, CBC, BMP, GFR ####[facility] [place], [place] [address] BMPon 01-30-2025 BUN/Creatinine Ratio 18 ratio Normal 7-27 [facility] Comment on above: Performed By: #### M DW, TROPHS, ANEU, ADIFF, CBC, BMP, GFR ####[address] [place], [place] [address] Calcium [Mass/Vol] 10.5 mg/dL High 8.4-10.2 [facility] Comment on above: Performed By: #### M DW, TROPHS, ANEU, ADIFF, CBC, BMP, GFR ####[address] [place], [place] [address] Chloride [Moles/Vol] 107 mmol/L Normal 98-107 [facility] Comment on above: Performed By: #### M DW, TROPHS, ANEU, ADIFF, CBC, BMP, GFR ####[address] [place], [place] [address] CO2 [Moles/Vol] 27 mmol/L Normal 22-29 [facility] Comment on above: Performed By: #### M DW, TROPHS, ANEU, ADIFF, CBC, BMP, GFR ####[address] [place], [place] [address] Creatinine [Mass/Vol] 0.71 mg/dL Normal 0.67-1.17 [facility] Comment on above: Performed By: #### M DW, TROPHS, ANEU, ADIFF, CBC, BMP, GFR ####[address] [place], [place] [address] Electrolyte Balance 9.0 mEq/L Normal 4.0-15.0 [facility] Comment on above: Performed By: #### M DW, TROPHS, ANEU, ADIFF, CBC, BMP, GFR ####[address] [place], [place] [address] Glucose [Mass/Vol] 129 mg/dL High 70-105 [facility] Comment on above: Performed By: #### M DW, TROPHS, ANEU, ADIFF, CBC, BMP, GFR ####[address] [address] Potassium [Moles/Vol] 4.5 mmol/L Normal 3.5-5.1 [facility] Comment on above: Performed By: #### M DW, TROPHS, ANEU, ADIFF, CBC, BMP, GFR ####[place] [id number] Sodium [Moles/Vol] 143 mmol/L Normal 136-145 [facility] Comment on above: Performed By: #### M DW, TROPHS, ANEU, ADIFF, CBC, BMP, GFR ####[place] [address] Urea nitrogen [Mass/Vol] 13 mg/dL Normal 7-18 [facility] Comment on above: Performed By: #### M DW, TROPHS, ANEU, ADIFF, CBC, BMP, GFR ####[address] [address] CBCon 01-30-2025 Erythrocyte distribution width (RBC) [Ratio] 14.7 % Normal 11.5-15.5 [facility] Comment on above: Performed By: #### M DW, TROPHS, ANEU, ADIFF, CBC, BMP, GFR #### [place] [id number] Hematocrit (Bld) [Volume fraction] 52.4 % High 40.0-52.0 [facility] Comment on above: Performed By: #### M DW, TROPHS, ANEU, ADIFF, CBC, BMP, GFR #### [address] [address] Hgb 17.7 G/dL High 13.0-17.5 [facility] Comment on above: Performed By: #### M DW, TROPHS, ANEU, ADIFF, CBC, BMP, GFR #### [address] [address] MCH (RBC) [Entitic mass] 29.0 pg Normal 27.0-33.0 [facility] Comment on above: Performed By: #### M DW, TROPHS, ANEU, ADIFF, CBC, BMP, GFR #### [place] [id number] MCHC 33.8 G/dL Normal 32.0-36.0 [facility] Comment on above: Performed By: #### M DW, TROPHS, ANEU, ADIFF, CBC, BMP, GFR #### [place] [address] MCV (RBC) [Entitic vol] 85.7 fL Normal 81.0-100.0 [facility] Comment on above: Performed By: #### M DW, TROPHS, ANEU, ADIFF, CBC, BMP, GFR #### [place] [address] Platelet 186 10 3/mcL Normal 150-450 [facility] Comment on above: Performed By: #### M DW, TROPHS, ANEU, ADIFF, CBC, BMP, GFR #### [place] [address] Platelet mean volume (Bld) [Entitic vol] 8.4 fL Normal 6.4-10.5 [facility] Comment on above: Performed By: #### M DW, TROPHS, ANEU, ADIFF, CBC, BMP, GFR #### [place] [address] RBC 6.11 10 6/mcL High 4.50-6.00 [facility] Comment on above: Performed By: #### M DW, TROPHS, ANEU, ADIFF, CBC, BMP, GFR #### [place] [id number] WBC 8.4 10 3/mcL Normal 4.5-10.8 [facility] Comment on above: Performed By: #### M DW, TROPHS, ANEU, ADIFF, CBC, BMP, GFR #### [place] [address] [address] HEAD OR BRAIN W/O CONTRAS Ton [...] Date: 01/30/2025 7:28:06 PM Ordering Provider: GANESH Obregon [facility] LABORATORYOrdered By: SYSTEM SYSTEM on 01-30-2025 Troponin I.cardiac DL <= 0.01 ng/mL [Mass/Vol] 6 ng/L Normal 0 - 76 ng/L AO ADM SS Comment on above: Interpretive Data: H igh Sensitive Troponin I Reference Ranges: Female: 0-51 ng/L Male: 0-76 ng/L Testing performed on [employer] using a homogeneous sandwich chemiluminescent immunoassay based on [employer] technology. Basophils (Bld) [#/Vol] 0.0 103/mcL Normal [...] ng/L Male: 0-76 ng/L Testing performed on [employer] using a homogeneous sandwich chemiluminescent immunoassay based on [employer] technology. Urea nitrogen [Mass/Vol] 13 mg/dL Normal 7 - 18 mg/dL AO ADM SS Urea nitrogen/Creatinine [Mass ratio] 18 ratio Normal 7 - 27 ratio AO ADM SS WBC (Bld) [#/Vol] 8.4 103/mcL Normal 4.5 - 10.8 10^3/mcL AO Workflow SS Andrey 01-30-2025 High Sensitivity Troponin I 6 ng/L Normal 0-76 [facility] Comment on above: Result Comment: High Sensitive Troponin I Reference Ranges: Female: 0-51 ng/L Male: 0-76 ng/L Testing performed on Dimension EXL using a homogeneous sandwich chemiluminescent immunoassay based on Wik[employer] technology. Performed By: #### T [facility] #### [facility] [address] [place], [place] [address] High Sensitivity Troponin I 7 ng/L Normal 0-76 [facility] Comment on above: Result Comment: High Sensitive Troponin I Reference Ranges: Female: 0-51 ng/L Male: 0-76 ng/L Testing performed on Dimension EXL using a homogeneous sandwich chemiluminescent immunoassay based on [employer] technology. Performed By: #### M DW, TROPHS, ANEU, ADIFF, CBC, BMP, GFR ####[facility] [place], [place] [address] XR CHEST 1 VIEWon 01-30-2025 XR CHEST [...] Date: 01/30/2025 7:39:15 PM Ordering Provider: GANESH Obregon [facility] /BMSEnrrique 12-13-2024 MR/BMS.BP [place], [address] [place], [place] [address] OFFICE VISIT Date of Service: 12/13/24 MR#: [id number] Acct: [id number] Name: CHIRAG SAWANT Rep #: [id number] : 1990 Provider: Dr. [place] Carcamo se, DO Age/Sex: 34/M Location: [facility].BP Status: Signed Intake Vital Signs 10/12/24 10:56 [...] recent past. He is opened enrolled to [employer] but they live in [place]. Was suspended at beginning of year and [...] x3 Memory/Cogniti (more content not included)... Normal [facility] MR/BMS.BPon 10-12-2024 MR/BMS.BP [facility] ry [address] [facility], [address] [place] [address] OFFICE VISIT Date of Service: 10/12/24 MR#: [id number] Acct: [id number] Name: CHIRAG SAWANT Rep #: [id number] : 1990 Provider: Dr. [place] Carcamo se, DO Age/Sex: 34/M Location: [facility].BP Status: Signed Intake Vital Signs 07/14/24 09:27 10/12/24 10:56 Height 6 ft 2 in 6 ft 2 in BP 130/88 H Blood Pressure Location Lt brachial Position Sitting Respiration 16 Pulse 94 Pulse Source Monitor BP Intake Visit Reasons: 2 M FU Accompanied by: Self Allergies diphenhydramine HCl (From Benadryl) Adverse Reaction (Verified 10/12/24 10:58) TACHYCARDIA/FLUSH Medications ???Medication ???Instructions ???Recorded ???Confirmed [...] 5 mg-325 1 tab PO TID PRN 03/14/24 01/15/25 History mg tablet semaglutide 2 mg/dose (8 [...] have been somewhat worse. Currently sees Dr. Torre and essentially was told not to take [...] some interm (more content not included)... Normal [facility] .GFRon 08-02-2024 GFR 91 ml/min/1.73sqm Normal [facility] Comment on above: Result Comment: GFR Population [...] 15 mL/min/1.73 square meters Performed By: #### G FR, CMP, LIPID #### [place] [id number] GFR Non- 75 ml/min/1.73sqm Normal [facility] Comment on above: Result Comment: GFR Population [...] 15 mL/min/1.73 square meters Performed By: #### G FR, CMP, LIPID #### [address] [address] CMPon 08-02-2024 Albumin Level 4.2 G/dL Normal 3.5-5.0 [facility] Comment on above: Performed By: #### G FR, CMP, LIPID #### [address] [address] Albumin/Globulin [Mass ratio] 1.4 {ratio} Normal 1.1-2.5 [facility] Comment on above: Performed By: #### G FR, CMP, LIPID #### [address] [address] ALP [Catalytic activity/Vol] 74 U/L Normal 40-135 [facility] Comment on above: Performed By: #### G FR, CMP, LIPID #### [address] [address] ALT [Catalytic activity/Vol] 55 U/L Normal 16-63 [facility] Comment on above: Performed By: #### G FR, CMP, LIPID #### [address] [address] AST [Catalytic activity/Vol] 30 U/L Normal 10-40 [facility] Comment on above: Performed By: #### G FR, CMP, LIPID #### [address] [address] Bili Total 0.6 mg/dL Normal 0.2-1.0 [facility] Comment on above: Result Comment: Use of this assay is not recommended for patients undergoing treatment with eltrombopag due to the potential for falsely elevated results. Performed By: #### G FR, CMP, LIPID #### [address] [address] BUN/Creatinine Ratio 11 ratio Normal 7-27 [facility] Comment on above: Performed By: #### G FR, CMP, LIPID #### [address] [address] Calcium [Mass/Vol] 9.2 mg/dL Normal 8.4-10.2 [facility] Comment on above: Performed By: #### G FR, CMP, LIPID #### [address] [address] Chloride [Moles/Vol] 102 mmol/L Normal 98-107 [facility] Comment on above: Performed By: #### G FR, CMP, LIPID #### [address] [address] CO2 [Moles/Vol] 27 mmol/L Normal 22-29 [facility] Comment on above: Performed By: #### G FR, CMP, LIPID #### [address] [address] Creatinine [Mass/Vol] 1.13 mg/dL Normal 0.70-1.30 [facility] Comment on above: Result Comment: Test ing performed on [employer] Dimension EXL analyzer using a modified kinetic Liang technique. Performed By: #### G FR, CMP, LIPID #### [address] [address] Electrolyte Balance 11.0 mEq/L Normal 4.0-15.0 [facility] Comment on above: Performed By: #### G FR, CMP, LIPID #### [address] [address] Globulin 3.1 G/dL Normal [facility] Comment on above: Performed By: #### G FR, CMP, LIPID #### [place] [id number] [place], [place] [address] Glucose [Mass/Vol] 120 mg/dL High 70-105 [facility] Comment on above: Performed By: #### G FR, CMP, LIPID #### [facility] [address] [place], [place] [address] Potassium [Moles/Vol] 4.1 mmol/L Normal 3.5-5.1 [facility] Comment on above: Performed By: #### G FR, CMP, LIPID #### [place] [address] [place], [place] [address] Sodium [Moles/Vol] 140 mmol/L Normal 136-145 [facility] Comment on above: Performed By: #### G FR, CMP, LIPID #### [address] [place] [address] [place], [place] [address] Total Protein 7.3 G/dL Normal 6.4-8.2 [facility] Comment on above: Performed By: #### G FR, CMP, LIPID #### [address] [place] [place], [place] [address] Urea nitrogen [Mass/Vol] 12 mg/dL Normal 7-18 [facility] Comment on above: Performed By: #### G FR, CMP, LIPID #### [place] [address] [place], [place] [address] LABORATORYOrdered By: Hilary Araiza on 08-02-2024 Albumin DL <= 20 mg/L (U) [Mass/Vol] 3541 mcg/dL Invalid Interpretation Code AO ADM SS Albumin/Creatinine DL <= 20 mg/L (U) [Mass ratio] 22 mcg/mg Normal 0 - 30 mcg/mg AO ADM SS Creatinine (U) [Mass/Vol] 164.2 mg/dL Normal 39.0 - 259.0 mg/dL AO ADM SS LABORATORYOrdered By: [employer] on 08-02-2024 Albumin BCP dye [Mass/Vol] 4.2 [...] 08-02-2024 Cholesterol [Mass/Vol] 71 mg/dL Normal 0-200 [facility] Comment on above: Result Comment: Chol esterol Reference Interval: Less than 200 Desirable 200-239 Borderline high risk 240 and above High risk Performed By: #### G FR, CMP, LIPID #### [address] [address] Cholesterol in HDL [Mass/Vol] 40 mg/dL Normal 40-60 [facility] Comment on above: Performed By: #### G FR, CMP, LIPID #### [address] [address] Cholesterol in LDL [Mass/Vol] 19 mg/dL Normal 0-130 [facility] Comment on above: Performed By: #### G FR, CMP, LIPID #### [address] [address] Triglyceride [Mass/Vol] 59 mg/dL Normal 0-150 [facility] Comment on above: Result Comment: Trig lyceride Reference Interval: Less than 150 Normal 150-199 Borderline high risk 200-499 High risk 500 or higher Very high risk Performed By: #### G FR, CMP, LIPID #### [address] [address] MALBRon 08-02-2024 U Creatinine 164.2 mg/dL Normal 39.0-259.0 [facility] Comment on above: Performed By: #### M ALBR #### [address] [address] U Microalb 3541 mcg/dL Normal [facility] Comment on above: Performed By: #### M ALBR #### [address] [address] U Ratio Alb/Cre 22 mcg/mg Normal 0-30 [facility] Comment on above: Performed By: #### M ALBR #### [address] [address] MR/BMS.BPjosy 07-14-2024 MR/BMS.[address], [address] [place] [address] OFFICE VISIT Date of Service: 07/14/24 MR#: [id number] Acct: [id number] Name: CHIRAG SAWANT Rep #: [id number] : 1990 Provider: Dr. Cleveland Carcamo se, DO Age/Sex: 34/M Location: [facility].BP Status: Signed Intake Vital Signs 06/16/24 10:09 [...] Bipolar II disorder 08/01/24 0558 Date Cleveland Yusuf Signature: Date (if applicable) CC: [facility] MR/Chelo 06-16-2024 MR/ [address], [place] [address] OFFICE VISIT Date of Service: 06/16/24 MR#: [id number] Acct: [id number] Name: CHIRAG SAWANT Rep #: [id number] : 1990 Provider: Dr. Cleveland Carcamo se, Age/Sex: 34/M Location: [facility].BP Status: Signed Intake Vital Signs 05/09/24 08:48 [...] disorder: Plan (more content not included)... Normal [facility] TOXSCon 01-28-2023 U Ampheta (AO) Negative [facility] ([place]) Comment on above: Performed By: #### M DW, ADIFF, ROOSEVELT, ANEU, CBC, BMP, ALC, ACETA, GFR #### [address] [address] U Mary (AO) Negative [facility] ([place]) Comment on above: Performed By: #### M DW, ADIFF, ROOSEVELT, ANEU, CBC, BMP, ALC, ACETA, GFR #### [address] [address] U Pradip (AO) Negative [facility] ([place]) Comment on above: Performed By: #### M DW, ADIFF, ROOSEVELT, ANEU, CBC, BMP, ALC, ACETA, GFR #### [address] [address] U Cannab (AO) Negative [facility] ([place]) Comment on above: Performed By: #### M DW, ADIFF, ROOSEVELT, ANEU, CBC, BMP, ALC, ACETA, GFR #### [address] [address] U Cocaine (AO) Negative [facility] ([place]) Comment on above: Performed By: #### M DW, ADIFF, ROOSEVELT, ANEU, CBC, BMP, ALC, ACETA, GFR #### [address] [address] U Methadone (AO) Negative [facility] ([place]) Comment on above: Performed By: #### M DW, ADIFF, ROOSEVELT, ANEU, CBC, BMP, ALC, ACETA, GFR #### [address] [address] U PCP (AO) Negative Normal [facility] ([place]) Comment on above: Performed By: #### M DW, ADIFF, ROOSEVELT, ANEU, CBC, BMP, ALC, ACETA, GFR #### [place] [address] U TCA (AO) Negative Normal [facility] ([place]) Comment on above: Performed By: #### M DW, ADIFF, ROOSEVELT, ANEU, CBC, BMP, ALC, ACETA, GFR #### [place] [address] Urine Opiates (AO) Negative Normal [facility] ([place]) Comment on above: Performed By: #### M DW, ADIFF, ROOSEVELT, ANEU, CBC, BMP, ALC, ACETA, GFR #### [place] [address] .Auto Diffon 01-27-2023 Basophil, Absolute 0.1 10 3/mcL Normal 0.0-0.2 [facility]) Comment on above: Performed By: #### M DW, ADIFF, ROOSEVELT, ANEU, CBC, BMP, ALC, ACETA, GFR #### [place] [address] Basophils/100 WBC (Bld) 0.8 % Normal 0.0-2.5 [facility] ([place]) Comment on above: Performed By: #### M DW, ADIFF, ROOSEVELT, ANEU, CBC, BMP, ALC, ACETA, GFR #### [place] [address] Eosinophil, Absolute 0.2 10 3/mcL Normal 0.0-0.4 [facility] ([place]) Comment on above: Performed By: #### M DW, ADIFF, ROOSEVELT, ANEU, CBC, BMP, ALC, ACETA, GFR #### [facility] [place] [address] [place], [place] [address] Eosinophils/100 WBC (Bld) 1.9 % Normal 0.0-7.0 [facility] ([place]) Comment on above: Performed By: #### M DW, ADIFF, ROOSEVELT, ANEU, CBC, BMP, ALC, ACETA, GFR #### [address] [address] Lymphocyte, Absolute 2.6 10 3/mcL Normal 0.8-3.9 [facility] ([place]) Comment on above: Performed By: #### M DW, ADIFF, ROOSEVELT, ANEU, CBC, BMP, ALC, ACETA, GFR #### [address] [address] Lymphocytes/100 WBC (Bld) 31.2 % Normal 10.0-50.0 [facility] ([place]) Comment on above: Performed By: #### M DW, ADIFF, ROOSEVELT, ANEU, CBC, BMP, ALC, ACETA, GFR #### [address] [address] Monocyte, Absolute 0.5 10 3/mcL Normal 0.2-1.0 [facility] ([place]) Comment on above: Performed By: #### M DW, ADIFF, ROOSEVELT, ANEU, CBC, BMP, ALC, ACETA, GFR #### [address] [address] Monocytes/100 WBC (Bld) 6.5 % Normal 1.7-13.0 [facility] ([place]) Comment on above: Performed By: #### M DW, ADIFF, ROOSEVELT, ANEU, CBC, BMP, ALC, ACETA, GFR #### [address] [address] Neutrophils/100 WBC (Bld) 59.6 % Normal 37.0-80.0 [facility] ([place]) Comment on above: Performed By: #### M DW, ADIFF, ROOSEVELT, ANEU, CBC, BMP, ALC, ACETA, GFR #### [address] [address] .GFRon 01-27-2023 GFR 127 ml/min/1.73sqm Normal [facility] ([place]) Comment on above: Result Comment: GFR Population [...] ANEU, CBC, BMP, ALC, ACETA, GFR #### [address] [address] GFR Non- 105 ml/min/1.73sqm Normal [facility] ([place]) Comment on above: Result Comment: GFR Population [...] ANEU, CBC, BMP, ALC, ACETA, GFR #### [address] [address] .MDWon 01-27-2023 Monocyte Distribution Width 18.41 Normal 0.00-20.00 [facility] ([place]) Comment on above: Result Comment: For ED adult patients suspected of sepsis, MDW<=20.0 does not rule out sepsis or risk of sepsis Performed By: #### M DW, ADIFF, ROOSEVELT, ANEU, CBC, BMP, ALC, ACETA, GFR #### [place] [address] .NEUABSon 01-27-2023 Neutrophil, Absolute 5.0 10 3/mcL Normal 2.9-6.2 [facility] ([place]) Comment on above: Performed By: #### M DW, ADIFF, ROOSEVELT, ANEU, CBC, BMP, ALC, ACETA, GFR #### [place] [address] ACETAon 01-27-2023 Acetaminophen Lvl <0 Normal 10.0-30.0 [facility] ([place]) Comment on above: Performed By: #### M DW, ADIFF, ROOSEVELT, ANEU, CBC, BMP, ALC, ACETA, GFR #### [place] [address] Javier 01-27-2023 Ethanol Level <3 Normal 0-3 [facility] ([place]) Comment on above: Performed By: #### M DW, ADIFF, ROOSEVELT, ANEU, CBC, BMP, ALC, ACETA, GFR #### [place] [address] BMPon 01-27-2023 BUN/Creatinine Ratio 20 ratio Normal 7-27 [facility] ([place]) Comment on above: Performed By: #### M DW, ADIFF, ROOSEVELT, ANEU, CBC, BMP, ALC, ACETA, GFR #### [address] [address] Calcium [Mass/Vol] 9.4 mg/dL Normal 8.4-10.2 [facility] ([place]) Comment on above: Performed By: #### M DW, ADIFF, ROOSEVELT, ANEU, CBC, BMP, ALC, ACETA, GFR #### [address] [address] Chloride [Moles/Vol] 99 mmol/L Normal 98-107 [facility] ([place]) Comment on above: Performed By: #### M DW, ADIFF, ROOSEVELT, ANEU, CBC, BMP, ALC, ACETA, GFR #### [address] [address] CO2 [Moles/Vol] 27 mmol/L Normal 22-29 [facility] ([place]) Comment on above: Performed By: #### M DW, ADIFF, ROOSEVELT, ANEU, CBC, BMP, ALC, ACETA, GFR #### [address] [address] Creatinine [Mass/Vol] 0.85 mg/dL Normal 0.70-1.30 [facility] ([place]) Comment on above: Performed By: #### M DW, ADIFF, ROOSEVELT, ANEU, CBC, BMP, ALC, ACETA, GFR #### [address] [address] Electrolyte Balance 10.0 mEq/L Normal 4.0-15.0 [facility] ([place]) Comment on above: Performed By: #### M DW, ADIFF, ROOSEVELT, ANEU, CBC, BMP, ALC, ACETA, GFR #### [address] [address] Glucose [Mass/Vol] 121 mg/dL High 70-105 [facility] ([place]) Comment on above: Performed By: #### M DW, ADIFF, ROOSEVELT, ANEU, CBC, BMP, ALC, ACETA, GFR #### [address] [address] Potassium [Moles/Vol] 4.2 mmol/L Normal 3.5-5.1 [facility] ([place]) Comment on above: Performed By: #### M DW, ADIFF, ROOSEVELT, ANEU, CBC, BMP, ALC, ACETA, GFR #### [address] [address] Sodium [Moles/Vol] 136 mmol/L Normal 136-145 [facility] ([place]) Comment on above: Performed By: #### M DW, ADIFF, ROOSEVELT, ANEU, CBC, BMP, ALC, ACETA, GFR #### [place] [address] Urea nitrogen [Mass/Vol] 17 mg/dL Normal 7-18 [facility] ([place]) Comment on above: Performed By: #### M DW, ADIFF, ROOSEVELT, ANEU, CBC, BMP, ALC, ACETA, GFR #### [address] [address] CBCon 01-27-2023 Erythrocyte distribution width (RBC) [Ratio] 14.7 % High 11.5-14.5 [facility] ([place]) Comment on above: Performed By: #### M DW, ADIFF, ROOSEVELT, ANEU, CBC, BMP, ALC, ACETA, GFR #### [address] [address] Hematocrit (Bld) [Volume fraction] 48.3 % Normal 42.0-52.0 [facility] ([place]) Comment on above: Performed By: #### M DW, ADIFF, ROOSEVELT, ANEU, CBC, BMP, ALC, ACETA, GFR #### [place] [address] Hgb 16.2 G/dL Normal 14.0-18.0 [facility] ([place]) Comment on above: Performed By: #### M DW, ADIFF, ROOSEVELT, ANEU, CBC, BMP, ALC, ACETA, GFR #### [address] [address] MCH (RBC) [Entitic mass] 29.1 pg Normal 27.0-31.2 [facility]) Comment on above: Performed By: #### M DW, ADIFF, ROOSEVELT, ANEU, CBC, BMP, ALC, ACETA, GFR #### [address] [address] MCHC 33.6 G/dL Normal 31.8-35.4 [facility] ([place]) Comment on above: Performed By: #### M DW, ADIFF, ROOSEVELT, ANEU, CBC, BMP, ALC, ACETA, GFR #### [address] [address] MCV (RBC) [Entitic vol] 86.6 fL Normal 80.0-94.0 [facility] ([place]) Comment on above: Performed By: #### M DW, ADIFF, ROOSEVELT, ANEU, CBC, BMP, ALC, ACETA, GFR #### [address] [address] Platelet 193 10 3/mcL Normal 130-400 [facility] ([place]) Comment on above: Performed By: #### M DW, ADIFF, ROOSEVELT, ANEU, CBC, BMP, ALC, ACETA, GFR #### [address] [address] Platelet mean volume (Bld) [Entitic vol] 8.0 fL Normal 7.4-10.4 [facility] ([place]) Comment on above: Performed By: #### M DW, ADIFF, ROOSEVELT, ANEU, CBC, BMP, ALC, ACETA, GFR #### [address] [address] RBC 5.57 10 6/mcL Normal 4.04-6.13 [facility] ([place]) Comment on above: Performed By: #### M DW, ADIFF, ROOSEVELT, ANEU, CBC, BMP, ALC, ACETA, GFR #### [address] [address] WBC 8.4 10 3/mcL Normal 4.6-10.8 [facility] ([place]) Comment on above: Performed By: #### M DW, ADIFF, ROOSEVELT, ANEU, CBC, BMP, ALC, ACETA, GFR #### [address] [address] [id number] 01-27-2023 SARS-CoV-2 (COVID-19) RNA SCOTTY+probe Ql (Unsp spec) Negative Normal Negative [facility] ([place]) Comment on above: Performed By: #### M DW, ADIFF, ROOSEVELT, ANEU, CBC, BMP, ALC, ACETA, GFR #### [address] [address] SARS-CoV-2 (COVID-19) RNA SCOTTY+probe Ql (Unsp spec) Normal [facility] ([place]) Comment on above: Result Comment: Nega tive [...] ANEU, CBC, BMP, ALC, ACETA, GFR #### [place] [id number] [place] [id number] LABORATORYOrdered By: Luz Todd on 01-27-2023 Acetaminophen [...] 01-27-2023 Salicylate Level 0.5 mg/dL Low 2.8-20.0 [facility] ([place]) Comment on above: Performed By: #### M GORGE, ADIFF, ROOSEVELT, ANEU, CBC, BMP, ALC, ACETA, GFR #### [address] [address] .Auto Diffon 10-27-2022 Basophil, Absolute 0.1 10 3/mcL Normal 0.0-0.2 [facility] ([place]) Comment on above: Performed By: #### M GORGE, ADIFF, ROOSEVELT, ANEU, CBC, BMP, ALC, ACETA, GFR #### [address] [address] Basophils/100 WBC (Bld) 0.7 % Normal 0.0-2.5 [facility] ([place]) Comment on above: Performed By: #### M DW, ADIFF, ROOSEVELT, ANEU, CBC, BMP, ALC, ACETA, GFR #### [address] [address] Eosinophil, Absolute 0.3 10 3/mcL Normal 0.0-0.4 [facility] ([place]) Comment on above: Performed By: #### M DW, ADIFF, ROOSEVELT, ANEU, CBC, BMP, ALC, ACETA, GFR #### [address] [address] Eosinophils/100 WBC (Bld) 3.9 % Normal 0.0-7.0 [facility] ([place]) Comment on above: Performed By: #### M DW, ADIFF, ROOSEVELT, ANEU, CBC, BMP, ALC, ACETA, GFR #### [address] [address] Lymphocyte, Absolute 2.7 10 3/mcL Normal 0.8-3.9 [facility] ([place]) Comment on above: Performed By: #### M DW, ADIFF, ROOSEVELT, ANEU, CBC, BMP, ALC, ACETA, GFR #### [address] [address] Lymphocytes/100 WBC (Bld) 33.3 % Normal 10.0-50.0 [facility] ([place]) Comment on above: Performed By: #### M DW, ADIFF, ROOSEVELT, ANEU, CBC, BMP, ALC, ACETA, GFR #### [address] [address] Monocyte, Absolute 0.5 10 3/mcL Normal 0.2-1.0 [facility] ([place]) Comment on above: Performed By: #### M DW, ADIFF, ROOSEVELT, ANEU, CBC, BMP, ALC, ACETA, GFR #### [address] [address] Monocytes/100 WBC (Bld) 6.0 % Normal 1.7-13.0 [facility] ([place]) Comment on above: Performed By: #### M DW, ADIFF, ROOSEVELT, ANEU, CBC, BMP, ALC, ACETA, GFR #### [address] [address] Neutrophils/100 WBC (Bld) 56.1 % Normal 37.0-80.0 [facility] ([place]) Comment on above: Performed By: #### M DW, ADIFF, ROOSEVELT, ANEU, CBC, BMP, ALC, ACETA, GFR #### [address] [address] .GFRon 10-27-2022 GFR 126 ml/min/1.73sqm Normal [facility] ([place]) Comment on above: Result Comment: GFR Population [...] ANEU, CBC, BMP, ALC, ACETA, GFR #### [address] [address] GFR Non- 104 ml/min/1.73sqm Normal [facility] ([place]) Comment on above: Result Comment: GFR Population [...] ANEU, CBC, BMP, ALC, ACETA, GFR #### [place] [address] .NEUABSon 10-27-2022 Neutrophil, Absolute 4.6 10 3/mcL Normal 2.9-6.2 [facility] ([place]) Comment on above: Performed By: #### M DW, ADIFF, ROOSEVELT, ANEU, CBC, BMP, ALC, ACETA, GFR #### [place] [address] A1Con 10-27-2022 HbA1c (Bld) [Mass fraction] 8.8 % High 4.3-6.4 [facility] ([place]) Comment on above: Performed By: #### M DW, ADIFF, ROOSEVELT, ANEU, CBC, BMP, ALC, ACETA, GFR #### [place] [address] CBCon 10-27-2022 Erythrocyte distribution width (RBC) [Ratio] 13.4 % Normal 11.5-14.5 [facility] ([place]) Comment on above: Performed By: #### M DW, ADIFF, ROOSEVELT, ANEU, CBC, BMP, ALC, ACETA, GFR #### [place] [address] Hematocrit (Bld) [Volume fraction] 46.1 % Normal 42.0-52.0 [facility] ([place]) Comment on above: Performed By: #### M DW, ADIFF, ROOSEVELT, ANEU, CBC, BMP, ALC, ACETA, GFR #### [place] [address] Hgb 15.5 G/dL Normal 14.0-18.0 [facility] ([place]) Comment on above: Performed By: #### M DW, ADIFF, ROOSEVELT, ANEU, CBC, BMP, ALC, ACETA, GFR #### [place] [address] MCH (RBC) [Entitic mass] 29.5 pg Normal 27.0-31.2 [facility]) Comment on above: Performed By: #### M DW, ADIFF, ROOSEVELT, ANEU, CBC, BMP, ALC, ACETA, GFR #### [address] [address] MCHC 33.7 G/dL Normal 31.8-35.4 [facility] ([place]) Comment on above: Performed By: #### M DW, ADIFF, ROOSEVELT, ANEU, CBC, BMP, ALC, ACETA, GFR #### [address] [address] MCV (RBC) [Entitic vol] 87.6 fL Normal 80.0-94.0 [facility] ([place]) Comment on above: Performed By: #### M DW, ADIFF, ROOSEVELT, ANEU, CBC, BMP, ALC, ACETA, GFR #### [address] [address] Platelet 149 10 3/mcL Normal 130-400 [facility] ([place]) Comment on above: Performed By: #### M DW, ADIFF, ROOSEVELT, ANEU, CBC, BMP, ALC, ACETA, GFR #### [address] [address] Platelet mean volume (Bld) [Entitic vol] 8.7 fL Normal 7.4-10.4 [facility] ([place]) Comment on above: Performed By: #### M DW, ADIFF, ROOSEVELT, ANEU, CBC, BMP, ALC, ACETA, GFR #### [place] [address] RBC 5.26 10 6/mcL Normal 4.04-6.13 [facility] ([place]) Comment on above: Performed By: #### M DW, ADIFF, ROOSEVELT, ANEU, CBC, BMP, ALC, ACETA, GFR #### [place] [id number] WBC 8.2 10 3/mcL Normal 4.6-10.8 [facility] ([place]) Comment on above: Performed By: #### M DW, ADIFF, ROOSEVELT, ANEU, CBC, BMP, ALC, ACETA, GFR #### [address] [address] CMPon 10-27-2022 Albumin Level 3.7 G/dL Normal 3.5-5.0 [facility] ([place]) Comment on above: Performed By: #### M DW, ADIFF, ROOSEVELT, ANEU, CBC, BMP, ALC, ACETA, GFR #### [address] [address] Albumin/Globulin [Mass ratio] 1.0 {ratio} Low 1.1-2.5 [facility] ([place]) Comment on above: Performed By: #### M DW, ADIFF, ROOSEVELT, ANEU, CBC, BMP, ALC, ACETA, GFR #### [address] [address] ALP [Catalytic activity/Vol] 92 U/L Normal 40-135 [facility] ([place]) Comment on above: Performed By: #### M DW, ADIFF, ROOSEVELT, ANEU, CBC, BMP, ALC, ACETA, GFR #### [address] [address] ALT [Catalytic activity/Vol] 67 U/L High 16-63 [facility] ([place]) Comment on above: Performed By: #### M DW, ADIFF, ROOSEVELT, ANEU, CBC, BMP, ALC, ACETA, GFR #### [address] [address] AST [Catalytic activity/Vol] 41 U/L High 10-40 [facility] ([place]) Comment on above: Performed By: #### M DW, ADIFF, ROOSEVELT, ANEU, CBC, BMP, ALC, ACETA, GFR #### [address] [address] Bili Total 0.3 mg/dL Normal 0.2-1.0 [facility] ([place]) Comment on above: Result Comment: Use of this assay is not recommended for patients undergoing treatment with eltrombopag due to the potential for falsely elevated results. Performed By: #### M DW, ADIFF, ROOSEVELT, ANEU, CBC, BMP, ALC, ACETA, GFR #### [address] [address] BUN/Creatinine Ratio 16 ratio Normal 7-27 [facility] ([place]) Comment on above: Performed By: #### M DW, ADIFF, ROOSEVELT, ANEU, CBC, BMP, ALC, ACETA, GFR #### [address] [address] Calcium [Mass/Vol] 8.3 mg/dL Low 8.4-10.2 [facility] ([place]) Comment on above: Performed By: #### M DW, ADIFF, ROOSEVELT, ANEU, CBC, BMP, ALC, ACETA, GFR #### [place] [address] Chloride [Moles/Vol] 102 mmol/L Normal 98-107 [facility] ([place]) Comment on above: Performed By: #### M DW, ADIFF, ROOSEVELT, ANEU, CBC, BMP, ALC, ACETA, GFR #### [place] [address] CO2 [Moles/Vol] 28 mmol/L Normal 22-29 [facility] ([place]) Comment on above: Performed By: #### M DW, ADIFF, ROOSEVELT, ANEU, CBC, BMP, ALC, ACETA, GFR #### [place] [address] Creatinine [Mass/Vol] 0.86 mg/dL Normal 0.70-1.30 [facility] ([place]) Comment on above: Performed By: #### M DW, ADIFF, ROOSEVELT, ANEU, CBC, BMP, ALC, ACETA, GFR #### [address] [address] Electrolyte Balance 9.0 mEq/L Normal 4.0-15.0 [facility] ([place]) Comment on above: Performed By: #### M DW, ADIFF, ROOSEVELT, ANEU, CBC, BMP, ALC, ACETA, GFR #### [place] [address] Globulin 3.6 G/dL Normal [facility] ([place]) Comment on above: Performed By: #### M DW, ADIFF, ROOSEVELT, ANEU, CBC, BMP, ALC, ACETA, GFR #### [address] [address] Glucose [Mass/Vol] 204 mg/dL High 70-105 [facility] ([place]) Comment on above: Performed By: #### M DW, ADIFF, ROOSEVELT, ANEU, CBC, BMP, ALC, ACETA, GFR #### [address] [address] Potassium [Moles/Vol] 4.2 mmol/L Normal 3.5-5.1 [facility] ([place]) Comment on above: Performed By: #### M DW, ADIFF, ROOSEVELT, ANEU, CBC, BMP, ALC, ACETA, GFR #### [place] [address] Sodium [Moles/Vol] 139 mmol/L Normal 136-145 [facility] ([place]) Comment on above: Performed By: #### M DW, ADIFF, ROOSEVELT, ANEU, CBC, BMP, ALC, ACETA, GFR #### [address] [address] Total Protein 7.3 G/dL Normal 6.4-8.2 [facility] ([place]) Comment on above: Performed By: #### M DW, ADIFF, ROOSEVELT, ANEU, CBC, BMP, ALC, ACETA, GFR #### [place] [address] Urea nitrogen [Mass/Vol] 14 mg/dL Normal 7-18 [facility] ([place]) Comment on above: Performed By: #### M DW, ADIFF, ROOSEVELT, ANEU, CBC, BMP, ALC, ACETA, GFR #### [address] [address] LABORATORYOrdered By: Mary Dee on 10-27-2022 Albumin [...] 10-27-2022 Cholesterol [Mass/Vol] 126 mg/dL Normal 0-200 [facility] ([place]) Comment on above: Result Comment: Chol esterol Reference Interval: Less than 200 Desirable 200-239 Borderline high risk 240 and above High risk Performed By: #### M DW, ADIFF, ROOSEVELT, ANEU, CBC, BMP, ALC, ACETA, GFR #### [address] [address] Cholesterol in HDL [Mass/Vol] 49 mg/dL Normal 40-60 [facility] ([place]) Comment on above: Performed By: #### M DW, ADIFF, ROOSEVELT, ANEU, CBC, BMP, ALC, ACETA, GFR #### [place] [address] [place], [place] [address] Cholesterol in LDL [Mass/Vol] 53 mg/dL Normal 0-130 [facility] ([place]) Comment on above: Performed By: #### M DW, ADIFF, ROOSEVELT, ANEU, CBC, BMP, ALC, ACETA, GFR #### [address] [address] Triglyceride [Mass/Vol] 119 mg/dL Normal 0-150 [facility] ([place]) Comment on above: Result Comment: Trig lyceride Reference Interval: Less than 150 Normal 150-199 Borderline high risk 200-499 High risk 500 or higher Very high risk Performed By: #### M DW, ADIFF, ROOSEVELT, ANEU, CBC, BMP, ALC, ACETA, GFR #### [address] [address] MALBRon 10-27-2022 U Creatinine 129.8 mg/dL Normal 39.0-259.0 [facility] ([place]) Comment on above: Performed By: #### M ALBR #### [address] [address] U Microalb 2338 mcg/dL Normal [facility] ([place]) Comment on above: Performed By: #### M ALBR #### [address] [address] U Ratio Alb/Cre 18 mcg/mg Normal 0-30 [facility] ([place]) Comment on above: Performed By: #### M ALBR #### [address] [address] TSHon 10-27-2022 TSH Qn 0.98 m[IU]/L Normal 0.36-3.74 [facility] ([place]) Comment on above: Performed By: #### M DW, ADIFF, ROOSEVELT, ANEU, CBC, BMP, ALC, ACETA, GFR #### [address] [address] Laboratory - Drug toxicology on 04-30-2022 Amphetamines Ql (U) Negative <1000 ng/mL [facility] Work Phone: Benzodiazepines Ql (U) Negative < 200 ng/mL [facility] Work Phone: Cannabinoids Screen Ql (U) Negative < 50 ng/mL [facility] Work Phone: Cocaine Ql (U) Negative < 300 ng/mL [facility] Work Phone: Opiates Ql (U) Positive < 300 ng/mL [facility] Work Phone: No Panel Informationon 04-30 MDMA (Ecstasy) Screen Negative < 500 ng/mL [facility] Work Phone: Urine Barbiturates Screen Negative < 200 ng/mL [facility] Work Phone: Urine Drug Screen Comment [facility] Work Phone: Comment on above: CONFIRMATORY [...] Urine Methadone Screen Negative < 300 ng/mL [facility] Work Phone: Urine phencyclidine (PCP) de tectionon 04-30-2022 Phencyclidine Ql (U) Negative < 25 ng/mL [facility] Work Phone: Established Visit (Gastroent erology)on 03-18-2021 Established Visit (Gastroenterology) Diagnoses/Problems Assessed Chronic diarrhea (787.91) (K52.9) Orders Chronic diarrhea Start: Dicyclomine HCl - 20 MG Oral Tablet; TAKE 1 TABLET EVERY 6 HOURS NEEDED Rx By: Madiha Razo; Dispense: 30 Days ; #:120 Tablet; Refill: 1;For: Chronic diarrhea; JC = N; Sent To: [id number]; Last Updated By: ClinicalBoxer; 03/18/2021 12:34:12 PM CELIAC DISEASE SEROLOGY PANEL; Status:Active; Requested for:18Mar2021; Perform:Lab Services - Lab To Draw (Blood Test); Due:16Jun2021;Ordered; For:Chronic diarrhea; Ordered By:Madiha Razo; Complete Blood Count + Differential; Status:Active; Requested for:18Mar2021; Perform:Lab Services - Lab To Draw (Blood Test); Due:[id number];Ordered; For:Chronic diarrhea; Ordered By:Madiha Razo; Comprehensive Metabolic Panel; Status:Active; Requested for:18Mar2021; Perform:Lab Services - Lab To Draw (Blood Test); Due:56Ypa6465;Ordered; For:Chronic diarrhea; Ordered By:Madiha Razo; TSH WITH REFLEX TO FREE T4 IF ABNORMAL; Status:Active; Requested for:18Mar2021; Perform:Lab Services - Lab To Draw (Blood Test); Due:02Rcb2847;Ordered; For:Chronic diarrhea; Ordered By:Madiha Razo; Patient Discussion/Summary 1. Colonoscopy was reviewed with patient. 2. Obtain CBC, CMP, TSH with reflex, and celiac panel. 3. Begin dicyclomine 20 mg as needed for bowel spasm. 4. Discussed trial of conf-wju-wuyginx probiotic. 5. Dietary modifications were addressed. 6. [...] telehealth visit. Colonoscopy follow-up History of Present Ulydqmr69-prps-aiu male spoken to over telephone as a [...] NonMedication No Known Food Allergies Recorded By: Adelina Reynolds; 03/18/2021 12:07:54 PM Current Meds Medication [...] BY MOUTH (more content not included)... Normal Touchworks No Panel Informationon 02-22 [email or web address]?={[id number]} [facility] Work [facility]: [facility] G[facility]enter [facility] n Work Phone: [facility] Surgical Pathology Depar tmenton 02-22-2021 [facility] Surgical Pathology Department Name CHIRAG SAWANT Pathologist: TRINIDAD GARCIA M.D., PhD. Date of Procedure: 02/22/2021 Date Received: 02/22/2021 Date Reported 02/28/2021 Submitting Physician: ELBA NELSON DO Location: [facility] Copy To/Referring/Attending: MAINE ADRIAN MD Other External [...] in toto in one cassette. LMP lmp/02/26/2021 [facility] Department of Pathology [address] [place] [address] Normal [facility] Comment on above: Performed By: #### U [facility] #### [facility] Surgical Pathology Department [address] [place] [address] CORONAVIRUS 2019, SCREEN ASY MPTOMATICon 02-20-2021 SARS-CoV-2 (COVID-19) RNA SCOTTY+probe Ql (Unsp spec) Not detected Normal Not Detected [facility] Comment on above: Result Comment: . This [...] this test method. Fact sheet for providers: https://www.fda.gov/media/115496/download Fact sheet for patients: https://www.fda.gov/media/476667/download This test has received FDA Emergency Use Authorization [EUA] and has been verified by [facility] ([facility]). This test is only authorized for the duration of time that circumstances exist to justify the authorization of the emergency use of in vitro diagnostic tests for the detection of SARS-CoV-2 virus and/or diagnosis of COVID-19 infection under section 564(b)(1) of the Act, 21 U.S.C. 360bbb-3(b)(1), unless the authorization is terminated or revoked sooner. [facility] is certified under CLIA-88 as qualified to perform high complexity testing. Testing is performed in the [facility] laboratories located at [address] [place] [address]. Performed By: #### C [facility] #### [address] [place] [address] Covid 19 Resultson 1 SARS-CoV-2 (COVID-19) RNA SCOTTY+probe Ql (Unsp spec) [...] You may also be contacted by the [facility] to see if any of your close [...] or Naproxen (Aleve) can also be used. Awuo-usb-gfsgwgh cough and cold medicines can be used according to the instructions on the package. Some trlu-pkr-kktorbh medicines also contain acetaminophen. Make sure you [...] water are not available, use alcohol-based hand grade foreman. Avoid touching your eyes, nose, and mouth [...] 24 mick (more content not included)... Normal [facility] CORONAVIRUS 2019, SCREEN ASY MPTOMATICon 02-19-2021 Lab Specimen Source Nasal, Nasopharyngeal Normal [facility] Comment on above: Performed By: #### C [facility] #### [facility] [address] [place] [address] Coronavirus 2019 RNA by PCR, Screening Asymptomticon 02-19-2021 Coronavirus 2019 RNA by PCR, Screening Asymptomtic Not detected Normal See Below [facility] Work Phone: Comment on above: SOURCE: [...] this test method. Fact sheet for providers: https://www.fda.gov/media/120086/downloadFact sheet for patients: https://www.fda.gov/media/214586/downloadThis test has received FDA Emergency Use Authorization [EUA] and has been verified by [facility] ([facility]). This test is only authorized for the duration of time that circumstances exist to justify the authorization of the emergency use of in vitro diagnostic tests for the detection of SARS-CoV-2 virus and/or diagnosis of COVID-19 infection under section 564(b)(1) of the Act, 21 U.S.C. 360bbb-3(b)(1), unless the authorization is terminated or revoked sooner. [facility] is certified under CLIA-88 as qualified to perform high complexity testing. Testing is performed in the [facility] laboratories located at [address] [place] [address]. Initial Visit (Gastroenterol ogy)on 02-11-2021 Initial Visit (Gastroenterology) Diagnoses/Problems Health Maintenance/Risks Encounter for preventive health examination (V70.0) (Z00.00) Assessed Chronic diarrhea (787.91) (K52.9) History of Knee surgery x7 Obesity, morbid (278.01) (E66.01) History of Tobacco use (305.1) (Z72.0) Orders Chronic diarrhea Colonoscopy; Status:Hold For - Scheduling; Requested for:11Feb2021; Perform:[facility]; Due:[id number];Ordered; For:Chronic diarrhea; Ordered By:Elba Nelson; Patient competent to provide consent? : Yes-pt mentally competent to provide consent SocHx: Former cigarette smoker Tobacco Use Screening; Status:Complete; Done: [id number] Perform:Not Applicable;Ordered; For:SocHx: Former cigarette smoker; Ordered [...] telehealth service. Chronic diarrhea History of Present Cynrnwc51-vzih-cbd male noted at the request of his [...] 02/08/2021 1:27:18 PM Vitals Vital Signs Recorded: 11Feb2021 11:16AM Height6 ft 2 in Hgkzgh837 lb BMI Ifybamdabb63.65 BSA Calculated2.72 BMI 45 Physical Exam Physical exam not performed in light of telephone visit Results/Data Limited records from primary care office reveals stool culture to be negative, C. difficile negative Signatures Electronically signed by : Elba Nelson DO; Feb 11 2021 11:25AM EST (Author) Normal [facility] Vital Signs Date Time Vital Sign Value Performing Clinician Faci colton 01-30-2025 19:12-0400 Diastolic Blood Pressure Non-Invasive 70 mm[Hg] GANESH NOVOA MD [facility] 01-30-2025 19:12-0400 Heart rate 98 /min GANESH NOVOA MD [facility] 01-30-2025 19:12-0400 Respiratory rate 18 /min GANESH NOVOA MD [facility] 01-30-2025 19:12-0400 Systolic Blood Pressure Non-Invasive 146 mm[Hg] AGNESH NOVOA MD [facility] 01-30-2025 18:35-0400 Diastolic Blood Pressure Non-Invasive 78 mm[Hg] GANESH NOVOA MD [facility] 01-30-2025 18:35-0400 Heart rate 101 /min GANESH NOVOA MD [facility] 01-30-2025 18:35-0400 Respiratory rate 16 /min GANESH NOVOA MD [facility] 01-30-2025 18:35-0400 Systolic Blood Pressure Non-Invasive 139 mm[Hg] GANESH NOVOA MD [facility] 01-30-2025 18:09-0400 Diastolic Blood Pressure Non-Invasive 86 mm[Hg] GANESH NOVOA MD [facility] 01-30-2025 18:09-0400 Heart rate 100 /min GANESH NOVOA MD [facility] 01-30-2025 18:09-0400 Respiratory rate 16 /min GANESH NOVOA MD [facility] 01-30-2025 18:09-0400 Systolic Blood Pressure Non-Invasive 157 mm[Hg] GANESH NOVOA MD [facility] 01-30-2025 17:26-0400 Body temperature 97.16 [degF] GANESH NOVOA MD [facility] 01-30-2025 17:26-0400 Body weight 147 kg GANESH NOVOA MD [facility] 01-30-2025 17:26-0400 Heart rate 86 /min GANESH NOVOA MD [facility] 01-27-2023 22:14-0400 Diastolic Blood Pressure Non-Invasive 75 1 CONCEPCION DURESKA DO [facility] 01-27-2023 22:14-0400 Heart rate 112 /min CONCEPCION DURESKA DO [facility] 01-27-2023 22:14-0400 Respiratory rate 18 /min CONCEPCION DURESKA DO [facility] 01-27-2023 22:14-0400 Systolic Blood Pressure Non-Invasive 141 1 CONCEPCION DURESKA DO [facility] 01-27-2023 18:46-0400 Body height 188 cm CONCEPCION DURESKA DO [facility] 01-27-2023 18:46-0400 Body temperature 97.7 [degF] CONCEPCION DURESKA DO [facility] 01-27-2023 18:46-0400 Body weight 77.3 kg CONCEPCION DURESKA DO [facility] 01-27-2023 18:46-0400 Diastolic Blood Pressure Non-Invasive 88 1 CONCEPCION DURESKA DO [facility] 01-27-2023 18:46-0400 Heart rate 115 /min CONCEPCION DURESKA DO [facility] 01-27-2023 18:46-0400 Respiratory rate 20 /min CONCEPCION DURESKA DO [facility] 01-27-2023 18:46-0400 Systolic Blood Pressure Non-Invasive 150 1 CONCEPCION MARTINEZ DO [facility] 08-01-2022 17:42-0400 Body height [address] DOUGLAS BLAND MD [facility] 08-01-2022 17:42-0400 Body temperature 99.68 [degF] DR DOUGLAS BLAND MD [facility] 08-01-2022 17:42-0400 Body weight [address] DOUGLAS BLAND MD [facility] 08-01-2022 17:42-0400 Diastolic blood pressure 88 mm[Hg] DR DOUGLAS BLAND MD [facility] 08-01-2022 17:42-0400 Heart rate 64 /min DR DOUGLAS BLAND MD [facility] 08-01-2022 17:42-0400 Respiratory rate 16 /min DR DOUGLAS BLAND MD [facility] 08-01-2022 17:42-0400 Systolic blood pressure 149 mm[Hg] DR DOUGLAS BLAND MD [facility] 07-21-2021 01:56-0400 Body height [address] RE KELLY MD [facility] 07-21-2021 01:56-0400 Body temperature 98.78 [degF] DR RE KELLY MD [facility] 07-21-2021 01:56-0400 Body weight [address] RE KELLY MD [facility] 07-21-2021 01:56-0400 Diastolic blood pressure 68 mm[Hg] DR RE KELLY MD [facility] 07-21-2021 01:56-0400 Heart rate 68 /min DR RE KELLY MD [facility] 07-21-2021 01:56-0400 Respiratory rate 20 /min DR RE KELLY MD [facility] 07-21-2021 01:56-0400 Systolic blood pressure 123 mm[Hg] DR RE KELLY MD [facility] 03-18-2021 12:04-0400 Body height 187.96 cm [place] Suarezoff Work Phone[facility] Work Phone: 03-18-2021 12:04-0400 Body mass index (BMI) [Ratio] 43.65 kg/m2 [place] Suarezoff Work Phone: [facility] Work Phone: 03-18-2021 12:04-0400 Body surface area Derived from formula 2.72 m2 Maine Adrian Work Phone: [facility] Work Phone: 03-18-2021 12:04-0400 Body weight 154.22 kg Maine Adrian Work Phone: [facility] Work Phone: 02-11-2021 11:16-0400 Body height 187.96 cm Maine Adrian Work Phone: [facility] Work Phone: 02-11-2021 11:16-0400 Body mass index (BMI) [Ratio] 43.65 kg/m2 Maine Violet Adrian Work Phone: [facility] Work Phone: 02-11-2021 11:16-0400 Body surface area Derived from formula 2.72 m2 Maine Adrian Work Phone: [facility] Work Phone: 02-11-2021 11:16-0400 Body weight 154.22 kg Maine Violet Adrian Work Phone: [facility] Work Phone: Encounters Encounter Date Encounter Type Care Provider Facility Start: 05-25-2025 End: 05-25-2025 ambulatory Cleveland Paula Facility:[facility] Start: 05-16-2025 End: 05-20-2025 ambulatory KRISHNA SANCHES DO Facility:[facility] Start: 05-16-2025 End: 05-20-2025 Outreach Lab KRISHNA SANCHES DO [facility] Start: 05-02-2025 End: 05-02-2025 ambulatory Krishna Sanches Facility:[facility] Start: 04-13-2025 End: 04-13-2025 ambulatory Krishna Sanches Facility:[facility] Start: 02-24-2025 End: 02-24-2025 ambulatory Krishna Sanches Facility:[facility] Start: 02-22-2025 End: 02-22-2025 ambulatory Krishna Sanches Facility:[facility] Start: 02-14-2025 End: 02-14-2025 ambulatory Maria E Wayne Facility:[facility] Start: 01-30-2025 End: 01-30-2025 Emergency department patient visit GANESH NOVOA MD [facility] Start: 12-13-2024 End: 12-13-2024 ambulatory Maria E Wayne Facility:[facility] Start: 10-12-2024 End: 10-12-2024 ambulatory Maria E Rosana Facility:[facility] Start: 08-02-2024 End: 08-02-2024 ambulatory MARIA E WAYNE DO Facility:[facility] Start: 08-02-2024 End: 08-02-2024 Patient encounter procedure MARIA E WAYNE DO [facility] Start: 07-14-2024 End: 07-14-2024 ambulatory Maria E Wayne Facility:[facility] Start: 06-16-2024 End: 06-16-2024 ambulatory Maria E Wayne Facility:[facility] Start: 01-27-2023 End: 01-28-2023 Emergency department patient visit CONCEPCION MARTINEZ DO Facility:[facility] Start: 01-27-2023 End: 01-27-2023 Emergency department patient visit CONCEPCION MARTINEZ DO [facility] Start: 10-27-2022 End: 10-28-2022 ambulatory MARIA E WAYNE DO Facility:[facility] Start: 10-27-2022 End: 10-27-2022 Patient encounter procedure MARIA E WAYNE DO [facility] Start: 08-01-2022 End: 08-01-2022 Emergency department patient visit DR DOUGLAS BLAND MD Facility:[facility] Start: 08-01-2022 End: 08-01-2022 Emergency department patient visit DR DOUGLAS BLAND MD [facility] Start: 04-30-2022 End: 04-30-2022 Patient encounter procedure [facility] Start: 07-21-2021 End: 07-21-2021 Emergency department patient visit DR RE KELLY MD [facility] Start: 05-23-2021 Rx Renewal [place] Suarezo ff Work Phone: [facility] Work Phone: Start: 03-18-2021 Phys/qhp telephone evaluation 11-20 min [place] Adrian Work Phone: [facility] Work Phone: Start: 02-28-2021 Chart Update [place] Suarezo ff Work Phone: [facility] Work Phone: Procedures Date Procedure Procedure Detail Performing Clinician Start: 02-22-2021 Colonoscopy [place] Lazo Maria M galan Work Phone: Start: 04-28-2019 Cardiac ablation usi ng fluoroscopy guidance DR RE KELLY MD Appendectomy [place] Lazo Gloriaumof f Work Phone: Appendectomy DR RE KELLY MD Arthroplasty of knee , femoral condyles with debridement and partial synovectomy DR RE KELLY MD Comment on above: bilateral 7 total surgeries on bilateral knees Arthroscopy of knee [place] Suarezoff Work Phone: Cholecystectomy [place] Krishnan moff Work Phone: Cholecystectomy DR RE GOLDSMITH MD Colonoscopy [place] Lazo Naumof f Work Phone: Comment on above: JANUARY 2021; Destructive procedure [place] Adrian Work Phone: Comment on above: CARDIAC ABLATION 04/29 019; Operative procedure on knee [place] Castroumoff Work Phone: Comment on above: x7; Synovectomy [place] Castroumof f Work Phone: NEGATED: Highlighted row has not occurred! Esophagogastroduodenoscopy [place] Castroum off Work Phone: Plan of Treatment Date Care Activity Detail Author Start: 04-30-2022 Procedure [facility] Work Phone: Start: 03-18-2021 VIRROSA M, Provider : Madiha Razo, Status: Pen, Time: 12:30 PM BISI, Provider: Madiha Razo, Status: Pen, Time: 12:30 PM [facility] Work Phone: Procedure [facility] Work Phone: Immunizations Immunization Date Immunization Notes Care Provider Fidel ruiz 05-27-2003 measles/mumps/rubell a virus vaccine DR DOUGLAS BLAND MD [facility] Payers Date Payer Category Payer Private Health Insurance [id number] 2024 Unknown 2024 Self-pay [id number] 2022 Unknown [id number] 2022 Unknown [id number] 2015 Unknown [facility] [id number] 1991 Unknown [id number] 1991 Unknown [id number].6 1991 Unknown [id number] 2.840.1.819978.3.579.2.6 1991 Unknown [id number] 2.840.1.566765.3.579.2.6 1991 Unknown [id number] 2.840.1.885671.3.579.2.6 1991 Unknown [id number] 2.16.840.1.442042.3.579.2.6 27 Unknown [id number] 2.16.840.1.242519.3.579.2.4 62 Unknown [id number] 2.16.840.1.419798.3.579.2.4 62 Unknown [id number] 2.16.840.1.243613.3.579.2.4 62 Unknown [id number] 2.16.840.1.513108.3.579.2.4 62 Unknown [id number] 2.16.840.1.012078.3.579.2.4 62 Unknown [id number] 2.16.840.1.994274.3.579.2.4 62 Unknown [id number] 2.16.840.1.434949.3.579.2.4 62 Unknown [id number] 2.16.840.1.615819.3.579.2.4 62 Unknown [id number] 2.16.840.1.990943.3.579.2.4 62 Unknown [id number] 2.16.840.1.481382.3.579.2.4 62 Social History Date Type Detail Facility No illicit drug use No illicit drug use [facility] Work Phone: Comment on above: 3 CANS POP DAILY; Start: 04-27-2019 Ex-smoker (finding) [facility] Start: 1990 Sex Assigned At Male A [facility] Start: 07-30-2020 Tobacco smoking stat [facility] Unknown if ever smoked [facility] Work Phone: [facility] Start: 05-22-2020 Sex Male (finding) [facility] Medical Equipment Procedure Code Equipment Code Equipment Origin al Text Equipment Identifier Dates See Instructions , Dispense glucose test strips, #100, use as directed daily to test blood sugar; diagnosis: E11.9, # 100 EA, 3 Refill(s), [facility], Type 2 diabetes mellitus, 184, cm, 07/29/21 13:07:00 EDT, Height, 159.9, kg, ... Start: 07-29-2021 See Instructions , Dispense UltraFine lancets, #100, use as directed daily to test blood sugar; diagnosis: E11.9, # 100 EA, 3 Refill(s), [facility], Type 2 diabetes mellitus, 184, cm, 07/29/21 13:07:00 EDT, Height, 159.9, kg, 07/29/21... Start: 07-29-2021 See Instructions , Dispense glucose test strips, #100, use as directed daily to test blood sugar; diagnosis: E11.9, # 100 EA, 3 Refill(s), [facility], Type 2 diabetes mellitus, 184, cm, 07/29/21 13:07:00 EDT, Height, 159.9, kg, ... Start: 07-29-2021 See Instructions , Dispense UltraFine lancets, #100, use as directed daily to test blood sugar; diagnosis: E11.9, # 100 EA, 3 Refill(s), [facility], Type 2 diabetes mellitus, 184, cm, 07/29/21 13:07:00 EDT, Height, 159.9, kg, 07/29/21... Start: 07-29-2021 See Instructions , Dispense glucose test strips, #100, use as directed daily to test blood sugar; diagnosis: E11.9, # 100 EA, 3 Refill(s), Pharmacy: [facility], Type 2 diabetes mellitus, 184, cm, 07/29/21 13:07:00 EDT, Height, 159.9, kg, ... Start: 07-29-2021 See Instructions , Dispense UltraFine lancets, #100, use as directed daily to test blood sugar; diagnosis: E11.9, # 100 EA, 3 Refill(s), [facility], Type 2 diabetes mellitus, 184, cm, 07/29/21 13:07:00 EDT, Height, 159.9, kg, 07/29/21... Start: 07-29-2021 See Instructions , Dispense glucose test strips, #100, use as directed daily to test blood sugar; diagnosis: E11.9, # 100 EA, 3 Refill(s), [facility], Type 2 diabetes mellitus, 184, cm, 07/29/21 13:07:00 EDT, Height, 159.9, kg, 07/29/21 13:07:00 EDT, Dosing Weight Start: 07-29-2021 See Instructions , Dispense UltraFine lancets, #100, use as directed daily to test blood sugar; diagnosis: E11.9, # 100 EA, 3 Refill(s), [facility], Type 2 diabetes mellitus, 184, cm, 07/29/21 13:07:00 EDT, Height, 159.9, kg, 07/29/21 13:07:00 EDT, Dosing Weight Start: 07-29-2021 See Instructions , Dispense True Metrix glucose test strips, #100, use as directed daily to test blood sugar; diagnosis: E11.9, # 100 EA, 3 Refill(s), [facility], Type 2 diabetes mellitus, 182.5, cm, 07/26/24 10:51:00 EDT, Height, 156, kg, 07/26/24 10:51:00 EDT, Dosing Weight Start: 10-14-2024 See Instructions , Dispense UltraFine lancets, #100, use as directed daily to test blood sugar; diagnosis: E11.9, # 100 EA, 3 Refill(s), Pharmacy: [facility]/pharm[facility] #4[facility], Type 2 diabetes mellitus, 184, cm, 07/29/21 13:07:00 EDT, Height, 159.9, kg, 07/29/21 13:07:00 EDT, Dosing Weight Start: 07-29-2021 See Instructions , Dispense True Metrix glucose test strips, #100, use as directed daily to test blood sugar; diagnosis: E11.9, # 100 EA, 3 Refill(s), [facility], Type 2 diabetes mellitus, 182.5, cm, 07/26/24 10:51:00 EDT, Height, 156, kg, 07/26/24 10:51:00 EDT, Dosing Weight Start: 10-14-2024 See Instructions , Dispense UltraFine lancets, #100, use as directed daily to test blood sugar; diagnosis: E11.9, # 100 EA, 3 Refill(s), [facility], Type 2 diabetes mellitus, 184, cm, 07/29/21 13:07:00 EDT, Height, 159.9, kg, 07/29/21 13:07:00 EDT, Dosing Weight Start: 07-29-2021 Functional Status Date Assessment Result Facility 01-30-2025 Functional Status Standard Safet y ID band on, Allergy Band on, Call device within reach, Bed in low position, Wheels locked, Upper/Half-Length side-rails up, Bedside Cart Locked, Safety level maintained [facility] 01-27-2023 Functional Status Assistive Device None A [facility] 01-27-2023 Functional Status Awake, Repositions self [facility] 08-01-2022 Functional Status ID band on, Allergy Band on, Call device within reach, Bed in low position, Wheels locked [facility] Mental Status Date Assessment Result Facility 01-30-2025 Mental Status Orientation Oriented x 4 [facility] 01-27-2023 Mental Status Orientation Oriented x 4 [facility] 08-01-2022 Mental Status Oriented x 4 [facility] Clinical Notes 02-22-2021 to 01-30-2025 Note [...] that stimulates the heart. This includes many mtgp-cqz-fyimcrf cold and sinus decongestant pills and sprays, as well as diet pills. Check the warnings about high blood pressure on the label. Before purchasing any btfy-xsz-gfekkca medicines or supplements, always ask the pharmacist [...] on home blood pressure monitoring from the [employer]. Don't smoke or drink coffee [...] of the face Trouble speaking or seeing [id number] [employer]. [address] [place] [address]. All rights reserved. This information is not intended as a substitute for professional medical care. Always follow your healthcare professional's instructions. Follow Up Care 01/30/2025 17:28:49 With:MARIA E WAYNE DO Address: [address] [place] [address] [place] [address] [phone] When:2-4 days [facility] 01-30-2025 Emergency department Discharge summary Discharge Instructions Thank you for allowing [facility] to assist you with your healthcare needs. [...] MARIA E WAYNE DO When:Within 2-4 days Where:[address] [facility] [place] [phone]- [phone] Allergies Benadryl Sinus tachycardia Medications Please ask [...] that stimulates the heart. This includes many rqmf-xap-gfccnfe cold and sinus decongestant pills and sprays, as well as diet pills. Check the warnings about high blood pressure on the label. Before purchasing any owmp-gqe-vzqtrgt medicines or supplements, always ask the pharmacist [...] on home blood pressure monitoring from the [employer]. Don't smoke or drink coffee [...] of the face Trouble speaking or seeing [phone] [employer]. [address] [place] [address], [place] [address]. All rights reserved. This information is not intended as a substitute for professional medical care. Always follow your healthcare professional's instructions. Additional Information VACCINATE! IT SAVES LIVES! Members of the community who have not yet received the COVID-19 vaccine and would like to receive it can visit one of [facility] vaccine clinics. There are many vaccine clinic locations within the [facility]. For locations and available times, please visit www.gettheshot.coronavirus.[place]. gov/. It is important to note that some COVID mobile vaccine clinics are held outdoors and may be canceled in rainy or stormy conditions. To learn more about pediatric vaccinations (ages 5-11), we invite you to visit the [facility] webpage. https://www.akronGem Pharmaceuticalss.org/p ages/5976-Vrkug-Yrjqutjkzzj-Freq aibkio-Xrffa-Sgqxoivrm.html To learn more about the COVID-19 vaccine, we invite you to visit the CDC website for a list of frequently asked questions. https://www.cdc.gov/coronavirus/ 2019-ncov/vaccines/faq.html [facility] Patient Portal Access Instructions: Stay connected with your healthcare team and access your personal medical information anytime with the [facility] Patient Portal. If you would like a full copy of your medical records please contact the [facility] Medical Records Department Thursday through Thursday between 8a.m. and 4:30p.m. Please follow the directions below to access the portal: 1.Access the email account you provided upon registration to the hospital.2.Look for an invitation email from [facility].3.Open the email and access the invitation link: Accept Invitation to [facility]4.Fill in the required melendez to create your account. Sign into www.PlayMaker CRM with your username and password that you [...] you will allow to register on the [facility] Patient Portal for access to your information. You can also access the [facility] Patient Portal on the Chartio pankaj. Simply click on Health Records under Health Data and then click on the Emeka logo. HOW TO SAFELY DISPOSE OF PRESCRIPTION [...] Call your local pharmacy or go to http://Whitevector.Listnerd/8E9Mg7f to find one close to you.3.Make use of household items: Use cat litter or old coffee grounds to dispose medications if other options are not available. Mix your drugs with these household products, seal them in an airtight container and throw it into the garbage. Call [facility] [place] [facility]: [phone] to be sure your drugs can be [...] aware that I should contact my doctor. Patient/Engagement Engineer Signature: Date/Time: Relationship to Patient: Witness Name/Signature: Date/Time: [facility] 01-30-2025 Note Exam Date Time Procedure Performing Provider Status 01/30/25 6:20 PM XR Chest 1 View ROLF KEYS MD; [facility] (Verified) [id number] ORIGINAL EXAMINATION: ONE XRAY VIEW OF THE [...] by: Rolf Keys Preliminary Report By: Kala Lsia Electronically signed By Rolf Keys Dictated Date: 01/30/2025 7:21:13 PM Prelim Date: 01/30/2025 7:23:07 PM Sign Date: 01/30/2025 7:39:15 PM Ordering Provider: GANESH NOVOA [facility]05-05-2025 Note* Exam Date Time Procedure Performing Provider Status 01/30/25 6:[address] Head or Brain w/o Contrast Kari MORALES MD; Auth (Verified) [id number] ORIGINAL EXAMINATION: CT OF THE HEAD WITHOUT [...] 01/30/2025 7:28:06 PM Ordering Provider: GANESH NOVOA [facility]05-05-2025 Note* Exam Date Time Procedure Performing Provider Status 01/30/25 6:00 PM EKG [ED AOH] - CV GANESH NOVOA MD; Auth (Verified) ECG Final Report Sinus tachycardia Multiform ventricular premature complexes Probable anteroseptal infarct, old Electronic Signature: GANESH NOVOA MD 01/30/2025 18:06:02 [facility]05-03-2023 Hospital Discharge instructions Patient Education 01/27/2023 [...] relieved by rest and mild pain reliever [id number] [employer] [place] [address]. All rights reserved. This information is not intended as a substitute for professional medical care. Always follow yourhealthcare professional's instructions. Follow Up Care 01/27/2023 18:40:48 With:MARIA E WAYNE DO Address: [address] [place] [phone] When:2-4 days [facility] 05-02-2023 Note Discharge Instructions Thank you for allowing [facility] to assist you with your healthcare needs. The following is importantdischarge information regarding your hospital visit. Diagnosis from Today's Visit Anxiety Anxiety Depression What to Do Next Instructions from Your Care Team No qualifying data available. Post Acute Orders No qualifying data available. You Need to Schedule the Following Appointments Follow Up with MARIA E WAYNE DO When Within 2-4 days Where: [address] [place] [phone]- [phone] Allergies Benadryl (Sinus tachycardia) Medications Please ask your primary doctor or pharmacist before taking any other medication not listed, including over the counter drugs, herbal medications, vitamins and or supplements as they may interact withur home medications. What How Much When Why [...] relieved by rest and mild pain reliever 8530-7883 [employer]. [address] [place] [address], [place] [address]. All rights reserved. This information is not intended as a substitute for professional medical care. Always follow yourhealthcare professional's instructions. Additional Information VACCINATE! IT SAVES LIVES! Members of the community who have not yet received the COVID-19 vaccine and would like to receive it can visit one of [facility] vaccine clinics. There are many vaccine clinic locations within the [facility]. For locations and available times, please visit www.gettheshot.coronavirus.[place].gov/. It is important to note that some COVID mobile vaccine clinics are held outdoors and may be canceled in rainy or stormy conditions. To learn more about pediatric vaccinations (ages 5-11), we invite you to visit the [facility] webpage. https://www.ak[employer] Pharmaceuticalss.org/pages/0026-Tpdwy-Tzmrqdjdegj-Kueafayfzj-Pukzu-Vgg stions.htmlTo learn more about the COVID-19 vaccine, we invite you to visit the CDC website for a list of frequently asked questions. https://www.cdc.gov/coronavirus/2019-ncov/vaccines/faq.html [facility] Patient Portal Access Instructions: Stay connected with your healthcare team and access your personal medical information anytime with the [facility] Patient Portal. If you would like a full copy of your medical records please contact the [facility] Medical Records Department Thursday through Thursday between 8a.m. and 4:30p.m. Please follow the directions below to access the portal: 1.Access the email account you provided upon registration to the [facility].2.Look for an invitation email from [facility].3.Open the email and access the invitation link: Accept Invitation to [facility]4.Fill in the required melendez to create your account. Sign into www.PlayMaker CRM with your username and password that you [...] you will allow to register on the [facility] Patient Portal for access to your information. You can also access the [employer] Patient Portal on the Footbalistic. Simply click on Health Records under MobGold and then click on the [employer] logo. HOW TO SAFELY DISPOSE OF PRESCRIPTION [...] Call your local pharmacy or go to http://Whitevector.Listnerd/6D2Tf7k to find one close to you.3.Make use of household items: Use cat litter or old coffee grounds to dispose medications if other options arenot available. Mix your drugs with these household products, seal them in an airtight container andthrow it into the garbage. Call [facility]: [phone] to be sure your drugs can be [...] aware that I should contact my doctor. Patient/Engagement Engineer Signature: Date/Time: Relationship to Patient: Witness Name/Signature: Date/Time: [facility]05-02-2023 SARS-CoV-2 (COVID-19) RNA SCOTTY+probe Ql (Nph)Negative *NA* (01/27/23 7:35 PM)AO Auto Urine [id number] Hospital Discharge instructions Patient Education 08/01/2022 18:23:02 [...] or higher after 2 days on antibiotics [phone] [employer]. [address] [place] [address]. All rights reserved. This information is not intended as a substitute for professional medical care. Always follow yourhealthcare professional's instructions. Follow Up Care 08/01/2022 17:32:18 With:MARIA E WAYNE DO Address: [address] [place] [phone] When:2-4 days [facility] 11-04-2022 Note Discharge Instructions Thank you for allowing [facility] to assist you with your healthcare needs. [...] WAYNE DO When Within 2-4 days Where: [address] [place] [phone]- [phone] Allergies Benadryl (Sinus tachycardia) Medications Please ask your primary doctor or pharmacist before taking any other medication not listed, including over the counter drugs, herbal medications, vitamins and or supplements as they may interact withur home medications. What How Much When Why [...] or life-threatening conditions such as anthrax or [place] spotted fever. The benefit of treating a [...] may report side effects to FDA at 2-113-VKH-6942. What other drugs will affect doxycycline? Sometimes it is not safe to use certain medications at the same time. Some drugs can affect your blood levels of other drugs you take, which may increase side effects or make the medications less effective. Other drugs may affect doxycycline, including prescription and wkui-sur-jtplbie medicines, vitamins, and herbal products. Tell your [...] to ensure that the information provided by [employer]. ('Multum') is accurate, up-to-date, and complete, but no guarantee is made to that effect. Drug information contained herein may be time sensitive. [employer] information has been compiled for use by healthcare practitioners and consumers in the [place] and therefore [employer] does not warrant that uses outside of the [place] are appropriate, unless specifically indicated otherwise. [employer] drug information does not endorse drugs, diagnose patients or recommend therapy. [employer] drug information isan informational resource designed to [...] effective or appropriate for any given patient. [employer] does not assume any responsibility for any aspect of healthcare administered with the aid of information [employer] provides. The information contained herein is not intended to cover all possible uses, directions, precautions, warnings, drug interactions, allergic reactions, or adverse effects. If you have questions about the drugs you are taking, check with your doctor, nurse or pharmacist. Copyright 2956-6162 [employer]. Version: 21.04. Revision Date: 08/01/2020. Education Materials [...] or higher after 2 days on antibiotics 2708-8758 [employer]. [address] [place] [address], [place] [id number]. All rights reserved. This information is not intended as a substitute for professional medical care. Always follow yourhealthcare professional's instructions. Additional Information VACCINATE! IT SAVES LIVES! Members of the community who have not yet received the COVID-19 vaccine and would like to receive it can visit one of [facility] vaccine clinics. There are many vaccine clinic locations within the [facility]. For locations and available times, please visit www.gettheshot.coronavirus.[place].org. It is important to note that some COVID mobile vaccine clinics are held outdoors and may be canceled in rainy orstormy conditions. To learn more about pediatric vaccinations (ages 5-11), we invite you to visit the [facility] webpage. https://www.ak[employer]Gem Pharmaceuticalss.org/pages/9680-Zthyd-Kokhavrciwe-Rxmabqutcd-Snisl-Txq stions.htmlTo learn more about the COVID-19 vaccine, we invite you to visit the [facility] website for a list of frequently asked questions. https://worthingtonElo7/assets/Ydvqddgn-uih-Xnafojfb/dmzkb-Deywrxy-Gnvjgcidug _Asked-Questions.pdf [facility] Patient Portal Access Instructions: Stay connected with your healthcare team and access your personal medical information anytime with the [facility] Patient Portal. If you would like a full copy of your medical records please contact the [facility] Medical Records Department Thursday through Thursday between 8a.m. and 4:30p.m. Please follow the directions below to access the portal: 1.Access the email account you provided upon registration to the [facility].2.Look for an invitation email from [facility].3.Open the email and access the invitation link: Accept Invitation to [facility]4.Fill in the required melendez to create your account. Sign into www.PlayMaker CRM with your username and password that you [...] you will allow to register on the [facility] Patient Portal for access to your information. You can also access the [facility] Patient Portal on the Footbalistic. Simply click on Health Records under HealthData and then click on the [employer] logo. HOW TO SAFELY DISPOSE OF PRESCRIPTION [...] Call your local pharmacy or go to http://Whitevector.Listnerd/5O9Nq2s to find one close to you.3.Make use of household items: Use cat litter or old coffee grounds to dispose medications if other options arenot available. Mix your drugs with these household products, seal them in an airtight container andthrow it into the garbage. Call [facility]: [phone] to be sure your drugs can be [...] aware that I should contact my doctor. 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 [address] [place] [address]. All rights reserved. This information is not intended as a substitute for professional medical care. Always follow yourhealthcare professional's instructions. Follow Up Care 07/21/2021 01:50:54 With:MARIA E WAYNE DO Address: [phone] When:2-4 days [facility] 05-28-2021 History of Present illness Narrative [...] There has been no change in prescription medications.-[facility] Work Phone: Evaluation + Plan note Future Appointments Appointment Date:07/22/2021 09:00:00 AM Scheduled Provider:MARIA E WAYNE DO Location:[facility] Appointment Type: OV [facility] Evaluation + Plan note Future Appointments Appointment Date:04/02/2023 10:00:00 AM Scheduled Provider:MARIA E WAYNE DO Location:[facility] Appointment Type:PC OV [facility] evaluation + Plan note Future Appointments Appointment Date:02/05/2023 05:30:00 PM Scheduled Provider:MARIA E WAYNE DO Location:[facility] Appointment Type:PC OV Appointment Date:02/24/2023 10:30:00 AM Scheduled Provider:MARIA E WAYNE DO Location:[facility] Appointment Type:PC OV Appointment Date:04/02/2023 10:00:00 AM Scheduled Provider:MARIA E WAYNE DO Location:[facility] Appointment Type: OV [facility] Evaluation + Plan note Future Appointments Appointment Date:08/16/2024 10:00:00 AM Scheduled Provider: Location:[facility] Appointment Type:PC Nurse BP Check Appointment Date:01/24/2025 10:00:00 AM Scheduled Provider:MARIA E WAYNE DO Location:[facility] Appointment Type:PC OV [facility] Evaluation + Plan note Future Appointments Appointment Date:04/25/2025 09:45:00 AM Scheduled Provider:KRISHNA SANCHES DO Location:[facility] Appointment Type:PC OV [facility] Evaluation + Plan note Future Appointments Appointment Date:07/11/2025 10:15:00 AM Scheduled Provider:KRISHNA SANCHES DO Location:[facility] Appointment Type:PC OV Future Scheduled Tests Laboratory* Apolipoprotein B 05/16/25 * TSH with Reflex to FT4 05/16/25 * Vitamin B12 Level 05/16/25 * A1C Hemoglobin 05/16/25 * Complete Blood Count 05/16/25 * Lipid Profile 05/16/25 * Vitamin D Level 05/16/25 * Complete Metabolic Panel 05/16/25 [facility] Evaluation noteNo assessment information available [facility] Work Phone: Hospital course Narrative No data available for this section [facility] Hospital Discharge instructions No data available for this section [facility] Progress note No data available for this section [facility] Family History No Family History Records [...] No January 21, 2016 7:54am 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 No January 20 16 7:54am Additional Source Comments (unrecognized sect ion and content) No Status Records FoundNo Status Records FoundNo Status Records FoundNo Status Records FoundNo Status Records Found INFORMATION SOURCE (unrecogn ized section and content) DATE CREATED AUTHOR 03/18/2021 [facility] DATE CREATED AUTHOR AUTHOR'S ORGANIZ ATION 03/18/2021 [facility] DATE CREATED AUTHOR AUTHOR'S ORGANIZ ATION 02/01/2023 [facility] ([place]) DATE CREATED AUTHOR AUTHOR'S ORGANIZ ATION 05/22/2025 [facility] DATE CREATED AUTHOR AUTHOR'S ORGANIZ ATION 05/30/2025 [facility] Goals (unrecognized section and content) Goals may be documented in a n alternate section Care Team (unrecognized sect ion and content) Care Team Personnel Name: MARIA E WAYNE DO Position: P4 Physician - Primary Care Member Role: Primary Care Physician Address: Address: [address] [place] [address] Name: JONATHAN Handley Position: AO RN Member Role: ED RN Name: MD EDWINA, DOUGLAS TENORIO Position: ED Physician Member Role: ED Physician Address: Address: [address] [place] [address] Care Team Related Persons Name: DAWN SAWANT Care Team Personnel Name: MARIA E WAYNE DO Position: P4 Physician - Primary Care Member Role: Primary Care Physician Address: Address: [address] [place] [address] Care Team Related Persons Name: DAWN SAWANT Patient Care team informatio n (unrecognized section and content) Care Team Personnel Name: MARIA E WAYNE DO Position: P4 Physician - Primary Care Member Role: Primary Care Physician Address: Address: [address] [place] [address] Name: JONATHAN Toth Position: AO RN Member Role: ED RN Name: CONCEPCION MARTINEZ DO Position: ED Physician Member Role: Attending Physician Address: Address: [address] [place] [address] Name: Umm Leigh RN Position: AO RN Member Role: ED RN Care Team Related Persons Name: DAWN SAWANT Care Team Personnel Name: MARIA E WAYNE DO Position: P4 Physician - Primary Care Member Role: Primary Care Physician Address: Address: [address] [place] [address] Care Team Related Persons Name: DAWN SAWANT Care Team Personnel Name: MARIA E WAYNE DO Position: P4 Physician - Primary Care Member Role: Primary Care Physician Address: [address] [place] [phone]- [place] [employer]: Care Team Related Persons Name: DAWN SAWANT Name: DAWN SAWANT Care Team Personnel Name: KRISHNA SANCHES Position: P4 Physician - Primary Care Member Role: Primary Care Physician Address: [address] [place] [address]- [place] [employer]: Care Team Related Persons Name: DAWN [...] BE BASED ON THE PRIMARY CLINICAL RECORDS. [employer] [facility]. provides no warranty or guarantee of the accuracy or completeness of information in this document.
[2025-06-16 11:04] LABS: Lithium 0.62 mmol/L (0.60-1.20)
== END | disposition home or self-care (01) ==
LOC: LAB 08:52
PROVIDERS: Referring Provider Student in an Organized Health Care Education/Training Program; Visit Provider Student in an Organized Health Care Education/Training Program
DX: F41.1 Generalized anxiety disorder (principal)
CPT/HCPCS: 36415; 80178